=== PATIENT | male | born 1965 | race Two or more races ===

== ENCOUNTER 2021-01-13 10:42 | Outpatient (REF) | payer MEDICAID, SELFPAY | END 2021-01-13 10:43 | disposition home or self-care (01) | LOC: HO.LAB 10:42 | PROVIDERS: PCP Internal Medicine; Visit Provider Internal Medicine | DX: Z20.822 Contact with and (suspected) exposure to COVID-19 (principal) | CPT/HCPCS: C9803; U0003; U0005 ==

== ENCOUNTER 2022-09-11 09:19 | Inpatient (IN) | payer OTHER, MEDICAID, SELFPAY ==
[2022-09-11] VITALS (13 sets, daily range): BP systolic 146–177; BP diastolic 60–93; PULSE 80–89; RESP 13–20; TEMP 36.4–37.4; O2SAT 97–100; BMI 22.4; BMI 21.2
--- NOTE | ~2022-09-11 | CT_ITS ---
EXAMINATION: CT ABDOMEN AND PELVIS WITH CONTRAST CLINICAL INFORMATION: Pancreatitis and severe anemia COMPARISON: Previous CT of the abdomen and pelvis most recent July 2019 TECHNIQUE: Multidetector volumetric images were obtained from the superior aspect of the liver through the pubic symphysis following administration 85 mL of Omnipaque 350 intravenous contrast. Sagittal and coronal reformatted images were obtained on the technologist's workstation. Oral contrast: Yes This CT examination was performed using dose optimization techniques as appropriate, variously including the following: *Automated exposure control *Adjustment of mA and/or kV according to patient size (this includes techniques or standardized protocols for targeted exams where dose is matched to indication/reason for exam; i.e. extremities or head) *Use of iterative reconstruction technique DLP: 391 mGy-cm FINDINGS: LUNG BASES: The visualized lung bases are unremarkable. LIVER, GALLBLADDER, AND BILIARY TREE: The liver is normal in size, shape, and attenuation. No focal hepatic lesion or biliary ductal dilatation is present. The gallbladder is unremarkable with no evidence of radiopaque gallstones, gallbladder wall thickening, or obvious pericholecystic inflammatory changes. PANCREAS: There is fluid seen surrounding the pancreas, in the left anterior pararenal fascia and left paracolic gutters suggestive of acute pancreatitis. No evidence of pancreatic hemorrhage. SPLEEN: Unremarkable. ADRENAL GLANDS: Unremarkable. KIDNEYS AND URETERS: The kidneys are normal in size, shape, and attenuation. No hydronephrosis, hydroureter, or calculi seen. No perinephric stranding. BLADDER: Not optimally distended. GASTROINTESTINAL TRACT: Fluid-filled loops of small and large bowel suggestive of an ileus. Mild diverticulosis of the colon. The appendix is unremarkable. ABDOMINAL WALL: Small umbilical hernia containing fat. LYMPH NODES: Normal. VASCULAR: Unremarkable. PELVIC VISCERA: Unremarkable. OSSEOUS STRUCTURES: Mild degenerative changes of the spine and hip joints. CT/CT abdomen pelvis w IV con IMPRESSION: Acute pancreatitis. No evidence of hemorrhage. Generalized ileus. Fleischner guidelines were followed.
--- NOTE | 2022-09-11 09:27 | ED.ABDPAIN ---
HPI - Abdominal Pain General Chief Complaint: Abdominal Pain Stated Complaint: r upper quad pain appy per ems Time Seen by Provider: 09/11/22 09:26 Source: patient and EMS Mode of arrival: EMS Limitations: no limitations History of Present Illness HPI narrative: patient with a history of pancreatitis secondary to alcohol, had been sober for 3 years now drinking for the past week. MD elicited complaint: abdominal pain Pertinent past history: other (pancreatitis) Onset (ago): day(s) Pain Consistency: constant Location: epigastric Severity: moderate Quality: sharp Related Data Allergies Allergy/AdvReac Type Severity Reaction Status Date / Time ciprofloxacin [From CIPRO] Allergy Intermediate HIVES/ITCH Verified 09/11/22 10:13 Penicillins [PCN] Allergy Intermediate HIVES Verified 09/11/22 10:13 penicillin V Allergy Unknown Rash Verified 09/11/22 10:13 LOBSTER Allergy Severe SWELLING Uncoded 01/21/20 14:54 From CIPRO Allergy Intermediate HIVES/ITCH Uncoded 01/21/20 14:54 Review of Systems Review of Systems Yes all other systems are reviewed and are negative Gastrointestinal: Reports abdominal pain PMFSH Social History Social History Alcohol intake: former Smoked in Last 30 Days: No Advance Directives: Yes Advance Directives Information Provided: Yes Advance Directives on File: No Physical Exam ED Vital Signs: Vital Signs - 24 hr 09/11/22 09:24 09/11/22 10:59 09/11/22 13:32 Temperature 97.7 F 97.6 F Pulse Rate 83 86 83 Respiratory Rate 18 16 16 Blood Pressure 155/60 H 155/74 H 156/81 H Pulse Oximetry 100 100 99 Oxygen Delivery Method Room Air Room Air Room Air BMI result Body Mass Index 22.4 Const General: healthy appearing Nutritional Appearance: average body habitus Orientation/consciousness: oriented to person and patient oriented x3 Limitations: no limitations HENMT Head: Yes normal to inspection Ears: external ears normal General nose exam: Normal external nose present Mouth: Normal oral and palatal mucosa present and oropharynx normal Throat: Yes posterior oropharynx normal Eyes General: appearance normal, both eyes and all related structures Neck Neck: Yes normal visual inspection Chest Chest palpation & inspection: normal inspection of the chest Resp Auscultation: clear to auscultation bilaterally Cardio Jugular venous distension: no JVD Rate: regular rate Rhythm: regular rhythm Heart sounds: S1 normal heart sound present and S2 normal heart sound present GI Other: epigastric pain General: Yes no CVA tenderness Back/Spine/Pelvis Back: no CVA tenderness Skin General skin exam: no rashes or lesions noted Neuro General: oriented to person and patient oriented x3 Cranial nerves: Yes CN's II-XII intact bilaterally Motor exam (neuro): 5/5 motor strength present throughout Extrem General: Yes normal to inspection Psych Appearance: grossly normal Course Reevaluation(s) Reevaluation #1: stool is yellow guiac negative Time: 10:52 Reevaluation #2: CT scan acute pancreatitis, no source of bleeding will admit. I spent 40 minutes of critical care, with interventions, assessments, speaking to patient, consultants, and family. Time: 15:14 Medical Decision Making Differential Diagnosis Differential Diagnoses: The differential diagnosis associated with the presentation includes (pancreatitis, alcohol withdrawal, gI bleed, anemia) Admission/Observation Consideration of admission/observation: Escalation of care including admission/observation considered (upon arrival this patient with known history of pancreatitis was considered for admission) Consult Healthcare Provider Management of the patient was discussed with: Hospitalist Lab Data MDM Lab Attestation statement: I reviewed the patient's lab results. (noticed loss of blood, no active bleeding found) 09/11/22 09:52 09/11/22 09:52 Labs: Lab Results 09/11/22 09/11/22 09/11/22 Range/Units 09:52 09:52 10:55 WBC 8.2 (4.8-10.8) X10*3/uL RBC 3.57 L (4.60-5.80) X10*6/uL Hgb 5.7 L* (14.0-18.0) g/dl Hct 22.6 L (42.0-52.0) % MCV 63.3 L (80.0-98.0) fL MCH 16.0 L (27.0-33.0) pg MCHC 25.2 L (31.0-36.0) g/dl RDW 20.4 H (11.0-16.0) % Plt Count 274 (160-400) X10*3/uL MPV 9.7 (9.4-12.4) fL Immature Gran % (Auto) 0.2 (0.0-0.4) % Neut % (Auto) 71.9 (45-73) % Lymph % (Auto) 14.3 L (20-40) % [place] % (Auto) 9.3 (2-11) % Eos % (Auto) 3.9 (0-4) % Baso % (Auto) 0.4 (0-2) % Lymph # (Auto) 1.2 (1.2-4.9) X10*3/uL [place] # (Auto) 0.8 (0.1-1.2) X10*3/uL Eos # (Auto) 0.3 (0.0-0.4) X10*3/uL Baso # (Auto) 0.0 (0.0-0.2) X10*3/uL Abs Immat Gran (auto) 0.02 (0.00-0.03) X10*3/uL Absolute Neuts (auto) 5.9 (2.0-8.3) x10*3/uL Absolute Nucleated RBC 0.000 (0.0-0.012) X10*3/uL Nucleated RBC % (auto) 0.0 (0.0-0.2) /100WBC Sodium 136 (135-145) mmol/L Potassium 4.1 (3.3-5.1) mmol/L Chloride 103 (96-108) mmol/L Carbon Dioxide 26 (22-29) mmol/L Anion Gap 11 L (12-20) BUN 8 L (9-16) mg/dL Creatinine 0.72 (0.5-1.4) mg/dL Estim Creat Clear Calc 102.0 Estimated GFR > 60 Random Glucose 147 H (60-115) mg/dL Calcium 9.1 (8.4-10.2) mg/dL Total Bilirubin 0.4 (0.0-1.0) mg/dL AST 55 H (5-37) U/L ALT 23 (0-40) U/L Alkaline Phosphatase 74 (39-117) U/L Total Protein 8.1 H (6.5-8.0) g/dL Albumin 3.7 (3.5-5.0) g/dL Lipase 306 H (8-78) U/L Blood Type O Negative Antibody Screen NEGATIVE 09/11/22 Range/Units 10:55 WBC 9.4 (4.8-10.8) X10*3/uL RBC 3.58 L (4.60-5.80) X10*6/uL Hgb 5.8 L* (14.0-18.0) g/dl Hct 23.0 L (42.0-52.0) % MCV 64.2 L (80.0-98.0) fL MCH 16.2 L (27.0-33.0) pg MCHC 25.2 L (31.0-36.0) g/dl RDW 20.6 H (11.0-16.0) % Plt Count 277 (160-400) X10*3/uL MPV 9.8 (9.4-12.4) fL Immature Gran % (Auto) 0.4 (0.0-0.4) % Neut % (Auto) 71.0 (45-73) % Lymph % (Auto) 14.5 L (20-40) % [place] % (Auto) 10.1 (2-11) % Eos % (Auto) 3.6 (0-4) % Baso % (Auto) 0.4 (0-2) % Lymph # (Auto) 1.4 (1.2-4.9) X10*3/uL [place] # (Auto) 1.0 (0.1-1.2) X10*3/uL Eos # (Auto) 0.3 (0.0-0.4) X10*3/uL Baso # (Auto) 0.0 (0.0-0.2) X10*3/uL Abs Immat Gran (auto) 0.04 H (0.00-0.03) X10*3/uL Absolute Neuts (auto) 6.6 (2.0-8.3) x10*3/uL Absolute Nucleated RBC 0.000 (0.0-0.012) X10*3/uL Nucleated RBC % (auto) 0.0 (0.0-0.2) /100WBC Sodium (135-145) mmol/L Potassium (3.3-5.1) mmol/L Chloride (96-108) mmol/L Carbon Dioxide (22-29) mmol/L Anion Gap (12-20) BUN (9-16) mg/dL Creatinine (0.5-1.4) mg/dL Estim Creat Clear Calc Estimated GFR Random Glucose (60-115) mg/dL Calcium (8.4-10.2) mg/dL Total Bilirubin (0.0-1.0) mg/dL AST (5-37) U/L ALT (0-40) U/L Alkaline Phosphatase (39-117) U/L Total Protein (6.5-8.0) g/dL Albumin (3.5-5.0) g/dL Lipase (8-78) U/L Blood Type Antibody Screen Radiology Impression Discussion of test interpretation with radiology: I have reviewed the radiologist's reading. (CT shows acute pancreatitis no source of blood) Independent Historian Clinical information obtained from an independent historian. History obtained from or confirmed by: EMS Chronic Conditions Patient?s care impacted by: Other (alcoholism) Social Determinants Patient?s care significantly limited by Social Determinants of Health including: Alcoholism and drug addiction in family Medications Administered Discontinued Medications Generic Name Dose Route Start Last Admin Trade Name Tushar PRN Reason Stop Dose Admin Sodium Chloride 1,000 mls @ 500 mls/hr 09/11/22 09:45 09/11/22 12:23 Ns IVCONT 09/11/22 11:44 Infused .Q2H CAITLYN Infusion Iohexol 100 ml 09/11/22 13:51 09/11/22 13:51 Iohexol 350 Mg/Ml 100 Ml Infus..Btl IV 09/11/22 13:52 85 ml ONCE ONE Administration Morphine Sulfate 4 mg 09/11/22 09:38 09/11/22 10:16 Morphine Sulfate 4 Mg/Ml Cartridge IVPUSH 09/11/22 09:39 4 mg ONCE ONE Administration Protocol Morphine Sulfate 4 mg 09/11/22 12:54 09/11/22 12:58 Morphine Sulfate 4 Mg/Ml Cartridge IVPUSH 09/11/22 12:55 4 mg ONCE ONE Administration Protocol Pantoprazole Sodium 40 mg 09/11/22 09:38 09/11/22 10:16 Pantoprazole Sodium 40 Mg/10 Ml Vial IVPUSH 09/11/22 09:39 40 mg ONCE ONE Administration Discharge Plan Discharge Clinical Impression: Pancreatitis, Anemia Patient Disposition: Admitted As Inpatient
[2022-09-11 09:57] LABS: MANUAL DIFF FLAG NO
[2022-09-11 10:15] LABS: Basophils Percent Auto 0.4 % (0-2); Eosinophils Absolute Auto 0.3 X10*3/uL (0.0-0.4); Eosinophils Percent Auto 3.9 % (0-4); Hematocrit 22.6 % (42.0-52.0); Imm Gran Abs Auto 0.02 X10*3/uL (0.00-0.03); Imm Gran Pct Auto 0.2 % (0.0-0.4); Lymphocytes Absolute Auto 1.2 X10*3/uL (1.2-4.9); Lymphocytes Percent Auto 14.3 % (20-40); Mean Corpuscular HGB Conc 25.2 g/dl (31.0-36.0); Mean Corpuscular Volume 63.3 fL (80.0-98.0); Mean Platelet Volume 9.7 fL (9.4-12.4); Monocytes Absolute Auto 0.8 X10*3/uL (0.1-1.2); Monocytes Percent Auto 9.3 % (2-11); Neutrophils Absolute Auto 5.9 x10*3/uL (2.0-8.3); Neutrophils Percent Auto 71.9 % (45-73); Platelet Count 274 X10*3/uL (160-400); Red Blood Count 3.57 X10*6/uL (4.60-5.80); Red Cell Distribution Width 20.4 % (11.0-16.0); White Blood Count 8.2 X10*3/uL (4.8-10.8)
[2022-09-11] MEDS: Pantoprazole Sodium 40 MG/10 ML VIAL IVPUSH ×2 (10:16→17:00)
[2022-09-11] MEDS: 0.9 % Sodium Chloride 1,000 ML 500 ML IVCONT (10:16)
[2022-09-11] MEDS: Morphine Sulfate 4 MG/ML CARTRIDGE IVPUSH ×2 (10:16→12:58)
[2022-09-11 10:17] LABS: Hemoglobin 5.7 g/dl (14.0-18.0)
[2022-09-11 11:01] LABS: MANUAL DIFF FLAG NO
[2022-09-11 11:07] LABS: Basophils Percent Auto 0.4 % (0-2); Eosinophils Absolute Auto 0.3 X10*3/uL (0.0-0.4); Eosinophils Percent Auto 3.6 % (0-4); Imm Gran Abs Auto 0.04 X10*3/uL (0.00-0.03); Imm Gran Pct Auto 0.4 % (0.0-0.4); Lymphocytes Absolute Auto 1.4 X10*3/uL (1.2-4.9); Lymphocytes Percent Auto 14.5 % (20-40); Mean Corpuscular HGB Conc 25.2 g/dl (31.0-36.0); Mean Corpuscular Hemoglobin 16.2 pg (27.0-33.0); Mean Platelet Volume 9.8 fL (9.4-12.4); Monocytes Percent Auto 10.1 % (2-11); Neutrophils Absolute Auto 6.6 x10*3/uL (2.0-8.3); Platelet Count 277 X10*3/uL (160-400); Red Blood Count 3.58 X10*6/uL (4.60-5.80); Red Cell Distribution Width 20.6 % (11.0-16.0); White Blood Count 9.4 X10*3/uL (4.8-10.8)
[2022-09-11 11:09] LABS: Hemoglobin 5.8 g/dl (14.0-18.0); Mean Corpuscular Volume 64.2 fL (80.0-98.0)
[2022-09-11 11:59] LABS: Alanine Aminotransferase 23 U/L (0-40); Albumin Level 3.7 g/dL (3.5-5.0); Alkaline Phosphatase 74 U/L (39-117); Anion Gap 11 (12-20); Aspartate Amino Transferase 55 U/L (5-37); Bilirubin Total 0.4 mg/dL (0.0-1.0); Blood Urea Nitrogen 8 mg/dL (9-16); Calcium 9.1 mg/dL (8.4-10.2); Carbon Dioxide 26 mmol/L (22-29); Chloride 103 mmol/L (96-108); Estimated Glomerular Filt Rate > 60; Glucose Random 147 mg/dL (60-115); Potassium 4.1 mmol/L (3.3-5.1); Sodium 136 mmol/L (135-145); Total Protein 8.1 g/dL (6.5-8.0)
[2022-09-11 12:15] LABS: Lipase 306 U/L (8-78)
--- NOTE | 2022-09-11 12:24 | PC.NURSE ---
Pt alert and oriented, resp even and unlabored. 2 IVs established, consent for blood signed. Awaiting blood for transfusion. Complaining of 8/ abd pain states morphine only works for so long
[2022-09-11] MEDS: iohexoL 350 MG/ML 100 ML INFUS..BTL IV (13:51)
--- NOTE | 2022-09-11 14:34 | MHC.EDTECH ---
Assisted pt to ambulate to bathroom
--- NOTE | 2022-09-11 15:41 | PHA.MEDREC ---
Pharmacy Consult ? Medication Reconciliation Pharmacy has completed the medication reconciliation.
--- NOTE | 2022-09-11 15:43 | PM.EVENT ---
Event Note Date of Service: 09/19/22 Event Note: The patient was seen and evaluated with LAUREL Wilson. I agree with her note, assessment and plan with the following. A 56 yeats old male with PMH of alcohol abuse presents to ED with abdomianl pain. found to have an evidence of alcoholic pancreatitis along with acute on chronic anemia. Start IVF Nausea and pain meds CIWA Iron profile Transfuse 2 units of blood GI eval Rest of evaluations by PA note. Time Spent With Patient Time: Total time managing care of this patient today ____ minutes.
[2022-09-11 15:49] LABS: Iron 12 mcg/dL (45-160); Percent Iron Saturation 3 % (15-50); Total Iron Binding Capacity 433 mcg/dL (228-428); Unsaturated Iron Binding 421 ug/dL
[2022-09-11] MEDS: HYDROmorphone HCl 0.5 MG/0.5 ML SYRINGE 0.25 MG IVPUSH ×3 (15:59→22:09)
--- NOTE | 2022-09-11 16:02 | PM.IMHP ---
History of Present Illness Date of Service: 09/11/22 Attending physician on admission: Bibiana Pelaez Chief Complaint: abd pain 56 year old male with history alcohol use disorder, history pancreatitis, and GERD presented to the ED earlier today with his (Thu) and daughter (Lashae) for evaluation of diffuse abdominal pain with nausea and vomiting onoging for 4 days. Patient had been sober from alcohol for 3 years but relapsed 3 weeks ago. Has been consuming 1 drink daily but about a 6 pack over the weekend, last drink was saturday. Denies withdrawal symptoms. Reports abd pain has been worsening and is now severe, tearful and clutching abdomen during exam. On arrival mildly hypertensive at 156/81, vitals otherwsie stable. No leukocytosis. H/H 5.8/23%, MCV 64.2%, iron 12, TIBC 433, %satruation 3%. Total bili 0.4, AST 55, ALT 23, lipase 306. CT abdomen/pelvis showing acute pancreatitis but no evidence of hemorrhage. Also generalized ileus. Patient denies any fevers, chills, constipation, diarrhea, melena, hematochezia, shortness of breath, lightheadedness, weakness, chest pain. He denies having ever had a colonoscopy. While in the ED, pain managed with 4 mg IV morphine which patient states has not been helpful for more than a brief period. Has also received 1 L IVF, IV pantoprazole. Review of Systems Review of Systems: General: No fevers, malaise, unintentional weight loss HEENT: No blurred vision, diplopia. No sore throat, nasal congestion, rhinorrhea, sinus pain, ear pain Cardiovascular: No chest pain, palpitations, or leg edema Respiratory: No shortness of breath, wheezing, cough GI: +abd pain, +n/v. No diarrhea, constipation, melena, hematochezia : No dysuria, hematuria, increased urinary frequency, decreased urinary output MSK: No myalgia, back pain Neuro: No headaches, weakness, paresthesias Skin: No rashes or lesions [facility] Medical History Alcohol use disorder Social History (Updated 09/11/22 @ 16:16 by LAUREL Wilson) Alcohol intake: current Alcohol intake frequency: 0-2 drinks per day Smoked in Last 30 Days: No Advance Directives: Yes Advance Directives Information Provided: Yes Advance Directives on File: No Meds Allergies Allergy/AdvReac Type Severity Reaction Status Date / Time ciprofloxacin [From CIPRO] Allergy Intermediate HIVES/ITCH Verified 09/11/22 10:13 Penicillins [PCN] Allergy Intermediate HIVES Verified 09/11/22 10:13 penicillin V Allergy Unknown Rash Verified 09/11/22 10:13 LOBSTER Allergy Severe SWELLING Uncoded 01/21/20 14:54 From CIPRO Allergy Intermediate HIVES/ITCH Uncoded 01/21/20 14:54 Active Medications: Current Medications Acetaminophen (Acetaminophen 325 Mg Tablet) 650 mg PO Q6H PRN PRN Reason: Pain, Mild (Pain Scale 1-3) Docusate Sodium (Docusate Sodium 100 Mg Capsule) 100 mg PO DAILY PRN PRN Reason: Constipation Hydromorphone HCl (Hydromorphone Hcl 0.5 Mg/0.5 Ml Syringe) 0.25 mg IVPUSH Q3H PRN; Protocol PRN Reason: Pain, Severe (Pain Scale 7-10) Last Admin: 09/11/22 15:59 Dose: 0.25 mg Lactated Ringer's (Lr) 1,000 mls @ 150 mls/hr IVCONT .Q6H40M CAITLYN Ondansetron HCl (Ondansetron Hcl 4 Mg/2 Ml Vial) 4 mg IVPUSH Q8H PRN PRN Reason: Nausea and Vomiting Oxycodone HCl (Oxycodone Hcl Immed Release 5 Mg Tablet) 5 mg PO Q6H PRN PRN Reason: Pain, Moderate(Pain Scale 4-6) Home Medications Medication Instructions Recorded Confirmed Last Taken Type omeprazole magnesium 20 mg 20 mg PO DAILY 09/11/22 09/11/22 09/10/22 History tablet,delayed release (Prilosec OTC) vitamin B complex 1 tab PO DAILY 09/11/22 09/11/22 09/10/22 History Physical Exam Vital Signs and Narrative: Vital Signs: Last Vital Signs Temp 97.6 F 09/11/22 10:59 Pulse 83 09/11/22 13:32 Resp 16 09/11/22 13:32 BP 156/81 H 09/11/22 13:32 Pulse Ox 99 09/11/22 13:32 O2 Del Method Room Air 09/11/22 13:32 BMI result Body Mass Index 22.4 Constitutional - Awake and Alert, in moderate distress 2/2 pain, tearful Eyes - PERRLA, EOMI Cardiovascular - S1S2, RRR, No edema Respiratory - Normal lung expansion, Normal respiratory effort, No respiratory distress, CTA bilaterally Gastrointestinal - softly distended, diffusely tender with voluntary guarding, no rebound. +BS - No CVA tenderness Extremities - no calf tenderness bilaterally, no swelling Skin - Warm/Dry Neurological - Alert & oriented x3 Results Labs 09/11/22 10:55 09/11/22 09:52 Labs: Laboratory Results - last 24 hr 09/11/22 09/11/22 09/11/22 09:52 09:52 10:55 MCV 63.3 L MCH 16.0 L MCHC 25.2 L RDW 20.4 H Plt Count 274 MPV 9.7 Immature Gran % (Auto) 0.2 Neut % (Auto) 71.9 Lymph % (Auto) 14.3 L [place] % (Auto) 9.3 Eos % (Auto) 3.9 Baso % (Auto) 0.4 Lymph # (Auto) 1.2 [place] # (Auto) 0.8 Eos # (Auto) 0.3 Baso # (Auto) 0.0 Abs Immat Gran (auto) 0.02 Absolute Neuts (auto) 5.9 Absolute Nucleated RBC 0.000 Nucleated RBC % (auto) 0.0 Anion Gap 11 L Estim Creat Clear Calc 102.0 Estimated GFR > 60 Random Glucose 147 H Calcium 9.1 Iron 12 L TIBC 433 H % Saturation 3 L Unsat Iron Binding 421 Total Bilirubin 0.4 AST 55 H ALT 23 Alkaline Phosphatase 74 Total Protein 8.1 H Albumin 3.7 Lipase 306 H Blood Type O Negative Antibody Screen NEGATIVE Crossmatch See Detail 09/11/22 10:55 MCV 64.2 L MCH 16.2 L MCHC 25.2 L RDW 20.6 H Plt Count 277 MPV 9.8 Immature Gran % (Auto) 0.4 Neut % (Auto) 71.0 Lymph % (Auto) 14.5 L [place] % (Auto) 10.1 Eos % (Auto) 3.6 Baso % (Auto) 0.4 Lymph # (Auto) 1.4 [place] # (Auto) 1.0 Eos # (Auto) 0.3 Baso # (Auto) 0.0 Abs Immat Gran (auto) 0.04 H Absolute Neuts (auto) 6.6 Absolute Nucleated RBC 0.000 Nucleated RBC % (auto) 0.0 Anion Gap Estim Creat Clear Calc Estimated GFR Random Glucose Calcium Iron TIBC % Saturation Unsat Iron Binding Total Bilirubin AST ALT Alkaline Phosphatase Total Protein Albumin Lipase Blood Type Antibody Screen Crossmatch Imaging Radiologist's Impressions: Impressions Abdomen/Pelvis CT 09/11/22 13:49 IMPRESSION: Acute pancreatitis. No evidence of hemorrhage. Generalized ileus. Fleischner guidelines were followed. Assessment and Plan (1) Pancreatitis: Status: Acute (2) Alcohol use disorder: Status: Acute Plan 56 year old male with history alcohol use disorder, history pancreatitis, and GERD admitted for acute alcoholic pancreatitis with chronic blood loss anemia. #Acute alcoholic pancreatitis -Sober x 3 years, relapsed 3 weeks ago -CT abd/pelvis showing acute pancreatitis -Lipase 306 -Aggressive IVF with LR @@150ml/hr -Pain management on pain scale with tylenol/oxycodone/dilaudid -ondansetron prn -NPO, advance as tolerated #Alcohol use disorder -MOnitor on CIWA -No evidence of withdrawal at this time -Addiction medicine consult #Iron deficiency anemia- likely related to chronic GI bleeding (probably lower) -Will continue IV PPI for now -Transfused 2 units in ED -Guiac negative -has never had colonoscopy, appreciate GI input -Follow CBC -Keep NPO as above #GERD -continue ppi DVT prophylaxis- SCPs full code pt requires inpt stay at least 2 midnights for management of acute pancreatitis requiring aggressive IVF, IV pain control, and diet advancement Time Spent With Patient Time: Total time managing care of this patient today ____ minutes. Quality Stroke Does the patient have a stroke diagnosis?: No VTE Prior VTE?: No VTE Risk Level:: Medical - moderate - high VTE Device Contraindication: N/A - Device Ordered VTE Drug Contraindication: Treatment Not Indicated
[2022-09-11] MEDS: oxyCODONE HCl Immed Release 5 MG TABLET PO ×2 (17:00→23:55)
[2022-09-11] MEDS: Lactated Ringers 1,000 ML 150 ML IVCONT ×2 (17:48→23:49)
[2022-09-11] MEDS: HYDROmorphone HCl 1 MG/ML SYRINGE IVPUSH (22:52)
[2022-09-12] VITALS (9 sets, daily range): BP systolic 156–177; BP diastolic 78–93; PULSE 82–89; RESP 16–20; TEMP 36.9–37.5; O2SAT 96–100
[2022-09-12] MEDS: HYDROmorphone HCl 1 MG/ML SYRINGE 2 MG IVPUSH (01:39)
[2022-09-12] MEDS: diphenhydrAMINE HCL 50 MG/ML VIAL IVPUSH ×2 (01:52→23:05)
[2022-09-12] MEDS: HYDROmorphone HCl 1 MG/ML SYRINGE IVPUSH ×6 (05:01→23:07)
[2022-09-12] MEDS: Pantoprazole Sodium 40 MG/10 ML VIAL IVPUSH ×2 (05:02→17:19)
[2022-09-12] MEDS: Lactated Ringers 1,000 ML 150 ML IVCONT ×3 (05:03→17:37)
[2022-09-12 06:25] LABS: Basophils Percent Auto 0.4 % (0-2); Eosinophils Absolute Auto 0.3 X10*3/uL (0.0-0.4); Eosinophils Percent Auto 2.3 % (0-4); Hematocrit 26.6 % (42.0-52.0); Hemoglobin 7.5 g/dl (14.0-18.0); Imm Gran Abs Auto 0.05 X10*3/uL (0.00-0.03); Imm Gran Pct Auto 0.5 % (0.0-0.4); Lymphocytes Absolute Auto 1.6 X10*3/uL (1.2-4.9); Lymphocytes Percent Auto 14.4 % (20-40); MANUAL DIFF FLAG SCAN; Mean Corpuscular HGB Conc 28.2 g/dl (31.0-36.0); Mean Corpuscular Hemoglobin 18.9 pg (27.0-33.0); Mean Platelet Volume 10.2 fL (9.4-12.4); Monocytes Absolute Auto 1.1 X10*3/uL (0.1-1.2); Monocytes Percent Auto 10.1 % (2-11); NRBC Pct Auto 0.4 /100WBC (0.0-0.2); Neutrophils Percent Auto 72.3 % (45-73); PLT CLUMP 1; Red Blood Count 3.97 X10*6/uL (4.60-5.80); Red Cell Distribution Width 24.4 % (11.0-16.0); SCAN SMEAR FLAG 1
--- NOTE | 2022-09-12 06:30 | PM.GICN ---
History of Present Illness Data of Consult Service Date: 09/12/22 Requesting physician: Melissa Amor Primary Care Provider: Guido Joe MD HPI Reason for consult: iron def anemia 56 year old male with history alcohol use disorder, history of pancreatitis, and GERD who I am seeing for assessment for BONNIE He initially came to ED for for evaluation of severe 10/10 diffuse, burning abdominal pain going into the back with nausea and bilious vomiting ongoing for 4 days.Has been consuming 1 drink daily but about a 6 pack over the weekend, last drink was saturday. No relieving or exacerbating factors to pain Patient does admit to taking advil daily for the last year or so for various pains. Patient denies any fevers, chills, constipation, diarrhea, melena, hematochezia, shortness of breath, lightheadedness, weakness, chest pain.? He denies having ever had a colonoscopy LABS: No leukocytosis. H/H 5.8/23%, MCV 64.2%, iron 12, TIBC 433, saturation 3%. Total bili 0.4, AST 55, ALT 23, lipase 306.? IMAGING: CT abdomen/pelvis showing acute pancreatitis but no evidence of hemorrhage with generalized ileus.? PMFSH Past Medical History Medical History Alcohol use disorder Family History Pertinent family history: no FH of CRC Social History Social History Household Members: Spouse Housing: Apartment Do you presently have visiting nurse or other home services: No Alcohol intake: current Alcohol intake frequency: 0-2 drinks per day Patient Tobacco Use Status: Never used Tobacco Smoked in Last 30 Days: No Use of substances other than those prescribed or required for medical reasons: No Currently Displaying Signs/Symptoms of Drug Intoxication Withdrawal: No Have you been hit, kicked, punched, or otherwise hurt by someone within the past year? If so, by whom?: No Do you feel safe in your current relationship?: Yes Is there a partner from a previous relationship who is making you feel unsafe now?: No Are you made to feel afraid or neglected: No Yazidism Healthcare Practices: n/a Advance Directives: Yes Advance Directives Information Provided: Yes Advance Directives on File: No Advance Directives Date on File: 09/11/22 Do you have thoughts of harming others: None Do you have a plan to hurt others: No Plan Recently lost weight without trying: No How much weight loss: Not applicable Eating poorly because of decreased appetite: No Nutrition screen score: 0 Nutrition Risks: No Nutritional Risk Poor oral hygiene: No service: No Current occupational status: employed Meds Allergies Allergy/AdvReac Type Severity Reaction Status Date / Time ciprofloxacin [From CIPRO] Allergy Intermediate HIVES/ITCH Verified 09/11/22 10:13 Penicillins [PCN] Allergy Intermediate HIVES Verified 09/11/22 10:13 penicillin V Allergy Unknown Rash Verified 09/11/22 10:13 LOBSTER Allergy Severe SWELLING Uncoded 01/21/20 14:54 From CIPRO Allergy Intermediate HIVES/ITCH Uncoded 01/21/20 14:54 Active Medications: Current Medications Acetaminophen (Acetaminophen 325 Mg Tablet) 650 mg PO Q6H PRN PRN Reason: Pain, Mild (Pain Scale 1-3) Docusate Sodium (Docusate Sodium 100 Mg Capsule) 100 mg PO DAILY PRN PRN Reason: Constipation Folic Acid (Folic Acid 1 Mg Tablet) 1 mg PO DAILY [facility] Hydromorphone HCl (Hydromorphone Hcl 1 Mg/Ml Syringe) 1 mg IVPUSH Q3H PRN; Protocol PRN Reason: Pain, Severe (Pain Scale 7-10) Last Admin: 09/12/22 05:01 Dose: 1 mg Lactated Ringer's (Lr) 1,000 mls @ 150 mls/hr IVCONT .Q6H40M [facility] Last Admin: 09/12/22 05:03 Dose: 150 mls/hr Multivitamins/Vitamin C (Multivitamin Tablet) 1 tab PO DAILY [facility] Ondansetron HCl (Ondansetron Hcl 4 Mg/2 Ml Vial) 4 mg IVPUSH Q8H PRN PRN Reason: Nausea and Vomiting Oxycodone HCl (Oxycodone Hcl Immed Release 5 Mg Tablet) 5 mg PO Q4H PRN PRN Reason: Pain, Moderate(Pain Scale 4-6) Last Admin: 09/11/22 23:55 Dose: 5 mg Pantoprazole Sodium (Pantoprazole Sodium 40 Mg/10 Ml Vial) 40 mg IVPUSH BID@0630,1630 [facility] Last Admin: 09/12/22 05:02 Dose: 40 mg Thiamine HCl (Thiamine Hcl 100 Mg Tablet) 100 mg PO DAILY [facility] Home Medications Medication Instructions Recorded Confirmed Last Taken Type omeprazole magnesium 20 mg 20 mg PO DAILY 09/11/22 09/11/22 09/10/22 History tablet,delayed release (Prilosec OTC) vitamin B complex 1 tab PO DAILY 09/11/22 09/11/22 09/10/22 History Physical Exam Vital Signs: Vital Signs: Last Vital Signs Temp 99.5 F 09/12/22 04:00 Pulse 86 09/12/22 04:00 Resp 20 09/12/22 00:03 BP 159/86 H 09/12/22 04:00 Pulse Ox 96 09/12/22 04:00 O2 Del Method Room Air 09/12/22 04:00 BMI result Body Mass Index 21.2 EXAM: GENERAL: The patient is well developed and nontoxic. VITAL SIGNS:see workflow HEENT: Nonicteric sclerae, PERRLA, EOMI. Oropharynx clear. Moist mucous membranes. Conjunctivae appear well perfused. No thyroid mass. CHEST: Chest wall is nontender. HEART: Regular rate and rhythm without murmurs. LUNGS: Clear to auscultation bilaterally. ABDOMEN: Soft, positive bowel sounds, tender epigastrium, no organomegaly.no flank tenderness SKIN: No rash, no excessive bruising, petechiae, or purpura. NEUROLOGIC: Cranial nerves II-XII intact without motor/sensory deficit. Psych: Appearance: grossly normal Results Labs 09/11/22 10:55 09/11/22 09:52 Labs: Short CBC 09/11/22 09/11/22 Range/Units 09:52 10:55 WBC 8.2 9.4 (4.8-10.8) X10*3/uL Hgb 5.7 L* 5.8 L* (14.0-18.0) g/dl Hct 22.6 L 23.0 L (42.0-52.0) % Plt Count 274 277 (160-400) X10*3/uL BMP 09/11/22 09:52 Sodium 136 Potassium 4.1 Chloride 103 Carbon Dioxide 26 BUN 8 L Creatinine 0.72 Calcium 9.1 Liver Function 09/11/22 Range/Units 09:52 Total Bilirubin 0.4 (0.0-1.0) mg/dL AST 55 H (5-37) U/L ALT 23 (0-40) U/L Alkaline Phosphatase 74 (39-117) U/L Albumin 3.7 (3.5-5.0) g/dL Imaging CT scan - abdomen: My impression: atherosclerosis, pancreatitis, and stranding Assessment and Plan (1) Pancreatitis: Status: Acute (2) Alcohol use disorder: Status: Acute (3) Anemia: Qualifiers: Anemia type: iron deficiency Status: Acute Plan 1/ Acute pancreatitis, 2/2 alcohol use 2/ Iron def anemia, with microcytic anemia compatible with low level chronic blood loss, HGB went up appropriately with PRBC, may have NSAID induced damage to GI tract, PUD, neoplasia PLAN: /1/ LR with analgesia, allow PO diet when able 2/ will need EGD and colonoscopy either as i/p or early o/p once the pancreatitis is resolved ---pls let me know the disposition timing so we can arrange as appropriate Time Spent With Patient Time: Total time managing care of this patient today ____ minutes. Procedures Date of Service Date of Service: 09/12/22
[2022-09-12 06:46] LABS: SLIDE REVIEW VERIFIED
[2022-09-12 06:52] LABS: Anion Gap 12 (12-20); Blood Urea Nitrogen 5 mg/dL (9-16); Calcium 8.5 mg/dL (8.4-10.2); Carbon Dioxide 22 mmol/L (22-29); Chloride 105 mmol/L (96-108); Creatinine Clr Calc Pharmacy 124.1; Estimated Glomerular Filt Rate > 60; Glucose Random 103 mg/dL (60-115); Potassium 3.9 mmol/L (3.3-5.1); Sodium 135 mmol/L (135-145)
[2022-09-12] MEDS: Thiamine HCL 100 MG TABLET PO (08:17)
[2022-09-12] MEDS: Multivitamin TABLET 1 TAB PO (08:17)
[2022-09-12] MEDS: Folic Acid 1 MG TABLET PO (08:17)
--- NOTE | 2022-09-12 08:40 | MHC.CM.PN ---
CM met with Patient at bedside. Patient lives in an apartment with his and he required no services nor DME [employer]. Home self care vs Recovery Team intervention r/t ETOH is the tentative plan and CM has initiated and will follow for dc planning. Patient has received J&J/Covid vax and his PCP is Dr. Guido Joe.
--- NOTE | 2022-09-12 11:10 | P.PNIM_ITS ---
Subjective Subjective Date of Service: 09/12/22 Interval History: no appetitie Physical Exam Vital Signs: Vital Signs: Last Vital Signs Temp 98.7 F 09/12/22 07:32 Pulse 88 09/12/22 07:32 Resp 20 09/12/22 08:17 BP 156/78 H 09/12/22 07:32 Pulse Ox 97 09/12/22 07:32 O2 Del Method Room Air 09/12/22 07:32 BMI result Body Mass Index 21.2 abd tender, non distended, no obvious [facility] Objective Data Active Medications Acetaminophen (Acetaminophen 325 Mg Tablet) 650 mg PO Q6H PRN PRN Reason: Pain, Mild (Pain Scale 1-3) Docusate Sodium (Docusate Sodium 100 Mg Capsule) 100 mg PO DAILY PRN PRN Reason: Constipation Folic Acid (Folic Acid 1 Mg Tablet) 1 mg PO DAILY [facility] Last Admin: 09/12/22 08:17 Dose: 1 mg Documented By: ALMITA Hydromorphone HCl (Hydromorphone Hcl 1 Mg/Ml Syringe) 1 mg IVPUSH Q3H PRN; Protocol PRN Reason: Pain, Severe (Pain Scale 7-10) Last Admin: 09/12/22 08:17 Dose: 1 mg Documented By: ALMITA Lactated Ringer's (Lr) 1,000 mls @ 150 mls/hr IVCONT .Q6H40M [facility] Last Admin: 09/12/22 05:03 Dose: 150 mls/hr Documented By: GAETANO Multivitamins/Vitamin C (Multivitamin Tablet) 1 tab PO DAILY [facility] Last Admin: 09/12/22 08:17 Dose: 1 tab Documented By: ALMITA Ondansetron HCl (Ondansetron Hcl 4 Mg/2 Ml Vial) 4 mg IVPUSH Q8H PRN PRN Reason: Nausea and Vomiting Oxycodone HCl (Oxycodone Hcl Immed Release 5 Mg Tablet) 5 mg PO Q4H PRN PRN Reason: Pain, Moderate(Pain Scale 4-6) Last Admin: 09/11/22 23:55 Dose: 5 mg Documented By: GAETANO Pantoprazole Sodium (Pantoprazole Sodium 40 Mg/10 Ml Vial) 40 mg IVPUSH BID@0630,1630 [facility] Last Admin: 09/12/22 05:02 Dose: 40 mg Documented By: GAETANO Thiamine HCl (Thiamine Hcl 100 Mg Tablet) 100 mg PO DAILY [facility] Last Admin: 09/12/22 08:17 Dose: 100 mg Documented By: ALMITA Labs 09/12/22 05:52 09/12/22 05:52 Labs: Laboratory Results - last 24 hr 09/11/22 09/11/22 09/11/22 09:52 09:52 10:55 MCV MCH MCHC RDW Plt Count MPV Immature Gran % (Auto) Neut % (Auto) Lymph % (Auto) [place] % (Auto) Eos % (Auto) Baso % (Auto) Lymph # (Auto) [place] # (Auto) Eos # (Auto) Baso # (Auto) Abs Immat Gran (auto) Absolute Neuts (auto) Absolute Nucleated RBC Nucleated RBC % (auto) Smear Tech's Comments Smear Path Review SEE NOTE Anion Gap 11 L Estim Creat Clear Calc 102.0 Estimated GFR > 60 Random Glucose 147 H Calcium 9.1 Iron 12 L TIBC 433 H % Saturation 3 L Unsat Iron Binding 421 Total Bilirubin 0.4 AST 55 H ALT 23 Alkaline Phosphatase 74 Total Protein 8.1 H Albumin 3.7 Lipase 306 H Blood Type O Negative Antibody Screen NEGATIVE Crossmatch See Detail 09/11/22 09/12/22 09/12/22 10:55 05:52 05:52 MCV 64.2 L 67.0 L MCH 16.2 L 18.9 L MCHC 25.2 L 28.2 L RDW 20.6 H 24.4 H Plt Count 277 TNP MPV 9.8 10.2 Immature Gran % (Auto) 0.4 0.5 H Neut % (Auto) 71.0 72.3 Lymph % (Auto) 14.5 L 14.4 L [place] % (Auto) 10.1 10.1 Eos % (Auto) 3.6 2.3 Baso % (Auto) 0.4 0.4 Lymph # (Auto) 1.4 1.6 [place] # (Auto) 1.0 1.1 Eos # (Auto) 0.3 0.3 Baso # (Auto) 0.0 0.0 Abs Immat Gran (auto) 0.04 H 0.05 H Absolute Neuts (auto) 6.6 8.0 Absolute Nucleated RBC 0.000 0.040 H Nucleated RBC % (auto) 0.0 0.4 H Smear Tech's Comments VERIFIED Smear Path Review Anion Gap 12 Estim Creat Clear Calc 124.1 Estimated GFR > 60 Random Glucose 103 Calcium 8.5 D Iron TIBC % Saturation Unsat Iron Binding Total Bilirubin AST ALT Alkaline Phosphatase Total Protein Albumin Lipase Blood Type Antibody Screen Crossmatch Assessment and Plan (1) Pancreatitis: Status: Acute Plan 56M PMH alcohol dependence, history of pancreatitis, and GERD presented with abdominal pain, found to have acute pancreatitis and significant iron deficiency anemia Acute alcoholic pancreatitis Sober x 3 years, relapsed [address] abd/pelvis showing acute pancreatitis Aggressive IVF with LR @@150ml/hr Pain management still no appetite, still npo etoh dependence Monitor on CIWA No evidence of withdrawal at this time Addiction medicine Iron deficiency anemia- likely related to chronic GI bleeding continue IV PPI for now Transfused 2 units in ED Guiac negative GI evalt Follow CBC DVT prophylaxis- SCPs due to severe anemia full code reason for continued hospitalization: not tolerating po Time Spent With Patient Time: Total time managing care of this patient today ____ minutes. Quality Stroke Does the patient have a stroke diagnosis?: No VTE Prior VTE?: No VTE Risk Level:: Medical - moderate - high VTE Device Contraindication: N/A - Device Ordered VTE Drug Contraindication: Treatment Not Indicated
--- NOTE | 2022-09-12 13:19 | MHC.RECOVRN ---
Met with pt in 450 after consult placed to Addiction Medicine. Pt sitting in bed, awake, alert, difficult to engage in conversation due to reported pain r/t pancreatitis. Pt reports drinking alcohol, one [employer], daily at lunch. Pt reports hx hard alcohol use, not current. Pt reports drinking beer, a 6 pack daily, but found his tolerance increased so switched to [employer]. Pt difficult to obtain hx from as he frequently redirects conversation back to pain and pain management. During conversation, pt reports using illicit Suboxone, unable to quantify amount, states little pieces. Pt does endorse opioid withdrawal symptoms when not taking Suboxone. Pt also reports cocaine use. Discussed outpatient support, including the [facility]3]. Pt ambivalent regarding being connected to recovery support. Pt open to meeting with Abril Hatfield APRN, to further discuss substance use and options for further support. Discussed with Abril Hatfield APRN.
--- NOTE | 2022-09-12 15:44 | P.EN_ITS ---
Event Note Date of Service: 09/12/22 Event Note: Addiciton follow up This comic book writer attempted to meet with patient regarding disclosure to RN earlier that he has been taking non prescribed suboxone. present in room, this comic book writer asked patient regarding consent to discuss health issues in front of , patient requested this comic book writer return in the morning. Time Spent With Patient Time: Total time managing care of this patient today ____ minutes.
--- NOTE | 2022-09-12 15:44 | PM.EVENT ---
Event Note Date of Service: 09/12/22 Event Note: Addiciton follow up This auto service writer attempted to meet with patient regarding disclosure to RN earlier that he has been taking non prescribed suboxone. present in room, this auto service writer asked patient regarding consent to discuss health issues in front of , patient requested this auto service writer return in the morning. Time Spent With Patient Time: Total time managing care of this patient today ____ minutes.
[2022-09-12] MEDS: oxyCODONE HCl Immed Release 5 MG TABLET PO (17:19)
--- NOTE | 2022-09-12 18:29 | PC.NURSE ---
pt currently refusing Bed and chair alrm. Pt educated on need for fall prevention measures, but is still refusing. aware.
[2022-09-13] VITALS: BP 153/74; PULSE 74; RESP 16; TEMP 37.5; O2SAT 97
[2022-09-13] MEDS: Lactated Ringers 1,000 ML 150 ML IVCONT ×3 (00:23→12:21)
[2022-09-13 03:24] VITALS: BP 158/78; PULSE 82; RESP 16; TEMP 36.7; O2SAT 97
[2022-09-13] MEDS: HYDROmorphone HCl 1 MG/ML SYRINGE IVPUSH ×6 (03:30→22:39)
[2022-09-13] MEDS: Pantoprazole Sodium 40 MG/10 ML VIAL IVPUSH (05:33)
[2022-09-13] MEDS: oxyCODONE HCl Immed Release 5 MG TABLET PO ×4 (05:37→21:54)
[2022-09-13 06:34] LABS: Hematocrit 26.1 % (42.0-52.0); Hemoglobin 7.3 g/dl (14.0-18.0); Mean Corpuscular Hemoglobin 18.9 pg (27.0-33.0); Mean Corpuscular Volume 67.6 fL (80.0-98.0); Mean Platelet Volume 9.9 fL (9.4-12.4); NRBC Pct Auto 0.3 /100WBC (0.0-0.2); PLT CLUMP 1; Red Blood Count 3.86 X10*6/uL (4.60-5.80); Red Cell Distribution Width 25.2 % (11.0-16.0)
[2022-09-13 06:35] LABS: White Blood Count 8.7 X10*3/uL (4.8-10.8)
[2022-09-13 06:50] LABS: Alanine Aminotransferase 16 U/L (0-40); Albumin Level 3.2 g/dL (3.5-5.0); Alkaline Phosphatase 60 U/L (39-117); Anion Gap 12 (12-20); Aspartate Amino Transferase 21 U/L (5-37); Bilirubin Direct 0.2 mg/dL (0.0-0.5); Bilirubin Total 0.5 mg/dL (0.0-1.0); Blood Urea Nitrogen 6 mg/dL (9-16); Calcium 8.4 mg/dL (8.4-10.2); Carbon Dioxide 23 mmol/L (22-29); Chloride 105 mmol/L (96-108); Creatinine Clr Calc Pharmacy 117.8; Estimated Glomerular Filt Rate > 60; Glucose Fasting 65 mg/dL (60-99); Magnesium 1.8 mg/dL (1.6-2.6); Potassium 3.7 mmol/L (3.3-5.1); Sodium 136 mmol/L (135-145); Total Protein 6.9 g/dL (6.5-8.0)
[2022-09-13 07:04] LABS: Platelet Count 234 X10*3/uL (160-400)
[2022-09-13 07:25] VITALS: BP 154/78; PULSE 82; RESP 20; TEMP 37.1; O2SAT 98
[2022-09-13] MEDS: Multivitamin TABLET 1 TAB PO (07:49)
[2022-09-13] MEDS: Thiamine HCL 100 MG TABLET PO (07:49)
[2022-09-13] MEDS: Folic Acid 1 MG TABLET PO (07:49)
--- NOTE | 2022-09-13 10:33 | P.PNIM_ITS ---
Subjective Subjective Date of Service: 09/13/22 Interval History: mild improvement Physical Exam Vital Signs: Vital Signs: Last Vital Signs Temp 98.7 F 09/13/22 07:25 Pulse 82 09/13/22 07:25 Resp 20 09/13/22 07:25 BP 154/78 H 09/13/22 07:25 Pulse Ox 98 09/13/22 07:25 O2 Del Method Room Air 09/13/22 07:25 BMI result Body Mass Index 21.2 abd tender, non distended, no obvious [facility] Objective Data Active Medications Acetaminophen (Acetaminophen 325 Mg Tablet) 650 mg PO Q6H PRN PRN Reason: Pain, Mild (Pain Scale 1-3) Docusate Sodium (Docusate Sodium 100 Mg Capsule) 100 mg PO DAILY PRN PRN Reason: Constipation Folic Acid (Folic Acid 1 Mg Tablet) 1 mg PO DAILY [facility] Last Admin: 09/13/22 07:49 Dose: 1 mg Documented By: SHANTANU Hydromorphone HCl (Hydromorphone Hcl 1 Mg/Ml Syringe) 1 mg IVPUSH Q3H PRN; Protocol PRN Reason: Pain, Severe (Pain Scale 7-10) Last Admin: 09/13/22 07:49 Dose: 1 mg Documented By: SHANTANU Lactated Ringer's (Lr) 1,000 mls @ 150 mls/hr IVCONT .Q6H40M [facility] Last Admin: 09/13/22 05:34 Dose: 150 mls/hr Documented By: GAETANO Multivitamins/Vitamin C (Multivitamin Tablet) 1 tab PO DAILY [facility] Last Admin: 09/13/22 07:49 Dose: 1 tab Documented By: SHANTANU Ondansetron HCl (Ondansetron Hcl 4 Mg/2 Ml Vial) 4 mg IVPUSH Q8H PRN PRN Reason: Nausea and Vomiting Oxycodone HCl (Oxycodone Hcl Immed Release 5 Mg Tablet) 5 mg PO Q4H PRN PRN Reason: Pain, Moderate(Pain Scale 4-6) Last Admin: 09/13/22 05:37 Dose: 5 mg Documented By: GAETANO Pantoprazole Sodium (Pantoprazole Sodium 40 Mg/10 Ml Vial) 40 mg IVPUSH BID@0630,1630 [facility] Last Admin: 09/13/22 05:33 Dose: 40 mg Documented By: GAETANO Thiamine HCl (Thiamine Hcl 100 Mg Tablet) 100 mg PO DAILY [facility] Last Admin: 09/13/22 07:49 Dose: 100 mg Documented By: SHANTANU Labs 09/13/22 06:04 09/13/22 06:04 Labs: Laboratory Results - last 24 hr 09/13/22 09/13/22 06:04 06:04 MCV 67.6 L MCH 18.9 L MCHC 28.0 L RDW 25.2 H Plt Count 234 MPV 9.9 Absolute Nucleated RBC 0.030 H Nucleated RBC % (auto) 0.3 H Anion Gap 12 Estim Creat Clear Calc 117.8 Estimated GFR > 60 Fasting Glucose 65 Calcium 8.4 Magnesium 1.8 Total Bilirubin 0.5 Direct Bilirubin 0.2 AST 21 ALT 16 Alkaline Phosphatase 60 Total Protein 6.9 Albumin 3.2 L Assessment and Plan (1) Pancreatitis: Status: Acute Plan 56M PMH alcohol dependence, history of pancreatitis, and GERD presented with abdominal pain, found to have acute pancreatitis and significant iron deficiency anemia Acute alcoholic pancreatitis Sober x 3 years, relapsed [address] abd/pelvis showing acute pancreatitis Aggressive IVF with LR @@150ml/hr Pain management advance to clears etoh dependence Monitor on CIWA No evidence of withdrawal at this time Addiction medicine Iron deficiency anemia- likely related to chronic GI bleeding po ppi Transfused 2 units in ED, hgb stable Guiac negative GI - [facility] outpatient scope Follow CBC DVT prophylaxis- SCPs due to severe anemia full code reason for continued hospitalization: awaiting tolerance of po Time Spent With Patient Time: Total time managing care of this patient today ____ minutes. Quality Stroke Does the patient have a stroke diagnosis?: No VTE Prior VTE?: No VTE Risk Level:: Medical - moderate - high VTE Device Contraindication: N/A - Device Ordered VTE Drug Contraindication: Treatment Not Indicated
[2022-09-13 11:26] VITALS: BP 151/78; PULSE 80; RESP 20; TEMP 36.8; O2SAT 97
--- NOTE | 2022-09-13 12:50 | HO.ADDICT_ITS ---
History of Present Illness Date of Service: 09/13/2022 Chief Complaint: pancreatitis, blood loss anemia Reason for Consult: AUD Sources of Information: patient interviewed and chart reviewed HPI Narrative: Patient is a 56 year old male currently medically admitted with acute pancreatitis secondary to alcohol use. Patient was seen yesterday by lockstitch back maker and disclosed that he has been taking non prescribed suboxone. Follow up by this feature writer this morning. Patient awake, alert, pleasant and engaged in interview. Regarding suboxone use: -Reports history of taking non prescribed percocets PO and when unable to obtain them, began to take little pieces of suboxone -He reports that he has been buying suboxne for the past 2 years. He buys an 8mg film and this lasts him 2 days--he takes approx 2mg BID Denies any history of heroin use, denies [place] use of percocet. Regarding alcohol: -has been drinking since he was 18 years old -amounts have varied over the years. -limited insight related to ETOH use and subsequent health issues--feels it is directly related to not taking certain brand of omeprazole -drinks daily one 4 locos at lunch -precontemplation regarding alcohol use Reports history of cocaine use. Denies this being a concern at this time. Denies any history of treatment. Discussed suboxone--indications for prescribing, goals of medication and how to take. Discussed withdrawal sx which patient reported experiencing anytime he went more than 2 days without suboxone. Patient with limited knowledge/insight related to substance use, addiction, and associated health risks. Review of Systems Constitutional: Reports as per HPI and Reports malaise Diagnostics Vital Signs (24Hr): Vital Signs - 24 hr 09/12/22 14:59 09/12/22 15:08 09/12/22 19:05 Temperature 98.9 F 98.6 F Pulse Rate 89 82 Respiratory Rate 20 20 20 Blood Pressure 156/83 H 170/85 H Pulse Oximetry 100 98 Oxygen Delivery Method Room Air Room Air 09/13/22 00:00 09/13/22 03:24 09/13/22 07:25 Temperature 99.5 F 98.0 F 98.7 F Pulse Rate 74 82 82 Respiratory Rate 16 16 20 Blood Pressure 153/74 H 158/78 H 154/78 H Pulse Oximetry 97 97 98 Oxygen Delivery Method Room Air Room Air Room Air 09/13/22 11:26 Temperature 98.2 F Pulse Rate 80 Respiratory Rate 20 Blood Pressure 151/78 H Pulse Oximetry 97 Oxygen Delivery Method Room Air BMI result Body Mass Index 21.2 Labs 09/13/22 06:04 09/13/22 06:04 Labs: Laboratory Results - last 48 hr 09/11/22 09/11/22 09/11/22 09:52 09:52 10:55 WBC RBC Hgb Hct MCV MCH MCHC RDW Plt Count MPV Immature Gran % (Auto) Neut % (Auto) Lymph % (Auto) [place] % (Auto) Eos % (Auto) Baso % (Auto) Lymph # (Auto) [place] # (Auto) Eos # (Auto) Baso # (Auto) Abs Immat Gran (auto) Absolute Neuts (auto) Absolute Nucleated RBC Nucleated RBC % (auto) Smear Tech's Comments Smear Path Review SEE NOTE Sodium Potassium Chloride Carbon Dioxide Anion Gap BUN Creatinine Estim Creat Clear Calc Estimated GFR Random Glucose Fasting Glucose Calcium Magnesium Iron 12 L TIBC 433 H % Saturation 3 L Unsat Iron Binding 421 Total Bilirubin Direct Bilirubin AST ALT Alkaline Phosphatase Total Protein Albumin Blood Type O Negative Antibody Screen NEGATIVE Crossmatch See Detail 09/12/22 09/12/22 09/13/22 05:52 05:52 06:04 WBC 11.0 H 8.7 RBC 3.97 L 3.86 L Hgb 7.5 L D 7.3 L Hct 26.6 L 26.1 L MCV 67.0 L 67.6 L MCH 18.9 L 18.9 L MCHC 28.2 L 28.0 L RDW 24.4 H 25.2 H Plt Count TNP 234 MPV 10.2 9.9 Immature Gran % (Auto) 0.5 H Neut % (Auto) 72.3 Lymph % (Auto) 14.4 L [place] % (Auto) 10.1 Eos % (Auto) 2.3 Baso % (Auto) 0.4 Lymph # (Auto) 1.6 [place] # (Auto) 1.1 Eos # (Auto) 0.3 Baso # (Auto) 0.0 Abs Immat Gran (auto) 0.05 H Absolute Neuts (auto) 8.0 Absolute Nucleated RBC 0.040 H 0.030 H Nucleated RBC % (auto) 0.4 H 0.3 H Smear Tech's Comments VERIFIED Smear Path Review Sodium 135 Potassium 3.9 Chloride 105 Carbon Dioxide 22 Anion Gap 12 BUN 5 L Creatinine 0.56 Estim Creat Clear Calc 124.1 Estimated GFR > 60 Random Glucose 103 Fasting Glucose Calcium 8.5 D Magnesium Iron TIBC % Saturation Unsat Iron Binding Total Bilirubin Direct Bilirubin AST ALT Alkaline Phosphatase Total Protein Albumin Blood Type Antibody Screen Crossmatch 09/13/22 06:04 WBC RBC Hgb Hct MCV MCH MCHC RDW Plt Count MPV Immature Gran % (Auto) Neut % (Auto) Lymph % (Auto) [place] % (Auto) Eos % (Auto) Baso % (Auto) Lymph # (Auto) [place] # (Auto) Eos # (Auto) Baso # (Auto) Abs Immat Gran (auto) Absolute Neuts (auto) Absolute Nucleated RBC Nucleated RBC % (auto) Smear Tech's Comments Smear Path Review Sodium 136 Potassium 3.7 Chloride 105 Carbon Dioxide 23 Anion Gap 12 BUN 6 L Creatinine 0.59 Estim Creat Clear Calc 117.8 Estimated GFR > 60 Random Glucose Fasting Glucose 65 Calcium 8.4 Magnesium 1.8 Iron TIBC % Saturation Unsat Iron Binding Total Bilirubin 0.5 Direct Bilirubin 0.2 AST 21 ALT 16 Alkaline Phosphatase 60 Total Protein 6.9 Albumin 3.2 L Blood Type Antibody Screen Crossmatch Imaging Radiology Impressions: ITS Impressions Abdomen/Pelvis CT 09/11/22 13:49 IMPRESSION: Acute pancreatitis. No evidence of hemorrhage. Generalized ileus. Fleischner guidelines were followed. Mental Status Exam Mental Status Exam Patient Appearance: Well Grooomed and Appropriate Level of Consciousness: Awake and Appropriate Patient Behavior: Appropriate and Talkative Affect Description: Calm Judgement: Fair Medications Medications Current Medications Acetaminophen (Acetaminophen 325 Mg Tablet) 650 mg PO Q6H PRN PRN Reason: Pain, Mild (Pain Scale 1-3) Docusate Sodium (Docusate Sodium 100 Mg Capsule) 100 mg PO DAILY PRN PRN Reason: Constipation Folic Acid (Folic Acid 1 Mg Tablet) 1 mg PO DAILY [facility] Last Admin: 09/13/22 07:49 Dose: 1 mg Hydromorphone HCl (Hydromorphone Hcl 1 Mg/Ml Syringe) 1 mg IVPUSH Q3H PRN; Protocol PRN Reason: Pain, Severe (Pain Scale 7-10) Last Admin: 09/13/22 12:21 Dose: 1 mg Lactated Ringer's (Lr) 1,000 mls @ 150 mls/hr IVCONT .Q6H40M [facility] Last Admin: 09/13/22 12:21 Dose: 150 mls/hr Multivitamins/Vitamin C (Multivitamin Tablet) 1 tab PO DAILY [facility] Last Admin: 09/13/22 07:49 Dose: 1 tab Omeprazole (Omeprazole 40 Mg Capsule.Dr) 40 mg PO DAILY@0630 [facility] Ondansetron HCl (Ondansetron Hcl 4 Mg/2 Ml Vial) 4 mg IVPUSH Q8H PRN PRN Reason: Nausea and Vomiting Oxycodone HCl (Oxycodone Hcl Immed Release 5 Mg Tablet) 5 mg PO Q4H PRN PRN Reason: Pain, Moderate(Pain Scale 4-6) Last Admin: 09/13/22 10:45 Dose: 5 mg Thiamine HCl (Thiamine Hcl 100 Mg Tablet) 100 mg PO DAILY [facility] Last Admin: 09/13/22 07:49 Dose: 100 mg Allergies Allergies Allergy/AdvReac Type Severity Reaction Status Date / Time ciprofloxacin [From CIPRO] Allergy Intermediate HIVES/ITCH Verified 09/11/22 10:13 Penicillins [PCN] Allergy Intermediate HIVES Verified 09/11/22 10:13 penicillin V Allergy Unknown Rash Verified 09/11/22 10:13 LOBSTER Allergy Severe SWELLING Uncoded 01/21/20 14:54 From CIPRO Allergy Intermediate HIVES/ITCH Uncoded 01/21/20 14:54 Assessment & Plan Assessment & Plan (1) Alcohol use disorder: Status: Acute Code(s): F10.90 - Alcohol use, unspecified, uncomplicated Assessment and Plan: * at this time still considering how he wants to address this * will provide written information regarding medications, other recovery resources (2) Opioid use disorder: Status: Acute Code(s): F11.90 - Opioid use, unspecified, uncomplicated Assessment and Plan: * patient would like to continue subxone --prescribed * once pain medication is stopped will start bupe shortly after * follow up with clinic information and appt. Total time managing care of this patient today _45___ minutes. [facility] Past Medical History Medical History Alcohol use disorder Social History Social History Household Members: Spouse Housing: Apartment Do you presently have visiting nurse or other home services: No Alcohol intake: current Alcohol intake frequency: 0-2 drinks per day Patient Tobacco Use Status: Never used Tobacco Smoked in Last 30 Days: No Use of substances other than those prescribed or required for medical reasons: No Currently Displaying Signs/Symptoms of Drug Intoxication Withdrawal: No Have you been hit, kicked, punched, or otherwise hurt by someone within the past year? If so, by whom?: No Do you feel safe in your current relationship?: Yes Is there a partner from a previous relationship who is making you feel unsafe now?: No Are you made to feel afraid or neglected: No [facility]ast[facility] Healthcare Practices: n/a Advance Directives: Yes Advance Directives Information Provided: Yes Advance Directives on File: No Advance Directives Date on File: 09/11/22 Do you have thoughts of harming others: None Do you have a plan to hurt others: No Plan Recently lost weight without trying: No How much weight loss: Not applicable Eating poorly because of decreased appetite: No Nutrition screen score: 0 Nutrition Risks: No Nutritional Risk Poor oral hygiene: No service: No Current occupational status: employed
[2022-09-13 15:00] VITALS: BP 154/74; PULSE 86; RESP 20; TEMP 36.9; O2SAT 99
[2022-09-13 19:03] VITALS: BP 153/81; PULSE 72; RESP 20; TEMP 37.2; O2SAT 97
[2022-09-13] MEDS: Acetaminophen 325 MG TABLET 650 MG PO (19:33)
[2022-09-13] MEDS: diphenhydrAMINE HCL 50 MG/ML VIAL IVPUSH (22:39)
[2022-09-14] VITALS (7 sets, daily range): BP systolic 99–159; BP diastolic 55–96; PULSE 68–82; RESP 16–20; TEMP 36.5–37.4; O2SAT 95–100
[2022-09-14] MEDS: HYDROmorphone HCl 1 MG/ML SYRINGE IVPUSH ×7 (02:45→21:27)
[2022-09-14] MEDS: oxyCODONE HCl Immed Release 5 MG TABLET PO ×4 (03:17→20:32)
[2022-09-14] MEDS: Omeprazole 40 MG CAPSULE.DR PO (06:38)
[2022-09-14 06:40] LABS: Hematocrit 26.5 % (42.0-52.0); Hemoglobin 7.3 g/dl (14.0-18.0); Mean Corpuscular HGB Conc 27.5 g/dl (31.0-36.0); Mean Corpuscular Volume 68.8 fL (80.0-98.0); Mean Platelet Volume 9.8 fL (9.4-12.4); NRBC Pct Auto 0.3 /100WBC (0.0-0.2); Platelet Count 259 X10*3/uL (160-400); Red Blood Count 3.85 X10*6/uL (4.60-5.80); Red Cell Distribution Width 25.8 % (11.0-16.0); White Blood Count 7.7 X10*3/uL (4.8-10.8)
[2022-09-14 07:04] LABS: Alanine Aminotransferase 14 U/L (0-40); Albumin Level 3.3 g/dL (3.5-5.0); Alkaline Phosphatase 62 U/L (39-117); Anion Gap 13 (12-20); Aspartate Amino Transferase 19 U/L (5-37); Bilirubin Direct 0.2 mg/dL (0.0-0.5); Bilirubin Total 0.5 mg/dL (0.0-1.0); Blood Urea Nitrogen 6 mg/dL (9-16); Calcium 8.5 mg/dL (8.4-10.2); Carbon Dioxide 24 mmol/L (22-29); Chloride 105 mmol/L (96-108); Creatinine Clr Calc Pharmacy 110.3; Estimated Glomerular Filt Rate > 60; Glucose Fasting 101 mg/dL (60-99); Potassium 3.7 mmol/L (3.3-5.1); Sodium 138 mmol/L (135-145); Total Protein 7.1 g/dL (6.5-8.0)
[2022-09-14] MEDS: Folic Acid 1 MG TABLET PO (08:48)
[2022-09-14] MEDS: Multivitamin TABLET 1 TAB PO (08:48)
[2022-09-14] MEDS: Thiamine HCL 100 MG TABLET PO (08:48)
--- NOTE | 2022-09-14 11:00 | P.PNIM_ITS ---
Subjective Subjective Date of Service: 09/14/22 Interval History: abd pain Physical Exam Vital Signs: Vital Signs: Last Vital Signs Temp 98.7 F 09/14/22 07:08 Pulse 70 09/14/22 07:08 Resp 16 09/14/22 07:08 BP 159/96 H 09/14/22 07:08 Pulse Ox 98 09/14/22 07:08 O2 Del Method Room Air 09/14/22 07:08 BMI result Body Mass Index 21.2 abd tender, non distended, no obvious [facility] Objective Data Active Medications Acetaminophen (Acetaminophen 325 Mg Tablet) 650 mg PO Q6H PRN PRN Reason: Pain, Mild (Pain Scale 1-3) Last Admin: 09/13/22 19:33 Dose: 650 mg Documented By: [place] Docusate Sodium (Docusate Sodium 100 Mg Capsule) 100 mg PO DAILY PRN PRN Reason: Constipation Folic Acid (Folic Acid 1 Mg Tablet) 1 mg PO DAILY [facility] Last Admin: 09/14/22 08:48 Dose: 1 mg Documented By: SHANTANU Hydromorphone HCl (Hydromorphone Hcl 1 Mg/Ml Syringe) 1 mg IVPUSH Q3H PRN; Protocol PRN Reason: Pain, Severe (Pain Scale 7-10) Last Admin: 09/14/22 08:48 Dose: 1 mg Documented By: SHANTANU Multivitamins/Vitamin C (Multivitamin Tablet) 1 tab PO DAILY [facility] Last Admin: 09/14/22 08:48 Dose: 1 tab Documented By: SHANTANU Omeprazole (Omeprazole 40 Mg Capsule.Dr) 40 mg PO DAILY@0630 [facility] Last Admin: 09/14/22 06:38 Dose: 40 mg Documented By: MARCO ANTONIO Ondansetron HCl (Ondansetron Hcl 4 Mg/2 Ml Vial) 4 mg IVPUSH Q8H PRN PRN Reason: Nausea and Vomiting Oxycodone HCl (Oxycodone Hcl Immed Release 5 Mg Tablet) 5 mg PO Q4H PRN PRN Reason: Pain, Moderate(Pain Scale 4-6) Last Admin: 09/14/22 06:38 Dose: 5 mg Documented By: MARCO ANTONIO Thiamine HCl (Thiamine Hcl 100 Mg Tablet) 100 mg PO DAILY [facility] Last Admin: 05/12/23 08:48 Dose: 100 mg Documented By: SHANTANU Labs 09/14/22 06:06 09/14/22 06:06 Labs: Laboratory Results - last 24 hr 09/14/22 09/14/22 06:06 06:06 MCV 68.8 L MCH 19.0 L MCHC 27.5 L RDW 25.8 H Plt Count 259 MPV 9.8 Absolute Nucleated RBC 0.020 H Nucleated RBC % (auto) 0.3 H Anion Gap 13 Estim Creat Clear Calc 110.3 Estimated GFR > 60 Fasting Glucose 101 H Calcium 8.5 Total Bilirubin 0.5 Direct Bilirubin 0.2 AST 19 ALT 14 Alkaline Phosphatase 62 Total Protein 7.1 Albumin 3.3 L Assessment and Plan (1) Pancreatitis: Status: Acute Plan 56M PMH alcohol dependence, history of pancreatitis, and GERD presented with abdominal pain, found to have acute pancreatitis and significant iron deficiency anemia Acute alcoholic pancreatitis Sober x 3 years, relapsed [address] abd/pelvis showing acute pancreatitis wants to try solids, though still with pain etoh dependence Monitor on CIWA No evidence of withdrawal at this time Addiction medicine Iron deficiency anemia- likely related to chronic GI bleeding po ppi Transfused 2 units in ED, hgb stable Guiac negative GI - [facility] outpatient scope Follow CBC DVT prophylaxis- SCPs due to severe anemia full code reason for continued hospitalization: awaiting tolerance of po Time Spent With Patient Time: Total time managing care of this patient today ____ minutes. Quality Stroke Does the patient have a stroke diagnosis?: No VTE Prior VTE?: No VTE Risk Level:: Medical - moderate - high VTE Device Contraindication: N/A - Device Ordered VTE Drug Contraindication: Treatment Not Indicated
--- NOTE | 2022-09-14 11:40 | MHC.CM.PN ---
Patient is not yet medically cleared for dc (awaiting tolerance for PO); home is the goal and CM will continue to follow.
[2022-09-14] MEDS: Acetaminophen 325 MG TABLET 650 MG PO ×2 (14:21→21:30)
--- NOTE | 2022-09-14 14:50 | MHC.RECOVRN ---
Met with pt in 450 to follow up regarding outpatient support. Pt plans to initiate Suboxone and continue care at the [facility]. Appt made for 09/20 at 11:30AM. Pt provided with [facility] information as well as other written resources. Abril Hatfield APRN, aware.
[2022-09-15] VITALS: BP 138/76; PULSE 70; RESP 18; TEMP 36.8; O2SAT 98
[2022-09-15] MEDS: diphenhydrAMINE HCL 50 MG/ML VIAL IVPUSH (00:33)
[2022-09-15] MEDS: HYDROmorphone HCl 1 MG/ML SYRINGE IVPUSH ×7 (00:33→22:32)
[2022-09-15] MEDS: Acetaminophen 325 MG TABLET 650 MG PO (04:12)
[2022-09-15 04:49] VITALS: BP 153/83; PULSE 78; RESP 16; TEMP 37; O2SAT 96
[2022-09-15] MEDS: Thiamine HCL 100 MG TABLET PO (08:10)
[2022-09-15] MEDS: Folic Acid 1 MG TABLET PO (08:10)
[2022-09-15] MEDS: Omeprazole 40 MG CAPSULE.DR PO (08:10)
[2022-09-15] MEDS: Multivitamin TABLET 1 TAB PO (08:10)
--- NOTE | 2022-09-15 09:02 | P.PNIM_ITS ---
Subjective Subjective Date of Service: 09/15/22 Interval History: abd pain Physical Exam Vital Signs: Vital Signs: Last Vital Signs Temp 98.6 F 09/15/22 04:49 Pulse 78 09/15/22 04:49 Resp 16 09/15/22 04:49 BP 153/83 H 09/15/22 04:49 Pulse Ox 96 09/15/22 04:49 O2 Del Method Room Air 09/15/22 04:49 BMI result Body Mass Index 21.2 abd tender, non distended, no obvious [facility] Objective Data Active Medications Acetaminophen (Acetaminophen 325 Mg Tablet) 650 mg PO Q6H PRN PRN Reason: Pain, Mild (Pain Scale 1-3) Last Admin: 09/15/22 04:12 Dose: 650 mg Documented By: ARNOLD Docusate Sodium (Docusate Sodium 100 Mg Capsule) 100 mg PO DAILY PRN PRN Reason: Constipation Folic Acid (Folic Acid 1 Mg Tablet) 1 mg PO DAILY [facility] Last Admin: 09/15/22 08:10 Dose: 1 mg Documented By: CHANTE Hydromorphone HCl (Hydromorphone Hcl 1 Mg/Ml Syringe) 1 mg IVPUSH Q3H PRN; Protocol PRN Reason: Pain, Severe (Pain Scale 7-10) Last Admin: 09/15/22 08:10 Dose: 1 mg Documented By: CHANTE Multivitamins/Vitamin C (Multivitamin Tablet) 1 tab PO DAILY [facility] Last Admin: 09/15/22 08:10 Dose: 1 tab Documented By: CHANTE Omeprazole (Omeprazole 40 Mg Capsule.Dr) 40 mg PO DAILY@0630 [facility] Last Admin: 09/15/22 08:10 Dose: 40 mg Documented By: CHANTE Ondansetron HCl (Ondansetron Hcl 4 Mg/2 Ml Vial) 4 mg IVPUSH Q8H PRN PRN Reason: Nausea and Vomiting Oxycodone HCl (Oxycodone Hcl Immed Release 5 Mg Tablet) 5 mg PO Q4H PRN PRN Reason: Pain, Moderate(Pain Scale 4-6) Last Admin: 09/14/22 20:32 Dose: 5 mg Documented By: ARNOLD Thiamine HCl (Thiamine Hcl 100 Mg Tablet) 100 mg PO DAILY [facility] Last Admin: 09/15/22 08:10 Dose: 100 mg Documented By: CHANTE Labs 09/14/22 06:06 09/14/22 06:06 Assessment and Plan (1) Pancreatitis: Status: Acute Plan 56M PMH alcohol dependence, history of pancreatitis, and GERD presented with abdominal pain, found to have acute pancreatitis and significant iron deficiency anemia Acute alcoholic pancreatitis Sober x 3 years, relapsed [address] abd/pelvis showing acute pancreatitis still with pain with solids etoh dependence Monitor on CIWA No evidence of withdrawal at this time Addiction medicine Iron deficiency anemia- likely related to chronic GI bleeding po ppi Transfused 2 units in ED, hgb stable Guiac negative GI - [facility] outpatient scope Follow CBC DVT prophylaxis- SCPs due to severe anemia full code reason for continued hospitalization: awaiting tolerance of po Time Spent With Patient Time: Total time managing care of this patient today ____ minutes. Quality Stroke Does the patient have a stroke diagnosis?: No VTE Prior VTE?: No VTE Risk Level:: Medical - moderate - high VTE Device Contraindication: N/A - Device Ordered VTE Drug Contraindication: Treatment Not Indicated
[2022-09-15 12:00] VITALS: BP 146/79; PULSE 84; RESP 20; TEMP 37.1; O2SAT 97
[2022-09-15 15:04] VITALS: BP 132/79; PULSE 78; RESP 20; TEMP 36.6; O2SAT 100
[2022-09-15] MEDS: oxyCODONE HCl Immed Release 5 MG TABLET PO ×2 (17:30→21:13)
[2022-09-15 18:56] VITALS: BP 146/81; PULSE 79; RESP 20; TEMP 36.7; O2SAT 98
[2022-09-15] MEDS: diphenhydrAMINE HCL 50 MG/ML VIAL 25 MG IVPUSH (22:32)
[2022-09-16] VITALS: BP 145/79; PULSE 74; RESP 20; TEMP 36.8; O2SAT 99
--- NOTE | 2022-09-16 00:17 | PC.NURSE ---
Assumed care at 1930. Patient alert and oriented. Patient describes pain in RUQ abdomen that is burning and intermittent and 5/10 and radiates to mid back. Taking oxycodone at 21:15 with minimal effect, followed up with dilaudid 1 mg IVP per EMar. Patient also asking for IV benedryl to help him sleep, reports he has been getting this; discussed with MD, new order for IV benedryl administered per Emar. Patient reported pain still 5/10 but all over abdomen. Resting comfortably now.
[2022-09-16] MEDS: HYDROmorphone HCl 1 MG/ML SYRINGE IVPUSH ×3 (03:04→09:21)
[2022-09-16 03:21] VITALS: BP 111/55; PULSE 69; RESP 20; TEMP 36.6; O2SAT 96
[2022-09-16] MEDS: Omeprazole 40 MG CAPSULE.DR PO (06:01)
[2022-09-16 07:30] VITALS: BP 123/76; PULSE 70; RESP 18; TEMP 36.9; O2SAT 97
--- NOTE | 2022-09-16 09:08 | PM.DS ---
DS: Providers Provider Date of Service: 09/16/22 Date of admission: 09/11/22 15:58 Primary care physician: Guido Joe MD Consults: 09/11/22 15:57 Consult to Gastroenterology Routine Consulting Provider: Lyn Brown Reason for consultation: blood loss anemia 09/11/22 16:00 Addiction Medicine Routine Consulting Provider: Addiction Covering Reason for consultation: etoh abuse DS: Diagnosis Discharge Diagnosis (1) Pancreatitis: Status: Acute DS: Summary Hospital Course Hospital Course: from initial hpi: 56 year old male with history alcohol use disorder, history pancreatitis, and GERD presented to the ED earlier today with his (Thu) and daughter (Lashae) for evaluation of diffuse abdominal pain with nausea and vomiting onoging for 4 days. Patient had been sober from alcohol for 3 years but relapsed 3 weeks ago. Has been consuming 1 drink daily but about a 6 pack over the weekend, last drink was saturday. Denies withdrawal symptoms. Reports abd pain has been worsening and is now severe, tearful and clutching abdomen during exam. On arrival mildly hypertensive at 156/81, vitals otherwsie stable. No leukocytosis. H/H 5.8/23%, MCV 64.2%, iron 12, TIBC 433, %satruation 3%. Total bili 0.4, AST 55, ALT 23, lipase 306.? CT abdomen/pelvis showing acute pancreatitis but no evidence of hemorrhage.? Also generalized ileus.? Patient denies any fevers, chills, constipation, diarrhea, melena, hematochezia, shortness of breath, lightheadedness, weakness, chest pain.? He denies having ever had a colonoscopy.? While in the ED, pain managed with 4 mg IV morphine which patient states has not been helpful for more than a brief period.? Has also received 1 L IVF, IV pantoprazole. hospital course: patient was admitted for acute alcoholic pancreatits. he was treated with ivf, pain meds. pain eventually improved and was able to tolerate solids. for etoh dependence did not withdraw, recommend etoh absitence. for severe iron defeciency anemia, received packed rbc, hgb improved and remained stable. started on ppi, paitent to follow up with gi for likely scope. patient feeling better and will be discharged home. Time Spent with Patient Time attestation: Total time managing care of this patient today ____ minutes. Discharge coordination time: Greater than 30 minutes Quality: Safe Use of Opioids Does Pt have an Active Cancer Diagnosis on the Problem List?: No Quality: Stroke Does the patient have a stroke diagnosis?: No Physical Exam Vital Signs: Vital Signs: Last Vital Signs Temp 98.4 F 09/16/22 07:30 Pulse 70 09/16/22 07:30 Resp 18 09/16/22 07:30 BP 123/76 09/16/22 07:30 Pulse Ox 97 09/16/22 07:30 O2 Del Method Room Air 09/16/22 07:30 BMI result Body Mass Index 21.2 General: AO X 3, no acute distress Resp: CTA bilateral, no accessory muscles used CVS: S1,S2,RRR GI: soft, non tender, non distended Neuro: motor grossly intact, alert Psych: appropriate affect, appropriate insight Discharge Plan Discharge Anticipated Discharge Date/Time: 09/16/22 09:07 Patient Disposition: Home, Self-Care Discharge Diagnosis: etoh pancreatitis Referrals: Guido Joe MD [Primary Care Provider] - 1 Week Discharge Medications: Continued vitamin B complex Tablet 1 tab PO DAILY omeprazole magnesium [Prilosec OTC] 20 mg Tablet,Delayed Release (Dr/Ec) 20 mg PO DAILY Discharge Orders: Discharge Order (Routine); Ordered 09/16/22 Ordered By: Rigoberto Browne Diet: Advance to usual diet Activity on Discharge: As tolerated Stand Alone Forms: Patient Portal Discharge page, Work/School Release Care Plan Goals: recovery Health Concerns: etoh Plan of Treatment: avoid etoh Assessment: see above
[2022-09-16] MEDS: Multivitamin TABLET 1 TAB PO (09:21)
[2022-09-16] MEDS: Folic Acid 1 MG TABLET PO (09:21)
[2022-09-16] MEDS: Thiamine HCL 100 MG TABLET PO (09:21)
--- NOTE | 2022-09-16 09:36 | MHC.CM.PN ---
PT WILL DC HOME TODAY WITH NO SERVICES VIA SELF ARRANGED TRANSPORT
== END 2022-09-16 10:26 | disposition home or self-care (01) | DRG 282 ==
LOC: HO.ED 15:18 → HO.EDOVER 16:46 → HO.IMC 16:55
PROVIDERS: Student in an Organized Health Care Education/Training Program; Admitting Provider Physician Assistant; Emergency Provider Emergency Medicine; PCP Internal Medicine; Visit Provider Internal Medicine
DX: K85.20 Alcohol induced acute pancreatitis without necrosis or infection (principal); D50.0 Iron deficiency anemia secondary to blood loss (chronic); F10.20 Alcohol dependence, uncomplicated; F11.20 Opioid dependence, uncomplicated; K21.9 Gastro-esophageal reflux disease without esophagitis; Z88.0 Allergy status to penicillin; Z88.1 Allergy status to other antibiotic agents
CPT/HCPCS: 36415; 74177; 80048; 80053; 80076; 83540; 83690; 83735; 85025; 85027; 86850; 86900; 86901; 86923; 99285; J1170; J1200; J2270; P9016; Q9967

== ENCOUNTER → 2022-09-26 14:25 | Outpatient (BNVA) | payer MEDICAID, SELFPAY | PROVIDERS: PCP Internal Medicine; Visit Provider Nurse Practitioner Psychiatric/Mental Health | DX: F11.20 Opioid dependence, uncomplicated (principal); F10.20 Alcohol dependence, uncomplicated; F14.20 Cocaine dependence, uncomplicated; Z51.81 Encounter for therapeutic drug level monitoring; Z79.899 Other long term (current) drug therapy | CPT/HCPCS: 80305; 99212 ==

== ENCOUNTER → 2022-10-03 16:23 | Outpatient (BNVA) | payer MEDICAID, SELFPAY | PROVIDERS: PCP Internal Medicine; Visit Provider Nurse Practitioner Psychiatric/Mental Health | DX: F11.20 Opioid dependence, uncomplicated (principal); F14.10 Cocaine abuse, uncomplicated | CPT/HCPCS: 99212 ==

== ENCOUNTER → 2022-10-10 16:17 | Outpatient (BNVA) | payer MEDICAID, SELFPAY | PROVIDERS: PCP Internal Medicine; Visit Provider Nurse Practitioner Psychiatric/Mental Health | DX: F11.20 Opioid dependence, uncomplicated (principal); F14.10 Cocaine abuse, uncomplicated; F10.90 Alcohol use, unspecified, uncomplicated | CPT/HCPCS: 99212 ==

== ENCOUNTER → 2022-10-17 15:09 | Outpatient (BNVA) | payer MEDICAID, SELFPAY | PROVIDERS: PCP Internal Medicine; Visit Provider Nurse Practitioner Psychiatric/Mental Health | DX: F11.20 Opioid dependence, uncomplicated (principal); F14.10 Cocaine abuse, uncomplicated; F10.90 Alcohol use, unspecified, uncomplicated | CPT/HCPCS: 99212 ==

== ENCOUNTER → 2022-10-31 16:21 | Outpatient (BNVA) | payer MEDICAID, SELFPAY | PROVIDERS: PCP Internal Medicine; Visit Provider Nurse Practitioner Psychiatric/Mental Health | DX: F11.20 Opioid dependence, uncomplicated (principal); F10.90 Alcohol use, unspecified, uncomplicated | CPT/HCPCS: 99212 ==

== ENCOUNTER 2022-11-05 11:22 | Outpatient (REF) | payer MEDICAID, SELFPAY ==
[2022-11-05 13:02] LABS: Alanine Aminotransferase 24 U/L (0-40); Albumin Level 3.9 g/dL (3.5-5.0); Alkaline Phosphatase 91 U/L (39-117); Anion Gap 13 (12-20); Aspartate Amino Transferase 27 U/L (5-37); Bilirubin Total 0.4 mg/dL (0.0-1.0); Blood Urea Nitrogen 16 mg/dL (9-16); Calcium 9.3 mg/dL (8.4-10.2); Carbon Dioxide 26 mmol/L (22-29); Chloride 104 mmol/L (96-108); Estimated Glomerular Filt Rate > 60; Glucose Random 116 mg/dL (60-115); Potassium 4.7 mmol/L (3.3-5.1); Sodium 138 mmol/L (135-145); Total Protein 8.5 g/dL (6.5-8.0)
[2022-11-05 13:18] LABS: Ferritin 3 ng/mL (20-250)
== END 2022-11-05 11:23 | disposition home or self-care (01) ==
LOC: HO.LAB 11:22
PROVIDERS: PCP Internal Medicine; Visit Provider Internal Medicine Gastroenterology
DX: K85.90 Acute pancreatitis without necrosis or infection, unspecified (principal); D64.9 Anemia, unspecified; F10.90 Alcohol use, unspecified, uncomplicated
CPT/HCPCS: 36415; 80053; 82728; 85025; 99212

== ENCOUNTER 2022-11-14 16:20 | Outpatient (AMB) | payer MEDICAID, SELFPAY ==
--- NOTE | 2022-11-14 16:21 | A.OFFVIS_ITS ---
Intake Vital Signs 11/14/22 16:25 BP 136/84 Blood Pressure Location Lt radial Position Sitting Pulse 88 Pulse Source Pulse Oximeter Pulse Oximetry (%) 97 Oxygen Delivery Method Room Air Intake Visit Reasons: mat visit Intake Note: the patient presents for a mat visit Normalizer Required: No Allergies ciprofloxacin [From CIPRO] Allergy (Intermediate, Verified 11/14/22 16:26) HIVES/ITCH Penicillins [PCN] Allergy (Intermediate, Verified 11/14/22 16:26) HIVES penicillin V Allergy (Unknown, Verified 11/14/22 16:26) Rash LOBSTER Allergy (Severe, Uncoded 11/14/22 16:26) SWELLING From CIPRO Allergy (Intermediate, Uncoded 11/14/22 16:26) HIVES/ITCH Do you need a note to return to daycare/school/sports/work: No HPI mat visit HPI Details Patient presents for follow-up. Continues to do well with current Suboxone dose. Reports that he is unsure if even drink since last visit 2 weeks ago. Finds this empowering as he previously craved alcohol very frequently. Has a colonoscopy coming up at the end of December. [facility] Medical History Alcohol use disorder Social History Household Members: Spouse Housing: Apartment Do you presently have visiting nurse or other home services: No Alcohol intake: current Alcohol intake frequency: 0-2 drinks per day Patient Tobacco Use Status: Never used Tobacco Advance Directives Date on File: 09/11/22 service: No Current occupational status: employed Review of Systems Const Reports as per HPI and Reports no additional complaints Physical Exam Vital Signs: Last Vital Signs Pulse 88 11/14/22 16:25 BP 136/84 11/14/22 16:25 Pulse Ox 97 11/14/22 16:25 Oxygen Delivery Method Room Air 11/14/22 16:25 Const Other: Calm General: cooperative, healthy appearing, comfortable, no acute distress and alert Nutritional Appearance: average body habitus Orientation/consciousness: patient oriented x3 Limitations: no limitations Neuro General: patient oriented x3 Psych Appearance: grossly normal Mental Status: mental status grossly normal Speech and movement: Normal speech and movement present and Restless speech p resent Affect: normal affect Attitude: cooperative Thought process: Normal thought process present Thought content: Normal thought content present Insight: Good insight present (Psych) Judgement: Good judgement present (Psych) Assessment & Plan Assessment & Plan (1) Opioid use disorder: Code(s): F11.90 - Opioid use, unspecified, uncomplicated Plan: * Continue Suboxone at current dose * Risk reduction discussion related to alcohol use * Follow-up 3 weeks (2) Alcohol use disorder: Code(s): F10.90 - Alcohol use, unspecified, uncomplicated Medications: Refilled buprenorphine-naloxone 8-2 mg (Suboxone) 1 film sublingual DAILY 22 ea 0RF Coding Level of Care Code Est Pt Level 3 (90230) Diagnoses Opioid use disorder F11.90 Alcohol use disorder F10.90
[2022-11-14 16:25] VITALS: BP 136/84; PULSE 88; O2SAT 97
== END 2022-11-14 16:42 | disposition home or self-care (01) ==
LOC: HO.HCC 16:20
PROVIDERS: PCP Internal Medicine; Visit Provider Nurse Practitioner Psychiatric/Mental Health
DX: F11.90 Opioid use, unspecified, uncomplicated (principal); F10.90 Alcohol use, unspecified, uncomplicated
CPT/HCPCS: 99213

== ENCOUNTER → 2022-11-14 16:20 | Outpatient (BNVA) | payer MEDICAID, SELFPAY | PROVIDERS: PCP Internal Medicine; Visit Provider Nurse Practitioner Psychiatric/Mental Health | DX: F11.20 Opioid dependence, uncomplicated (principal); F10.20 Alcohol dependence, uncomplicated | CPT/HCPCS: 99213 ==

== ENCOUNTER 2022-12-10 16:28 | Outpatient (AMB) | payer MEDICAID, SELFPAY ==
[2022-12-10 16:38] VITALS: BP 146/98; PULSE 82; O2SAT 98
--- NOTE | 2022-12-10 16:38 | A.OFFVIS_ITS ---
Intake Vital Signs 12/10/22 16:38 BP 146/98 H Blood Pressure Location Lt radial Position Sitting Pulse 82 Pulse Source Pulse Oximeter Pulse Oximetry (%) 98 Oxygen Delivery Method Room Air Intake Visit Reasons: MAT Visit Intake Note: the patient presents for a mat visit Upholstery Technician Required: No Allergies ciprofloxacin [From CIPRO] Allergy (Intermediate, Verified 12/10/22 16:39) HIVES/ITCH Penicillins [PCN] Allergy (Intermediate, Verified 12/10/22 16:39) HIVES penicillin V Allergy (Unknown, Verified 12/10/22 16:39) Rash LOBSTER Allergy (Severe, Uncoded 12/10/22 16:39) SWELLING From CIPRO Allergy (Intermediate, Uncoded 12/10/22 16:39) HIVES/ITCH Do you need a note to return to daycare/school/sports/work: No HPI MAT Visit HPI Details Patient presents for AUD and OUD treatment follow up Patient tearful, reporting recurrence over the weekend. Identified stress at work at conflict with employer as precipitant Reviewed other coping strategies, and acknowledged that patient used and drank much less than in prior instances Denies any opioid use, no issues with suboxone [facility] Medical History Alcohol use disorder Social History Household Members: Spouse Housing: Apartment Do you presently have visiting nurse or other home services: No Alcohol intake: current Alcohol intake frequency: 0-2 drinks per day Patient Tobacco Use Status: Never used Tobacco Advance Directives Date on File: 09/11/22 service: No Current occupational status: employed Review of Systems Const Reports as per HPI and Reports no additional complaints Physical Exam Vital Signs: Last Vital Signs Pulse 82 12/10/22 16:38 BP 146/98 H 12/10/22 16:38 Pulse Ox 98 12/10/22 16:38 Oxygen Delivery Method Room Air 12/10/22 16:38 Const General: anxious Orientation/consciousness: patient oriented x3 Neuro General: patient oriented x3 Psych Appearance: well kempt Speech and movement: Clear speech present Affect: Sad affect present Attitude: cooperative Thought process: Normal thought process present Thought content: Normal thought content present and Depressive thoughts present Insight: Good insight present (Psych) Assessment & Plan Assessment & Plan (1) Opioid use disorder: Code(s): F11.90 - Opioid use, unspecified, uncomplicated Plan: * continue suboxone at current dose * risk reduction discussion * follow up 1 week (2) Alcohol use disorder: Code(s): F10.90 - Alcohol use, unspecified, uncomplicated Coding Level of Care Code Est Pt Level 4 (57079) Diagnoses Opioid use disorder F11.90 Alcohol use disorder F10.90
== END 2022-12-10 17:09 | disposition home or self-care (01) ==
LOC: HO.HCC 16:28
PROVIDERS: PCP Internal Medicine; Visit Provider Nurse Practitioner Psychiatric/Mental Health
DX: F11.90 Opioid use, unspecified, uncomplicated (principal); F10.90 Alcohol use, unspecified, uncomplicated
CPT/HCPCS: 99214

== ENCOUNTER → 2022-12-10 16:28 | Outpatient (BNVA) | payer MEDICAID, SELFPAY | PROVIDERS: PCP Internal Medicine; Visit Provider Nurse Practitioner Psychiatric/Mental Health | DX: F11.20 Opioid dependence, uncomplicated (principal); F10.20 Alcohol dependence, uncomplicated | CPT/HCPCS: 99214 ==

== ENCOUNTER 2023-01-01 11:33 | Day surgery (SDC) | payer MEDICAID, SELFPAY ==
[2022-12-28 14:06] VITALS: BMI 22.7
--- NOTE | 2022-12-31 11:45 | HO.ANESPROP2 ---
Documented by User: Ro Hodge NP 12/31/22 11:46 HPI - Anesthesia Eval Consult details Narrative: 57yo M for Upper Endoscopy and Colonoscopy Hx ETOH abuse PMFSH Active Problems Active Problems: All Active Problems (Updated 10/31/22 @ 17:37 by Abril Hatfield CNP) Cocaine abuse (Acute) Opioid use disorder (Acute) Pancreatitis (Acute) Alcohol use disorder (Acute) Anemia (Acute) Past Medical History Medical History Alcohol use disorder Social History Social History Household Members: Spouse Housing: Apartment Do you presently have visiting nurse or other home services: No Alcohol intake: current Alcohol intake frequency: 0-2 drinks per day Patient Tobacco Use Status: Former Tobacco user Tobacco use type: Cigarette Advance Directives Date on File: 09/11/22 service: No Current occupational status: employed Meds Allergies Allergy/AdvReac Type Severity Reaction Status Date / Time ciprofloxacin [From CIPRO] Allergy Intermediate HIVES/ITCH Verified 12/10/22 16:39 Penicillins [PCN] Allergy Intermediate HIVES Verified 12/10/22 16:39 penicillin V Allergy Unknown Rash Verified 12/10/22 16:39 LOBSTER Allergy Severe SWELLING Uncoded 12/10/22 16:39 From CIPRO Allergy Intermediate HIVES/ITCH Uncoded 12/10/22 16:39 Home Medications Medication Instructions Recorded Confirmed Last Taken Type omeprazole magnesium 20 mg 20 mg PO DAILY 09/11/22 01/01/23 01/01/23 History tablet,delayed release (Prilosec OTC) vitamin B complex 1 tab PO DAILY 09/11/22 01/01/23 01/01/23 History Exam Exam Date and Time: December 31, 2022 1145 Height,Weight and Vital Signs: Height 5 ft 5 in Weight 62 kg Pertinent Lab Results Pertinent Lab Results: Laboratory Tests 11/05/22 11/05/22 12:01 12:01 WBC 7.9 Hgb 8.8 L D Hct 31.1 L Plt Count 337 D Sodium 138 Potassium 4.7 D Chloride 104 Carbon Dioxide 26 BUN 16 Creatinine 0.71 Assessment and Plan Assessment Anesthesia Assessment: Chart Reviewed Documented by User: Víctor Macias MD 01/02/23 02:10 HPI - Anesthesia Eval Consult details Narrative: 57yo M for Upper Endoscopy and Colonoscopy Hx of Cocaine use , patient denies recent use . Hx ETOH abuse PMFSH Past Medical History Medical History Alcohol use disorder Functional capacity: independent ambulation Family History Family history of problems with anesthesia: No Surgical History History of Problems with Anesthesia: No Social History Social History Household Members: Spouse Housing: Apartment Do you presently have visiting nurse or other home services: No Alcohol intake: current Alcohol intake frequency: 0-2 drinks per day Patient Tobacco Use Status: Former Tobacco user Tobacco use type: Cigarette Advance Directives Date on File: 09/11/22 service: No Current occupational status: employed Meds Allergies Allergy/AdvReac Type Severity Reaction Status Date / Time ciprofloxacin [From CIPRO] Allergy Intermediate HIVES/ITCH Verified 12/10/22 16:39 Penicillins [PCN] Allergy Intermediate HIVES Verified 12/10/22 16:39 penicillin V Allergy Unknown Rash Verified 12/10/22 16:39 LOBSTER Allergy Severe SWELLING Uncoded 12/10/22 16:39 From CIPRO Allergy Intermediate HIVES/ITCH Uncoded 12/10/22 16:39 Home Medications Medication Instructions Recorded Confirmed Last Taken Type omeprazole magnesium 20 mg 20 mg PO DAILY 09/11/22 01/01/23 01/01/23 History tablet,delayed release (Prilosec OTC) vitamin B complex 1 tab PO DAILY 09/11/22 01/01/23 01/01/23 History Exam Airway Mallampati Class: IV Loose/Missing/Broken Teeth: Yes Assessment and Plan Assessment Anesthesia Assessment: Anesthesia Plan Discussed Final Anesthetic Review Family History of Problems with Anesthesia: No History of Problems with Anesthesia: No NPO: Yes ASA Class: III Final Preanesthetic Review: Meds/Allgs Chart Reviewed, Consent Obtained/Reviewed and Anes Risks/Benef Reviewed Patient Risk: Intermediate Procedure Risk: Intermediate Anesthetic Plan Anesthetic Plan: MAC: Disposition: Standard PACU
[2023-01-01 12:09] VITALS: BP 123/79; PULSE 85; RESP 16; TEMP 36.9; O2SAT 98
[2023-01-01] MEDS: Lactated Ringers 1,000 ML 100 ML IVCONT (12:17)
--- NOTE | 2023-01-01 12:40 | MHC.SHP ---
Pre-Procedural Eval Section A Date of Service: 01/01/23 Section B Chief Complaint: Anemia,Acute pancreatitis without necrosis or infe Relevant Family History (Specify if Yes): No Relevant Social History: Alcohol Use Present Medications: see Short Stay Collaborative assessment Medical History: Significant History (Alcohol use disorder, pancreatitis,anemia) History of Previous Operations: No relevant previous surgery Allergies: Allergies Allergy/AdvReac Type Severity Reaction Status Date / Time ciprofloxacin [From CIPRO] Allergy Intermediate HIVES/ITCH Verified 12/10/22 16:39 Penicillins [PCN] Allergy Intermediate HIVES Verified 12/10/22 16:39 penicillin V Allergy Unknown Rash Verified 12/10/22 16:39 LOBSTER Allergy Severe SWELLING Uncoded 12/10/22 16:39 From CIPRO Allergy Intermediate HIVES/ITCH Uncoded 12/10/22 16:39 Review of Systems Sugical H&P ROS: Negative: Constitution, Cardiovascular, Respiratory, Neurological, Psychiatric, Hem-Onc, Allergic/Immunologic, Gastrointestinal, Genitourinary, Musculoskeletal, Integumentary, Endocrine and Eyes/Ears/Nose/Throat Exam Surgical H&P Exam: Normal: HEENT, Normal: Heart, Normal: Lungs, Normal: Extremities, Normal: Abdomen, Normal: Skin and Normal: Neurological Plan Diagnosis/Plan: Unchanged I have reviewed the history and physical and performed a pertinent physical examination on my patient. No changes have occurred unless specified. Time Spent With Patient Time: Total time managing care of this patient today ____ minutes.
--- NOTE | 2023-01-01 13:03 | W.PM.OPN ---
Operative Note Operative Note Date of Service: 01/01/23 Narrative: Operative Information Procedure Description: EGD, Colonoscopy Indication: anemia Anesthesia: MAC FLEXIBLE TRANSORAL UPPER GASTROINTESTINAL ENDOSCOPY AND COLONOSCOPY PROCEDURE NOTE UPPER ENDOSCOPY Consent: Indications for the procedure and potential complications of bleeding, perforation, reaction to medications and missed diagnosis were discussed with the patient and informed consent was obtained. Instrument: Olympus GIF H 190 J mid size upper endoscope Monitoring: Vital signs and clinical assessment, continuous EKG monitoring, Pulse oximetry, Carbon Dioxide monitoring and blood pressure monitoring were done throughout the procedure. Procedure: The patient was placed in the left lateral decubitis position and pre-procedure medications were administered and a bite block was placed. The endoscope was inserted into the mouth and advanced under direct vision to the third part of duodenum. A careful inspection was made as the upper endoscope was withdrawn including a retroflexed examination of the proximal stomach; Findings and interventions are described below. Findings: Larynx:normal Esophagus: GE junction at 36 cm, diaphragm hiatus at 40 cm, consistent with 4 cm sliding hiatal hernia, islands of salmon pink tissue noted at GEJ, bx taken Stomach: Mild erythema. Biopsies were obtained. Grade 2 flap valve on retroflexed examination of the cardia. Duodenum: Normal bulb and descending duodenum, bx taken Intervention: Biopsies as noted above COLONOSCOPY Instrument: Olympus variable stiffness pediatric scope 190L Colonoscopy Monitoring: Vital signs and clinical assessment, continuous EKG monitoring, Pulse oximetry, Carbon Dioxide monitoring and blood pressure monitoring were done throughout the procedure. Colon withdrawal time was 6 minutes. Procedure: The patient was placed in the left lateral decubitis position and pre-procedure medications were administered. After a digital rectal examination of the ano-rectum, the video colonoscope was inserted into the rectum and advanced through the colon to the cecum/TI. The colonoscope was slowly withdrawn in a retrograde panoramic fashion and the colon mucosa was carefully examined including a retroflexed view of the rectum. Findings and interventions are described below. Procedure Difficulty:easy Findings: Terminal Ileum-normal Cecum:normal Ascending Colon: scattered diverticula seen Transverse Colon -normal Descending Colon:normal Sigmoid Colon: scattered diverticula seen Rectum: Retroflexion with medium sized internal hemorrhoids, grade I Anorectum - normal Colon preparation: [place] Bowel Preparation Scale Right colon; 3 Transverse colon: 3 Left colon; 3 (0 = Unprepared colon segment with mucosa not seen due to solid stool that cannot be cleared. 1 = Portion of mucosa of the colon segment seen, but other areas of the colon segment not well seen due to staining, residual stool and/or opaque liquid. 2 = Minor amount of residual staining, small fragments of stool and/or opaque liquid, but mucosa of colon segment seen well. 3 = Entire mucosa of colon segment seen well with no residual staining, small fragments of stool or opaque liquid) Impression and Post Procedure Diagnosis: Endoscopy Findings: hiatal hernia possible barretts mild gastritis Colonoscopy Findings: internal hemorrhoids diverticular disease Plan: Await Pathology results Repeat Colonoscopy in 10 years or earlier if clinically indicated High fiber diet leaflet avoid straining at stool, epsom salts and sitz bath, anusol supps or cream Above findings were reviewed with the patient and relevant handouts were provided if indicated.
[2023-01-01 13:07] VITALS: BP 103/67; PULSE 80; RESP 16; TEMP 36.3; O2SAT 98
[2023-01-01 13:22] VITALS: BP 136/77; PULSE 77; RESP 16; O2SAT 97
[2023-01-01 13:37] VITALS: BP 135/82; PULSE 78; RESP 18; TEMP 36.3; O2SAT 97
== END 2023-01-01 14:18 | disposition home or self-care (01) ==
PROVIDERS: PCP Internal Medicine; Visit Provider Internal Medicine Gastroenterology
PROC: (CPT 45378; principal; 2023-01-01 13:20)
DX: D64.9 Anemia, unspecified (principal); K57.30 Diverticulosis of large intestine without perforation or abscess without bleeding; K64.0 First degree hemorrhoids; K85.90 Acute pancreatitis without necrosis or infection, unspecified; K29.80 Duodenitis without bleeding; K29.50 Unspecified chronic gastritis without bleeding; K44.9 Diaphragmatic hernia without obstruction or gangrene; F10.90 Alcohol use, unspecified, uncomplicated; Z79.899 Other long term (current) drug therapy; Z88.0 Allergy status to penicillin; Z88.1 Allergy status to other antibiotic agents; Z87.891 Personal history of nicotine dependence
CPT/HCPCS: 45378; 43239; 88305; 88342

== ENCOUNTER → 2023-01-01 11:33 | Outpatient (BNV) | payer MEDICAID, SELFPAY | PROVIDERS: PCP Internal Medicine; Visit Provider Internal Medicine Gastroenterology | DX: D64.9 Anemia, unspecified (principal); K25.9 Gastric ulcer, unspecified as acute or chronic, without hemorrhage or perforation; K44.9 Diaphragmatic hernia without obstruction or gangrene; K57.90 Diverticulosis of intestine, part unspecified, without perforation or abscess without bleeding; K64.0 First degree hemorrhoids | CPT/HCPCS: 43239; 45378 ==

== ENCOUNTER 2023-01-14 16:24 | Outpatient (AMB) | payer MEDICAID, SELFPAY ==
--- NOTE | 2023-01-14 16:26 | MHC.OFFVIS ---
Intake Vital Signs 01/14/23 16:30 BP 134/80 Blood Pressure Location Lt radial Position Sitting Pulse 90 Pulse Source Pulse Oximeter Pulse Oximetry (%) 96 Oxygen Delivery Method Room Air Intake Visit Reasons: MAT Visit Intake Note: the patient presents for a mat visit Email Production Specialist Required: No Allergies ciprofloxacin [From CIPRO] Allergy (Intermediate, Verified 01/14/23 16:31) HIVES/ITCH Penicillins [PCN] Allergy (Intermediate, Verified 01/14/23 16:31) HIVES penicillin V Allergy (Unknown, Verified 01/14/23 16:31) Rash LOBSTER Allergy (Severe, Uncoded 01/14/23 16:31) SWELLING From CIPRO Allergy (Intermediate, Uncoded 01/14/23 16:31) HIVES/ITCH Do you need a note to return to daycare/school/sports/work: No HPI MAT Visit HPI Details Patient presents for ISIDORO treatment follow up Reporting decrease in cravings for alcohol and cocaine Has been having increase in stressors at home and does not feel the need to drink or use cocaine Going back to work PFSH Medical History Alcohol use disorder Social History Household Members: Spouse Housing: Apartment Do you presently have visiting nurse or other home services: No Alcohol intake: current Alcohol intake frequency: 0-2 drinks per day Patient Tobacco Use Status: Former Tobacco user Tobacco use type: Cigarette Advance Directives Date on File: 09/11/22 service: No Current occupational status: employed Review of Systems Const Reports as per HPI and Reports no additional complaints Physical Exam Vital Signs: Last Vital Signs Pulse 90 01/14/23 16:30 BP 134/80 01/14/23 16:30 Pulse Ox 96 01/14/23 16:30 Oxygen Delivery Method Room Air 01/14/23 16:30 Const General: cooperative, healthy appearing, no acute distress and well groomed Assessment & Plan Assessment & Plan (1) Opioid use disorder: Code(s): F11.90 - Opioid use, unspecified, uncomplicated Plan: continue suboxone at current dose risk reduction discussion follow up 2 weeks (2) Alcohol use disorder: Code(s): F10.90 - Alcohol use, unspecified, uncomplicated Medications: Refilled buprenorphine-naloxone 8-2 mg (Suboxone) 1 film sublingual DAILY 14 ea 0RF Coding Level of Care Code Est Pt Level 3 (94038) Diagnoses Opioid use disorder F11.90 Alcohol use disorder F10.90
[2023-01-14 16:30] VITALS: BP 134/80; PULSE 90; O2SAT 96
== END 2023-01-14 17:01 | disposition home or self-care (01) ==
LOC: HO.HCC 16:24
PROVIDERS: PCP Internal Medicine; Visit Provider Nurse Practitioner Psychiatric/Mental Health
DX: F11.90 Opioid use, unspecified, uncomplicated (principal); F10.90 Alcohol use, unspecified, uncomplicated
CPT/HCPCS: 99213

== ENCOUNTER → 2023-01-14 16:24 | Outpatient (BNVA) | payer MEDICAID, SELFPAY | PROVIDERS: PCP Internal Medicine; Visit Provider Nurse Practitioner Psychiatric/Mental Health | DX: F11.20 Opioid dependence, uncomplicated (principal); F10.90 Alcohol use, unspecified, uncomplicated | CPT/HCPCS: 99212 ==

== ENCOUNTER 2023-01-28 11:34 | Outpatient (AMB) | payer MEDICAID, SELFPAY ==
--- NOTE | 2023-01-28 11:35 | MHC.OFFVIS ---
Intake Vital Signs 01/28/23 11:38 Height 5 ft 5 in Weight 136 lb 10.986 oz BMI 22.7 BP 130/81 Blood Pressure Location Lt brachial Position Sitting Pulse 69 Intake Visit Reasons: S/p egd/colon Intake Note: Alessio presents in the office as a follow up. CC: He states that he is not having any concerns since the procedures. Remediation Bioanalytics Consultant Required: No Allergies ciprofloxacin [From CIPRO] Allergy (Intermediate, Verified 01/28/23 11:39) HIVES/ITCH Penicillins [PCN] Allergy (Intermediate, Verified 01/28/23 11:39) HIVES penicillin V Allergy (Unknown, Verified 01/28/23 11:39) Rash LOBSTER Allergy (Severe, Uncoded 01/28/23 11:39) SWELLING From CIPRO Allergy (Intermediate, Uncoded 01/28/23 11:39) HIVES/ITCH HPI S/p egd/colon HPI Details 57 yr old m here for f/u RECAP: I had seen him as an inpatient for assessment for BONNIE He initially came to the ED for for evaluation of severe 10/10 diffuse, burning abdominal pain going into the back with nausea and bilious vomiting ongoing for 4 days.Had been consuming 1 drink daily but about a 6 pack over the weekend, Patient does admit to taking advil daily for the last year or so for various pains. LABS: No leukocytosis. H/H 5.8/23%, MCV 64.2%, iron 12, TIBC 433, saturation 3%. Total bili 0.4, AST 55, ALT 23, lipase 306.? IMAGING: ?CT abdomen/pelvis showing acute pancreatitis but no evidence of hemorrhage with generalized ileus.? EGD/Mears; Endoscopy Findings: hiatal hernia possible barretts mild gastritis Colonoscopy Findings: internal hemorrhoids diverticular disease INTERIM: He is doing v well drinking zero % beer appetite is good weight stable no abdominal pain no melena, no rectal bleeding no nausea or vomiting not using advil no heartburn occ smokes tobacco EXAM: GENERAL: The patient is well developed and nontoxic. VITAL SIGNS:see workflow HEENT: Nonicteric sclerae, PERRLA, EOMI. Oropharynx clear. Moist mucous membranes. Conjunctivae appear well perfused. No thyroid mass. CHEST: Chest wall is nontender. HEART: Regular rate and rhythm without murmurs. LUNGS: Clear to auscultation bilaterally. ABDOMEN: Soft, positive bowel sounds, nontender, no organomegaly.no flank tenderness SKIN: No rash, no excessive bruising, petechiae, or purpura. NEUROLOGIC: Cranial nerves II-XII intact without motor/sensory deficit. A/P: 1/ Anemia, possibly due to alcohol use and nsaid abuse, now stopped the nsaid drinking less alcohol---will recheck labs, no obvious bleeding on recent scopes 2/ alcohol related pancreatitis, stable, PLAN: 1/ recheck labs, if still anemic then VCE 2/ cont with omeprazole PFSH Medical History Alcohol use disorder Surgical History Hx of colonoscopy History of esophagogastroduodenoscopy (EGD) Social History Household Members: Spouse Housing: Apartment Do you presently have visiting nurse or other home services: No Alcohol intake: current Alcohol intake frequency: 0-2 drinks per day Patient Tobacco Use Status: Former Tobacco user Tobacco use type: Cigarette Advance Directives Date on File: 09/11/22 service: No Current occupational status: employed Physical Exam Vital Signs: Last Vital Signs Pulse 69 01/28/23 11:38 BP 130/81 01/28/23 11:38 BMI result Body Mass Index 22.7 Assessment & Plan Assessment & Plan (1) Anemia: Code(s): D64.9 - Anemia, unspecified Qualifiers: Anemia type: iron deficiency Orders: Orders Vitamin B12 and Folate Today D64.9 - Anemia, unspecified Ferritin Today D64.9 - Anemia, unspecified Complete Blood Count Auto Diff Today D64.9 - Anemia, unspecified Coding Level of Care Code Est Pt Level 3 (31443) Diagnoses Anemia D64.9 Anemia type: iron deficiency
[2023-01-28 11:38] VITALS: BP 130/81; PULSE 69; BMI 22.7
== END 2023-01-28 12:22 | disposition home or self-care (01) ==
PROVIDERS: PCP Internal Medicine; Visit Provider Internal Medicine Gastroenterology
DX: D64.9 Anemia, unspecified (principal)
CPT/HCPCS: 99213

== ENCOUNTER → 2023-01-28 11:34 | Outpatient (BNVA) | payer MEDICAID, SELFPAY | PROVIDERS: PCP Internal Medicine; Visit Provider Internal Medicine Gastroenterology | DX: D64.9 Anemia, unspecified (principal) | CPT/HCPCS: 99212 ==

== ENCOUNTER 2023-02-15 16:06 | Outpatient (AMB) | payer MEDICAID, SELFPAY ==
--- NOTE | 2023-02-15 16:08 | A.OFFVIS_ITS ---
Intake Vital Signs 02/15/23 16:12 BP 126/80 Blood Pressure Location Lt radial Position Sitting Pulse 74 Pulse Source Pulse Oximeter Pulse Oximetry (%) 97 Oxygen Delivery Method Room Air Intake Visit Reasons: MAT Visit Intake Note: the patient presents for a mat visit Licensed Esthetician Required: No Allergies ciprofloxacin [From CIPRO] Allergy (Intermediate, Verified 02/15/23 16:13) HIVES/ITCH Penicillins [PCN] Allergy (Intermediate, Verified 02/15/23 16:13) HIVES penicillin V Allergy (Unknown, Verified 02/15/23 16:13) Rash LOBSTER Allergy (Severe, Uncoded 02/15/23 16:13) SWELLING From CIPRO Allergy (Intermediate, Uncoded 02/15/23 16:13) HIVES/ITCH Do you need a note to return to daycare/school/sports/work: No HPI MAT Visit HPI Details Pt presents for OUD treatment follow up Currently being prescribed Suboxone 8mg daily Denies any side effects related to medication Reporting no desire to drink PFSH Medical History Alcohol use disorder Surgical History Hx of colonoscopy History of esophagogastroduodenoscopy (EGD) Social History Household Members: Spouse Housing: Apartment Do you presently have visiting nurse or other home services: No Alcohol intake: current Alcohol intake frequency: 0-2 drinks per day Patient Tobacco Use Status: Former Tobacco user Tobacco use type: Cigarette Advance Directives Date on File: 09/11/22 service: No Current occupational status: employed Review of Systems Const Reports as per HPI and Reports no additional complaints Physical Exam Vital Signs: Last Vital Signs Pulse 74 02/15/23 16:12 BP 126/80 02/15/23 16:12 Pulse Ox 97 02/15/23 16:12 Oxygen Delivery Method Room Air 02/15/23 16:12 Const General: cooperative, healthy appearing, no acute distress and well groomed Assessment & Plan Assessment & Plan (1) Opioid use disorder: Code(s): F11.90 - Opioid use, unspecified, uncomplicated Plan: * continue suboxone at current dose * risk reduction discussion * follow up 2 weeks (2) Alcohol use disorder: Code(s): F10.90 - Alcohol use, unspecified, uncomplicated Coding Level of Care Code Est Pt Level 3 (06549) Diagnoses Opioid use disorder F11.90 Alcohol use disorder F10.90
[2023-02-15 16:12] VITALS: BP 126/80; PULSE 74; O2SAT 97
== END 2023-02-15 16:36 | disposition home or self-care (01) ==
PROVIDERS: PCP Internal Medicine; Visit Provider Nurse Practitioner Psychiatric/Mental Health
DX: F11.90 Opioid use, unspecified, uncomplicated (principal); F10.90 Alcohol use, unspecified, uncomplicated
CPT/HCPCS: 99213

== ENCOUNTER → 2023-02-15 16:06 | Outpatient (BNVA) | payer MEDICAID, SELFPAY | PROVIDERS: PCP Internal Medicine; Visit Provider Nurse Practitioner Psychiatric/Mental Health | DX: F11.20 Opioid dependence, uncomplicated (principal); F10.20 Alcohol dependence, uncomplicated | CPT/HCPCS: 99212 ==

== ENCOUNTER 2023-03-05 15:41 | Outpatient (AMB) | payer MEDICAID, SELFPAY ==
--- NOTE | 2023-03-05 15:41 | MHC.OFFVIS ---
Intake Vital Signs 03/05/23 15:47 BP 134/82 Blood Pressure Location Lt radial Position Sitting Pulse 84 Pulse Source Pulse Oximeter Pulse Oximetry (%) 97 Oxygen Delivery Method Room Air Intake Visit Reasons: mat visit Intake Note: the patient presents for a mat visit Padding Gluer Required: No Allergies ciprofloxacin [From CIPRO] Allergy (Intermediate, Verified 03/05/23 15:50) HIVES/ITCH Penicillins [PCN] Allergy (Intermediate, Verified 03/05/23 15:50) HIVES penicillin V Allergy (Unknown, Verified 03/05/23 15:50) Rash LOBSTER Allergy (Severe, Uncoded 03/05/23 15:50) SWELLING From CIPRO Allergy (Intermediate, Uncoded 03/05/23 15:50) HIVES/ITCH Do you need a note to return to daycare/school/sports/work: No HPI mat visit HPI Details Presents for ISIDORO treatment and follow up. 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 Does not remember last cocaine use Last alcohol use on Saturday- one beer Has started going to [employer]oroastrian with his and feels good about this. Currently taking 8mg suboxone daily- tolerating dose well. [facility] Medical History Alcohol use disorder Surgical History Hx of colonoscopy History of esophagogastroduodenoscopy (EGD) Social History Household Members: Spouse Housing: Apartment Do you presently have visiting nurse or other home services: No Alcohol intake: current Alcohol intake frequency: 0-2 drinks per day Patient Tobacco Use Status: Former Tobacco user Tobacco use type: Cigarette Advance Directives Date on File: 09/11/22 service: No Current occupational status: employed Review of Systems Const Reports as per HPI Physical Exam Vital Signs: Last Vital Signs Pulse 84 03/05/23 15:47 BP 134/82 03/05/23 15:47 Pulse Ox 97 03/05/23 15:47 Oxygen Delivery Method Room Air 03/05/23 15:47 Const General: cooperative, healthy appearing, comfortable and no acute distress Nutritional Appearance: average body habitus Orientation/consciousness: patient oriented x3 Resp Effort & Inspection: normal respiratory effort Skin General skin exam: no rashes or lesions noted Neuro General: patient oriented x3 Psych Appearance: grossly normal and well kempt Mental Status: mental status grossly normal Speech and movement: Clear speech present Affect: normal affect Attitude: cooperative Insight: Good insight present (Psych) Judgement: Good judgement present (Psych) Assessment & Plan Assessment & Plan (1) Opioid use disorder: Code(s): F11.90 - Opioid use, unspecified, uncomplicated Plan: Continue suboxone at current dose. Harm reduction discussed. Follow up 2 weeks. (2) Alcohol use disorder: Code(s): F10.90 - Alcohol use, unspecified, uncomplicated Coding Level of Care Code Est Pt Level 3 (62099) Diagnoses Opioid use disorder F11.90 Alcohol use disorder F10.90
[2023-03-05 15:47] VITALS: BP 134/82; PULSE 84; O2SAT 97
== END 2023-03-05 16:14 | disposition home or self-care (01) ==
PROVIDERS: PCP Internal Medicine; Visit Provider Nurse Practitioner Psychiatric/Mental Health
DX: F11.90 Opioid use, unspecified, uncomplicated (principal); F10.90 Alcohol use, unspecified, uncomplicated
CPT/HCPCS: 99213

== ENCOUNTER → 2023-03-05 15:41 | Outpatient (BNVA) | payer MEDICAID, SELFPAY | PROVIDERS: PCP Internal Medicine; Visit Provider Nurse Practitioner Psychiatric/Mental Health | DX: Z51.81 Encounter for therapeutic drug level monitoring (principal); F11.20 Opioid dependence, uncomplicated; F10.20 Alcohol dependence, uncomplicated | CPT/HCPCS: 99212 ==

== ENCOUNTER 2023-04-09 15:06 | Outpatient (REF) | payer MEDICAID, SELFPAY ==
[2023-04-09 16:22] LABS: MANUAL DIFF FLAG NO
[2023-04-09 16:33] LABS: Basophils Absolute Auto 0.1 X10*3/uL (0.0-0.2); Basophils Percent Auto 0.9 % (0-2); Eosinophils Absolute Auto 0.2 X10*3/uL (0.0-0.4); Eosinophils Percent Auto 2.6 % (0-4); Hematocrit 27.7 % (42.0-52.0); Hemoglobin 7.8 g/dl (14.0-18.0); Imm Gran Abs Auto 0.03 X10*3/uL (0.00-0.03); Imm Gran Pct Auto 0.3 % (0.0-0.4); Lymphocytes Absolute Auto 2.1 X10*3/uL (1.2-4.9); Mean Corpuscular HGB Conc 28.2 g/dl (31.0-36.0); Mean Platelet Volume 10.8 fL (9.4-12.4); Monocytes Absolute Auto 0.9 X10*3/uL (0.1-1.2); Monocytes Percent Auto 9.8 % (2-11); Neutrophils Absolute Auto 5.9 x10*3/uL (2.0-8.3); Neutrophils Percent Auto 63.4 % (45-73); Platelet Count 371 X10*3/uL (160-400); Red Cell Distribution Width 17.3 % (11.0-16.0); White Blood Count 9.3 X10*3/uL (4.8-10.8)
[2023-04-09 17:16] LABS: Ferritin 4 ng/mL (20-250)
[2023-04-09 17:31] LABS: Vitamin B12 613 pg/mL (200-900)
== END 2023-04-09 15:07 | disposition home or self-care (01) ==
LOC: HO.LAB 15:06
PROVIDERS: Absent Provider Internal Medicine Gastroenterology; PCP Internal Medicine; Visit Provider Nurse Practitioner Family
DX: F11.90 Opioid use, unspecified, uncomplicated (principal); F10.90 Alcohol use, unspecified, uncomplicated; D64.9 Anemia, unspecified; Z79.899 Other long term (current) drug therapy
CPT/HCPCS: 36415; 82607; 82728; 82746; 85025; 99212

== ENCOUNTER 2023-04-09 15:06 | Outpatient (AMB) | payer MEDICAID, SELFPAY ==
--- NOTE | 2023-04-09 15:08 | A.OFFVIS_ITS ---
Intake Vital Signs 04/09/23 15:18 BP 108/72 Blood Pressure Location Lt radial Position Sitting Pulse 72 Pulse Source Pulse Oximeter Pulse Oximetry (%) 98 Oxygen Delivery Method Room Air Intake Visit Reasons: mat visit Intake Note: the patient presents for a mat visit Enterprise Systems Administrator Required: No Allergies ciprofloxacin [From CIPRO] Allergy (Intermediate, Verified 04/09/23 15:21) HIVES/ITCH Penicillins [PCN] Allergy (Intermediate, Verified 04/09/23 15:21) HIVES penicillin V Allergy (Unknown, Verified 04/09/23 15:21) Rash LOBSTER Allergy (Severe, Uncoded 04/09/23 15:21) SWELLING From CIPRO Allergy (Intermediate, Uncoded 04/09/23 15:21) HIVES/ITCH HPI mat visit HPI Details Patient presents for ISIDORO treatment He reports he kept missing his appointments for various reasons. He had a cold, had to work, and so on. He feels as though his use is further decreasing. Reports he is down to 3 beers a week. Did not drink on . He reports last cocaine use was 2 weeks ago and he had 2 passes He says he only uses when he is bored and that there is nothing to do around here He is still going to catholic regularly. He reports he mended a rift he was experiencing with his youngest daughter which he felt good about. [facility] Medical History Alcohol use disorder Surgical History Hx of colonoscopy History of esophagogastroduodenoscopy (EGD) Social History Household Members: Spouse Housing: Apartment Do you presently have visiting nurse or other home services: No Alcohol intake: current Alcohol intake frequency: 0-2 drinks per day Comment: pt refuses bed alarms Patient Tobacco Use Status: Former Tobacco user Tobacco use type: Cigarette Advance Directives Date on File: 09/11/22 service: No Current occupational status: employed Review of Systems Const Reports as per HPI Physical Exam Vital Signs: Last Vital Signs Pulse 72 04/09/23 15:18 BP 108/72 04/09/23 15:18 Pulse Ox 98 04/09/23 15:18 Oxygen Delivery Method Room Air 04/09/23 15:18 Const General: cooperative Resp Effort & Inspection: normal respiratory effort Psych Appearance: grossly normal Mental Status: mental status grossly normal Speech and movement: Normal speech and movement present Thought content: Normal thought content present Assessment & Plan Assessment & Plan (1) Opioid use disorder: Code(s): F11.90 - Opioid use, unspecified, uncomplicated Plan: Continue suboxone at current dose. Harm reduction discussed. Follow up 2 weeks. (2) Alcohol use disorder: Code(s): F10.90 - Alcohol use, unspecified, uncomplicated Plan: -Harm reduction discussed Medications: Refilled buprenorphine-naloxone 8-2 mg (Suboxone) 1 film sublingual DAILY 14 ea 0RF Coding Level of Care Code Est Pt Level 3 (89371) Diagnoses Opioid use disorder F11.90 Alcohol use disorder F10.90
[2023-04-09 15:18] VITALS: BP 108/72; PULSE 72; O2SAT 98
== END 2023-04-09 15:56 | disposition home or self-care (01) ==
PROVIDERS: PCP Internal Medicine; Visit Provider Nurse Practitioner Family
DX: F11.90 Opioid use, unspecified, uncomplicated (principal); F10.90 Alcohol use, unspecified, uncomplicated
CPT/HCPCS: 99213

== ENCOUNTER 2023-04-23 15:19 | Outpatient (AMB) | payer MEDICAID, SELFPAY ==
--- NOTE | 2023-04-23 15:20 | MHC.AM.SUB ---
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 Allergies ciprofloxacin [From CIPRO] Allergy (Intermediate, Verified 04/23/23 15:22) HIVES/ITCH Penicillins [PCN] Allergy (Intermediate, Verified 04/23/23 15:22) HIVES penicillin V Allergy (Unknown, Verified 04/23/23 15:22) Rash LOBSTER Allergy (Severe, Uncoded 04/23/23 15:22) SWELLING From CIPRO Allergy (Intermediate, Uncoded 04/23/23 15:22) HIVES/ITCH Do you need a note to return to daycare/school/sports/work: No HPI mat visit HPI Details Presents today for ISIDORO treatment and follow up He is upset today talking about how he received his labwork back a few weeks ago and was told he is anemic. Says he purchased iron pills and started taking them a few days after receiving his lab results. He reports intermittently feeling symptomatic with SOB on exertion and fatigue. T/w strongly encouraged pt to go to the ED if he feels these symptoms become more consistent or worsen. He reports the stress of the news about his labwork caused him to use alcohol (6 pack of beer) and a 10 of coke During the visit he reported feeling a pinching , he was unable to further elaborate- did indicated the discomfort originated from his left chest. Says he has been experiencing this discomfort intermittently for a while now', he was unable to clarify exactly how long. He did confirm that he felt the discomfort when he used cocaine, and that it also sometimes occurs when he is at rest. [facility] Medical History Alcohol use disorder Surgical History Hx of colonoscopy History of esophagogastroduodenoscopy (EGD) Social History Household Members: Spouse Housing: Apartment Do you presently have visiting nurse or other home services: No Alcohol intake: current Alcohol intake frequency: 0-2 drinks per day Comment: pt refuses bed alarms Patient Tobacco Use Status: Former Tobacco user Tobacco use type: Cigarette Advance Directives Date on File: 09/11/22 service: No Current occupational status: employed Review of Systems Const Reports as per HPI and Reports fatigue Card Details: he describes as a pinch Reports chest pain, Denies rapid heart rate, Denies lightheadedness, Denies radiating jaw, neck or arm pain, Denies palpitations and Reports dyspnea on exertion Resp Denies cough and Reports dyspnea on exertion GI Denies melena, Denies hematochezia, Reports constipation and Denies nausea Endo Reports fatigue and Denies palpitations Physical Exam Vital Signs: Last Vital Signs Pulse 78 04/23/23 15:33 BP 110/72 04/23/23 15:33 Pulse Ox 99 04/23/23 15:33 Oxygen Delivery Method Room Air 04/23/23 15:33 Const General: cooperative and tired appearing; No diaphoretic or ill appearing Nutritional Appearance: average body habitus Skin General skin exam: no rashes or lesions noted Assessment & Plan Assessment & Plan (1) Cocaine abuse: Code(s): F14.10 - Cocaine abuse, uncomplicated Plan: -Harm reduction discussion (2) Opioid use disorder: Comment: -Continue suboxone at current dose -Follow up 2 weeks Code(s): F11.90 - Opioid use, unspecified, uncomplicated Plan: -Continue suboxone at current dose -Follow up 2 weeks (3) Alcohol use disorder: Code(s): F10.90 - Alcohol use, unspecified, uncomplicated Plan: -Harm reduction discussion -Very strongly encouraged patient to present to ED after the end of the visit for the chest discomfort he was experiencing. He is declining at this time because he has prior engagements. Risks of delaying care if it is cardiac related chest pain fully explained to him, he verbalized understanding and is planning on presenting to the ED should the pinching persist or worsen. -Discussed with him if he feels increased fatigue or shortness of breath to present to the ED and notify GI specialist. -Discussed with him taking stool softener to prevent constipation from the iron. Medications: Refilled buprenorphine-naloxone 8-2 mg (Suboxone) 1 film sublingual DAILY 14 ea 0RF Coding Level of Care Code Est Pt Level 3 (36124) Diagnoses Cocaine abuse F14.10 Opioid use disorder F11.90 Alcohol use disorder F10.90
[2023-04-23 15:33] VITALS: BP 110/72; PULSE 78; O2SAT 99
== END 2023-04-23 16:12 | disposition home or self-care (01) ==
PROVIDERS: PCP Internal Medicine; Visit Provider Nurse Practitioner Family
DX: F11.90 Opioid use, unspecified, uncomplicated (principal); F14.10 Cocaine abuse, uncomplicated; F10.90 Alcohol use, unspecified, uncomplicated
CPT/HCPCS: 99213

== ENCOUNTER → 2023-04-23 15:19 | Outpatient (BNVA) | payer MEDICAID, SELFPAY | PROVIDERS: PCP Internal Medicine; Visit Provider Nurse Practitioner Family | DX: F14.10 Cocaine abuse, uncomplicated (principal); F11.20 Opioid dependence, uncomplicated; F10.20 Alcohol dependence, uncomplicated | CPT/HCPCS: 99212 ==

== ENCOUNTER 2023-05-07 15:12 | Outpatient (AMB) | payer MEDICAID, SELFPAY ==
[2023-05-07 15:34] VITALS: BP 160/65; PULSE 88; RESP 18; O2SAT 95
--- NOTE | 2023-05-07 15:34 | MHC.AM.SUB ---
Intake Vital Signs 05/07/23 15:34 BP 160/65 H Blood Pressure Location Lt brachial Position Sitting Respiration 18 Pulse 88 Pulse Source Pulse Oximeter Pulse Oximetry (%) 95 Oxygen Delivery Method Room Air Intake Visit Reasons: mat visit Allergies ciprofloxacin [From CIPRO] Allergy (Intermediate, Verified 04/23/23 15:22) HIVES/ITCH Penicillins [PCN] Allergy (Intermediate, Verified 04/23/23 15:22) HIVES penicillin V Allergy (Unknown, Verified 04/23/23 15:22) Rash LOBSTER Allergy (Severe, Uncoded 04/23/23 15:22) SWELLING From CIPRO Allergy (Intermediate, Uncoded 04/23/23 15:22) HIVES/ITCH HPI mat visit HPI Details Patient presents for ISIDORO tx and follow up He reports no cocaine use since he last visited the office, he is happy about this. He reports drinking 22oz of beer that he made last 2 days over the holiday, states this is the only alcohol he has had He has an appointment next week for an iron infusion He reports he has been feeling like his suboxone wears off everyday in the afternoon, he is currently splitting his 8mg film and taking 1 half in the morning, an 1 half in the evening. He states that by early afternoon he is feeling fatigue and frequent yawning, relieved when he takes his second half of film. He denies sweats, low back pain, or cravings. [facility] Medical History Alcohol use disorder Surgical History Hx of colonoscopy History of esophagogastroduodenoscopy (EGD) Social History Household Members: Spouse Housing: Apartment Do you presently have visiting nurse or other home services: No Alcohol intake: current Alcohol intake frequency: 0-2 drinks per day Comment: pt refuses bed alarms Patient Tobacco Use Status: Former Tobacco user Tobacco use type: Cigarette Advance Directives Date on File: 09/11/22 service: No Current occupational status: employed Review of Systems Const Reports as per HPI Physical Exam Vital Signs: Last Vital Signs Pulse 88 05/07/23 15:34 Resp 18 05/07/23 15:34 BP 160/65 H 05/07/23 15:34 Pulse Ox 95 05/07/23 15:34 Oxygen Delivery Method Room Air 05/07/23 15:34 Const General: cooperative, comfortable and no acute distress Resp Effort & Inspection: normal respiratory effort Psych Appearance: grossly normal and well kempt Affect: normal affect Attitude: cooperative Assessment & Plan Assessment & Plan (1) Cocaine abuse: Code(s): F14.10 - Cocaine abuse, uncomplicated Plan: No use in >2 weeks Harm reduction discussion (2) Opioid use disorder: Code(s): F11.90 - Opioid use, unspecified, uncomplicated Plan: -2mg suboxone film added for patient to take midday to address mild withdrawal symptoms -Follow up 2 weeks Medications: New buprenorphine-naloxone 2-[address] 1 strip/tab under (each) side of tongue 1 film buccal DAILY 14 ea 0RF Refilled buprenorphine-naloxone 8-2 mg (Suboxone) 1 film sublingual DAILY 14 ea 0RF Coding Level of Care Code Est Pt Level 3 (80283) Diagnoses Cocaine abuse F14.10 Opioid use disorder F11.90
== END 2023-05-07 15:54 | disposition home or self-care (01) ==
PROVIDERS: PCP Internal Medicine; Visit Provider Nurse Practitioner Family
DX: F11.90 Opioid use, unspecified, uncomplicated (principal); F14.10 Cocaine abuse, uncomplicated
CPT/HCPCS: 99213

== ENCOUNTER → 2023-05-07 15:12 | Outpatient (BNVA) | payer MEDICAID, SELFPAY | PROVIDERS: PCP Internal Medicine; Visit Provider Nurse Practitioner Family | DX: F11.20 Opioid dependence, uncomplicated (principal); F14.10 Cocaine abuse, uncomplicated | CPT/HCPCS: 99212 ==

== ENCOUNTER 2023-05-14 14:50 | Outpatient (REF) | payer MEDICAID, SELFPAY | END 2023-05-14 14:51 | disposition home or self-care (01) | LOC: HO.MDS 14:50 | PROVIDERS: Visit Provider Internal Medicine Gastroenterology | DX: D64.9 Anemia, unspecified (principal) | CPT/HCPCS: 96365; J1756 ==

== ENCOUNTER 2023-05-21 14:47 | Outpatient (REF) | payer MEDICAID, SELFPAY | END 2023-05-21 14:48 | disposition home or self-care (01) | LOC: HO.MDS 14:47 | PROVIDERS: Visit Provider Internal Medicine Gastroenterology | DX: D64.9 Anemia, unspecified (principal); F11.20 Opioid dependence, uncomplicated; F14.10 Cocaine abuse, uncomplicated; F10.90 Alcohol use, unspecified, uncomplicated | CPT/HCPCS: 96365; 99212; J1756 ==

== ENCOUNTER 2023-05-21 15:26 | Outpatient (AMB) | payer MEDICAID, SELFPAY ==
--- NOTE | 2023-05-21 15:31 | A.OFFVISCC_ITS ---
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 Allergies ciprofloxacin [From CIPRO] Allergy (Intermediate, Verified 05/21/23 15:32) HIVES/ITCH Penicillins [PCN] Allergy (Intermediate, Verified 05/21/23 15:32) HIVES penicillin V Allergy (Unknown, Verified 05/21/23 15:32) Rash LOBSTER Allergy (Severe, Uncoded 05/21/23 15:32) SWELLING From CIPRO Allergy (Intermediate, Uncoded 05/21/23 15:32) HIVES/ITCH Do you need a note to return to daycare/school/sports/work: No HPI mat visit HPI Details Pt presents for ISIDORO treatment and follow up He reports that he has had an increase in stress over the past week due to his insurance He received a notification his insurance is changing and is feeling overwhelmed and unsure how to address changing his insurance He reports these feelings of stress caused him to go out and buy a six pack. He reports he drank the whole six pack in addition to a little bit of cocaine. He reports buying $20 worth of cocaine, but only did a little because it was boring he felt as though he derived no satisfaction from the beer or cocaine, and that he flushed the rest of the cocaine down the toilet. He feels as though this is a sign he is truly ready to be done with using substances. He also expressed his suboxone dose seems to be wearing off before it should. When it wears off he reports experiencing sweating, yawning, and back pain. He was trying 4mg in am, 2mg in early afternoon and 4mg in the evening as discussed in his last visit. T/w encouraged pt to try to take the full 8mg in the morning, and reserve the 2mg for afternoon to see if that provides him better coverage. He denies any other concerns at this time. Reports he is coming weekly to the hospital for iron infusions. [facility] Medical History Alcohol use disorder Surgical History Hx of colonoscopy History of esophagogastroduodenoscopy (EGD) Social History Household Members: Spouse Housing: Apartment Do you presently have visiting nurse or other home services: No Alcohol intake: current Alcohol intake frequency: 0-2 drinks per day Comment: pt refuses bed alarms Patient Tobacco Use Status: Former Tobacco user Tobacco use type: Cigarette Advance Directives Date on File: 09/11/22 service: No Current occupational status: employed Review of Systems Const Reports as per HPI Physical Exam Vital Signs: Last Vital Signs Pulse 74 05/21/23 15:32 BP 116/72 05/21/23 15:32 Pulse Ox 96 05/21/23 15:32 Oxygen Delivery Method Room Air 05/21/23 15:32 Const General: cooperative, comfortable and no acute distress Resp Effort & Inspection: normal respiratory effort and able to speak in complete sentences Skin General skin exam: no rashes or lesions noted Psych Appearance: grossly normal and well kempt Mental Status: mental status grossly normal Speech and movement: Normal speech and movement present Affect: normal affect Attitude: cooperative Assessment & Plan Assessment & Plan (1) Cocaine abuse: Code(s): F14.10 - Cocaine abuse, uncomplicated Plan: -Still using intermittently just a little bit at a time, harm reduction and relapse prevention discussed (2) Opioid use disorder: Code(s): F11.90 - Opioid use, unspecified, uncomplicated Plan: -Continue suboxone at same dose, changed dose scheduling to 8mg in morning 2 mg in afternoon/evening -Follow up 1 week -Encouraged him to call the clinic (3) Alcohol use disorder: Code(s): F10.90 - Alcohol use, unspecified, uncomplicated Plan: -Relapse prevention discussed Coding Level of Care Code Est Pt Level 3 (94088) Diagnoses Cocaine abuse F14.10 Opioid use disorder F11.90 Alcohol use disorder F10.90
[2023-05-21 15:32] VITALS: BP 116/72; PULSE 74; O2SAT 96
== END 2023-05-21 16:13 | disposition home or self-care (01) ==
PROVIDERS: PCP Internal Medicine; Visit Provider Nurse Practitioner Family
DX: F11.90 Opioid use, unspecified, uncomplicated (principal); F14.10 Cocaine abuse, uncomplicated; F10.90 Alcohol use, unspecified, uncomplicated
CPT/HCPCS: 99213

== ENCOUNTER 2023-05-28 14:50 | Outpatient (REF) | payer MEDICAID, SELFPAY | END 2023-05-28 14:51 | disposition home or self-care (01) | LOC: HO.MDS 14:50 | PROVIDERS: Visit Provider Internal Medicine Gastroenterology | DX: D64.9 Anemia, unspecified (principal); F11.90 Opioid use, unspecified, uncomplicated; F14.10 Cocaine abuse, uncomplicated; F10.90 Alcohol use, unspecified, uncomplicated | CPT/HCPCS: 96365; 99212; J1756 ==

== ENCOUNTER 2023-05-28 15:38 | Outpatient (AMB) | payer MEDICAID, SELFPAY ==
--- NOTE | 2023-05-28 15:39 | A.OFFVISCC_ITS ---
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 Allergies ciprofloxacin [From CIPRO] Allergy (Intermediate, Verified 05/28/23 15:40) HIVES/ITCH Penicillins [PCN] Allergy (Intermediate, Verified 05/28/23 15:40) HIVES penicillin V Allergy (Unknown, Verified 05/28/23 15:40) Rash LOBSTER Allergy (Severe, Uncoded 05/28/23 15:40) SWELLING From CIPRO Allergy (Intermediate, Uncoded 05/28/23 15:40) HIVES/ITCH Do you need a note to return to daycare/school/sports/work: No HPI mat visit HPI Details Pt presents to the clinic for ISIDORO treatment and follow up He reports he figured out his insurance and that he had figured it out He reports his relationships with his children are also stressors for him, says they grew up with their mother and he feels as though she turned them against him. He feels badly about this. He reports when he is stressed that is when he gets the urges to drink or do cocaine. He says this past week he used cocaine 2-3 times, in passes , denies finishing his 20 bags when he buys them Says the cocaine doesn't make him feel good like it used to and he is unsure why he still buys it. He reports drinking 4 beers yesterday after a stressful conversation with his daughter He has been taking 8mg in the morning, and 2mg mid-afternoon, but does not feel the 2mg sustains him and he reports feeling back pain, and yawning 2-3 hours after taking 2mg film. [facility] Medical History Alcohol use disorder Surgical History Hx of colonoscopy History of esophagogastroduodenoscopy (EGD) Social History Household Members: Spouse Housing: Apartment Do you presently have visiting nurse or other home services: No Alcohol intake: current Alcohol intake frequency: 0-2 drinks per day Comment: pt refuses bed alarms Patient Tobacco Use Status: Former Tobacco user Tobacco use type: Cigarette Advance Directives Date on File: 09/11/22 service: No Current occupational status: employed Review of Systems Const Reports as per HPI Physical Exam Vital Signs: Last Vital Signs Pulse 80 05/28/23 15:46 BP 118/72 05/28/23 15:46 Pulse Ox 96 05/28/23 15:46 Oxygen Delivery Method Room Air 05/28/23 15:46 Const General: cooperative, healthy appearing and no acute distress Resp Effort & Inspection: normal respiratory effort and able to speak in complete se ntences Psych Appearance: grossly normal and well kempt Mental Status: mental status grossly normal Speech and movement: Normal speech and movement present Affect: normal affect Attitude: cooperative Assessment & Plan Assessment & Plan (1) Opioid use disorder: Code(s): F11.90 - Opioid use, unspecified, uncomplicated Plan: -Increase midday dose from 2mg to 4mg, encouraged patient to try splitting his 8mg in half to take 4mg tid -Mass pat reviewed -Follow up 1 week (2) Cocaine abuse: Code(s): F14.10 - Cocaine abuse, uncomplicated Plan: -Harm reduction discussed -Relapse prevention discussed (3) Alcohol use disorder: Code(s): F10.90 - Alcohol use, unspecified, uncomplicated Plan: -Harm reduction discussion -Discussed alternatives to using substances to keep busy as when he is bored or stressed is his most likely time to use Medications: New buprenorphine-naloxone 4-[address] 1 strip/tab under (each) side of tongue 1 film buccal Q24H 7 ea 0RF Refilled buprenorphine-naloxone 8-2 mg (Suboxone) 1 film sublingual DAILY 7 ea 0RF Discontinued buprenorphine-naloxone 2-[address] 1 strip/tab under (each) side of tongue Discontinued Reason: None 1 film buccal DAILY 7 ea 0RF Coding Level of Care Code Est Pt Level 3 (56723) Diagnoses Opioid use disorder F11.90 Cocaine abuse F14.10 Alcohol use disorder F10.90
[2023-05-28 15:46] VITALS: BP 118/72; PULSE 80; O2SAT 96
== END 2023-05-28 16:36 | disposition home or self-care (01) ==
PROVIDERS: PCP Internal Medicine; Visit Provider Nurse Practitioner Family
DX: F11.90 Opioid use, unspecified, uncomplicated (principal); F14.10 Cocaine abuse, uncomplicated; F10.90 Alcohol use, unspecified, uncomplicated
CPT/HCPCS: 99213

== ENCOUNTER 2023-06-04 14:54 | Outpatient (REF) | payer MEDICAID, SELFPAY | END 2023-06-04 14:55 | disposition home or self-care (01) | LOC: HO.MDS 14:54 | PROVIDERS: Visit Provider Internal Medicine Gastroenterology | DX: D64.9 Anemia, unspecified (principal) | CPT/HCPCS: 96365; 99212; J1756 ==

== ENCOUNTER 2023-06-04 15:41 | Outpatient (AMB) | payer MEDICAID, SELFPAY ==
--- NOTE | 2023-06-04 15:44 | MHC.AM.SUB ---
Intake Vital Signs 06/04/23 15:51 BP 122/72 Blood Pressure Location Lt radial Position Sitting Pulse 77 Pulse Source Pulse Oximeter Pulse Oximetry (%) 98 Oxygen Delivery Method Room Air Intake Visit Reasons: mat visit Donor Support Technician Required: No Allergies ciprofloxacin [From CIPRO] Allergy (Intermediate, Verified 06/04/23 15:52) HIVES/ITCH Penicillins [PCN] Allergy (Intermediate, Verified 06/04/23 15:52) HIVES penicillin V Allergy (Unknown, Verified 06/04/23 15:52) Rash LOBSTER Allergy (Severe, Uncoded 06/04/23 15:52) SWELLING From CIPRO Allergy (Intermediate, Uncoded 06/04/23 15:52) HIVES/ITCH HPI mat visit HPI Details Pt presents for MAT visit He reports he has only had 1-2 beers in the last week He feels as though dosing 4mg tid has worked much better for him and has had no further withdrawal symptoms He has not done any cocaine since last appointment, reports someone he knew from cocaine overdose this past week and that has scared him He is continuing to receive iron infusions, reports ringing has begun to his right ear starting 1 week ago that he feels is related to the infusion, instructed to call his GI provider to make them aware of this He has been working on reaching out to his children this week to build relationships with them, he is happy about this Denies any other concerns today [facility] Medical History Alcohol use disorder Surgical History Hx of colonoscopy History of esophagogastroduodenoscopy (EGD) Social History Household Members: Spouse Housing: Apartment Do you presently have visiting nurse or other home services: No Alcohol intake: current Alcohol intake frequency: 0-2 drinks per day Comment: pt refuses bed alarms Patient Tobacco Use Status: Former Tobacco user Tobacco use type: Cigarette Advance Directives Date on File: 09/11/22 service: No Current occupational status: employed Review of Systems Const Reports as per HPI ENT Reports tinnitus Physical Exam Vital Signs: Last Vital Signs Pulse 77 06/04/23 15:51 BP 122/72 06/04/23 15:51 Pulse Ox 98 06/04/23 15:51 Oxygen Delivery Method Room Air 06/04/23 15:51 Const General: cooperative, healthy appearing and no acute distress Resp Effort & Inspection: normal respiratory effort and able to speak in complete sentences Psych Appearance: grossly normal Mental Status: mental status grossly normal Speech and movement: Normal speech and movement present Affect: normal affect Attitude: cooperative Assessment & Plan Assessment & Plan (1) Opioid use disorder: Code(s): F11.90 - Opioid use, unspecified, uncomplicated Plan: -Mass pat reviewed -Continue suboxone at current dose -Follow up 2 weeks -Instructed to call [facility] with questions or concerns (2) Cocaine abuse: Code(s): F14.10 - Cocaine abuse, uncomplicated Plan: -No cocaine use this week -Relapse prevention discussed (3) Alcohol use disorder: Code(s): F10.90 - Alcohol use, unspecified, uncomplicated Plan -He continues to work on keeping his alcohol use to a minimum -Harm reduction discussed Medications: Refilled buprenorphine-naloxone 4-[address] 1 strip/tab under (each) side of tongue 1 film buccal Q24H 14 ea 0RF buprenorphine-naloxone 8-2 mg (Suboxone) 1 film sublingual DAILY 14 ea 0RF Coding Level of Care Code Est Pt Level 3 (27400) Diagnoses Opioid use disorder F11.90 Cocaine abuse F14.10 Alcohol use disorder F10.90
[2023-06-04 15:51] VITALS: BP 122/72; PULSE 77; O2SAT 98
== END 2023-06-04 16:31 | disposition home or self-care (01) ==
PROVIDERS: PCP Internal Medicine; Visit Provider Nurse Practitioner Family
DX: F11.90 Opioid use, unspecified, uncomplicated (principal); F14.10 Cocaine abuse, uncomplicated; F10.90 Alcohol use, unspecified, uncomplicated
CPT/HCPCS: 99213

== ENCOUNTER 2023-06-11 15:00 | Outpatient (REF) | payer MEDICAID, SELFPAY | END 2023-06-11 15:01 | disposition home or self-care (01) | LOC: HO.MDS 15:00 | PROVIDERS: Visit Provider Internal Medicine Gastroenterology | DX: D64.9 Anemia, unspecified (principal) | CPT/HCPCS: 96365; J1756 ==

== ENCOUNTER 2023-06-18 14:51 | Outpatient (REF) | payer OTHER, SELFPAY | END 2023-06-18 14:52 | disposition home or self-care (01) | LOC: HO.MDS 14:51 | PROVIDERS: Visit Provider Internal Medicine Gastroenterology | DX: D64.9 Anemia, unspecified (principal); F11.90 Opioid use, unspecified, uncomplicated; F14.10 Cocaine abuse, uncomplicated; F10.90 Alcohol use, unspecified, uncomplicated | CPT/HCPCS: 96365; 99212; J1756 ==

== ENCOUNTER 2023-06-18 15:41 | Outpatient (AMB) | payer MEDICAID, SELFPAY ==
--- NOTE | 2023-06-18 15:43 | MHC.AM.SUB ---
Intake Vital Signs 06/18/23 15:46 BP 130/70 Blood Pressure Location Rt radial Position Sitting Respiration 19 Pulse 71 Pulse Oximetry (%) 98 Intake Visit Reasons: mat visit Allergies ciprofloxacin [From CIPRO] Allergy (Intermediate, Verified 06/04/23 15:52) HIVES/ITCH Penicillins [PCN] Allergy (Intermediate, Verified 06/04/23 15:52) HIVES penicillin V Allergy (Unknown, Verified 06/04/23 15:52) Rash LOBSTER Allergy (Severe, Uncoded 06/04/23 15:52) SWELLING From CIPRO Allergy (Intermediate, Uncoded 06/04/23 15:52) HIVES/ITCH HPI mat visit HPI Details Patient presents for MAT visit and follow up He reports he is still experiencing tinnitus that he attributes to his iron infusions he receives weekly (2 left) He does say that he notified the GI office he was experiencing this effect He has had a good 2 weeks since last visit No cocaine use, reports 2 days he had a beer Suboxone dosed at 4mg tid has been effective for him, he is experiencing no cravings or withdrawal symptoms at this dose He is working on building relationships with his children and is pleased about this [facility] Medical History Alcohol use disorder Surgical History Hx of colonoscopy History of esophagogastroduodenoscopy (EGD) Social History Household Members: Spouse Housing: Apartment Do you presently have visiting nurse or other home services: No Alcohol intake: current Alcohol intake frequency: 0-2 drinks per day Comment: pt refuses bed alarms Patient Tobacco Use Status: Former Tobacco user Tobacco use type: Cigarette Advance Directives Date on File: 09/11/22 service: No Current occupational status: employed Review of Systems Const Reports as per HPI ENT Reports tinnitus Physical Exam Vital Signs: Last Vital Signs Pulse 71 06/18/23 15:46 Resp 19 06/18/23 15:46 BP 130/70 06/18/23 15:46 Pulse Ox 98 06/18/23 15:46 Const General: cooperative and healthy appearing Resp Effort & Inspection: normal respiratory effort Skin General skin exam: no rashes or lesions noted Psych Appearance: grossly normal and well kempt Mental Status: mental status grossly normal Speech and movement: Normal speech and movement present Affect: normal affect Attitude: cooperative Assessment & Plan Assessment & Plan (1) Opioid use disorder: Code(s): F11.90 - Opioid use, unspecified, uncomplicated Plan: -Continue suboxone 4mg tid -Mass pat reviewed -Follow up 2 weeks (2) Cocaine abuse: Code(s): F14.10 - Cocaine abuse, uncomplicated Plan: -He has been abstinent (3) Alcohol use disorder: Code(s): F10.90 - Alcohol use, unspecified, uncomplicated Plan: -His use continues to be minimal -Harm reduction discussed Medications: Refilled buprenorphine-naloxone 4-[address] 1 strip/tab under (each) side of tongue 1 film buccal Q24H 14 ea 0RF buprenorphine-naloxone 8-2 mg (Suboxone) 1 film sublingual DAILY 14 ea 0RF Coding Level of Care Code Est Pt Level 3 (45479) Diagnoses Opioid use disorder F11.90 Cocaine abuse F14.10 Alcohol use disorder F10.90 Time Spent (min) 30 Comment Time spent with patient, reviewing chart and documenting
[2023-06-18 15:46] VITALS: BP 130/70; PULSE 71; RESP 19; O2SAT 98
== END 2023-06-18 16:13 | disposition home or self-care (01) ==
PROVIDERS: PCP Internal Medicine; Visit Provider Nurse Practitioner Family
DX: F11.90 Opioid use, unspecified, uncomplicated (principal); F14.10 Cocaine abuse, uncomplicated; F10.90 Alcohol use, unspecified, uncomplicated
CPT/HCPCS: 99213

== ENCOUNTER 2023-07-22 15:17 | Outpatient (AMB) | payer MEDICAID, SELFPAY ==
--- NOTE | 2023-07-22 15:19 | A.OFFVISCC_ITS ---
Intake Vital Signs 07/22/23 15:26 BP 132/78 Blood Pressure Location Lt radial Position Sitting Pulse 86 Pulse Source Pulse Oximeter Pulse Oximetry (%) 99 Oxygen Delivery Method Room Air Intake Visit Reasons: MAT Intake Note: the patient presents for a mat visit Aircraft Communicator Required: No Allergies ciprofloxacin [From CIPRO] Allergy (Intermediate, Verified 07/22/23 15:27) HIVES/ITCH Penicillins [PCN] Allergy (Intermediate, Verified 07/22/23 15:27) HIVES penicillin V Allergy (Unknown, Verified 07/22/23 15:27) Rash LOBSTER Allergy (Severe, Uncoded 07/22/23 15:27) SWELLING From CIPRO Allergy (Intermediate, Uncoded 07/22/23 15:27) HIVES/ITCH Do you need a note to return to daycare/school/sports/work: No HPI MAT HPI Details Patient presents for follow up Drank and used cocaine over the last wkend Reports he did not like the way either one made him feel Reflecting on how much his use has decreased and has become almost unenjoyable [facility] Medical History Alcohol use disorder Surgical History Hx of colonoscopy History of esophagogastroduodenoscopy (EGD) Social History Household Members: Spouse Housing: Apartment Do you presently have visiting nurse or other home services: No Alcohol intake: current Alcohol intake frequency: 0-2 drinks per day Comment: pt refuses bed alarms Patient Tobacco Use Status: Former Tobacco user Tobacco use type: Cigarette Advance Directives Date on File: 09/11/22 service: No Current occupational status: employed Review of Systems Const Reports as per HPI Physical Exam Vital Signs: Last Vital Signs Pulse 86 07/22/23 15:26 BP 132/78 07/22/23 15:26 Pulse Ox 99 07/22/23 15:26 Oxygen Delivery Method Room Air 07/22/23 15:26 Const General: cooperative and healthy appearing Resp Effort & Inspection: normal respiratory effort Skin General skin exam: no rashes or lesions noted Psych Appearance: grossly normal and well kempt Mental Status: mental status grossly normal Speech and movement: Normal speech and movement present Affect: normal affect Attitude: cooperative Assessment & Plan Assessment & Plan (1) Opioid use disorder: Code(s): F11.90 - Opioid use, unspecified, uncomplicated Plan: * refilled suboxone (2) Alcohol use disorder: Code(s): F10.90 - Alcohol use, unspecified, uncomplicated Plan: * risk reduction discussion * follow up 2 weeks Medications: Changed From buprenorphine-naloxone 4-[address] 1 strip/tab under (each) side of tongue 1 film buccal Q24H 14 ea 0RF To buprenorphine-naloxone 4-1 mg 1 film buccal Q24H 14 ea 0RF Refilled buprenorphine-naloxone 8-2 mg 1 film buccal DAILY 14 ea 0RF Coding Level of Care Code Est Pt Level 4 (45371) Diagnoses Opioid use disorder F11.90 Alcohol use disorder F10.90
[2023-07-22 15:26] VITALS: BP 132/78; PULSE 86; O2SAT 99
== END 2023-07-22 16:09 | disposition home or self-care (01) ==
PROVIDERS: PCP Internal Medicine; Visit Provider Nurse Practitioner Psychiatric/Mental Health
DX: F11.90 Opioid use, unspecified, uncomplicated (principal); F10.90 Alcohol use, unspecified, uncomplicated
CPT/HCPCS: 99214

== ENCOUNTER → 2023-07-22 15:17 | Outpatient (BNVA) | payer MEDICAID, SELFPAY | PROVIDERS: PCP Internal Medicine; Visit Provider Nurse Practitioner Psychiatric/Mental Health | DX: F11.90 Opioid use, unspecified, uncomplicated (principal); F10.90 Alcohol use, unspecified, uncomplicated | CPT/HCPCS: 99212 ==

== ENCOUNTER 2023-07-29 10:27 | Outpatient (AMB) | payer MEDICAID, SELFPAY ==
--- NOTE | 2023-07-29 10:28 | A.OFFVIS_ITS ---
Intake Intake Visit Reasons: 6 month follow up Intake Note: Alessio presents as a video call today 6 month follow up CC: He never finish last iron infusions due to his insurance. Still having ringing in his ears. Allergies ciprofloxacin [From CIPRO] Allergy (Intermediate, Verified 07/22/23 15:27) HIVES/ITCH Penicillins [PCN] Allergy (Intermediate, Verified 07/22/23 15:27) HIVES penicillin V Allergy (Unknown, Verified 07/22/23 15:27) Rash LOBSTER Allergy (Severe, Uncoded 07/22/23 15:27) SWELLING From CIPRO Allergy (Intermediate, Uncoded 07/22/23 15:27) HIVES/ITCH HPI 6 month follow up HPI Details 57 yr old m called for f/u RECAP: I had seen him as an inpatient for assessment for BONNIE He initially came to the ED for for evaluation of severe 10/10 diffuse, burning abdominal pain going into the back with nausea and bilious vomiting ongoing for 4 days.Had been consuming 1 drink daily but about a 6 pack over the weekend, Patient did admit to taking advil daily for a year or so for various pains. LABS: 04/27 HGB: 8, ferritin : 4 IMAGING: CT abdomen/pelvis showing acute pancreatitis but no evidence of hemorrhage with generalized ileus. EGD/[facility]; Endoscopy Findings: hiatal hernia possible barretts mild gastritis Colonoscopy Findings: internal hemorrhoids diverticular disease INTERIM: He never completed his iron infusions due to insurance issues he feels good, he has no SOB, no tiredness once a blue velasco drinks alcohol no abdominal pain no melena, no rectal bleeding no nausea or vomiting not using advil he is still taking omeprazole A/P: 1/ Anemia, possibly due to alcohol use a nd nsaid abuse, stopped the nsaid drinking less alcohol- 2/ alcohol related pancreatitis, stable, PLAN: 1/ recheck labs, if still anemic then re commence iron infusions and consider VCE 2/ cont with omeprazole --refilled PFSH Medical History Alcohol use disorder Surgical History Hx of colonoscopy History of esophagogastroduodenoscopy (EGD) Social History Household Members: Spouse Housing: Apartment Do you presently have visiting nurse or other home services: No Alcohol intake: current Alcohol intake frequency: 0-2 drinks per day Comment: pt refuses bed alarms Patient Tobacco Use Status: Former Tobacco user Tobacco use type: Cigarette Advance Directives Date on File: 09/11/22 service: No Current occupational status: employed Assessment & Plan Assessment & Plan (1) Anemia: Code(s): D64.9 - Anemia, unspecified Qualifiers: Anemia type: iron deficiency Plan: see above Orders: Orders Complete Blood Count Auto Diff Today D64.9 - Anemia, unspecified Ferritin Today D64.9 - Anemia, unspecified Comprehensive Met. Panel Today D64.9 - Anemia, unspecified, K75.81 - Nonalcoholic steatohepatitis ([place]) IRON PROFILE Today D64.9 - Anemia, unspecified Medications: New omeprazole 20 mg PO BID 60 caps 2RF Telehealth Telehealth Location of provider rendering services: practice address Location of patient: address on file Patient Identification confirmed using: Name, : Yes Telehealth method: voice only Patient verbally consented to treatment: Yes Patient verbally consented to billing insurance company: Yes Patient informed of any privacy concerns related to visit: Yes Minutes spent on Phone/Video with Pt.: 6 Coding Level of Care Code Tele Est Pt Level 3 (36637) Diagnoses Anemia D64.9 Anemia type: iron deficiency
== END 2023-07-29 12:32 | disposition home or self-care (01) ==
PROVIDERS: PCP Internal Medicine; Visit Provider Internal Medicine Gastroenterology
DX: D64.9 Anemia, unspecified (principal)
CPT/HCPCS: 99213

== ENCOUNTER → 2023-07-29 10:27 | Outpatient (BNVA) | payer OTHER, SELFPAY | PROVIDERS: PCP Internal Medicine; Visit Provider Internal Medicine Gastroenterology ==

== ENCOUNTER 2023-08-08 15:03 | Outpatient (AMB) | payer MEDICAID, SELFPAY ==
--- NOTE | 2023-08-08 15:06 | A.OFFVISCC_ITS ---
Intake Intake Visit Reasons: MAT Intake Note: the patient presents for a mat visit [place] Required: No Allergies ciprofloxacin [From CIPRO] Allergy (Intermediate, Verified 08/08/23 15:21) HIVES/ITCH Penicillins [PCN] Allergy (Intermediate, Verified 08/08/23 15:21) HIVES penicillin V Allergy (Unknown, Verified 08/08/23 15:21) Rash LOBSTER Allergy (Severe, Uncoded 08/08/23 15:21) SWELLING From CIPRO Allergy (Intermediate, Uncoded 08/08/23 15:21) HIVES/ITCH Do you need a note to return to daycare/school/sports/work: No HPI MAT HPI Details Patient presents for MAT visit States he slipped up during the week and did a little coke Reports he bought a bag used half of it and threw the rest away Feels some shame over this He attributes the substance use to recent stressors related to his insurance, he reports he also has lost his PCP due to not having gone in over 5 years which is also a big stressor for him. Reports the only time he wants to use or is prompted to use is when he feels stressed. Reports his suboxone dose has been sufficient HPI Comments History of Present Illness Details Patient presents for MAT visit [facility] Medical History Alcohol use disorder Surgical History Hx of colonoscopy History of esophagogastroduodenoscopy (EGD) Social History Household Members: Spouse Housing: Apartment Do you presently have visiting nurse or other home services: No Alcohol intake: current Alcohol intake frequency: 0-2 drinks per day Comment: pt refuses bed alarms Patient Tobacco Use Status: Former Tobacco user Tobacco use type: Cigarette Advance Directives Date on File: 09/11/22 service: No Current occupational status: employed Review of Systems Const Reports as per HPI Physical Exam Const General: cooperative and no acute distress Resp Effort & Inspection: normal respiratory effort and able to speak in complete sentences Psych Appearance: grossly normal Mental Status: mental status grossly normal Speech and movement: Normal speech and movement present Affect: normal affect Attitude: cooperative Thought process: Normal thought process present Results AMB 14 Panel Urine Drug Screen Urine Marijuana (THC) Negative Last Edit by Clementine Wall CMA on 08/08/23 15:23 Urine Cocaine Positive Last Edit by Clementine Wall CMA on 08/08/23 15:23 Urine Morphine Negative Last Edit by Clementine Wall CMA on 08/08/23 15:23 Urine Methamphetamine Negative Last Edit by Clementine Wall CMA on 08/08/23 15:23 Urine Amphetamine Negative Last Edit by Clementine Wall CMA on 08/08/23 15:2 3 Urine Benzodiazepine Negative Last Edit by Clementine Wall CMA on 08/08/23 15:23 Urine Barbiturates Negative Last Edit by Clementine Wall CMA on 08/08/23 15: 23 Urine Methadone Negative Last Edit by Clementine Wall CMA on 08/08/23 15:23 Urine Buprenorphine Positive Last Edit by Clementine Wall CMA on 08/08/23 15 :23 Urine Tricyclic Antidepressant Negative Last Edit by Clementine Wall CMA on 08/08/23 15:23 Urine MDMA Negative Last Edit by Clementine Wall CMA on 08/08/23 15:23 Urine Oxycodone Negative Last Edit by Clementine Wall CMA on 08/08/23 15:23 Urine Phencyclidine Negative Last Edit by Clementine Wall CMA on 08/08/23 15 :23 Urine Propoxyphene Negative Last Edit by Clementine Wall CMA on 08/08/23 15: 23 Results Reviewed Results Reviewed: Laboratory Last Values POC Urine Buprenorphine Positive 08/08/23 15:22 POC Urine Morphine Negative 08/08/23 15:22 POC Urine Oxycodone Negative 08/08/23 15:22 POC Urine Methadone Negative 08/08/23 15:22 POC Urine Propoxyphene Negative 08/08/23 15:22 POC Urine Barbiturates Negative 08/08/23 15:22 POC U Tricyclic Antidpr Negative 08/08/23 15:22 POC Urine PCP Negative 08/08/23 15:22 POC Ur Amphetamines Negative 08/08/23 15:22 POC Ur Methamphetamine Negative 08/08/23 15:22 POC Urine MDMA Negative 08/08/23 15:22 POC Ur Benzodiazepine Negative 08/08/23 15:22 POC Urine Cocaine Positive 08/08/23 15:22 POC Ur Marijuana (THC) Negative 08/08/23 15:22 Assessment & Plan Assessment & Plan (1) Screening cholesterol level: Code(s): Z13.220 - Encounter for screening for lipoid disorders Plan: -Discussed contacting [facility]'s primary care office to get on the waitlist -Reviewed that t/w can manage him for primary care as long as he gets on the waitlist somewhere (2) Screening for diabetes mellitus: Code(s): Z13.1 - Encounter for screening for diabetes mellitus Plan: -Check A1c (3) Cocaine abuse: Code(s): F14.10 - Cocaine abuse, uncomplicated Plan: -Relapse prevention discussion (4) Opioid use disorder: Code(s): F11.90 - Opioid use, unspecified, uncomplicated Plan: -Tolerating suboxone dose (12 mg daily total) -Follow up 2 weeks -Reviewed with him to get his outstanding labwork done prior to next visit -Educated him some of the labs are fasting labs and he needs to fast 8 hrs prior to labwork Orders: Orders Hemoglobin A1c 08/08/23 Z13.1 - Encounter for screening for diabetes mellitus AMB 14 Panel Urine Drug Screen 08/08/23 F11.90 - Opioid use, unspecified, uncomplicated, Z51.81 - Encounter for therapeutic drug level monitoring Lipid Panel 08/08/23 Z13.220 - Encounter for screening for lipoid disorders Medications: Refilled buprenorphine-naloxone 8-2 mg 1 film buccal DAILY 14 ea 0RF buprenorphine-naloxone 4-1 mg 1 film buccal Q24H 14 ea 0RF Coding Level of Care Code Est Pt Level 4 (79679) Diagnoses Screening cholesterol level Z13.220 Screening for diabetes mellitus Z13.1 Cocaine abuse F14.10 Opioid use disorder F11.90
== END 2023-08-08 15:51 | disposition home or self-care (01) ==
PROVIDERS: PCP Internal Medicine; Visit Provider Nurse Practitioner Family
DX: F14.10 Cocaine abuse, uncomplicated (principal); F11.90 Opioid use, unspecified, uncomplicated; Z13.1 Encounter for screening for diabetes mellitus; Z13.220 Encounter for screening for lipoid disorders
CPT/HCPCS: 99214

== ENCOUNTER → 2023-08-08 15:03 | Outpatient (BNVA) | payer MEDICAID, SELFPAY | PROVIDERS: PCP Internal Medicine; Visit Provider Nurse Practitioner Family | DX: Z13.220 Encounter for screening for lipoid disorders (principal); Z13.1 Encounter for screening for diabetes mellitus; F14.10 Cocaine abuse, uncomplicated; F11.20 Opioid dependence, uncomplicated | CPT/HCPCS: 80305; 99212 ==

== ENCOUNTER 2023-08-13 10:09 | Outpatient (REF) | payer MEDICAID, SELFPAY ==
[2023-08-13 10:26] LABS: MANUAL DIFF FLAG NO
[2023-08-13 10:43] LABS: Basophils Percent Auto 0.6 % (0-2); Eosinophils Absolute Auto 0.3 X10*3/uL (0.0-0.4); Eosinophils Percent Auto 4.3 % (0-4); Hematocrit 39.8 % (42.0-52.0); Hemoglobin 13.2 g/dl (14.0-18.0); Imm Gran Abs Auto 0.02 X10*3/uL (0.00-0.03); Imm Gran Pct Auto 0.3 % (0.0-0.4); Lymphocytes Absolute Auto 2.1 X10*3/uL (1.2-4.9); Lymphocytes Percent Auto 30.5 % (20-40); Mean Corpuscular HGB Conc 33.2 g/dl (31.0-36.0); Mean Corpuscular Hemoglobin 29.9 pg (27.0-33.0); Mean Platelet Volume 10.6 fL (9.4-12.4); Monocytes Absolute Auto 0.9 X10*3/uL (0.1-1.2); Monocytes Percent Auto 12.3 % (2-11); Neutrophils Absolute Auto 3.7 x10*3/uL (2.0-8.3); Platelet Count 232 X10*3/uL (160-400); Red Blood Count 4.42 X10*6/uL (4.60-5.80); Red Cell Distribution Width 13.4 % (11.0-16.0)
[2023-08-13 11:46] LABS: Estimated Average Glucose 134 mg/dL; Hemoglobin A1c % 6.3 % (<6.0)
[2023-08-13 12:08] LABS: Alanine Aminotransferase 39 U/L (0-40); Albumin Level 4.1 g/dL (3.5-5.0); Alkaline Phosphatase 92 U/L (39-117); Anion Gap 14 (12-20); Aspartate Amino Transferase 31 U/L (5-37); Bilirubin Total 0.5 mg/dL (0.0-1.0); Blood Urea Nitrogen 18 mg/dL (9-16); Calcium 9.1 mg/dL (8.4-10.2); Carbon Dioxide 27 mmol/L (22-29); Chloride 102 mmol/L (96-108); Cholesterol 206 mg/dL (<200); Estimated Glomerular Filt Rate > 60; Glucose Random 101 mg/dL (60-115); HDL Cholesterol 58 mg/dL (>40); Iron 114 mcg/dL (45-160); LDL Cholesterol Calculated 109 mg/dL (<100); Percent Iron Saturation 34 % (15-50); Potassium 4.3 mmol/L (3.3-5.1); Sodium 139 mmol/L (135-145); Total Iron Binding Capacity 337 mcg/dL (228-428); Total Protein 8.1 g/dL (6.5-8.0); Triglycerides 196 mg/dL (<150); Unsaturated Iron Binding 223 ug/dL
[2023-08-13 12:29] LABS: Ferritin 35 ng/mL (20-250)
== END 2023-08-13 10:10 | disposition home or self-care (01) ==
LOC: HO.LAB 10:09
PROVIDERS: Nurse Practitioner Family; PCP Internal Medicine; Visit Provider Internal Medicine Gastroenterology
DX: Z13.220 Encounter for screening for lipoid disorders (principal); Z13.1 Encounter for screening for diabetes mellitus; D64.9 Anemia, unspecified; K75.81 Nonalcoholic steatohepatitis (NASH)
CPT/HCPCS: 36415; 80053; 80061; 82728; 83036; 83540; 85025

== ENCOUNTER 2023-08-22 15:06 | Outpatient (AMB) | payer MEDICAID, SELFPAY ==
--- NOTE | 2023-08-22 15:04 | A.OFFVISCC_ITS ---
Vital Signs 08/22/23 15:10 BP 110/78 Blood Pressure Location Lt brachial Position Sitting Pulse 80 Pulse Source Pulse Oximeter Pulse Oximetry (%) 97 Oxygen Delivery Method Room Air Intake Visit Reasons: MAT Allergies ciprofloxacin [From CIPRO] Allergy (Intermediate, Verified 08/22/23 15:04) HIVES/ITCH Penicillins [PCN] Allergy (Intermediate, Verified 08/22/23 15:04) HIVES penicillin V Allergy (Unknown, Verified 08/22/23 15:04) Rash LOBSTER Allergy (Severe, Uncoded 08/22/23 15:04) SWELLING From CIPRO Allergy (Intermediate, Uncoded 08/22/23 15:04) HIVES/ITCH HPI HPI MAT: Details: Patient presents for MAT appointment He tried to get on a waiting list for PCP and was told they were booking out until 11/2024, and he was upset by this States he is continuing to experiencing ringing in his ears. T/w suggested he visit a walk-in clinic to have his ears checked and cerumen disimpacted. He has been having 1-2 beers weekly States he has been only doing a little bit of coke one day a week, denies cravings for it, states he does it out of habit He is interested in trialing the topamax. HPI Comments Details: Patient presents for MAT visit [facility] Medical History Alcohol use disorder Surgical History Hx of colonoscopy History of esophagogastroduodenoscopy (EGD) Social History Household Members: Spouse Housing: Apartment Do you presently have visiting nurse or other home services: No Alcohol intake: current Alcohol intake frequency: 0-2 drinks per day Comment: pt refuses bed alarms Patient Tobacco Use Status: Former Tobacco user Tobacco use type: Cigarette Advance Directives Date on File: 09/11/22 service: No Current occupational status: employed Review of Systems Const Reports as per HPI Physical Exam Vital Signs: Last Vital Signs Pulse 80 08/22/23 15:10 BP 110/78 08/22/23 15:10 Pulse Ox 97 04/18/24 15:10 Oxygen Delivery Method Room Air 04/18/24 15:10 Const General: cooperative and no acute distress Resp Effort & Inspection: normal respiratory effort and able to speak in complete sentences Psych Appearance: grossly normal Mental Status: mental status grossly normal Speech and movement: Normal speech and movement present Affect: normal affect Attitude: cooperative Thought process: Normal thought process present Assessment & Plan Assessment & Plan (1) Cocaine abuse: Code(s): F14.10 - Cocaine abuse, uncomplicated Category: Medical Plan: -Start topamax 25mg daily, if tolerated well will increase to 25mg BID at next visit -Harm reduction discussion (2) Opioid use disorder: Code(s): F11.90 - Opioid use, unspecified, uncomplicated Category: Medical Plan: -Mass pat reviewed -Tolerating suboxone 12mg daily, refill sent to pt pharmacy -Provided with Narcan per pt request -Follow up 2 weeks (3) Alcohol use disorder: Comment: He has scaled back use and is only drinking 1-2 beers weekly Code(s): F10.90 - Alcohol use, unspecified, uncomplicated Category: Medical Plan: -Harm reduction discussion (4) Hypercholesterolemia: Code(s): E78.00 - Pure hypercholesterolemia, unspecified Category: Medical Plan: -Discussed dietary changes -Will discuss with him if he would like [employer]iling [employer] Operator referral at next visit -Will recheck cholesterol levels in 2 months and if still elevated will initiate statin therapy (5) Prediabetes: Code(s): R73.03 - Prediabetes Category: Medical Plan: -Discussed with him healthy dietary modifications. Discussed with him decreasing his carb intake, or using whole grain/multigrain instead of white bread and rice. Reviewed with him to decrease his sugary snacks, or look for sugar free alternatives. -Will recheck A1c in 2 months with repeat lipid panel Medications: New topiramate (Topamax) 25 mg PO DAILY 14 tabs 0RF Refilled buprenorphine-naloxone 8-2 mg 1 film buccal DAILY 14 ea 0RF buprenorphine-naloxone 4-1 mg 1 film buccal Q24H 14 ea 0RF
[2023-08-22 15:10] VITALS: BP 110/78; PULSE 80; O2SAT 97
== END 2023-08-22 15:52 | disposition home or self-care (01) ==
PROVIDERS: PCP Internal Medicine; Visit Provider Nurse Practitioner Family
DX: F14.10 Cocaine abuse, uncomplicated (principal); F11.90 Opioid use, unspecified, uncomplicated; F10.90 Alcohol use, unspecified, uncomplicated; E78.00 Pure hypercholesterolemia, unspecified; R73.03 Prediabetes
CPT/HCPCS: 99214

== ENCOUNTER → 2023-08-22 15:06 | Outpatient (BNVA) | payer MEDICAID, SELFPAY | PROVIDERS: PCP Internal Medicine; Visit Provider Nurse Practitioner Family | DX: F10.20 Alcohol dependence, uncomplicated (principal); F11.90 Opioid use, unspecified, uncomplicated; F14.10 Cocaine abuse, uncomplicated; R73.03 Prediabetes; E78.00 Pure hypercholesterolemia, unspecified; Z51.81 Encounter for therapeutic drug level monitoring | CPT/HCPCS: 99212 ==

== ENCOUNTER 2023-08-30 00:07 | Emergency (ER) | payer MEDICAID, SELFPAY ==
--- NOTE | ~2023-08-30 | CT_ITS ---
EXAMINATION: CT ABDOMEN AND PELVIS WITH CONTRAST CLINICAL INFORMATION: Abdominal pain. COMPARISON: 09/11/2022 TECHNIQUE: Multidetector volumetric images were obtained from the superior aspect of the liver through the pubic symphysis following administration 85 mL of Omnipaque 350 intravenous contrast. Sagittal and coronal reformatted images were obtained on the technologist's workstation. Oral contrast: No This CT examination was performed using dose optimization techniques as appropriate, variously including the following: *Automated exposure control *Adjustment of mA and/or kV according to patient size (this includes techniques or standardized protocols for targeted exams where dose is matched to indication/reason for exam; i.e. extremities or head) *Use of iterative reconstruction technique DLP: 380 mGy-cm FINDINGS: LUNG BASES: There is minimal scarring at the right lung base. LIVER, GALLBLADDER, AND BILIARY TREE: The liver is normal in size, shape, and attenuation. No focal hepatic lesion or biliary ductal dilatation is present. The gallbladder is unremarkable with no evidence of radiopaque gallstones, gallbladder wall thickening, or obvious pericholecystic inflammatory changes. PANCREAS: There is a heterogeneous pancreatic head with areas of hypodensity and surrounding infiltration. SPLEEN: Unremarkable. ADRENAL GLANDS: Unremarkable. KIDNEYS AND URETERS: The kidneys are normal in size, shape, and attenuation. No hydronephrosis, hydroureter, or calculi seen. No perinephric stranding. BLADDER: Unremarkable. GASTROINTESTINAL TRACT: There is a 1.2 cm radiodense structure within the right colon likely ingested material. There a few diverticula of the distal descending and proximal sigmoid colon without diverticulitis. The appendix is visualized and is within normal limits. ABDOMINAL WALL: There is a minimal umbilical hernia containing fat. LYMPH NODES: Normal. VASCULAR: There is mild atherosclerotic plaque of the abdominal aorta and proximal branches. PELVIC VISCERA: Unremarkable. OSSEOUS STRUCTURES: Unremarkable. CT/CT abdomen pelvis w IV con IMPRESSION: 1. Heterogeneous appearance of the pancreatic head with surrounding infiltration. This could be due to pancreatitis. Recommend correlation with laboratory values. Consider follow-up. 2. Diverticulosis without evidence of diverticulitis. 3. 1.2 cm radiodense structure within the right colon likely ingested material. 4. Minimal umbilical hernia containing fat. Fleischner guidelines were followed.
--- NOTE | 2023-08-30 00:13 | ECG_ITS ---
Test Reason : ABD PAIN Blood Pressure : / mmHG Vent. Rate : 073 BPM Atrial Rate : 073 BPM P-R Int : 160 ms QRS Dur : 094 ms QT Int : 392 ms P-R-T Axes : 018 017 067 degrees QTc Int : 431 ms Normal sinus rhythm Nonspecific T wave abnormality Abnormal ECG When compared to the previous EKG of NST is now present Referred By: Alex Hall Electronically Signed By:JEIMY GODOY MD
--- NOTE | 2023-08-30 00:13 | ED.GENADULT ---
HPI - General Adult General Chief complaint: Abdominal Pain Stated complaint: abdominal pain Time Seen by Provider: 08/30/23 03:15 History of Present Illness HPI narrative: The patient is a 57-year-old male with a history of alcoholism and a history of previous episodes of pancreatitis. He says that about a year ago he stopped drinking and was sober for awhile. He then resumed drinking and was drinking fairly heavily for awhile and did not have any problems with pancreatitis. Recently he has been drinking mildly he says. However starting about 4 days ago he has been having worsening upper abdominal and right upper quadrant pain that he feels his similar to previous episodes of pancreatitis and ultimately he came to the emergency room because with the severity of his pain. Related Data Home Medications ?Medication ?Instructions ?Recorded ?Confirmed vitamin B complex 1 tab PO DAILY 09/11/22 01/01/23 Previous Rx's ?Medication ?Instructions ?Recorded ondansetron 4 mg disintegrating 4 mg PO Q8H PRN nausea and 11/05/22 tablet vomiting #3 tabs omeprazole 20 mg capsule,delayed 20 mg PO BID #60 caps 07/29/23 release buprenorphine 4 mg-naloxone 1 mg 1 film buccal Q24H #14 ea 08/22/23 sublingual film buprenorphine 8 mg-naloxone 2 mg 1 film buccal DAILY #14 ea 08/22/23 sublingual film topiramate 25 mg tablet (Topamax) 25 mg PO DAILY #14 tabs 08/22/23 famotidine 40 mg tablet 40 mg PO DAILY #30 tabs 08/30/23 ondansetron 4 mg disintegrating 4 mg PO Q6H PRN nausea and 08/30/23 tablet vomiting #7 tabs sucralfate 1 gram tablet (Carafate) 1 g PO BID PRN abdominal pain #30 08/30/23 tabs Allergies Allergy/AdvReac Type Severity Reaction Status Date / Time ciprofloxacin [From CIPRO] Allergy Intermediate HIVES/ITCH Verified 08/30/23 00:31 Penicillins [PCN] Allergy Intermediate HIVES Verified 08/30/23 00:31 penicillin V Allergy Unknown Rash Verified 08/30/23 00:31 LOBSTER Allergy Severe SWELLING Uncoded 08/22/23 15:04 From CIPRO Allergy Intermediate HIVES/ITCH Uncoded 08/22/23 15:04 Review of Systems Review of Systems: Yes all other systems are reviewed and are negative [facility] Past Medical History Medical History Alcohol use disorder Surgical History Hx of colonoscopy History of esophagogastroduodenoscopy (EGD) Social History Social History Household Members: Spouse Housing: Apartment Do you presently have visiting nurse or other home services: No Alcohol intake: current Alcohol intake frequency: holidays/special occasions only Comment: pt refuses bed alarms Patient Tobacco Use Status: Former Tobacco user Tobacco use type: Cigarette Smoked in Last 30 Days: No Use of substances other than those prescribed or required for medical reasons: Yes Substance Use Type: Crack/Cocaine Substance Use Frequency: Occasionally Advance Directives: Yes Advance Directives on File: Yes Advance Directives Date on File: 09/11/22 Do you have a plan to hurt others: No Plan service: No Current occupational status: employed Physical Exam ED Vital Signs: Vital Signs - 24 hr 08/30/23 00:29 08/30/23 02:49 08/30/23 05:12 Temperature 98.0 F 98.0 F 97.6 F Pulse Rate 80 75 76 Respiratory Rate 18 20 16 Blood Pressure 136/90 H 115/70 149/86 H Pulse Oximetry 98 98 99 Oxygen Delivery Method Room Air Room Air Room Air 08/30/23 09:27 Temperature 98.7 F Pulse Rate 73 Respiratory Rate 18 Blood Pressure 150/76 H Pulse Oximetry 99 Oxygen Delivery Method Room Air BMI result Body Mass Index 23.6 Const Other: Patient is a somewhat cachectic 57-year-old who was awake and alert and looked somewhat uncomfortable. HENMT Other: Face was symmetrical, mucous membranes moist Eyes Other: Pupils are round equal, conjunctivae clear Neck Neck: Yes no JVD Resp Effort & Inspection: normal respiratory effort Auscultation: clear to auscultation bilaterally Cardio Rate: regular rate Rhythm: regular rhythm Heart sounds: S1 normal heart sound present and S2 normal heart sound present GI Other: The patient has epigastric and right upper quadrant discomfort with palpation. General: Yes no CVA tenderness Back/Spine/Pelvis Back: no CVA tenderness Skin Other: Skin is dry and unremarkable Neuro Other: The patient was awake and alert. Face was symmetrical. Speech was clear. He moves his extremities symmetrically Extrem Other: No peripheral edema Course Course Course Narrative: RME- 57-year-old male presents for evaluation of upper abdominal pain that started 4 days ago. He reports a history of pancreatitis and this feels similar. He reports having 1 beer exactly week ago today but has not had any since. He reports his pain is as upper abdomen, 02/12. Plan for labs including LFTs and lipase will defer imaging to primary provider Medications Administered Discontinued Medications Generic Name Dose Route Start Last Admin Trade Name Dorianq PRN Reason Stop Dose Admin Buprenorphine/Naloxone 1 film 08/30/23 09:06 08/30/23 09:21 Buprenorphine/Naloxone 8/2 Mg Film SUBLINGUAL 08/30/23 09:07 1 film ONCE ONE Administration Droperidol 1.25 mg 08/30/23 03:19 08/30/23 03:30 Droperidol 5 Mg/2 Ml Vial IVPUSH 08/30/23 03:20 1.25 mg ONCE ONE Administration Famotidine 20 mg 08/30/23 04:08 08/30/23 04:12 Famotidine/Pf 20 Mg/2 Ml Vial IVPUSH 08/30/23 04:09 20 mg ONCE ONE Administration Famotidine 40 mg 08/30/23 08:57 08/30/23 09:21 Famotidine 20 Mg Tablet PO 08/30/23 08:58 40 mg ONCE ONE Administration Sodium Chloride 1,000 mls @ 999 mls/hr 08/30/23 03:30 08/30/23 04:34 Ns IV 08/30/23 04:30 Infused .Q1H1M CAITLYN Infusion Iohexol 85 ml 08/30/23 04:32 08/30/23 04:34 Iohexol 350 Mg/Ml 100 Ml Infus..Btl IV 08/30/23 04:33 85 ml ONCE ONE Administration Morphine Sulfate 4 mg 08/30/23 03:19 08/30/23 03:30 Morphine Sulfate 4 Mg/Ml Cartridge IVPUSH 08/30/23 03:20 4 mg ONCE ONE Administration Protocol Ondansetron HCl 4 mg 08/30/23 08:56 08/30/23 09:21 Ondansetron Odt 4 Mg Tab.Rapdis TRANSLINGU 08/30/23 08:57 4 mg ONCE ONE Administration Sucralfate 1 gm 08/30/23 09:10 08/30/23 09:21 Sucralfate Oral Suspension 1 Gm/10 Ml Oral.Susp PO 08/30/23 09:11 1 gm ONCE ONE Administration Medical Decision Making Medical Decision Making [facility] Narrative: The patient presented with acute upper abdominal pain possibly consistent with recurrent pancreatitis. The patient admits to previous alcohol abuse but says he has been using only moderate alcohol lately. The patient's lipase was normal at 13. A CT scan was done that showed some inflammatory changes around the pancreatic head potentially consistent with pancreatitis but without definite acute findings. A 2nd lipase was done several hours later which was 11. I discussed the case with Dr. Covington of Gastroenterology who felt that it was unclear whether this was a true case of recurrent pancreatitis. We agreed seemed stable that he could potentially be managed as an outpatient. The patient is on Suboxone and received a Suboxone prescription within the last 2 weeks. The patient will be discharged for treatment of possible gastritis. He will be given prescriptions for famotidine, sucralfate, and ondansetron. He is advised he should continue his Suboxone. He was given his morning dose of Suboxone here. Lab Data 08/30/23 00:43 08/30/23 00:43 Labs: Lab Results 08/30/23 08/30/23 08/30/23 Range/Units 00:43 03:34 07:32 WBC 8.0 (4.8-10.8) X10*3/uL RBC 4.37 L (4.60-5.80) X10*6/uL Hgb 13.5 L (14.0-18.0) g/dl Hct 40.4 L (42.0-52.0) % MCV 92.4 (80.0-98.0) fL MCH 30.9 (27.0-33.0) pg MCHC 33.4 (31.0-36.0) g/dl RDW 13.3 (11.0-16.0) % Plt Count 233 (160-400) X10*3/uL MPV 10.7 (9.4-12.4) fL Immature Gran % (Auto) 0.1 (0.0-0.4) % Neut % (Auto) 58.3 (45-73) % Lymph % (Auto) 25.2 (20-40) % [place] % (Auto) 12.8 H (2-11) % Eos % (Auto) 3.0 (0-4) % Baso % (Auto) 0.6 (0-2) % Lymph # (Auto) 2.0 (1.2-4.9) X10*3/uL [place] # (Auto) 1.0 (0.1-1.2) X10*3/uL Eos # (Auto) 0.2 (0.0-0.4) X10*3/uL Baso # (Auto) 0.1 (0.0-0.2) X10*3/uL Abs Immat Gran (auto) 0.01 (0.00-0.03) X10*3/uL Absolute Neuts (auto) 4.7 (2.0-8.3) x10*3/uL Absolute Nucleated RBC 0.000 (0.0-0.012) X10*3/uL Nucleated RBC % (auto) 0.0 (0.0-0.2) /100WBC Sodium 142 (135-145) mmol/L Potassium 3.7 (3.3-5.1) mmol/L Chloride 106 (96-108) mmol/L Carbon Dioxide 25 (22-29) mmol/L Anion Gap 15 (12-20) BUN 13 (9-16) mg/dL Creatinine 0.76 (0.5-1.4) mg/dL Estim Creat Clear Calc 93.2 Estimated GFR > 60 Random Glucose 95 (60-115) mg/dL Calcium 9.7 D (8.4-10.2) mg/dL Total Bilirubin 0.3 (0.0-1.0) mg/dL AST 38 H (5-37) U/L ALT 49 H (0-40) U/L Alkaline Phosphatase 107 (39-117) U/L Troponin I High Sens < 2.7 (<3.5-35.0) ng/L Total Protein 8.6 H (6.5-8.0) g/dL Albumin 4.3 (3.5-5.0) g/dL Lipase 13 11 (8-78) U/L Urine Color Yellow Urine Appearance Turbid Urine pH >= 9.0 (5.0-9.0) Ur Specific [place] 1.020 (1.005-1.025) Urine Protein Trace (Neg-Trace) mg/dL Urine Glucose (UA) Negative (Negative) mg/dL Urine Ketones Negative (Negative) mg/dL Urine Blood Negative (Negative) Urine Nitrite Negative (Negative) Ur Leukocyte Esterase Negative (Negative) Discharge Plan Discharge Clinical Impression: Acute upper abdominal pain Patient Disposition: Home, Self-Care Additional Instructions: Your testing today suggests that your pain is not coming from your pancreas. I think it is possible you may be having a stomach acid problem. I have sent a prescription for a drug called famotidine to your pharmacy. This is an acid reducing medication which I think he should take every day for a month. I have also sent a prescription for ondansetron, a nausea medication which you may use as needed for nausea. Additionally I have sent a prescription for sucralfate (also known as Carafate) which may also be helpful for your pain and which you may use on an as-needed basis twice a day in addition to the other medications. Please continue your Suboxone. Please do your best to stop all alcohol use completely. Please work on getting a new primary care doctor at the [facility]. Return to the emergency room if worse. Prescriptions: New ondansetron 4 mg tablet,disintegrating 4 mg PO Q6H PRN (Reason: nausea and vomiting) Qty: 7 0RF famotidine 40 mg tablet 40 mg PO DAILY Qty: 30 0RF sucralfate [Carafate] 1 gram tablet 1 g PO BID PRN (Reason: abdominal pain) Qty: 30 0RF No Action vitamin B complex Tablet 1 tab PO DAILY omeprazole 20 mg capsule,delayed release(DR/EC) 20 mg PO BID Qty: 60 2RF topiramate [Topamax] 25 mg tablet 25 mg PO DAILY Qty: 14 0RF buprenorphine-naloxone 4-1 mg film 1 film buccal Q24H Qty: 14 0RF buprenorphine-naloxone 8-2 mg film 1 film buccal DAILY Qty: 14 0RF ondansetron 4 mg tablet,disintegrating 4 mg PO Q8H PRN (Reason: nausea and vomiting) Qty: 3 0RF Rx Instructions: can take with colon prep if needed Referrals: [facility] [Provider Group] (abdominal pain, alcohol use) Stand Alone Forms: Work/School Release Interventions: ED Discharge Assessment Last Done: 08/30/23 09:27 Discharge Date/Time: 08/30/23 09:30 Print Language: Citizen Of [place]
[2023-08-30 00:14] VITALS: BP 140/86; PULSE 88; O2SAT 98
[2023-08-30 00:29] VITALS: BP 136/90; PULSE 80; RESP 18; TEMP 36.7; O2SAT 98; BMI 23.6
[2023-08-30 00:47] LABS: MANUAL DIFF FLAG NO
[2023-08-30 00:49] LABS: Basophils Absolute Auto 0.1 X10*3/uL (0.0-0.2); Basophils Percent Auto 0.6 % (0-2); Eosinophils Absolute Auto 0.2 X10*3/uL (0.0-0.4); Hematocrit 40.4 % (42.0-52.0); Hemoglobin 13.5 g/dl (14.0-18.0); Imm Gran Abs Auto 0.01 X10*3/uL (0.00-0.03); Imm Gran Pct Auto 0.1 % (0.0-0.4); Lymphocytes Percent Auto 25.2 % (20-40); Mean Corpuscular HGB Conc 33.4 g/dl (31.0-36.0); Mean Corpuscular Hemoglobin 30.9 pg (27.0-33.0); Mean Corpuscular Volume 92.4 fL (80.0-98.0); Mean Platelet Volume 10.7 fL (9.4-12.4); Monocytes Percent Auto 12.8 % (2-11); Neutrophils Absolute Auto 4.7 x10*3/uL (2.0-8.3); Neutrophils Percent Auto 58.3 % (45-73); Platelet Count 233 X10*3/uL (160-400); Red Blood Count 4.37 X10*6/uL (4.60-5.80); Red Cell Distribution Width 13.3 % (11.0-16.0)
[2023-08-30 01:06] LABS: Alanine Aminotransferase 49 U/L (0-40); Albumin Level 4.3 g/dL (3.5-5.0); Alkaline Phosphatase 107 U/L (39-117); Anion Gap 15 (12-20); Aspartate Amino Transferase 38 U/L (5-37); Bilirubin Total 0.3 mg/dL (0.0-1.0); Blood Urea Nitrogen 13 mg/dL (9-16); Calcium 9.7 mg/dL (8.4-10.2); Carbon Dioxide 25 mmol/L (22-29); Chloride 106 mmol/L (96-108); Creatinine Clr Calc Pharmacy 93.2; Estimated Glomerular Filt Rate > 60; Glucose Random 95 mg/dL (60-115); Lipase 13 U/L (8-78); Potassium 3.7 mmol/L (3.3-5.1); Sodium 142 mmol/L (135-145); Total Protein 8.6 g/dL (6.5-8.0)
[2023-08-30 01:25] LABS: Troponin-I High Sensitivity < 2.7 ng/L (<3.5-35.0)
[2023-08-30 02:49] VITALS: BP 115/70; PULSE 75; RESP 20; TEMP 36.7; O2SAT 98
[2023-08-30] MEDS: droPERidol 5 MG/2 ML VIAL 1.25 MG IVPUSH (03:30)
[2023-08-30] MEDS: Morphine Sulfate 4 MG/ML CARTRIDGE IVPUSH (03:30)
[2023-08-30] MEDS: 0.9 % Sodium Chloride 1,000 ML 999 ML IV (03:30)
--- NOTE | 2023-08-30 03:38 | PC.NURSE ---
a&ox4. vss and up to date. pt presents to ED w/ generalized abd pain/yellow diarrhea in nature. pt denies nausea/vomiting. pt states sx started on saturday but have increasingly gotten worse. labs obtained in triage. 20gIV placed in the left forearm - IVF/medication administered per provider order. effectiveness pending. no sob/wob noted. respirations even and unlabored. plan of care ongoing. call freeman placed within reach.
[2023-08-30 03:40] LABS: Appearance Urine Turbid; Color Urine Yellow; Glucose Urine UA Negative (Negative); Leukocyte Esterase Urine Negative (Negative); Nitrite Urine Negative (Negative); PH >= 9.0 (5.0-9.0); Urine Blood Negative (Negative); Urine Ketones Negative (Negative); Urine Protein Trace mg/dL (Neg-Trace)
[2023-08-30] MEDS: Famotidine/PF 20 MG/2 ML VIAL IVPUSH (04:12)
--- NOTE | 2023-08-30 04:13 | PC.NURSE ---
pt verbalizing pain level decreased to a 5/10 post medication administration. pt waiting to go to CT at this time. plan of care ongoing.
[2023-08-30] MEDS: iohexoL 350 MG/ML 100 ML INFUS..BTL 85 ML IV (04:34)
[2023-08-30 05:12] VITALS: BP 149/86; PULSE 76; RESP 16; TEMP 36.4; O2SAT 99
--- NOTE | 2023-08-30 05:41 | PC.NURSE ---
pt continues to wait fot CT results at this time. respirations remain even and unlabored. plan of care ongoing. call freeman placed within reach.
[2023-08-30 07:51] LABS: Lipase 11 U/L (8-78)
[2023-08-30] MEDS: Ondansetron ODT 4 MG TAB.RAPDIS TRANSLINGU (09:21)
[2023-08-30] MEDS: Sucralfate Oral Suspension 1 GM/10 ML ORAL.SUSP PO (09:21)
[2023-08-30] MEDS: Buprenorphine/Naloxone 8/2 mg FILM 1 FILM SUBLINGUAL (09:21)
[2023-08-30] MEDS: Famotidine 20 MG TABLET 40 MG PO (09:21)
[2023-08-30 09:27] VITALS: BP 150/76; PULSE 73; RESP 18; TEMP 37.1; O2SAT 99
== END 2023-08-30 09:30 | disposition home or self-care (01) ==
PROVIDERS: Physician Assistant; Emergency Provider Emergency Medicine
DX: R10.10 Upper abdominal pain, unspecified (principal); E78.00 Pure hypercholesterolemia, unspecified; R73.03 Prediabetes; D64.9 Anemia, unspecified; F10.10 Alcohol abuse, uncomplicated; Y90.9 Presence of alcohol in blood, level not specified; F14.10 Cocaine abuse, uncomplicated; Z79.899 Other long term (current) drug therapy
CPT/HCPCS: 36415; 74177; 80053; 81003; 83690; 84484; 85025; 93005; 96361; 96374; 96375; 99284; 99285; J1790; J2270; Q9967

== ENCOUNTER → 2023-08-30 00:13 | Outpatient (BNV) | payer MEDICAID, SELFPAY | PROVIDERS: Emergency Provider Emergency Medicine; Visit Provider Internal Medicine Cardiovascular Disease | DX: R94.31 Abnormal electrocardiogram [ECG] [EKG] (principal) | CPT/HCPCS: 93010 ==

== ENCOUNTER 2023-09-05 15:06 | Outpatient (AMB) | payer MEDICAID, SELFPAY ==
--- NOTE | 2023-09-05 15:02 | MHC.AM.SUB ---
Vital Signs 09/05/23 15:10 BP 136/94 H Blood Pressure Location Lt brachial Position Sitting Pulse 78 Pulse Source Pulse Oximeter Pulse Oximetry (%) 97 Oxygen Delivery Method Room Air Intake Visit Reasons: MAT Allergies ciprofloxacin [From CIPRO] Allergy (Intermediate, Verified 09/05/23 15:02) HIVES/ITCH Penicillins [PCN] Allergy (Intermediate, Verified 09/05/23 15:02) HIVES penicillin V Allergy (Unknown, Verified 09/05/23 15:02) Rash LOBSTER Allergy (Severe, Uncoded 09/05/23 15:02) SWELLING From CIPRO Allergy (Intermediate, Uncoded 09/05/23 15:02) HIVES/ITCH HPI HPI MAT: Details: Patient presents for treatment and follow up Reports he was recently seen in the ED for acute onset abd pain that felt similar to past episodes of pancreatitis He is still experiencing pain, states the ED provider had told him they would send for pain meds at d/c, and meds were never sent Very tearful in visit, reports pain is still present, no better or worse than when he presented to the ED Reports he has been embarrassed to admit that he has been using cocaine to assist with his libido, he denies erectile dysfunction, but does not feel desire to initiate sex unless he has used cocaine. Has not had any alcohol since 3 days prior to abd pain beginning (approx 1.5 weeks ago) Has not been using cocaine Tolerating suboxone dose of 12mg /day [facility] Medical History Alcohol use disorder Surgical History Hx of colonoscopy History of esophagogastroduodenoscopy (EGD) Social History Household Members: Spouse Housing: Apartment Do you presently have visiting nurse or other home services: No Alcohol intake: current Alcohol intake frequency: holidays/special occasions only Comment: pt refuses bed alarms Patient Tobacco Use Status: Former Tobacco user Tobacco use type: Cigarette Substance Use Type: Crack/Cocaine Advance Directives Date on File: 09/11/22 service: No Current occupational status: employed Review of Systems GI Reports abdominal pain, Denies melena, Denies hematochezia, Denies change in bowel habits, Denies constipation, Denies diarrhea, Denies nausea and Denies vomiting Physical Exam Vital Signs: Last Vital Signs Pulse 78 09/05/23 15:10 BP 136/94 H 09/05/23 15:10 Pulse Ox 97 09/05/23 15:10 Oxygen Delivery Method Room Air 09/05/23 15:10 Const General: anxious Resp Effort & Inspection: normal respiratory effort GI Inspection: Yes normal to inspection Palpation (GI): Soft to palpation and Tenderness to palpation present (GI) in the epigastrum, in the LUQ and in the RUQ; not in the LLQ, not in the RLQ and with no rebound tenderness Auscultation: normal bowel sounds Psych Appearance: grossly normal Mental Status: mental status grossly normal Speech and movement: Normal speech and movement present Affect: Sad affect present (tearful) Attitude: cooperative Thought process: Normal thought process present Assessment & Plan Assessment & Plan (1) Acute upper abdominal pain: Code(s): R10.10 - Upper abdominal pain, unspecified Category: Medical Plan: -Script for dicyclomine sent to pharmacy to see if that addresses abd pain -Repeat lipase, CBC, and BMP to check for elevated lipase/WBC, and electrolyte status -Counseled patient to return to emergency department should pain persist or worsen, or if he is unable to hold down food or water (2) Low libido: Code(s): R68.82 - Decreased libido Category: Medical Plan: -Testosterone level ordered Orders: Orders Lipase 09/05/23 R10.10 - Upper abdominal pain, unspecified Testosterone, Total 09/05/23 R68.82 - Decreased libido Complete Blood Count Auto Diff 09/05/23 R10.10 - Upper abdominal pain, unspecified Basic Metabolic Panel 09/05/23 R10.10 - Upper abdominal pain, unspecified Medications: New dicyclomine 20 mg PO TID 30 tabs 0RF Refilled buprenorphine-naloxone 4-1 mg 1 film buccal Q24H 30 ea 0RF buprenorphine-naloxone 8-2 mg 1 film buccal DAILY 30 ea 0RF
[2023-09-05 15:10] VITALS: BP 136/94; PULSE 78; O2SAT 97
== END 2023-09-05 15:59 | disposition home or self-care (01) ==
PROVIDERS: PCP Internal Medicine; Visit Provider Nurse Practitioner Family
DX: F11.90 Opioid use, unspecified, uncomplicated (principal); R10.10 Upper abdominal pain, unspecified; R68.82 Decreased libido
CPT/HCPCS: 99214

== ENCOUNTER → 2023-09-05 15:06 | Outpatient (BNVA) | payer MEDICAID, SELFPAY | PROVIDERS: PCP Internal Medicine; Visit Provider Nurse Practitioner Family | DX: F11.20 Opioid dependence, uncomplicated (principal); R10.10 Upper abdominal pain, unspecified; R68.82 Decreased libido | CPT/HCPCS: 99212 ==

== ENCOUNTER 2023-09-05 16:03 | Outpatient (REF) | payer MEDICAID, SELFPAY ==
[2023-09-05 16:15] LABS: MANUAL DIFF FLAG NO
[2023-09-05 17:05] LABS: Basophils Percent Auto 0.5 % (0-2); Eosinophils Absolute Auto 0.3 X10*3/uL (0.0-0.4); Eosinophils Percent Auto 3.4 % (0-4); Hematocrit 37.1 % (42.0-52.0); Hemoglobin 12.5 g/dl (14.0-18.0); Imm Gran Abs Auto 0.03 X10*3/uL (0.00-0.03); Imm Gran Pct Auto 0.4 % (0.0-0.4); Lymphocytes Absolute Auto 2.4 X10*3/uL (1.2-4.9); Lymphocytes Percent Auto 28.8 % (20-40); Mean Corpuscular HGB Conc 33.7 g/dl (31.0-36.0); Mean Corpuscular Hemoglobin 30.7 pg (27.0-33.0); Mean Corpuscular Volume 91.2 fL (80.0-98.0); Mean Platelet Volume 11.7 fL (9.4-12.4); Monocytes Absolute Auto 0.8 X10*3/uL (0.1-1.2); Monocytes Percent Auto 10.2 % (2-11); Neutrophils Absolute Auto 4.6 x10*3/uL (2.0-8.3); Neutrophils Percent Auto 56.7 % (45-73); Platelet Count 242 X10*3/uL (160-400); Red Blood Count 4.07 X10*6/uL (4.60-5.80); White Blood Count 8.2 X10*3/uL (4.8-10.8)
[2023-09-05 17:30] LABS: Anion Gap 14 (12-20); Blood Urea Nitrogen 17 mg/dL (9-16); Calcium 9.9 mg/dL (8.4-10.2); Carbon Dioxide 23 mmol/L (22-29); Chloride 105 mmol/L (96-108); Estimated Glomerular Filt Rate > 60; Glucose Random 105 mg/dL (60-115); Lipase 14 U/L (8-78); Potassium 3.9 mmol/L (3.3-5.1); Sodium 138 mmol/L (135-145)
== END 2023-09-05 16:04 | disposition home or self-care (01) ==
LOC: HO.LAB 16:03
PROVIDERS: Visit Provider Nurse Practitioner Family
DX: R10.10 Upper abdominal pain, unspecified (principal)
CPT/HCPCS: 36415; 80048; 83690; 85025

== ENCOUNTER 2023-09-07 09:49 | Outpatient (REF) | payer MEDICAID, SELFPAY ==
[2023-09-12 13:58] LABS: Testosterone, Total 237 ng/dL (250-1100)
== END 2023-09-07 09:50 | disposition home or self-care (01) ==
LOC: HO.LAB 09:49
PROVIDERS: Visit Provider Nurse Practitioner Family
DX: R68.82 Decreased libido (principal)
CPT/HCPCS: 36415; 84403

== ENCOUNTER 2023-09-12 15:06 | Outpatient (AMB) | payer MEDICAID, SELFPAY ==
--- NOTE | 2023-09-12 15:14 | MHC.AM.SUB ---
Vital Signs 09/12/23 15:16 BP 128/90 H Blood Pressure Location Lt brachial Position Sitting Pulse 103 H Pulse Source Pulse Oximeter Pulse Oximetry (%) 97 Oxygen Delivery Method Room Air Intake Visit Reasons: MAT Allergies ciprofloxacin [From CIPRO] Allergy (Intermediate, Verified 09/05/23 15:02) HIVES/ITCH Penicillins [PCN] Allergy (Intermediate, Verified 09/05/23 15:02) HIVES penicillin V Allergy (Unknown, Verified 09/05/23 15:02) Rash LOBSTER Allergy (Severe, Uncoded 09/05/23 15:02) SWELLING From CIPRO Allergy (Intermediate, Uncoded 09/05/23 15:02) HIVES/ITCH HPI HPI MAT: Details: Patient presents for MAT appointment States he is still experiencing burning pain to RUQ States he has had some relief with the carafate Unable to identify triggers for pain Denies cocaine or alcohol use since last visit HPI Comments Details: Patient presents for MAT visit PFSH Medical History Alcohol use disorder Surgical History Hx of colonoscopy History of esophagogastroduodenoscopy (EGD) Social History Household Members: Spouse Housing: Apartment Do you presently have visiting nurse or other home services: No Alcohol intake: current Alcohol intake frequency: holidays/special occasions only Comment: pt refuses bed alarms Patient Tobacco Use Status: Former Tobacco user Tobacco use type: Cigarette Substance Use Type: Crack/Cocaine Advance Directives Date on File: 09/11/22 service: No Current occupational status: employed Review of Systems Const Reports as per HPI GI Reports abdominal pain ( burning ), Denies melena, Denies hematochezia, Denies coffee ground emesis and Denies constipation Physical Exam Vital Signs: Last Vital Signs Pulse 103 H 09/12/23 15:16 BP 128/90 H 09/12/23 15:16 Pulse Ox 97 09/12/23 15:16 Oxygen Delivery Method Room Air 09/12/23 15:16 Const General: cooperative and no acute distress Resp Effort & Inspection: normal respiratory effort and able to speak in complete sentences Psych Appearance: grossly normal Mental Status: mental status grossly normal Speech and movement: Normal speech and movement present Affect: normal affect Attitude: cooperative Thought process: Normal thought process present Assessment & Plan Assessment & Plan (1) Acute upper abdominal pain: Code(s): R10.10 - Upper abdominal pain, unspecified Category: Medical Plan: -Provided with printout information for foods to eat, and foods to avoid with ulcers -H. Pylori breath test ordered, instructed patient to hold omeprazole for 1 week, to only take pepcid and carafate, and get the lab done in one week -Reviewed with him to go to emergency department should he experience a change in quality of pain, for coffee ground emesis, or tarry stools (2) Cocaine abuse: Code(s): F14.10 - Cocaine abuse, uncomplicated Category: Medical Plan: -He has not used in 2 weeks -Harm reduction discussed (3) Opioid use disorder: Code(s): F11.90 - Opioid use, unspecified, uncomplicated Category: Medical Plan: -No refill needed at this time -Tolerating 12mg suboxone daily -Follow up 2 weeks (4) Alcohol use disorder: Comment: He has scaled back use and is only drinking 1-2 beers weekly Code(s): F10.90 - Alcohol use, unspecified, uncomplicated Category: Medical Plan: -He has not had alcohol to drink in 2 weeks due to abdominal pain Medications: Refilled sucralfate (Carafate) 1 g PO BID PRN 30 tabs 0RF abdominal pain dicyclomine 20 mg PO TID 30 tabs 0RF famotidine 40 mg PO DAILY 30 tabs 0RF
[2023-09-12 15:16] VITALS: BP 128/90; PULSE 103; O2SAT 97
== END 2023-09-12 16:00 | disposition home or self-care (01) ==
PROVIDERS: PCP Internal Medicine; Visit Provider Nurse Practitioner Family
DX: F14.10 Cocaine abuse, uncomplicated (principal); R10.10 Upper abdominal pain, unspecified; F11.90 Opioid use, unspecified, uncomplicated; F10.90 Alcohol use, unspecified, uncomplicated
CPT/HCPCS: 99214

== ENCOUNTER → 2023-09-12 15:06 | Outpatient (BNVA) | payer MEDICAID, SELFPAY | PROVIDERS: PCP Internal Medicine; Visit Provider Nurse Practitioner Family | DX: R10.10 Upper abdominal pain, unspecified (principal); F14.10 Cocaine abuse, uncomplicated; F11.20 Opioid dependence, uncomplicated; F10.20 Alcohol dependence, uncomplicated | CPT/HCPCS: 99212 ==

== ENCOUNTER 2023-09-23 15:02 | Outpatient (REF) | payer MEDICAID, SELFPAY | END 2023-09-23 15:03 | disposition home or self-care (01) | LOC: HO.LAB 15:02 | PROVIDERS: Visit Provider Nurse Practitioner Family | DX: Z13.89 Encounter for screening for other disorder (principal) ==

== ENCOUNTER 2023-09-25 15:06 | Outpatient (AMB) | payer MEDICAID, SELFPAY ==
--- NOTE | 2023-09-25 15:06 | MHC.AM.SUB ---
Vital Signs 09/25/23 15:08 BP 142/90 H Blood Pressure Location Lt brachial Position Sitting Pulse 87 Pulse Source Pulse Oximeter Pulse Oximetry (%) 98 Oxygen Delivery Method Room Air Intake Visit Reasons: MAT Allergies ciprofloxacin [From CIPRO] Allergy (Intermediate, Verified 09/05/23 15:02) HIVES/ITCH Penicillins [PCN] Allergy (Intermediate, Verified 09/05/23 15:02) HIVES penicillin V Allergy (Unknown, Verified 09/05/23 15:02) Rash LOBSTER Allergy (Severe, Uncoded 09/05/23 15:02) SWELLING From CIPRO Allergy (Intermediate, Uncoded 09/05/23 15:02) HIVES/ITCH HPI HPI MAT: Details: Patient presents for MAT visit He reports his abdominal pain has resolved within the past week-week and a half, reports he found the carafate and dicyclomine to be helpful for his pain States he has had little to no cocaine cravings, he is unsure if it is because topamax, or due to his abdominal pain, he would like to continue the topamax Has been drinking alcohol free Wise, no ETOH since prior to abdominal pain beginning (approx 08/29) Taking his suboxone as prescribed, tolerating well, denies concerns related to dose PFSH Medical History Alcohol use disorder Surgical History Hx of colonoscopy History of esophagogastroduodenoscopy (EGD) Social History Household Members: Spouse Housing: Apartment Do you presently have visiting nurse or other home services: No Alcohol intake: current Alcohol intake frequency: holidays/special occasions only Comment: pt refuses bed alarms Patient Tobacco Use Status: Former Tobacco user Tobacco use type: Cigarette Substance Use Type: Crack/Cocaine Advance Directives Date on File: 09/11/22 service: No Current occupational status: employed Review of Systems Const Reports as per HPI Physical Exam Vital Signs: Last Vital Signs Pulse 87 09/25/23 15:08 BP 142/90 H 09/25/23 15:08 Pulse Ox 98 09/25/23 15:08 Oxygen Delivery Method Room Air 09/25/23 15:08 Const General: cooperative and no acute distress Resp Effort & Inspection: normal respiratory effort and able to speak in complete sentences Psych Appearance: grossly normal Mental Status: mental status grossly normal Speech and movement: Normal speech and movement present Affect: normal affect Attitude: cooperative Thought process: Normal thought process present Assessment & Plan Assessment & Plan (1) Acute upper abdominal pain: Code(s): R10.10 - Upper abdominal pain, unspecified Category: Medical Plan: -H pylori stool antigen test ordered, instructed pt to continue to hold omeprazole until he has provided stool sample. Provided with cup for sample, and educated sample needs to be brought in same day -Discussed with him taking famotidine, famotidine refilled (2) Cocaine abuse: Code(s): F14.10 - Cocaine abuse, uncomplicated Category: Medical Plan: -He has remained free from cocaine >3 weeks -Continue topamax, refill rx sent to pharmacy (3) Opioid use disorder: Code(s): F11.90 - Opioid use, unspecified, uncomplicated Category: Medical Plan: -No refill for suboxone needed at this time (4) Alcohol use disorder: Comment: He has scaled back use and is only drinking 1-2 beers weekly Code(s): F10.90 - Alcohol use, unspecified, uncomplicated Category: Medical Plan: -He has not had alcohol since his abdominal pain began 3-4 weeks ago -Encouraged him to continue drinking alcohol free beers for substitute, and to refrain from alcohol due to his hx of gastritis and pancreatitis Orders: Orders H pylori Ag Stool Today R10.10 - Upper abdominal pain, unspecified Medications: Refilled famotidine 40 mg PO DAILY 30 tabs 0RF topiramate (Topamax) 25 mg PO DAILY 30 tabs 0RF
[2023-09-25 15:08] VITALS: BP 142/90; PULSE 87; O2SAT 98
== END 2023-09-25 15:50 | disposition home or self-care (01) ==
LOC: HO.HCC 15:06
PROVIDERS: PCP Internal Medicine; Visit Provider Nurse Practitioner Family
DX: F14.10 Cocaine abuse, uncomplicated (principal); R10.10 Upper abdominal pain, unspecified; F11.90 Opioid use, unspecified, uncomplicated; F10.90 Alcohol use, unspecified, uncomplicated
CPT/HCPCS: 99213

== ENCOUNTER → 2023-09-25 15:06 | Outpatient (BNVA) | payer MEDICAID, SELFPAY | PROVIDERS: PCP Internal Medicine; Visit Provider Nurse Practitioner Family | DX: F10.20 Alcohol dependence, uncomplicated (principal); F11.20 Opioid dependence, uncomplicated; F14.10 Cocaine abuse, uncomplicated; Z13.1 Encounter for screening for diabetes mellitus; R10.10 Upper abdominal pain, unspecified; Z51.81 Encounter for therapeutic drug level monitoring; Z79.899 Other long term (current) drug therapy | CPT/HCPCS: 99212 ==

== ENCOUNTER 2023-10-08 15:05 | Outpatient (REF) | payer MEDICAID, SELFPAY | END 2023-10-09 15:08 | disposition home or self-care (01) | LOC: HO.LNP 15:05 | PROVIDERS: PCP Internal Medicine; Visit Provider Nurse Practitioner Family | DX: R10.10 Upper abdominal pain, unspecified (principal); F14.10 Cocaine abuse, uncomplicated; F11.90 Opioid use, unspecified, uncomplicated; F10.90 Alcohol use, unspecified, uncomplicated | CPT/HCPCS: 87338; 99212 ==

== ENCOUNTER 2023-10-09 15:07 | Outpatient (AMB) | payer MEDICAID, SELFPAY ==
--- NOTE | 2023-10-09 15:03 | MHC.AM.SUB ---
Vital Signs 10/09/23 15:04 BP 130/80 Blood Pressure Location Rt brachial Position Sitting Pulse 82 Pulse Source Pulse Oximeter Pulse Oximetry (%) 98 Oxygen Delivery Method Room Air Intake Visit Reasons: MAT Visit Allergies ciprofloxacin [From CIPRO] Allergy (Intermediate, Verified 09/05/23 15:02) HIVES/ITCH Penicillins [PCN] Allergy (Intermediate, Verified 09/05/23 15:02) HIVES penicillin V Allergy (Unknown, Verified 09/05/23 15:02) Rash LOBSTER Allergy (Severe, Uncoded 09/05/23 15:02) SWELLING From CIPRO Allergy (Intermediate, Uncoded 09/05/23 15:02) HIVES/ITCH HPI HPI MAT Visit: Details: Patient presents for MAT appt Reports he has had no GI complaints for the past few weeks Has been feeling increasing anxiety from life stressors He has had 1 beer in the past few weeks, he attributes this to feeling depressed and anxious one day Has used cocaine a few times since last visit Stable on current suboxone dose 12mg daily HPI Comments Details: Patient presents for MAT visit PFSH Medical History Alcohol use disorder Surgical History Hx of colonoscopy History of esophagogastroduodenoscopy (EGD) Social History Household Members: Spouse Housing: Apartment Do you presently have visiting nurse or other home services: No Alcohol intake: current Alcohol intake frequency: holidays/special occasions only Comment: pt refuses bed alarms Patient Tobacco Use Status: Former Tobacco user Tobacco use type: Cigarette Substance Use Type: Crack/Cocaine Advance Directives Date on File: 09/11/22 service: No Current occupational status: employed Review of Systems Const Reports as per HPI Physical Exam Vital Signs: Last Vital Signs Pulse 82 10/09/23 15:04 BP 130/80 10/09/23 15:04 Pulse Ox 98 10/09/23 15:04 Oxygen Delivery Method Room Air 10/09/23 15:04 Const General: cooperative and no acute distress Resp Effort & Inspection: normal respiratory effort and able to speak in complete sentences Psych Appearance: grossly normal Mental Status: mental status grossly normal Speech and movement: Normal speech and movement present Affect: normal affect Attitude: cooperative Thought process: Normal thought process present Assessment & Plan Assessment & Plan (1) Cocaine abuse: Code(s): F14.10 - Cocaine abuse, uncomplicated Category: Medical Plan: -Harm reduction discussion (2) Opioid use disorder: Code(s): F11.90 - Opioid use, unspecified, uncomplicated Category: Medical Plan: -Mass pat reviewed -Suboxone rx refill sent -Start clonidine 0.1mg BID for anxiety symptoms, med education provided -Follow up 2 weeks (3) Alcohol use disorder: Comment: He has scaled back use and is only drinking 1-2 beers weekly Code(s): F10.90 - Alcohol use, unspecified, uncomplicated Category: Medical Plan: -Harm reduction discussion -Reviewed with him risk for given his hx of pancreatitis, risk for recurrence is increased with alcohol use Medications: New clonidine HCl 0.1 mg PO BID PRN 30 tabs 0RF anxiety Refilled buprenorphine-naloxone 8-2 mg 1 film buccal DAILY 30 ea 0RF buprenorphine-naloxone 4-1 mg 1 film buccal Q24H 30 ea 0RF Discontinued sucralfate (Carafate) Discontinued Reason: Patient Completed Course 1 g PO BID PRN 30 tabs 0RF abdominal pain dicyclomine Discontinued Reason: Patient Completed Course 20 mg PO TID 30 tabs 0RF
[2023-10-09 15:04] VITALS: BP 130/80; PULSE 82; O2SAT 98
== END 2023-10-09 15:50 | disposition home or self-care (01) ==
PROVIDERS: PCP Internal Medicine; Visit Provider Nurse Practitioner Family
DX: F14.10 Cocaine abuse, uncomplicated (principal); F11.90 Opioid use, unspecified, uncomplicated; F10.90 Alcohol use, unspecified, uncomplicated
CPT/HCPCS: 99213

== ENCOUNTER 2023-10-23 15:06 | Outpatient (AMB) | payer MEDICAID, SELFPAY ==
--- NOTE | 2023-10-25 14:32 | MHC.AM.SUB ---
Intake Visit Reasons: MAT visit Allergies ciprofloxacin [From CIPRO] Allergy (Intermediate, Verified 09/05/23 15:02) HIVES/ITCH Penicillins [PCN] Allergy (Intermediate, Verified 09/05/23 15:02) HIVES penicillin V Allergy (Unknown, Verified 09/05/23 15:02) Rash LOBSTER Allergy (Severe, Uncoded 09/05/23 15:02) SWELLING From CIPRO Allergy (Intermediate, Uncoded 09/05/23 15:02) HIVES/ITCH HPI HPI MAT visit: Details: Patient presents for OUD treatment and follow up Reports he feels as though the topamax is working a little bit for his cocaine cravings He has only taken it 3-4 times, informed by t/w he needs to take the medication regularly to see effect from it He is tolerating 12mg suboxone daily well, no concern for side effects Took his first clonidine before going to [employer] this past Saturday, reports it made him feel very tired Reports he has not had any alcohol in the past 2 weeks HPI Comments Details: Patient presents for MAT visit [facility] Medical History Alcohol use disorder Surgical History Hx of colonoscopy History of esophagogastroduodenoscopy (EGD) Social History Household Members: Spouse Housing: Apartment Do you presently have visiting nurse or other home services: No Alcohol intake: current Alcohol intake frequency: holidays/special occasions only Comment: pt refuses bed alarms Patient Tobacco Use Status: Former Tobacco user Tobacco use type: Cigarette Substance Use Type: Crack/Cocaine Advance Directives Date on File: 09/11/22 service: No Current occupational status: employed Review of Systems Const Reports as per HPI Physical Exam Const General: cooperative and no acute distress Resp Effort & Inspection: normal respiratory effort and able to speak in complete sentences Psych Appearance: grossly normal Mental Status: mental status grossly normal Speech and movement: Normal speech and movement present Affect: normal affect Attitude: cooperative Thought process: Normal thought process present Assessment & Plan Assessment & Plan (1) Cocaine abuse: Code(s): F14.10 - Cocaine abuse, uncomplicated Category: Medical Plan: -Educated him to take his topamax daily (2) Opioid use disorder: Code(s): F11.90 - Opioid use, unspecified, uncomplicated Category: Medical Plan: -MA reviewed -Suboxone refill sent to pt pharmacy -Follow up 1 month (3) Alcohol use disorder: Comment: He has scaled back use and is only drinking 1-2 beers weekly Code(s): F10.90 - Alcohol use, unspecified, uncomplicated Category: Medical Plan: -No alcohol use in 2 weeks -Harm reduction discussed with him -Reviewed results of his H. Pylori labwork with him, his abd pain was most likely in setting of alcohol use. Educated him to abstain from alcohol as he is high risk for pancreatitis and/or gastritis given his hx of alcohol induced pancreatitis and gastritis Medications: New fluticasone propionate 50 mcg/actuation (Allergy Relief (fluticasone)) administer into each nostril 1 spray intranasal DAILY 16 grams 2RF Refilled buprenorphine-naloxone 4-1 mg 1 film buccal Q24H 30 ea 0RF buprenorphine-naloxone 8-2 mg 1 film buccal DAILY 30 ea 0RF topiramate (Topamax) 25 mg PO DAILY 30 tabs 3RF
== END 2023-10-23 15:48 | disposition home or self-care (01) ==
PROVIDERS: PCP Internal Medicine; Visit Provider Nurse Practitioner Family
DX: F14.10 Cocaine abuse, uncomplicated (principal); F11.90 Opioid use, unspecified, uncomplicated; F10.90 Alcohol use, unspecified, uncomplicated
CPT/HCPCS: 99213

== ENCOUNTER → 2023-10-23 15:06 | Outpatient (BNVA) | payer MEDICAID, SELFPAY | PROVIDERS: PCP Internal Medicine; Visit Provider Nurse Practitioner Family | DX: F10.20 Alcohol dependence, uncomplicated (principal); F14.10 Cocaine abuse, uncomplicated; F11.20 Opioid dependence, uncomplicated | CPT/HCPCS: 99212 ==

== ENCOUNTER 2023-11-20 15:02 | Outpatient (AMB) | payer MEDICAID, SELFPAY ==
--- NOTE | 2023-11-20 15:10 | A.OFFVISCC_ITS ---
Intake Visit Reasons: MAT visit Allergies ciprofloxacin [From CIPRO] Allergy (Intermediate, Verified 09/05/23 15:02) HIVES/ITCH Penicillins [PCN] Allergy (Intermediate, Verified 09/05/23 15:02) HIVES penicillin V Allergy (Unknown, Verified 09/05/23 15:02) Rash LOBSTER Allergy (Severe, Uncoded 09/05/23 15:02) SWELLING From CIPRO Allergy (Intermediate, Uncoded 09/05/23 15:02) HIVES/ITCH HPI HPI MAT visit: Details: Patient presents for OUD/AUD treatment follow up Suboxone 8mg in AM and 4mg at 2pm--tolerating current dose with no side effects Reports last cocaine use was 2 weeks ago Alcohol --drinking one beer daily after work Current job does not allow for trips to [place] during lunch Reflecting in improved stress management PFSH Medical History Alcohol use disorder Surgical History Hx of colonoscopy History of esophagogastroduodenoscopy (EGD) Social History Household Members: Spouse Housing: Apartment Do you presently have visiting nurse or other home services: No Alcohol intake: current Alcohol intake frequency: holidays/special occasions only Comment: pt refuses bed alarms Patient Tobacco Use Status: Former Tobacco user Tobacco use type: Cigarette Substance Use Type: Crack/Cocaine Advance Directives Date on File: 09/11/22 service: No Current occupational status: employed Review of Systems Const Reports as per HPI and Reports no additional complaints Physical Exam Const General: cooperative, healthy appearing and well groomed Psych Appearance: grossly normal and well kempt Speech and movement: Normal speech and movement present Affect: normal affect Attitude: cooperative Thought process: Normal thought process present and Circumstantial thought process present Insight: Fair insight present (Psych) Judgement: Good judgement present (Psych) Assessment & Plan Assessment & Plan (1) Alcohol use disorder: Code(s): F10.90 - Alcohol use, unspecified, uncomplicated Category: Medical Plan: * continues to reduce intake -last drink Saturday had one beer * risk reduction discussion (2) Opioid use disorder: Code(s): F11.90 - Opioid use, unspecified, uncomplicated Category: Medical Plan: * continue suboxone Medications: Changed From clonidine HCl 0.1 mg PO BID PRN 30 tabs 0RF anxiety To clonidine HCl 0.1 mg PO BEDTIME PRN 30 tabs 1RF anxiety Refilled buprenorphine-naloxone 8-2 mg 1 film buccal DAILY 30 ea 0RF buprenorphine-naloxone 4-1 mg 1 film buccal Q24H 30 ea 0RF
== END 2023-11-20 15:47 | disposition home or self-care (01) ==
PROVIDERS: PCP Internal Medicine; Visit Provider Nurse Practitioner Psychiatric/Mental Health
DX: F10.90 Alcohol use, unspecified, uncomplicated (principal); F11.90 Opioid use, unspecified, uncomplicated
CPT/HCPCS: 99214

== ENCOUNTER → 2023-11-20 15:02 | Outpatient (BNVA) | payer MEDICAID, SELFPAY | PROVIDERS: PCP Internal Medicine; Visit Provider Nurse Practitioner Psychiatric/Mental Health | DX: F11.20 Opioid dependence, uncomplicated (principal); F10.90 Alcohol use, unspecified, uncomplicated | CPT/HCPCS: 99212 ==

== ENCOUNTER 2023-12-25 15:03 | Outpatient (AMB) | payer MEDICAID, SELFPAY ==
--- NOTE | 2023-12-25 15:14 | A.OFFVISCC_ITS ---
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 at work --usually around 1pm however he has been working overtime, starting at 4am went to [facility] to establish care--awaiting PCP appt mood improvinng --sleeping better with clonidine no longer taking topomax PFSH Medical History Alcohol use disorder Surgical History Hx of colonoscopy History of esophagogastroduodenoscopy (EGD) Social History Household Members: Spouse Housing: Apartment Do you presently have visiting nurse or other home services: No Alcohol intake: current Alcohol intake frequency: holidays/special occasions only Comment: pt refuses bed alarms Patient Tobacco Use Status: Former Tobacco user Tobacco use type: Cigarette Substance Use Type: Crack/Cocaine Advance Directives Date on File: 09/11/22 service: No Current occupational status: employed Review of Systems Const Reports as per HPI and Reports no additional complaints Physical Exam Const General: cooperative, healthy appearing and well groomed Psych Appearance: grossly normal and well kempt Speech and movement: Normal speech and movement present Affect: normal affect Attitude: cooperative Thought process: Normal thought process present and Circumstantial thought process present Insight: Fair insight present (Psych) Judgement: Good judgement present (Psych) Assessment & Plan Assessment & Plan (1) Alcohol use disorder: Code(s): F10.90 - Alcohol use, unspecified, uncomplicated Category: Medical Plan: * risk reduction discussion (2) Cocaine abuse: Code(s): F14.10 - Cocaine abuse, uncomplicated Category: Medical Plan: * risk reduction discussion * no longer taking topomax (3) Opioid use disorder: Code(s): F11.90 - Opioid use, unspecified, uncomplicated Category: Medical Plan: * continue suboxone at current dose Medications: Refilled buprenorphine-naloxone 4-1 mg 1 film buccal Q24H 30 ea 0RF clonidine HCl 0.1 mg PO BEDTIME PRN 30 tabs 0RF anxiety buprenorphine-naloxone 8-2 mg 1 film buccal DAILY 30 ea 0RF Discontinued ondansetron Discontinued Reason: Duplicate 4 mg PO Q6H PRN 7 tabs 0RF nausea and vomiting
== END 2023-12-25 15:53 | disposition home or self-care (01) ==
PROVIDERS: PCP Internal Medicine; Visit Provider Nurse Practitioner Psychiatric/Mental Health
DX: F10.90 Alcohol use, unspecified, uncomplicated (principal); F14.10 Cocaine abuse, uncomplicated; F11.90 Opioid use, unspecified, uncomplicated
CPT/HCPCS: 99214

== ENCOUNTER → 2023-12-25 15:03 | Outpatient (BNVA) | payer MEDICAID, SELFPAY | PROVIDERS: PCP Internal Medicine; Visit Provider Nurse Practitioner Psychiatric/Mental Health | DX: F10.20 Alcohol dependence, uncomplicated (principal); F14.10 Cocaine abuse, uncomplicated; F11.20 Opioid dependence, uncomplicated; Z79.899 Other long term (current) drug therapy | CPT/HCPCS: 99212 ==

== ENCOUNTER 2024-01-10 15:07 | Outpatient (REF) | payer MEDICAID, SELFPAY ==
[2024-01-10 16:14] LABS: MANUAL DIFF FLAG NO
[2024-01-10 16:21] LABS: Basophils Percent Auto 0.5 % (0-2); Eosinophils Absolute Auto 0.2 X10*3/uL (0.0-0.4); Eosinophils Percent Auto 2.8 % (0-4); Hematocrit 38.9 % (42.0-52.0); Hemoglobin 12.5 g/dl (14.0-18.0); Imm Gran Abs Auto 0.03 X10*3/uL (0.00-0.03); Imm Gran Pct Auto 0.4 % (0.0-0.4); Lymphocytes Absolute Auto 2.1 X10*3/uL (1.2-4.9); Mean Corpuscular HGB Conc 32.1 g/dl (31.0-36.0); Mean Corpuscular Hemoglobin 27.9 pg (27.0-33.0); Mean Corpuscular Volume 86.8 fL (80.0-98.0); Mean Platelet Volume 11.4 fL (9.4-12.4); Monocytes Absolute Auto 0.7 X10*3/uL (0.1-1.2); Monocytes Percent Auto 8.5 % (2-11); Neutrophils Absolute Auto 5.2 x10*3/uL (2.0-8.3); Neutrophils Percent Auto 62.8 % (45-73); Platelet Count 240 X10*3/uL (160-400); Red Blood Count 4.48 X10*6/uL (4.60-5.80); White Blood Count 8.3 X10*3/uL (4.8-10.8)
[2024-01-10 16:58] LABS: Iron 34 mcg/dL (45-160); Percent Iron Saturation 10 % (15-50); Total Iron Binding Capacity 357 mcg/dL (228-428); Unsaturated Iron Binding 323 ug/dL
[2024-01-10 17:09] LABS: Ferritin 9 ng/mL (20-250)
[2024-01-10 17:22] LABS: Folate 10.2 ng/mL (> or = 4.0); Vitamin B12 425 pg/mL (200-900)
== END 2024-01-10 15:08 | disposition home or self-care (01) ==
LOC: HO.HHCL 15:07
PROVIDERS: Visit Provider Family Medicine
DX: D50.9 Iron deficiency anemia, unspecified (principal)
CPT/HCPCS: 36415; 82607; 82728; 82746; 83540; 85025

== ENCOUNTER 2024-01-27 11:07 | Outpatient (AMB) | payer MEDICAID, SELFPAY ==
--- NOTE | 2024-01-27 11:21 | A.OFFVIS_ITS ---
Vital Signs 01/27/24 11:22 Height 5 ft 5 in Weight 145 lb 8.081 oz BMI 24.2 BP 137/83 Blood Pressure Location Lt brachial Position Sitting Pulse 77 Intake Visit Reasons: 6 month follow up Intake Note: Alessio presents in the office as a 6 month follow up. CC: He states that he is having issues with falling asleep wherever he goes - even happens at work. He states this is more of a recent issues but it even will happen while driving. Allergies ciprofloxacin [From CIPRO] Allergy (Intermediate, Verified 01/27/24 11:22) HIVES/ITCH Penicillins [PCN] Allergy (Intermediate, Verified 01/27/24 11:22) HIVES penicillin V Allergy (Unknown, Verified 01/27/24 11:22) Rash LOBSTER Allergy (Severe, Uncoded 01/27/24 11:22) SWELLING From CIPRO Allergy (Intermediate, Uncoded 01/27/24 11:22) HIVES/ITCH HPI HPI 6 month follow up: Details: 58 yr old m called for f/u RECAP: I had seen him as an inpatient for assessment for BONNIE He initially came to the ED for for evaluation of severe 10/10 diffuse, burning abdominal pain going into the back with nausea and bilious vomiting ongoing for 4 days.Had been consuming 1 drink daily but about a 6 pack over the weekend, Patient did admit to taking advil daily for a year or so for various pains. LABS: 04/27 HGB: 8, ferritin : 4 IMAGING: CT abdomen/pelvis showing acute pancreatitis but no evidence of hemorrhage with generalized ileus. EGD/[place]; Endoscopy Findings: hiatal hernia possible barretts mild gastritis Colonoscopy Findings: internal hemorrhoids diverticular disease INTERIM: He has too much sleepiness HGB stable at 12.5 g/dl no abdominal pain no melena, no rectal bleeding no nausea or vomiting not using nsaid he is still taking omeprazole he has been taking iron tabs he denies sleep apnea sx, might be snoring he has tinitus, has eval coming up ENT he still drink alcohol, 3 beers a week EXAM: GENERAL: The patient is well developed and nontoxic. VITAL SIGNS:see workflow HEENT: Nonicteric sclerae, PERRLA, EOMI. Oropharynx clear. Moist mucous membranes. Conjunctivae appear well perfused. No thyroid mass. CHEST: Chest wall is nontender. HEART: Regular rate and rhythm without murmurs. LUNGS: Clear to auscultation bilaterally. ABDOMEN: Soft, positive bowel sounds, nontender, no organomegaly.no flank tenderness SKIN: No rash, no excessive bruising, petechiae, or purpura. NEUROLOGIC: Cranial nerves II-XII intact without motor/sensory deficit. Psych: normal affect A/P: 1/ Anemia, has been stable, on iron but ferritin and iron sat were low 2/ alcohol related pancreatitis, stable, PLAN: 1/ advised sleep referral but he declines this 2/ cont with omeprazole - 3/ capsule endoscopy due to the iron def --to stop iron tabs for 7 d before [facility] Medical History Alcohol use disorder Surgical History Hx of colonoscopy History of esophagogastroduodenoscopy (EGD) Social History Household Members: Spouse Housing: Apartment Do you presently have visiting nurse or other home services: No Alcohol intake: current Alcohol intake frequency: holidays/special occasions only Comment: pt refuses bed alarms Patient Tobacco Use Status: Former Tobacco user Tobacco use type: Cigarette Substance Use Type: Crack/Cocaine Advance Directives Date on File: 09/11/22 service: No Current occupational status: employed Physical Exam Vital Signs: Last Vital Signs Pulse 77 01/27/24 11:22 BP 137/83 01/27/24 11:22 BMI result Body Mass Index 24.2 Assessment & Plan Assessment & Plan (1) Anemia: Code(s): D64.9 - Anemia, unspecified Category: Medical Qualifiers: Anemia type: iron deficiency Plan capsule endo Coding Level of Care Code Est Pt Level 4 (88881) Diagnoses Anemia D64.9 Anemia type: iron deficiency
[2024-01-27 11:22] VITALS: BP 137/83; PULSE 77; BMI 24.2
== END 2024-01-27 11:55 | disposition home or self-care (01) ==
PROVIDERS: Visit Provider Internal Medicine Gastroenterology
DX: D64.9 Anemia, unspecified (principal)
CPT/HCPCS: 99214

== ENCOUNTER → 2024-01-27 11:07 | Outpatient (BNVA) | payer MEDICAID, SELFPAY | PROVIDERS: Visit Provider Internal Medicine Gastroenterology | DX: D50.9 Iron deficiency anemia, unspecified (principal) | CPT/HCPCS: 99212 ==

== ENCOUNTER 2024-02-03 15:04 | Outpatient (AMB) | payer MEDICAID, SELFPAY ==
--- NOTE | 2024-02-03 15:26 | A.OFFVISCC_ITS ---
Intake Visit Reasons: MAT visit Allergies ciprofloxacin [From CIPRO] Allergy (Intermediate, Verified 01/27/24 11:22) HIVES/ITCH Penicillins [PCN] Allergy (Intermediate, Verified 01/27/24 11:22) HIVES penicillin V Allergy (Unknown, Verified 01/27/24 11:22) Rash LOBSTER Allergy (Severe, Uncoded 01/27/24 11:22) SWELLING From CIPRO Allergy (Intermediate, Uncoded 01/27/24 11:22) HIVES/ITCH HPI HPI MAT visit: Details: Patient presents for follow up Reports minimal drinking--does not find it enjoyable anymore currently prescribed suboxone 12mg daily (8mg and 4mg) still needs to set up care with primary recently saw GI still working [employer] [facility] Medical History Alcohol use disorder Surgical History Hx of colonoscopy History of esophagogastroduodenoscopy (EGD) Social History Household Members: Spouse Housing: Apartment Do you presently have visiting nurse or other home services: No Alcohol intake: current Alcohol intake frequency: holidays/special occasions only Comment: pt refuses bed alarms Patient Tobacco Use Status: Former Tobacco user Tobacco use type: Cigarette Substance Use Type: Crack/Cocaine Advance Directives Date on File: 09/11/22 service: No Current occupational status: employed Review of Systems Const Reports as per HPI Physical Exam Const General: cooperative, healthy appearing, comfortable and well groomed Nutritional Appearance: average body habitus Assessment & Plan Assessment & Plan (1) Alcohol use disorder: Code(s): F10.90 - Alcohol use, unspecified, uncomplicated Category: Medical Plan: * risk reduction discussion (2) Opioid use disorder, moderate, in sustained remission: Code(s): F11.21 - Opioid dependence, in remission Category: Medical Plan: * continue suboxone at current dose * follow up 4 weeks
== END 2024-02-03 16:07 | disposition home or self-care (01) ==
PROVIDERS: PCP Internal Medicine; Visit Provider Nurse Practitioner Psychiatric/Mental Health
DX: F10.90 Alcohol use, unspecified, uncomplicated (principal); F11.21 Opioid dependence, in remission
CPT/HCPCS: 99214

== ENCOUNTER → 2024-02-03 15:04 | Outpatient (BNVA) | payer MEDICAID, SELFPAY | PROVIDERS: PCP Internal Medicine; Visit Provider Nurse Practitioner Psychiatric/Mental Health | DX: F11.21 Opioid dependence, in remission (principal); F10.90 Alcohol use, unspecified, uncomplicated; Z51.81 Encounter for therapeutic drug level monitoring | CPT/HCPCS: 99212 ==

== ENCOUNTER → 2024-02-24 07:50 | Outpatient (BNVA) | payer MEDICAID, SELFPAY | PROVIDERS: PCP Internal Medicine; Visit Provider Internal Medicine Gastroenterology ==

== ENCOUNTER 2024-05-08 15:03 | Outpatient (AMB) | payer BC, SELFPAY ==
[2024-05-08 15:08] VITALS: BP 140/90; PULSE 89; RESP 19; O2SAT 96
--- NOTE | 2024-05-08 15:08 | A.OFFVISCC_ITS ---
Vital Signs 05/08/24 15:08 BP 140/90 H Blood Pressure Location Rt brachial Position Sitting Respiration 19 Pulse 89 Pulse Source Pulse Oximeter Pulse Oximetry (%) 96 Oxygen Delivery Method Room Air Comment Patient states I ran up here, Im a little excited, and its usually high Intake Visit Reasons: MAT Allergies ciprofloxacin [From CIPRO] Allergy (Intermediate, Verified 01/27/24 11:22) HIVES/ITCH Penicillins [PCN] Allergy (Intermediate, Verified 01/27/24 11:22) HIVES penicillin V Allergy (Unknown, Verified 01/27/24 11:22) Rash LOBSTER Allergy (Severe, Uncoded 01/27/24 11:22) SWELLING From CIPRO Allergy (Intermediate, Uncoded 01/27/24 11:22) HIVES/ITCH HPI HPI MAT: Details: Patient presents for OUD and AUD treatment follow up Currently prescribed Suboxone 12mg daily Reports that insurance changed and he has now been paying $100 for each prescription so he has been cutting down the 4mg dose--having back pain and anxiety Will change rx to 12mg films one daily Reports recurrence with cocaine (x2 occasions) due to lack of energy from not having buprenorphine Review of Systems Const Reports as per HPI, Reports lethargy and Reports malaise Physical Exam Vital Signs: Last Vital Signs Pulse 89 05/08/24 15:08 Resp 19 05/08/24 15:08 BP 140/90 H 05/08/24 15:08 Pulse Ox 96 05/08/24 15:08 Oxygen Delivery Method Room Air 05/08/24 15:08 Const General: cooperative, healthy appearing and well groomed Nutritional Appearance: average body habitus Orientation/consciousness: patient oriented x3 Limitations: no limitations Neuro General: patient oriented x3 Psych Appearance: well kempt Speech and movement: Normal speech and movement present Affect: normal affect Thought process: Normal thought process present Thought content: Normal thought content present Insight: Good insight present (Psych) Judgement: Good judgement present (Psych) Assessment & Plan Assessment & Plan (1) Opioid use disorder, moderate, in sustained remission: Code(s): F11.21 - Opioid dependence, in remission Category: Medical Plan: * continue suboxone at 12mg --switched to one 12mg film daily * relapse prevention discussion (2) Cocaine use disorder: Code(s): F14.10 - Cocaine abuse, uncomplicated Category: Medical Plan: * risk reduction discussion * follow up 4 weeks Medications: New buprenorphine-naloxone 12-3 mg (Suboxone) 1 film buccal Q24H 30 ea 0RF Discontinued buprenorphine-naloxone 4-1 mg Discontinued Reason: None 1 film buccal Q24H 30 ea 0RF buprenorphine-naloxone 8-2 mg Discontinued Reason: None 1 film buccal DAILY 30 ea 0RF PFSH Medical History Alcohol use disorder Surgical History Hx of colonoscopy History of esophagogastroduodenoscopy (EGD) Social History Household Members: Spouse Housing: Apartment Do you presently have visiting nurse or other home services: No Alcohol intake: current Alcohol intake frequency: holidays/special occasions only Comment: pt refuses bed alarms Patient Tobacco Use Status: Former Tobacco user Tobacco use type: Cigarette Substance Use Type: Crack/Cocaine Advance Directives Date on File: 09/11/22 service: No Current occupational status: employed
== END 2024-05-08 15:35 | disposition home or self-care (01) ==
PROVIDERS: PCP Internal Medicine; Visit Provider Nurse Practitioner Psychiatric/Mental Health
DX: F11.21 Opioid dependence, in remission (principal); F14.10 Cocaine abuse, uncomplicated
CPT/HCPCS: 99214

== ENCOUNTER 2024-05-29 12:10 | Outpatient (AMB) | payer BC, SELFPAY ==
--- NOTE | 2024-05-29 12:14 | MHC.OFFVIS ---
Intake Visit Reasons: 4 months f/u Anemia [phone] Intake Note: Patient 4 month follow up for Anemia. Patient denies any GI issues for today visit. Collection Teller Required: No Allergies ciprofloxacin [From CIPRO] Allergy (Intermediate, Verified 05/29/24 12:11) HIVES/ITCH Penicillins [PCN] Allergy (Intermediate, Verified 05/29/24 12:11) HIVES penicillin V Allergy (Unknown, Verified 05/29/24 12:11) Rash LOBSTER Allergy (Severe, Uncoded 01/27/24 11:22) SWELLING From CIPRO Allergy (Intermediate, Uncoded 01/27/24 11:22) HIVES/ITCH HPI HPI 4 months f/u Anemia [phone]: Details: 58 yr old m called for f/u RECAP: I had seen him as an inpatient for assessment for BONNIE He initially came to the ED for for evaluation of severe 10/10 diffuse, burning abdominal pain going into the back with nausea and bilious vomiting ongoing for 4 days.Had been consuming 1 drink daily but about a 6 pack over the weekend, Patient did admit to taking advil daily for a year or so for various pains. LABS: 04/27 HGB: 8, ferritin : 4 IMAGING: CT abdomen/pelvis showing acute pancreatitis but no evidence of hemorrhage with generalized ileus. EGD/[place]; Endoscopy Findings: hiatal hernia possible barretts mild gastritis Colonoscopy Findings: internal hemorrhoids diverticular disease INTERIM: He feels he is doing pretty good he has gained weight stop drinking alcohol appetite is good no rectal bleeding or melena he has good energy A/P: 1/ Anemia, has been stable, on iron but ferritin and iron sat were low--uncertain etiology 2/ alcohol related pancreatitis, stable, PLAN: 1/ recheck labs 2/ Ct enterogram due to enteritis on capsule [facility] Medical History Alcohol use disorder Surgical History Hx of colonoscopy History of esophagogastroduodenoscopy (EGD) Social History Household Members: Spouse Housing: Apartment Do you presently have visiting nurse or other home services: No Alcohol intake: current Alcohol intake frequency: holidays/special occasions only Comment: pt refuses bed alarms Patient Tobacco Use Status: Former Tobacco user Tobacco use type: Cigarette Substance Use Type: Crack/Cocaine Advance Directives Date on File: 09/11/22 service: No Current occupational status: employed Telehealth Telehealth Telehealth Platform: Telephone Location of provider rendering services: practice address Location of patient: address on file Patient Identification confirmed using: Name, : Yes Telehealth method: voice only Patient verbally consented to treatment: Yes Patient verbally consented to billing insurance company: Yes Patient informed of any privacy concerns related to visit: Yes Minutes spent on Phone/Video with Pt.: 7 Assessment & Plan Assessment & Plan (1) Enteritis: Code(s): K52.9 - Noninfective gastroenteritis and colitis, unspecified Category: Medical Plan: as above Coding Level of Care Code Tele Est Pt Level 3 (41659) Diagnoses Enteritis K52.9
--- OUTSIDE RECORDS SUMMARY | 2024-05-29 14:15 | XMS_ITS | Clinical Summary ---
Author Organization [employer] Address [address] [facility] [facility] [address] [place] [address] Care Team Providers Care Childcare Attendant Name Role Phone Unavailable Primary Care Provider Unavailabl e Allergies Active Allergy Reactions Criticality Noted Date Comments Penicillins 03/18/2024 Medications ferrous sulfate (Fe Tabs) 325 (65 Fe) MG EC tabletIndication s:Iron deficiency anemia, unspecified iron deficiency anemia type Take 1 tablet (325 mg) by mouth Once per day. 30 tablet 11 01/13/2024 Active omeprazole (PriLOSEC) [address] capsule Take 20 mg by mouth before breakfast. Do not crush or chew. Active buprenorphine-na loxone (Suboxone) 2-0.[address] 1 tablet under the tongue Once per day. Active Active Problems No known active problems Encounters Date Type Department Care Team Description 04/10/2024 Outside Procedure [facility] [address] [place] [id number] Darrin, Jil, OD Presbyopia (Primary Dx) 04/08/2024 3:00 PM EST Office Visit [facility] [address] [place] [id number] Kings Cliffordn, OD Hyperopia of both eyes (Primary Dx) 03/19/2024 Telephone [facility] [address] [place], [place] [phone] Silvia Baeza ANP New Patient appt. 03/18/2024 2:45 PM EST Office Visit [facility] [address] [place] [id number] Ivanna Espino, OD Hyperopia of both eyes (Primary Dx); Pterygium of left eye; Vitreous floaters of both eyes 03/18/2024 Travel 03/17/2024 Telephone [facility] [address] [place] [address] Scotty Dela Cruz MD New patient appt. from Last 3 Months Social History Tobacco Use Types Packs/Day Years Used Date Smoking Tobacco: Every Day Cigarettes Smokeless Tobacco: Never Tobacco Cessation:Ready to Q uit: Not Asked; Counseling Given: Not Answered Alcohol Use Standard Drinks/Week Comments Yes 0 (1 standard drink = 0.6 oz pur e alcohol) Sex and Gender Information Value Date Recorded Sex Assigned at Male 10/25/2023 10:55 AM EDT Legal Sex Male 10:01 AM EST Gender Identity Male 10/25/2023 10:55 AM EDT Sexual Orientation Straight 10/25/2023 10 :56 AM EDT Last Filed Vital Signs Vital Sign Reading Time Taken Comments Blood Pressure 142/86 01/08/2024 5:44 PM EDT Pulse 83 01/08/2024 5:44 PM EDT Temperature 36.8 ??C (98.3 ??F) 01/08/2024 5:44 PM ED T Respiratory Rate 18 01/08/2024 5:44 PM EDT Oxygen Saturation 98% 12/10/2023 5:50 PM EDT Inhaled Oxygen Concentration - - Weight 66.4 kg (146 lb 6.4 oz) 01/08/2024 5:44 P M EDT Height 165.1 cm (5' 5 ) 01/08/2024 5:44 PM EDT Body Mass Index 24.36 01/08/2024 5:44 PM EDT Plan of Treatment Health Maintenance Due Date Last Done Comments CT Colonography 1965 Colonoscopy 1965 Colorectal Cancer Screening 1965 Depression Screening 1965 FIT DNA/Cologuard 1965 FIT 1965 FOBT 1965 HIV Screening 1965 Lipid Panel 1965 SDOH Screening 1965 Sigmoidoscopy 1965 Alcohol/Substance Use Screening 1977 Hepatitis C Screening 11/29/1983 DTaP/Tdap/Td Vaccines (1 - Tdap) 1984 Hepatitis B Vaccines (1 of 3 - 19+ 3-dose series) 1984 Pneumococcal Vaccine: Pediatrics (0 to 5 Years) and At-Risk Patients (6 to 64 Years) (2 of 2 - PCV) 05/09/2015 05/09/2014 Zoster Vaccines (1 of 2) 11/29/2015 COVID-19 Vaccine (2 - season) 2024 08/13/2020 Tobacco Screening 03/18/2025 03/18/2024 RSV Patients and Patients Aged 60 years or older (1 - 1-dose 75+ series) 2040 Influenza Vaccine Completed 02/17/2024, , 01/26/2020, Additional history exists HIB Vaccines Aged Out No longer eligi ble based on patient's age to complete this topic HPV Vaccines Aged Out No longer eligi ble based on patient's age to complete this topic Hepatitis A Vaccines Aged Out No long er eligible based on patient's age to complete this topic IPV Vaccines Aged Out No longer eligi ble based on patient's age to complete this topic Meningococcal Vaccine Aged Out No kostas eric eligible based on patient's age to complete this topic RSV under 20 months Aged Out No longe r eligible based on patient's age to complete this topic Rotavirus Vaccines Aged Out No longer eligible based on patient's age to complete this topic
== END 2024-05-29 16:56 | disposition home or self-care (01) ==
LOC: HO.HGI 12:10
PROVIDERS: PCP Internal Medicine; Visit Provider Internal Medicine Gastroenterology
DX: K52.9 Noninfective gastroenteritis and colitis, unspecified (principal)
CPT/HCPCS: 99213

== ENCOUNTER → 2024-05-29 12:10 | Outpatient (BNVA) | payer BC, SELFPAY | PROVIDERS: PCP Internal Medicine; Visit Provider Internal Medicine Gastroenterology ==

== ENCOUNTER → 2024-06-10 15:11 | Outpatient (BNVA) | payer BC, SELFPAY | PROVIDERS: PCP Internal Medicine; Visit Provider Nurse Practitioner Psychiatric/Mental Health ==

== ENCOUNTER 2024-07-15 15:05 | Outpatient (REF) | payer BC, SELFPAY ==
[2024-07-15 16:13] LABS: MANUAL DIFF FLAG NO
[2024-07-15 17:13] LABS: Basophils Absolute Auto 0.1 X10*3/uL (0.0-0.2); Basophils Percent Auto 0.6 % (0-2); Eosinophils Absolute Auto 0.3 X10*3/uL (0.0-0.4); Eosinophils Percent Auto 3.5 % (0-4); Hematocrit 41.5 % (42.0-52.0); Hemoglobin 14.1 g/dl (14.0-18.0); Imm Gran Abs Auto 0.02 X10*3/uL (0.00-0.03); Imm Gran Pct Auto 0.2 % (0.0-0.4); Mean Corpuscular Hemoglobin 31.8 pg (27.0-33.0); Mean Corpuscular Volume 93.5 fL (80.0-98.0); Mean Platelet Volume 11.7 fL (9.4-12.4); Monocytes Absolute Auto 0.8 X10*3/uL (0.1-1.2); Monocytes Percent Auto 8.6 % (2-11); Neutrophils Absolute Auto 5.6 x10*3/uL (2.0-8.3); Neutrophils Percent Auto 64.1 % (45-73); Platelet Count 213 X10*3/uL (160-400); Red Blood Count 4.44 X10*6/uL (4.60-5.80); White Blood Count 8.8 X10*3/uL (4.8-10.8)
[2024-07-15 17:58] LABS: Alanine Aminotransferase 45 U/L (0-40); Albumin Level 4.2 g/dL (3.5-5.0); Alkaline Phosphatase 94 U/L (39-117); Anion Gap 9 (12-20); Aspartate Amino Transferase 30 U/L (5-37); Bilirubin Total 0.2 mg/dL (0.0-1.0); Blood Urea Nitrogen 18 mg/dL (9-16); Calcium 9.3 mg/dL (8.4-10.2); Carbon Dioxide 27 mmol/L (22-29); Chloride 107 mmol/L (96-108); Estimated Glomerular Filt Rate > 60; Glucose Random 110 mg/dL (60-115); Potassium 4.1 mmol/L (3.3-5.1); Sodium 139 mmol/L (135-145); Total Protein 8.6 g/dL (6.5-8.0)
[2024-07-15 18:17] LABS: Ferritin 35 ng/mL (20-250)
--- OUTSIDE RECORDS SUMMARY | 2024-07-15 18:23 | XMS_ITS | Clinical Summary ---
Author Organization [employer] Address [address] [facility] [address] [place] [address] Care Team Providers Care Pharmacy Sales Representative Name Role Phone Unavailable Primary Care Provider Unavailabl e Allergies Active Allergy Reactions Criticality Noted Date Comments Penicillins 03/18/2024 Medications ferrous sulfate (Fe Tabs) 325 (65 Fe) MG EC tabletIndication s:Iron deficiency anemia, unspecified iron deficiency anemia type Take 1 tablet (325 mg) by mouth Once per day. 30 tablet 01/13/2024 Active omeprazole (PriLOSEC) [address] capsule Take 20 mg by mouth before breakfast. Do not crush or chew. Active buprenorphine-na loxone (Suboxone) 2-0.[address] 1 tablet under the tongue Once per day. Active Active Problems No known active problems Social History Tobacco Use Types Packs/Day Years [...] - 19+ 3-dose series) 1984 Pneumococcal Vaccine: 50+ Years (2 of 2 - PCV) 05/09/2015 05/09/2014 [...]
== END 2024-07-15 15:06 | disposition home or self-care (01) ==
LOC: HO.LAB 15:05
PROVIDERS: Internal Medicine Gastroenterology; PCP Internal Medicine; Visit Provider Nurse Practitioner Psychiatric/Mental Health
DX: D64.9 Anemia, unspecified (principal); K75.81 Nonalcoholic steatohepatitis (NASH)
CPT/HCPCS: 36415; 80053; 82728; 85025

== ENCOUNTER 2024-07-15 15:05 | Outpatient (AMB) | payer BC, SELFPAY ==
--- NOTE | 2024-07-15 15:10 | A.OFFVISCC_ITS ---
Intake Visit Reasons: MAT Allergies ciprofloxacin [From CIPRO] Allergy (Intermediate, Verified 05/29/24 12:11) HIVES/ITCH Penicillins [PCN] Allergy (Intermediate, Verified 05/29/24 12:11) HIVES penicillin V Allergy (Unknown, Verified 05/29/24 12:11) Rash LOBSTER Allergy (Severe, Uncoded 01/27/24 11:22) SWELLING From CIPRO Allergy (Intermediate, Uncoded 01/27/24 11:22) HIVES/ITCH HPI HPI MAT: Details: Patient presents for follow up Currently prescribed Suboxone 12mg daily Tolerating current dose, but feels like since formulation changed to generic, medication is not as effective Will send prior auth for brand name next Alcohol intake has not increased Cocaine one time since last visit Reporting lower motivation/energy Sleep okay Appetite is okay Review of Systems Const Reports as per HPI and Reports no additional complaints Physical Exam Const General: cooperative, healthy appearing and well groomed Nutritional Appearance: average body habitus Orientation/consciousness: patient oriented x3 Limitations: no limitations Neuro General: patient oriented x3 Psych Appearance: well kempt Speech and movement: Normal speech and movement present Affect: normal affect Thought process: Normal thought process present Thought content: Normal thought content present Insight: Good insight present (Psych) Judgement: Good judgement present (Psych) PFSH Medical History Alcohol use disorder Surgical History Hx of colonoscopy History of esophagogastroduodenoscopy (EGD) Social History Household Members: Spouse Housing: Apartment Do you presently have visiting nurse or other home services: No Alcohol intake: current Alcohol intake frequency: holidays/special occasions only Comment: pt refuses bed alarms Patient Tobacco Use Status: Former Tobacco user Tobacco use type: Cigarette Substance Use Type: Crack/Cocaine Advance Directives Date on File: 09/11/22 service: No Current occupational status: employed Assessment & Plan Assessment & Plan (1) Opioid use disorder, moderate, in sustained remission: Code(s): F11.21 - Opioid dependence, in remission Category: Medical Plan: * continue suboxone at 12mg daily * relapse prevention discussion * RN to inquire about prior auth for brand name suboxone (2) Cocaine use disorder: Code(s): F14.10 - Cocaine abuse, uncomplicated Category: Medical Plan: * risk reduction discussion * follow up 4 weeks
== END 2024-07-15 15:59 | disposition home or self-care (01) ==
LOC: HO.HCC 15:05
PROVIDERS: PCP Internal Medicine; Visit Provider Nurse Practitioner Psychiatric/Mental Health
DX: F11.21 Opioid dependence, in remission (principal); F14.10 Cocaine abuse, uncomplicated
CPT/HCPCS: 99214

== ENCOUNTER 2024-09-02 15:06 | Outpatient (AMB) | payer BC, SELFPAY ==
--- NOTE | 2024-09-02 15:15 | MHC.OFFVIS ---
Vital Signs 09/02/24 15:32 Height 5 ft 5 in Intake Visit Reasons: MAT Allergies ciprofloxacin [From CIPRO] Allergy (Intermediate, Verified 05/29/24 12:11) HIVES/ITCH Penicillins [PCN] Allergy (Intermediate, Verified 05/29/24 12:11) HIVES penicillin V Allergy (Unknown, Verified 05/29/24 12:11) Rash LOBSTER Allergy (Severe, Uncoded 01/27/24 11:22) SWELLING From CIPRO Allergy (Intermediate, Uncoded 01/27/24 11:22) HIVES/ITCH HPI HPI MAT: Details: He feels somewhat tired. He takes 12/3 Suboxone daily. PFSH Medical History Alcohol use disorder Surgical History Hx of colonoscopy History of esophagogastroduodenoscopy (EGD) Social History Household Members: Spouse Housing: Apartment Do you presently have visiting nurse or other home services: No Alcohol intake: current Alcohol intake frequency: holidays/special occasions only Comment: pt refuses bed alarms Patient Tobacco Use Status: Former Tobacco user Tobacco use type: Cigarette Substance Use Type: Crack/Cocaine Advance Directives Date on File: 09/11/22 service: No Current occupational status: employed Review of Systems Const All systems reviewed & are unremarkable except as noted in HPI and below Physical Exam Const General: cooperative Results AMB 14 Panel Urine Drug Screen Urine Marijuana (THC) Negative Last Edit by Anjali Cornell CMA on 09/02/24 15:44 Urine Cocaine Positive Last Edit by Anjali Cornell CMA on 09/02/24 15:44 Urine Morphine Negative Last Edit by Anjali Cornell CMA on 09/02/24 15:44 Urine Methamphetamine Negative Last Edit by Anjali Cornell CMA on 09/02/24 15:44 Urine Amphetamine Negative Last Edit by Anjali Cornell CMA on 09/02/24 15:44 Urine Benzodiazepine Negative Last Edit by Anjali Cornell CMA on 09/02/24 15:44 Urine Barbiturates Negative Last Edit by Anjali Cornell CMA on 09/02/24 15:44 Urine Methadone Negative Last Edit by Anjali Cornell CMA on 09/02/24 15:44 Urine Buprenorphine Positive Last Edit by Anjali Cornell CMA on 09/02/24 15:44 Urine Tricyclic Antidepressant Negative Last Edit by Anjali Cornell CMA on 09/02/24 15:44 Urine MDMA Negative Last Edit by Anjali Cornell CMA on 09/02/24 15:44 Urine Oxycodone Negative Last Edit by Anjali Cornell CMA on 09/02/24 15:44 Urine Phencyclidine Negative Last Edit by Anjali Cornell CMA on 09/02/24 15:44 Urine Propoxyphene Negative Last Edit by Anjali Cornell CMA on 09/02/24 15:44 Results Reviewed Results Reviewed: Laboratory Last Values POC Urine Buprenorphine Positive 09/02/24 15:43 POC Urine Morphine Negative 09/02/24 15:43 POC Urine Oxycodone Negative 09/02/24 15:43 POC Urine Methadone Negative 09/02/24 15:43 POC Urine Propoxyphene Negative 09/02/24 15:43 POC Urine Barbiturates Negative 09/02/24 15:43 POC U Tricyclic Antidpr Negative 09/02/24 15:43 POC Urine PCP Negative 09/02/24 15:43 POC Ur Amphetamines Negative 09/02/24 15:43 POC Ur Methamphetamine Negative 09/02/24 15:43 POC Urine MDMA Negative 09/02/24 15:43 POC Ur Benzodiazepine Negative 09/02/24 15:43 POC Urine Cocaine Positive 09/02/24 15:43 POC Ur Marijuana (THC) Negative 09/02/24 15:43 Assessment & Plan Assessment & Plan (1) Opioid use disorder, moderate, in sustained remission: Comment: He is doing fair and still feels low energy Code(s): F11.21 - Opioid dependence, in remission Category: Medical Plan: Suboxone 8/2 bid ,one month and see us Orders: Orders AMB 14 Panel Urine Drug Screen Today Z51.81 - Encounter for therapeutic drug level monitoring Medications: New buprenorphine-naloxone 8-2 mg (Suboxone) place 1 film on inside of (each) cheek 2 film sublingual DAILY 60 ea 0RF 30 days Discontinued buprenorphine-naloxone 12-3 mg (Suboxone) Discontinued Reason: None 1 film buccal Q24H 30 ea 1RF Coding Level of Care Code Tele Est Pt Level 3 (20211) Diagnoses Opioid use disorder, moderate, in sustained remission F11.21
--- OUTSIDE RECORDS SUMMARY | 2024-09-02 16:09 | XMS_ITS | Clinical Summary ---
Author Organization [employer] Address [address] [facility] [address] [place] [address] Care Team Providers Care Automobile Body Worker Name Role Phone Unavailable Primary Care Provider [...]
== END 2024-09-02 16:06 | disposition home or self-care (01) ==
LOC: HO.HCC 15:06
PROVIDERS: PCP Internal Medicine; Visit Provider Internal Medicine
DX: Z51.81 Encounter for therapeutic drug level monitoring (principal); F11.21 Opioid dependence, in remission
CPT/HCPCS: 99213

== ENCOUNTER → 2024-09-02 15:06 | Outpatient (BNVA) | payer BC, SELFPAY | PROVIDERS: PCP Internal Medicine; Visit Provider Internal Medicine | DX: F11.21 Opioid dependence, in remission (principal) | CPT/HCPCS: 80307 ==

== ENCOUNTER 2024-10-05 15:02 | Outpatient (AMB) | payer BC, SELFPAY ==
[2024-10-05 15:30] VITALS: PULSE 78; O2SAT 98
--- NOTE | 2024-10-05 15:30 | MHC.OFFVIS ---
Vital Signs 10/05/24 15:30 Height 5 ft 5 in Pulse 78 Pulse Source Pulse Oximeter Pulse Oximetry (%) 98 Oxygen Delivery Method Room Air Intake Visit Reasons: MAT Allergies ciprofloxacin [From CIPRO] Allergy (Intermediate, Verified 10/05/24 15:31) HIVES/ITCH Penicillins [PCN] Allergy (Intermediate, Verified 10/05/24 15:31) HIVES penicillin V Allergy (Unknown, Verified 10/05/24 15:31) Rash LOBSTER Allergy (Severe, Uncoded 01/27/24 11:22) SWELLING From CIPRO Allergy (Intermediate, Uncoded 01/27/24 11:22) HIVES/ITCH HPI HPI MAT: Details: He has been doing well. He has no cravings. [facility] Medical History Alcohol use disorder Surgical History Hx of colonoscopy History of esophagogastroduodenoscopy (EGD) Social History Household Members: Spouse Housing: Apartment Do you presently have visiting nurse or other home services: No Alcohol intake: current Alcohol intake frequency: holidays/special occasions only Comment: pt refuses bed alarms Patient Tobacco Use Status: Former Tobacco user Tobacco use type: Cigarette Substance Use Type: Crack/Cocaine Advance Directives Date on File: 09/11/22 service: No Current occupational status: employed Review of Systems Const All systems reviewed & are unremarkable except as noted in HPI and below Physical Exam Vital Signs: Last Vital Signs Pulse 78 10/05/24 15:30 Pulse Ox 98 10/05/24 15:30 Oxygen Delivery Method Room Air 10/05/24 15:30 Const General: cooperative Assessment & Plan Assessment & Plan (1) Cocaine use disorder: Code(s): F14.10 - Cocaine abuse, uncomplicated Category: Medical (2) Opioid use disorder, moderate, in sustained remission: Comment: He is doing fair and still feels low energy Code(s): F11.21 - Opioid dependence, in remission Category: Medical Plan Continue current medication. See as scheduled. Medications: New buprenorphine-naloxone 8-2 mg (Suboxone) 1 film sublingual BID 60 ea 1RF 30 days Coding Level of Care Code Est Pt Level 3 (42349) Diagnoses Cocaine use disorder F14.10 Opioid use disorder, moderate, in sustained remission F11.21
--- OUTSIDE RECORDS SUMMARY | 2024-10-05 16:18 | XMS_ITS | Clinical Summary ---
Author Organization [employer] Address [address] [facility] [address] [place] [address] Care Team Providers Care Air Hammer Stripper Name Role Phone Unavailable Primary Care Provider [...] Panel 1965 SDOH Screening 1965 Sigmoidoscopy 1965 Disability Screening 1965 Alcohol/Substance Use Screening 1977 Hepatitis C [...] patient's age to complete this topic Meningococcal B Vaccine Aged Out No l onger eligible based on patient's age to complete [...]
== END 2024-10-05 15:44 | disposition home or self-care (01) ==
LOC: HO.HCC 15:02
PROVIDERS: PCP Internal Medicine; Visit Provider Internal Medicine
DX: F14.10 Cocaine abuse, uncomplicated (principal); F11.21 Opioid dependence, in remission
CPT/HCPCS: 99213

== ENCOUNTER 2024-11-09 15:01 | Outpatient (AMB) | payer BC, SELFPAY ==
--- NOTE | 2024-11-09 15:11 | A.OFFVIS_ITS ---
Vital Signs 11/09/24 15:12 Height 5 ft 5 in Pulse 87 Pulse Source Pulse Oximeter Pulse Oximetry (%) 96 Oxygen Delivery Method Room Air Intake Visit Reasons: MAT Allergies ciprofloxacin (From CIPRO) Allergy (Intermediate, Verified 11/09/24 15:12) HIVES/ITCH Penicillins (PCN) Allergy (Intermediate, Verified 11/09/24 15:12) HIVES penicillin V Allergy (Unknown, Verified 11/09/24 15:12) Rash LOBSTER Allergy (Severe, Uncoded 01/27/24 11:22) SWELLING From CIPRO Allergy (Intermediate, Uncoded 01/27/24 11:22) HIVES/ITCH Medication List - Last Reconciled 11/10/24 by Ainsley Woo NP-Jaquelin clonidine HCl 0.1 mg PO BEDTIME PRN omeprazole 20 mg PO BID vitamin B complex 1 tab PO DAILY HPI Comments Details: The patient is a 58-year-old male presenting with complex issues surrounding the affordability and management of his buprenorphine-naloxone prescription. He detailed a history of financial struggle with his prescriptions, being charged over $200 for a 30 day refill. He reports using buprenorphine-naloxone once daily, although initially, his regimen included two doses per day, which he could not afford. Information provided re: GoodRx coupons and to follow up with [facility] services to inquire about secondary insurance coverage. He reports, no opioids use or other substances, for past two months and two weeks of no alcohol use. Does continue smoking cigarettes and has decreased frequency from one pack per day to now a pack lasting two weeks. Patient declines information for mental health services and reports feeling stable. [facility] Medical History Alcohol use disorder Surgical History Hx of colonoscopy History of esophagogastroduodenoscopy (EGD) Social History (Updated 11/09/24 @ 15:53 by Ainsley Woo NP-C) Household Members: Spouse Housing: Apartment Do you presently have visiting nurse or other home services: No Alcohol intake: current Alcohol intake frequency: holidays/special occasions only Comment: pt refuses bed alarms Patient Tobacco Use Status: Current someday Tobacco user Tobacco use type: Cigarette Substance Use Type: Crack/Cocaine Advance Directives Date on File: 09/11/22 service: No Current occupational status: employed Review of Systems Const All systems reviewed & are unremarkable except as noted in HPI and below Physical Exam Vital Signs: Last Vital Signs Pulse 87 11/09/24 15:12 Pulse Ox 96 11/09/24 15:12 Oxygen Delivery Method Room Air 11/09/24 15:12 Const General: cooperative Psych Appearance: well kempt Mental Status: mental status grossly normal Speech and movement: Normal speech and movement present Affect: normal affect Attitude: cooperative Thought process: Normal thought process present Insight: Good insight present (Psych) Judgement: Good judgement present (Psych) Assessment & Plan Assessment & Plan (1) Opioid use disorder, moderate, in sustained remission: Comment: He is doing fair and still feels low energy Code(s): F11.21 - Opioid dependence, in remission Category: Medical Plan The patient to continue with buprenorphine-naloxone 8-2 mg daily for substance use disorder. Continued adherence to this treatment protocol is emphasized, with plans to monitor efficacy and financial strain. Review of GoodRx coupons to assist in minimizing out of pocket co-payments expenses and consultation on ins urance strategies. Medications: New buprenorphine-naloxone 8-2 mg (Suboxone) one film sublingual daily. 1 film sublingual DAILY 30 ea 0RF 30 days Patient Instructions: - Continue taking buprenorphine-naloxone 8-2 mg daily as prescribed. - Explore GoodRx for potential cost reductions. - Contact insurance provider to discuss any possible modifications in coverage or assistance for medication costs. - Follow up with [facility] to inquire about secondary insurance coverage - Follow up if you have any changes in your health or cannot afford your medication. Scribe Plan - Not visible on output: Patient was informed and verbally consented to the use of an ambient scribe for clinical note documentation during this visit. Coding Level of Care Code Est Pt Level 3 (88373) Diagnoses Opioid use disorder, moderate, in sustained remission F11.21
[2024-11-09 15:12] VITALS: PULSE 87; O2SAT 96
--- OUTSIDE RECORDS SUMMARY | 2024-11-09 15:30 | XMS_ITS | Clinical Summary ---
Author Organization [employer] Address [address] [facility] [address] [place] [address] Care Team Providers Care Stock Clerk Self Service Store Name Role Phone Unavailable Primary Care Provider [...] 83 01/08/2024 5:44 PM EDT Temperature 36.8 C (98.3 F) 01/08/2024 5:44 PM EDT Respiratory Rate 18 01/08/2024 5:44 PM EDT [...] COVID-19 Vaccine (2 - season) 2024 08/13/2020 Influenza Vaccine (#1) 2025 , 01/30/2023, 01/26/2020, Additional history exists Tobacco Screening 03/18/2025 03/18/2024 RSV Patients and Patients Aged 60 years or older (1 - 1-dose 75+ series) 2040 HIB Vaccines Aged Out No longer eligi [...]
== END 2024-11-09 15:34 | disposition home or self-care (01) ==
PROVIDERS: PCP Internal Medicine; Visit Provider Clinical Nurse Specialist Psychiatric/Mental Health
DX: F11.21 Opioid dependence, in remission (principal)
CPT/HCPCS: 99213

== ENCOUNTER 2024-12-09 15:03 | Outpatient (AMB) | payer BC, SELFPAY ==
[2024-12-09 15:09] VITALS: BP 136/78; PULSE 84; O2SAT 98; BMI 25.5
--- NOTE | 2024-12-09 15:09 | MHC.OFFVIS ---
Vital Signs 12/09/24 15:09 Height 5 ft 5 in Weight 153 lb BMI 25.5 BP 136/78 Pulse 84 Pulse Oximetry (%) 98 Intake Visit Reasons: MAT visit Allergies ciprofloxacin (From CIPRO) Allergy (Intermediate, Verified 12/09/24 15:10) HIVES/ITCH Penicillins (PCN) Allergy (Intermediate, Verified 12/09/24 15:10) HIVES penicillin V Allergy (Unknown, Verified 12/09/24 15:10) Rash LOBSTER Allergy (Severe, Uncoded 12/09/24 15:10) SWELLING From CIPRO Allergy (Intermediate, Uncoded 12/09/24 15:10) HIVES/ITCH Medication List - Last Reconciled 12/09/24 by DEMETRIUS Puckett clonidine HCl 0.1 mg PO BEDTIME PRN omeprazole 20 mg PO BID Suboxone 8-2 mg (buprenorphine-naloxone) 1 film sublingual DAILY 30 days NS vitamin B complex 1 tab PO DAILY HPI Comments Details: The patient is a 59-year-old male presents for follow-up visit related to substance use disorder in remission with use of buprenorphine-naloxone. Reports generic buprenorphine-naloxone films are not working well due to reported side effects of gastrointestinal issues. In the past was prescribed name brand Suboxone and reports did not cause the gastrointestinal issues. Patient is requesting a prescription for the name brand of Suboxone. Denies use of opiates, intermittent consumption of alcohol, reports 1 or 2 beers, and smokes on average of 3 cigarettes per day, denies use of other substances. [facility]LY [facility] Medical History Alcohol use disorder Surgical History Hx of colonoscopy History of esophagogastroduodenoscopy (EGD) Social History (Updated 11/09/24 @ 15:53 by DEMETRIUS Puckett) Household Members: Spouse Housing: Apartment Do you presently have visiting nurse or other home services: No Alcohol intake: current Alcohol intake frequency: holidays/special occasions only Comment: pt refuses bed alarms Patient Tobacco Use Status: Current someday Tobacco user Tobacco use type: Cigarette Substance Use Type: Crack/Cocaine Advance Directives Date on File: 09/11/22 service: No Current occupational status: employed Review of Systems Const All systems reviewed & are unremarkable except as noted in HPI and below Physical Exam Vital Signs: Last Vital Signs Pulse 84 12/09/24 15:09 BP 136/78 12/09/24 15:09 Pulse Ox 98 12/09/24 15:09 BMI result Body Mass Index 25.5 Const General: cooperative and well groomed Orientation/consciousness: patient oriented x3 Limitations: no limitations Neuro General: patient oriented x3 Psych Appearance: well kempt Mental Status: mental status grossly normal Speech and movement: Normal speech and movement present Affect: normal affect Attitude: cooperative Thought process: Normal thought process present Thought content: Normal thought content present Insight: Good insight present (Psych) Judgement: Good judgement present (Psych) Assessment & Plan Assessment & Plan (1) Opioid use disorder in remission: Code(s): F11.91 - Opioid use, unspecified, in remission Category: Medical Plan The plan of care is to continue with Suboxone 8-2 mg daily, brand name ordered per reports of gastrointestinal side effects. Phone number provided to initiate primary care services. Follow up in one month or sooner, if needed. Medications: Changed From buprenorphine-naloxone 8-2 mg (Suboxone) one film sublingual daily. 1 film sublingual DAILY 30 days 30 ea 0RF To Suboxone 8-2 mg (buprenorphine-naloxone) one film sublingual daily. 1 film sublingual DAILY 30 ea 0RF 30 days NS Patient Instructions: - Continue with Suboxone 8-2 mg daily, name brand ordered due to reported gastrointestinal side effects with generic formulation. - Call to initiate primary care services. - Reduce alcohol and cigarette frequency/quantity. - Call with questions, concerns, or to report side effects/new onset of symptoms to [facility]. - The patient verbalized understanding and agreed with plan of care. Coding Level of Care Code Est Pt Level 3 (93998) Diagnoses Opioid use disorder in remission F11.91
--- OUTSIDE RECORDS SUMMARY | 2024-12-09 15:33 | XMS_ITS | Clinical Summary ---
Author Organization [employer] Address [address] [facility] [address] [place] [address] Care Team Providers Care Traveling Representative Name Role Phone Unavailable Primary Care [...]
== END 2024-12-09 15:29 | disposition home or self-care (01) ==
PROVIDERS: PCP Internal Medicine; Visit Provider Clinical Nurse Specialist Psychiatric/Mental Health
DX: F11.91 Opioid use, unspecified, in remission (principal)
CPT/HCPCS: 99213

== ENCOUNTER 2024-12-21 10:55 | Outpatient (REF) | payer BC, SELFPAY ==
--- OUTSIDE RECORDS SUMMARY | 2024-12-21 12:05 | XMS_ITS | Clinical Summary ---
Author Organization [employer] Address [address] [facility] [address] [address] [place] [address] Care Team Providers Care Landscaping Crew Leader Name Role Phone Unavailable Primary Care Provider Unavailabl e Allergies Active Allergy Reactions Criticality Noted Date Comments Penicillins 03/18/2024 Medications ferrous sulfate (Fe Tabs) 325 (65 Fe) MG EC tabletIndication s:Iron deficiency anemia, unspecified iron deficiency anemia type Take 1 tablet (325 mg) by mouth Once per day. 30 tablet 11 4 01/13/20 25 Active omeprazole (PriLOSEC) [address] capsule Take 20 mg by mouth before breakfast. Do not crush or chew. Active buprenorphine-na loxone (Suboxone) 2-0.[address] 1 tablet under the tongue Once per day. Active clotrimazole (Lotrimin) 1 % creamIndications :Balanitis Apply topically 2 times daily for 28 days. 30 g 1 5 01/13/20 25 Active Active Problems Problem Noted Date Diagnosed Date Celina 12/15/2024 Assessment & Plan (12/15/2024 7:08 PM EDT): Counseling done, good hygiene I will prescribe clotrimazole BID for 2 weeks Blood work ordered Polysubstance abuse 12/15/2024 Encounters Date Type Department Care Team Description 12/15/2024 7:20 PM EDT Office Visit [facility] [address] [place] [address] Abril Lainez MD Balanitis; Polysubstance abuse (CMS/HCC) 12/15/2024 Travel from Last 3 Months Social History Tobacco [...] Sign Reading Time Taken Comments Blood Pressure 139/86 12/15/2024 5:51 PM EDT Pulse 81 12/15/2024 5:51 PM EDT Temperature 36.7 C (98 F) 12/15/2024 5:51 PM EDT Respiratory Rate 18 12/15/2024 5:51 PM EDT Oxygen Saturation 98% 12/10/2023 5:50 PM EDT Inhaled Oxygen Concentration - - Weight 68.7 kg (151 lb 6.4 oz) 12/15/2024 5:51 P M EDT Height 165.1 cm (5' 5 ) 12/15/2024 5:51 PM EDT Body Mass Index 25.19 12/15/2024 5:51 PM EDT Plan of Treatment Upcoming Encounters Date Type Department Care Team (Late st Contact Info) Description 03/05/2025 2:00 PM EDT Office Visit [facility] [address] [place] [address] Abril Lainez MD [address] [place] [address] Health Maintenance Due Date Last Done Comments [...] 01/30/2023, 01/26/2020, Additional history exists Tobacco Screening 12/15/2025 12/15/2024 RSV Patients and Patients Aged 60 years [...] on patient's age to complete this topic Insurance BCBS PPO
[2024-12-21 13:01] LABS: Hematocrit 38.6 % (42.0-52.0); Hemoglobin 12.0 g/dl (14.0-18.0); Imm Gran Abs Auto 0.04 X10*3/uL (0.00-0.03); Imm Gran Pct Auto 0.4 % (0.0-0.4); Lymphocytes Absolute Auto 2.0 X10*3/uL (1.2-4.9); MANUAL DIFF FLAG NO; Mean Corpuscular HGB Conc 31.1 g/dl (31.0-36.0); Mean Corpuscular Hemoglobin 27.9 pg (27.0-33.0); Mean Corpuscular Volume 89.8 fL (80.0-98.0); NRBC Abs Auto 0.000 X10*3/uL (0.0-0.012); NRBC Pct Auto 0.0 /100WBC (0.0-0.2); Platelet Count 273 X10*3/uL (160-400); Red Blood Count 4.30 X10*6/uL (4.60-5.80); White Blood Count 9.1 X10*3/uL (4.8-10.8)
[2024-12-21 13:37] LABS: Alanine Aminotransferase 34 U/L (0-40); Albumin Level 4.0 g/dL (3.5-5.0); Alkaline Phosphatase 90 U/L (39-117); Anion Gap 13 (12-20); Aspartate Amino Transferase 38 U/L (5-37); Blood Urea Nitrogen 14 mg/dL (9-16); Calcium 9.1 mg/dL (8.4-10.2); Carbon Dioxide 29 mmol/L (22-29); Chloride 107 mmol/L (96-108); Cholesterol 202 mg/dL (<200); Estimated Glomerular Filt Rate > 60; HDL Cholesterol 46 mg/dL (>40); Potassium 4.5 mmol/L (3.3-5.1); Sodium 144 mmol/L (135-145); Total Protein 7.8 g/dL (6.5-8.0); Triglycerides 243 mg/dL (<150)
[2024-12-21 13:42] LABS: HIV Num 1 0.06 S/CO (0.00-0.99); ~HepC Num1 0.15 S/CO (0.00-0.79); ~Hepatitis C Antibody Nonreactive (Nonreactive)
[2024-12-21 13:43] LABS: Hemoglobin A1C 143.7309 umol/L; Total Hemoglobin (HGBA1C) 3097.2436 umol/L
== END 2024-12-21 10:56 | disposition home or self-care (01) ==
LOC: HO.HHCL 10:55
PROVIDERS: PCP Internal Medicine; Visit Provider Internal Medicine
DX: Z11.4 Encounter for screening for human immunodeficiency virus [HIV] (principal); Z11.59 Encounter for screening for other viral diseases; Z13.1 Encounter for screening for diabetes mellitus; N48.1 Balanitis; Z13.6 Encounter for screening for cardiovascular disorders; F19.10 Other psychoactive substance abuse, uncomplicated
CPT/HCPCS: 36415; 80053; 80061; 82306; 83036; 85025; 86803; 87389

== ENCOUNTER 2025-01-08 15:01 | Outpatient (AMB) | payer BC, SELFPAY ==
--- OUTSIDE RECORDS SUMMARY | 2025-01-08 15:03 | XMS_ITS | Clinical Summary ---
Author Organization [employer] Address [address] [address] [place] [address] Care Team Providers Care Fork Assembler Name Role Phone Unavailable Primary Care Provider [...] Active Problems Problem Noted Date Diagnosed Date Francoanitis 12/15/2024 Assessment & Plan (12/15/2024 7:08 PM EDT): Counseling done, good hygiene I will prescribe clotrimazole BID for 2 weeks Blood work ordered Polysubstance abuse 12/15/2024 Encounters Date Type Department Care Team Description 12/22/2024 Results Follow-Up [facility] [address] [place] [address] Abril Lainez MD CBC auto differential, Comprehensive Metabolic Panel, Hemoglobin A1c, Additional followed-up results: 4 12/15/2024 7:20 PM EDT Office Visit [facility] [address] [place] [address] [facility] Polysubstance abuse (CMS/HCC) 12/15/2024 Travel from Last [...] Description 03/05/2025 2:00 PM EDT Office Visit [facility] [address] [place] [phone] Abril Lainez MD [address] [place] [address] Health Maintenance Due Date Last Done Comments CT Colonography 1965 Colonoscopy 1965 Colorectal Cancer Screening 1965 Depression Screening 1965 FIT DNA/Cologuard 1965 FIT 1965 FOBT 1965 SDOH Screening 1965 Sigmoidoscopy 1965 Disability Screening 1965 Alcohol/Substance Use Screening 1977 DTaP/Tdap/Td Vaccines (1 - Tdap) 1984 Hepatitis B Vaccines (1 of 3 - 19+ 3-dose series) 1984 Pneumococcal Vaccine: 50+ Years (2 of 2 - PCV) 05/09/2015 05/09/2014 Zoster Vaccines (1 of 2) 11/29/2015 COVID-19 Vaccine (2 - season) 2025 08/13/2020 Influenza Vaccine (#1) 2025 , 01/30/2023, 01/26/2020, Additional history exists Tobacco Screening 12/15/2025 12/15/2024 Diabetes: Hemoglobin A1C 12/21/2025 12/21/2024 Lipid Panel 12/21/2029 12/21/2024 RSV Patients and Patients Aged 60 years or older (1 - 1-dose 75+ series) 2040 HIV Screening Completed 12/21/2024 Hepatitis C Screening Completed 12/21/2024 HIB Vaccines Aged Out No longer eligi [...] on patient's age to complete this topic Procedures Procedure Name Priority Date/Time Associated Diagnosis Comments VITAMIN D,25-OH,TOTAL,IA Routine 12/21/2024 11:00 AM EDT Polysubstance abuse (CMS/HCC) LIPID PANEL, STANDARD Routine 12/21/2024 11:00 AM EDT Polysubstance abuse (CMS/HCC) HEPATITIS C AB W/REFL TO HCV RNA, QN, PCR Routine 12/21/2024 11:00 AM EDT Polysubstance abuse (CMS/HCC) HIV 1/2 ANTIGEN/ANTIBODY, FOURTH GENERATION W/RFL Routine 12/21/2024 11:00 AM EDT Polysubstance abuse (CMS/HCC) HEMOGLOBIN A1C Routine 12/21/2024 11:00 AM EDT Balanitis COMPREHENSIVE METABOLIC PANEL Routine 12/21/2024 11:00 AM EDT Balanitis CBC WITH AUTO DIFFERENTIAL Routine 12/21/2024 11:00 AM EDT Balanitis from Last 3 Months Results * Vitamin D, 25-Hydroxy, Total, Immunoassay (12/21/2024 11:00 AM EDT) [facility] Vitamin D 25-OH Total 31.6 >30 ng/mL [facility] Comment: Health Based Reference Values*< 20 ng/mL Rkuombktv50-02 ng/mL Insufficient> 30 ng/mL Sufficient*Jesus PARHAM. N Engl J Med. 2007;357:266-280There is no well-established upper level of normal vitamin Dlevels. Some laboratories use 50 ng/mL as an upper limit ofnormal. However, toxicity is patient-dependent and may occurat any level. Careful correlation with the patient'spresentation is necessary and, if there is concern forvitamin D toxicity, treatment should be consideredirrespective of the serum level.Care must be taken in interpreting Vitamin D results fromdifferent laboratories and methodologies. Published datademonstrated that results from patients undergoinghemodialysis may show a negative bias when tested withvarious automated 25-OH vitamin D assays when compared toLC-MS/MS.When testing samples from patients whose predominant form ofVitamin D is Vitamin D2, such as patients receiving VitaminD2 supplementation, results that are subtherapeutic shouldbe confirmed with another method such as LC-MS/MS. Blood Venous blood specimen / Unknown 12/21/2024 11:00 AM EDT 12/21/2024 12:55 PM EDT Abril Lucio MD LAB BLOOD ORDERABLES Final Result [facility] [address] [place] [phone] * (ABNORMAL) CBC auto differential (12/21/2024 11:00 AM EDT) White Blood Count 9.1 4.8 - 10.8 X10*3/uL [facility] Red Blood Count 4.30(L) 4.60 - 5.80 X10*6/uL [facility] Hemoglobin 12.0(L) 14.0 - 18.0 g/dl [facility] Hematocrit 38.6(L) 42.0 - 52.0 % [facility] Mean Corpuscular Volume 89.8 80.0 - 98.0 fL [facility] Mean Corpuscular Hemoglobin 27.9 27.0 - 33.0 pg [facility] Mean Corpuscular HGB Conc 31.1 31.0 - 36.0 g/dl [facility] Red Cell Distribution Width 13.2 11.0 - 16.0 % [facility] Platelet Count 273 160 - 400 X10*3/uL [facility] Mean Platelet Volume 11.7 9.4 - 12.4 fL [facility] Neutrophils Percent Auto 64.2 45 - 73 % [facility] Imm Gran Pct Auto 0.4 0.0 - 0.4 % [facility] Lymphocytes Percent Auto 22.0 20 - 40 % [facility] Monocytes Percent Auto 9.7 2 - 11 % [facility] Eosinophils Percent Auto 3.2 0 - 4 % [facility] Basophils Percent Auto 0.5 0 - 2 % [facility] NRBC Pct Auto 0.0 0.0 - 0.2 /100WBC [facility] Neutrophils Absolute Auto 5.9 2.0 - 8.3 x10*3/uL [facility] Imm Gran Abs Auto 0.04(H) 0.00 - 0.03 X10*3/uL [facility] Lymphocytes Absolute Auto 2.0 1.2 - 4.9 X10*3/uL [facility] Monocytes Absolute Auto 0.9 0.1 - 1.2 X10*3/uL [facility] Eosinophils Absolute Auto 0.3 0.0 - 0.4 X10*3/uL [facility] Basophils Absolute Auto 0.1 0.0 - 0.2 X10*3/uL [facility] NRBC Abs Auto 0.000 0.0 - 0.012 X10*3/uL [facility] Blood Venous blood specimen / Unknown 12/21/2024 11:00 AM EDT 12/21/2024 12:55 PM EDT us Abril Lucio MD LAB BLOOD ORDERABLES Final Result Performing Organization Address [facility] Co de Phone Number [facility] [address] [place] [phone] * Hepatitis C Antibody with Reflex to HCV, RNA, Quantitative, Real-Time PCR (12/21/2024 11:00 AM EDT) Pathologist [facility] Hepatitis C Antibody Nonreactive Nonreactive [facility] Comment:Antibodies to HCV no t detected; does not exclude early acuteHCV infection. Blood Venous blood specimen / Unknown 12/21/2024 11:00 AM EDT 12/21/2024 12:55 PM EDT Abril Lucio MD LAB BLOOD ORDERABLES Final Result Performing Organization Address [facility] Co de Phone Number [facility] [address] [place] [phone] * HIV-1/2 Antigen and Antibodies, Fourth Generation, with Reflexes (12/21/2024 11:00 AM EDT) Pathologist [facility] HIV AB/AG Nonreactive Nonreactive [facility] Comment:HIV-1 p24 Ag and/or HIV-1/HIV-2 Ab not detected.A test result that is nonreactive does not exclude thepossibility of exposure to or infection with HIV-1 and/orHIV-2. Nonreactive results in this assay for individualswith prior exposure to HIV-1 and/or HIV-2 may be due toantigen and antibody levels that are below the limit ofdetection of this assay.The [employer] HIV Ag/Ab Combo assay result andsupplemental assay results should be interpreted inconjunction with the patient's clinical presentation,history and other laboratory results. If the results areinconsistent with clinical evidence, additional testing issuggested to confirm the result. Blood Venous blood specimen / Unknown 12/21/2024 11:00 AM EDT 12/21/2024 12:55 PM EDT Abril Lucio MD LAB BLOOD ORDERABLES Final Result [facility] [address] [place] [phone] * (ABNORMAL) Hemoglobin A1c (12/21/2024 11:00 AM EDT) Pathologist [facility] Hemoglobin A1c 6.4(H) <6.0 % [facility] Comment:Hemoglobin A1C Refer ence Range Adults: 4.8 - 6.0 % Non diabetic: < 6.0 % Goal: < 7.0 %Additional Action Suggested: > 8.0 %Note: Hemoglobin A1c results are invalid for patients with abnormal amounts of HbF. Blood transfusions may impact the HbA1c concentration in the patient sample. Estimated Average Glucose 137 mg/dL [facility] Comment:eAG = Estimated ave rage glucose which is %A1C expressed asaverage glucose, using the formula of the J1B-TnzocvhElzbqmv Glucose study (ADAG), Diabetes Care, Vol.31,#8,Dec. 2007 Blood Venous blood specimen / Unknown 12/21/2024 11:00 AM EDT 12/21/2024 12:55 PM EDT us Abril Lucio MD LAB BLOOD ORDERABLES Final Result [facility] [address] [place] [phone] * (ABNORMAL) Lipid Panel, Standard (12/21/2024 11:00 AM EDT) Triglycerides 243(H) <150 mg/dL [facility] Comment:Desirable Triglyceri de: less than 150 mg/dLBorderline High Triglyceride 150-199 mg/dLHigh Triglyceride: 200-499 mg/dLVery High Triglyceride: greater than or equal to 5OO mg/dL Cholesterol 202(H) <200 mg/dL [facility] Comment:Desirable Cholestero l: less than 200 mg/dLBorderline High Cholesterol: 200-239 mg/dLHigh Cholesterol: greater than 239 mg/dL LDL Cholesterol Calculated 108(H) <100 mg/dL [facility] Comment:Desirable LDL: less than 100 mg/dLNear Optimal/Above Optimal LDL: 110- 129 mg/dLBorderline High LDL: 130-159 mg/dLHigh LDL: 160-189 mg/dLVery High LDL: greater than or equal to 190 mg/dL HDL Cholesterol 46 >40 mg/dL [facility] Comment:Desirable HDL: great er than 40 mg/dL Note: This HDL assay may give artificially low results in patients with liver disease. Blood Venous blood specimen / Unknown 12/21/2024 11:00 AM EDT 12/21/2024 12:55 PM EDT us Abril Lucio MD LAB BLOOD ORDERABLES Final Result [facility] [address] [place] [phone] * (ABNORMAL) Comprehensive Metabolic Panel (12/21/2024 11:00 AM EDT) Sodium 144 135 - 145 mmol/L [facility] Potassium 4.5 3.3 - 5.1 mmol/L [facility] Chloride 107 96 - 108 mmol/L [facility] Carbon Dioxide 29 22 - 29 mmol/L [facility] Anion Gap 13 12 - 20 [facility] Urea Nitrogen (BUN) 14 9 - 16 mg/dL [facility] Creatinine, Serum 0.71 0.5 - 1.4 mg/dL [facility] Estimated Glomerular Filt Rate >60 [facility] Comment:Chronic Kidney Disea se: Estimated GFR < 60 mL/min/1.26e7Hjtydh Kidney Disease: Estimated GFR < 15 mL/min/1.73m2 Glucose 126(H) 60 - 115 mg/dL [facility] Calcium 9.1 8.4 - 10.2 mg/dL [facility] Bilirubin, Total 0.3 0.0 - 1.0 mg/dL [facility] Aspartate Amino Transferase 38(H) 5 - 37 U/L [facility] Alanine Aminotransferase 34 0 - 40 U/L [facility] Total Protein 7.8 6.5 - 8.0 g/dL [facility] Albumin Level 4.0 3.5 - 5.0 g/dL [facility] Alkaline Phosphatase 90 39 - 117 U/L [facility] Blood Venous blood specimen / Unknown 12/21/2024 11:00 AM EDT 12/21/2024 12:55 PM EDT us Abril Lucio MD LAB BLOOD ORDERABLES Final Result [facility] [address] [place] [phone] from Last 3 Months Insurance BC[employer] PPO
--- NOTE | 2025-01-08 15:24 | MHC.OFFVIS ---
Vital Signs 01/08/25 15:30 Height 5 ft 5 in Pulse 95 Pulse Source Pulse Oximeter Pulse Oximetry (%) 99 Intake Visit Reasons: MAT Allergies ciprofloxacin (From CIPRO) Allergy (Intermediate, Verified 01/08/25 15:30) HIVES/ITCH Penicillins (PCN) Allergy (Intermediate, Verified 01/08/25 15:30) HIVES penicillin V Allergy (Unknown, Verified 01/08/25 15:30) Rash LOBSTER Allergy (Severe, Uncoded 12/09/24 15:10) SWELLING From CIPRO Allergy (Intermediate, Uncoded 12/09/24 15:10) HIVES/ITCH HPI HPI MAT: Details: He has no concerns. He feels well. [facility] Medical History Alcohol use disorder Surgical History Hx of colonoscopy History of esophagogastroduodenoscopy (EGD) Social History Household Members: Spouse Housing: Apartment Do you presently have visiting nurse or other home services: No Alcohol intake: current Alcohol intake frequency: holidays/special occasions only Comment: pt refuses bed alarms Patient Tobacco Use Status: Current someday Tobacco user Tobacco use type: Cigarette Substance Use Type: Crack/Cocaine Advance Directives Date on File: 09/11/22 service: No Current occupational status: employed Review of Systems Const All systems reviewed & are unremarkable except as noted in HPI and below Physical Exam Vital Signs: Last Vital Signs Pulse 95 01/08/25 15:30 Pulse Ox 99 01/08/25 15:30 Const General: cooperative Assessment & Plan Assessment & Plan (1) Alcohol use disorder: Comment: He is about the same and stable. Code(s): F10.90 - Alcohol use, unspecified, uncomplicated Category: Medical Plan: See as scheduled. Script given. (2) Opioid use disorder, moderate, in sustained remission: Comment: He is doing fair and still feels low energy Code(s): F11.21 - Opioid dependence, in remission Category: Medical Plan: n/a Medications: New Suboxone 8-2 mg (buprenorphine-naloxone) no substitution ,brand name medically necessary 1 film sublingual DAILY 30 ea 0RF 30 days NS Coding Level of Care Code Est Pt Level 3 (12339) Diagnoses Alcohol use disorder F10.90 Opioid use disorder, moderate, in sustained remission F11.21
[2025-01-08 15:30] VITALS: PULSE 95; O2SAT 99
== END 2025-01-08 15:36 | disposition home or self-care (01) ==
LOC: HO.HCC 15:01
PROVIDERS: PCP Internal Medicine; Visit Provider Internal Medicine
DX: F10.90 Alcohol use, unspecified, uncomplicated (principal); F11.21 Opioid dependence, in remission
CPT/HCPCS: 99213

== ENCOUNTER → 2025-01-08 15:01 | Outpatient (BNVA) | payer BC, SELFPAY | PROVIDERS: PCP Internal Medicine; Visit Provider Internal Medicine | DX: F10.90 Alcohol use, unspecified, uncomplicated (principal); F11.21 Opioid dependence, in remission; F17.210 Nicotine dependence, cigarettes, uncomplicated; Z13.89 Encounter for screening for other disorder ==

== ENCOUNTER 2025-01-25 15:01 | Outpatient (AMB) | payer BC, SELFPAY ==
--- NOTE | 2025-01-25 15:18 | A.OFFVIS_ITS ---
Vital Signs 01/25/25 15:31 Height 5 ft 5 in Weight 152 lb BMI 25.3 BP 133/83 Blood Pressure Location Lt brachial Position Sitting Pulse 78 Intake Visit Reasons: 4 month , Abd pain Intake Note: Patient follow up for abdominal pain. Patient cc: abdominal discomfort with constipation. 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 Accompanied by: Self / Same As Patient Allergies ciprofloxacin (From CIPRO) Allergy (Intermediate, Verified 01/25/25 15:29) HIVES/ITCH Penicillins (PCN) Allergy (Intermediate, Verified 01/25/25 15:29) HIVES penicillin V Allergy (Unknown, Verified 01/25/25 15:29) Rash LOBSTER Allergy (Severe, Uncoded 12/09/24 15:10) SWELLING From CIPRO Allergy (Intermediate, Uncoded 12/09/24 15:10) HIVES/ITCH HPI HPI 4 month , Abd pain: Details: 59 yr old m being seen for f/u RECAP: I had seen him as an inpatient for assessment for BONNIE He initially came to the ED for for evaluation of severe 10/10 diffuse, burning abdominal pain going into the back with nausea and bilious vomiting ongoing for 4 days.Had been consuming 1 drink daily but about a 6 pack over the weekend, Patient did admit to taking advil daily for a year or so for various pains. LABS: 04/27 HGB: 8, ferritin : 4 IMAGING: CT abdomen/pelvis showing acute pancreatitis but no evidence of hemorrhage with generalized ileus. enteritis on capsule EGD/[place]; 12/26 Endoscopy Findings: hiatal hernia possible barretts mild gastritis Colonoscopy Findings: internal hemorrhoids diverticular disease INTERIM: he has been having constipation , more recently helped with stool softener -hard stools otherwise no new meds he is smoking sometimes on suboxone occ beer he admits his diet is poor and not high in fiber EXAM: GENERAL: The patient is well developed and nontoxic. VITAL SIGNS:see workflow HEENT: Nonicteric sclerae, PERRLA, EOMI. Oropharynx clear. Moist mucous membranes. Conjunctivae appear well perfused. No thyroid mass. CHEST: Chest wall is nontender. HEART: Regular rate and rhythm without murmurs. LUNGS: Clear to auscultation bilaterally. ABDOMEN: Soft, positive bowel sounds, nontender, no organomegaly.no flank tenderness SKIN: No rash, no excessive bruising, petechiae, or purpura. NEUROLOGIC: Cranial nerves II-XII intact without motor/sensory deficit. Psych: normal affect A/P: 1/ Anemia, has been stable, on iron but ferritin and iron sat were low--uncertain etiology --hgb creeping down again and also has constipation 2/ alcohol related pancreatitis, stable, PLAN: 1/ recheck labs incl ferritin, TSH 2/ Ct enterogram 3/ colonoscopy--repeat with [facility] Medical History Alcohol use disorder Surgical History Hx of colonoscopy History of esophagogastroduodenoscopy (EGD) Social History Household Members: Spouse Housing: Apartment Do you presently have visiting nurse or other home services: No Alcohol intake: current Alcohol intake frequency: holidays/special occasions only Comment: pt refuses bed alarms Patient Tobacco Use Status: Current someday Tobacco user Tobacco use type: Cigarette Substance Use Type: Crack/Cocaine Advance Directives Date on File: 09/11/22 service: No Current occupational status: employed Physical Exam Vital Signs: Last Vital Signs Pulse 78 01/25/25 15:31 BP 133/83 01/25/25 15:31 BMI result Body Mass Index 25.3 Assessment & Plan Assessment & Plan (1) Enteritis: Code(s): K52.9 - Noninfective gastroenteritis and colitis, unspecified Category: Medical Plan: as above Orders: Orders CT enterography 01/25/25 K52.9 - Noninfective gastroenteritis and colitis, unspecified Ferritin 01/25/25 K52.9 - Noninfective gastroenteritis and colitis, unspecified TSH reflex Free T4 01/25/25 K52.9 - Noninfective gastroenteritis and colitis, unspecified Complete Blood Count Auto Diff 01/25/25 K52.9 - Noninfective gastroenteritis and colitis, unspecified Vitamin B12 and Folate 01/25/25 K52.9 - Noninfective gastroenteritis and colitis, unspecified Referrals GI Procedure Notification K52.9 - Noninfective gastroenteritis and colitis, unspecified Medications: New sodium,potassium,mag sulfates 17.5-3.13-1.6 gram (Suprep Bowel Prep Kit) DILUTE; drink 1/2 at 6-8 pm and half at 11 PM- 1AM 354 mL 0RF polyethylene glycol 3350 (Miralax) 17 grams PO DAILY 850 grams 2RF Coding Level of Care Code Est Pt Level 4 (44015) Diagnoses Enteritis K52.9
[2025-01-25 15:31] VITALS: BP 133/83; PULSE 78; BMI 25.3
== END 2025-01-25 15:30 | disposition home or self-care (01) ==
LOC: HO.HGI 15:02
PROVIDERS: PCP Internal Medicine; Visit Provider Internal Medicine Gastroenterology
DX: K52.9 Noninfective gastroenteritis and colitis, unspecified (principal)
CPT/HCPCS: 99214

== ENCOUNTER 2025-02-08 15:03 | Outpatient (AMB) | payer BC, SELFPAY ==
--- NOTE | 2025-02-08 15:16 | MHC.OFFVIS ---
Vital Signs 02/08/25 15:20 BP 116/76 Pulse 88 Pulse Oximetry (%) 97 Intake Visit Reasons: mat visit Allergies ciprofloxacin (From CIPRO) Allergy (Intermediate, Verified 02/08/25 15:20) HIVES/ITCH Penicillins (PCN) Allergy (Intermediate, Verified 02/08/25 15:20) HIVES penicillin V Allergy (Unknown, Verified 02/08/25 15:20) Rash LOBSTER Allergy (Severe, Uncoded 02/08/25 15:20) SWELLING From CIPRO Allergy (Intermediate, Uncoded 02/08/25 15:20) HIVES/ITCH Medication List - Last Reconciled 02/08/25 by Ainsley Woo NP-C buprenorphine-naloxone 8-2 mg (Suboxone) 1 film sublingual DAILY 30 days clonidine HCl 0.1 mg PO BEDTIME PRN omeprazole 20 mg PO BID polyethylene glycol 3350 (Miralax) 17 grams PO DAILY sodium,potassium,mag sulfates 17.5-3.13-1.6 gram (Suprep Bowel Prep Kit) DILUTE; drink 1/2 at 6-8 pm and half at 11 PM- 1AM vitamin B complex 1 tab PO DAILY HPI Comments Details: A 59-year-old male presents for a follow-up visit r/t ISIDORO in sustained remission with buprenorphine-naloxone 8-2 mg daily. Denies use of opiates, alcohol, and other substances. Reports continuing to work full-time and helps to care for elderly mother in the afternoon. [facility] Medical History Alcohol use disorder Surgical History Hx of colonoscopy History of esophagogastroduodenoscopy (EGD) Social History Household Members: Spouse Housing: Apartment Do you presently have visiting nurse or other home services: No Alcohol intake: current Alcohol intake frequency: holidays/special occasions only Comment: pt refuses bed alarms Patient Tobacco Use Status: Current someday Tobacco user Tobacco use type: Cigarette Substance Use Type: Crack/Cocaine Advance Directives Date on File: 09/11/22 service: No Current occupational status: employed Review of Systems Const All systems reviewed & are unremarkable except as noted in HPI and below Physical Exam Vital Signs: Last Vital Signs Pulse 88 02/08/25 15:20 BP 116/76 02/08/25 15:20 Pulse Ox 97 02/08/25 15:20 Const General: cooperative Assessment & Plan Assessment & Plan (1) Opioid use disorder in remission: Code(s): F11.91 - Opioid use, unspecified, in remission Category: Medical Plan The plan of care is to continue with buprenorphine-naloxone 8-2 mg daily and follow-up in 2 months or sooner if needed. Medications: Changed From buprenorphine-naloxone 8-2 mg (Suboxone) 1 film sublingual DAILY 30 days 30 ea 0RF To buprenorphine-naloxone 8-2 mg (Suboxone) 1 film sublingually daily 1 film sublingual DAILY 30 ea 1RF 30 days Patient Instructions: - Continue with buprenorphine-naloxone as prescribed. - Follow-up in 2 months or sooner if needed. - Call with questions, concerns, or to report side effects/new onset of symptoms to [facility]. - The patient verbalized understanding and agreed with plan of care. Coding Level of Care Code Est Pt Level 3 (57048) Diagnoses Opioid use disorder in remission F11.91
[2025-02-08 15:20] VITALS: BP 116/76; PULSE 88; O2SAT 97
--- OUTSIDE RECORDS SUMMARY | 2025-02-08 17:25 | XMS_ITS | Encounter Summary ---
Author Organization [employer] Address [address] [facility] [address] [place] [address] Care Team Providers Care Security Guard Name Role Phone Unavailable Primary Care Provider Unavailabl e Reason for Visit * Reason Comments Med Refill Encounter Details Date Type Department Care Team (Late st Contact Info) Description 02/05/2025 Refill [facility] [address] [place] [phone] Anna Hobson MD [address] [place], [place] [phone] Balanitis Social History Tobacco Use Types Packs/Day Years Used Date Smoking Tobacco: Every Day Cigarettes Smokeless Tobacco: Never Alcohol Use Standard Drinks/Week Comments Yes 0 (1 standard drink = 0.6 oz pur e alcohol) Sex and Gender Information Value Date Recorded Sex Assigned at Male 10/25/2023 10:55 AM EDT Legal Sex Male 10:01 AM EST Gender Identity Male 10/25/2023 10:55 AM EDT Sexual Orientation Straight 10/25/2023 10 :56 AM EDT documented as of this encounter Plan of Treatment Upcoming Encounters Date Type Department Care Team (Late st Contact Info) Description 03/05/2025 2:00 PM EDT Office Visit [facility] [address] [place], [place] [phone] Abril Lainez MD [address] [place], [place] [phone] documented as of this encounter Visit Diagnoses Diagnosis Balanitis Balanoposthitis documented in this encounter
--- OUTSIDE RECORDS SUMMARY | 2025-02-08 17:25 | XMS_ITS | Encounter Summary ---
Author Organization [employer] Address [address] [place] [address] [address] [place] [address] Care Team Providers Care Soil Checker Name Role Phone Unavailable Primary Care Provider Unavailabl e Reason for Visit * Reason Comments Med Refill Encounter Details Date Type Department Care Team (Late st Contact Info) Description 01/19/2025 Refill [facility] [address] [place], [place] [phone] Abril Lainez MD [address] [place] [address] [phone] Balanitis Social History Tobacco Use Types Packs/Day [...] Description 03/05/2025 2:00 PM EDT Office Visit [facility] [address] [place], [place] [phone] Abril Lainez MD [address] [place] [address] [phone] documented as of this encounter Visit Diagnoses Diagnosis Balanitis Balanoposthitis documented in this encounter
--- OUTSIDE RECORDS SUMMARY | 2025-02-08 17:25 | XMS_ITS | Clinical Summary ---
Author Organization [employer] Address [address] [facility] [address]t [place] [address] Care Team Providers Care Airfield Operations Specialist Name Role Phone Unavailable Primary Care Provider Unavailabl e Allergies Active Allergy Reactions Criticality Noted Date Comments Penicillins 03/18/2024 Medications omeprazole (PriLOSEC) [address] capsule Take 20 mg by mouth before breakfast. Do not crush or chew. Active buprenorphine-n aloxone (Suboxone) 2-0.[address] 1 tablet under the tongue Once per day. Active nystatin (Mycostatin) creamIndication s:Balanitis Apply topically 2 times daily. 15 g 1 5 01/13/20 26 Active gabapentin (Neurontin) 100 MG capsuleIndicati ons:Neuropathy Take 1 capsule (100 mg) by mouth at bedtime. 30 capsule 5 02/03/20 26 Active triamcinolone (Kenalog) 0.025 % ointmentIndicat ions:Other psoriasis Apply topically in the morning and in the evening. Do all this for 14 days. 80 g 5 02/17/20 25 Active ferrous sulfate (Fe Tabs) 325 (65 Fe) MG EC tabletIndicatio ns:Iron deficiency anemia, unspecified iron deficiency anemia type Take 1 tablet (325 mg) by mouth Once per day. 30 tablet 11 4 01/13/20 25 clotrimazole (Lotrimin) 1 % creamIndication s:Balanitis Apply topically 2 times daily for 28 days. 30 g 1 5 01/13/20 25 Discontinu ed(Alterna te therapy) fluconazole (Diflucan) 150 MG tabletIndicatio ns:Balanitis Take 1 tablet (150 mg) by mouth 1 (one) time for 1 dose. 1 tablet 01/13/20 25 Active Problems Problem Noted Date Diagnosed Date Celina 12/15/2024 Assessment & Plan (01/12/2025 7:57 PM EDT): Improving but redness remain, trial of fluconazole and nystatin, continue lifestyle modification. Orders: nystatin (Mycostatin) cream; Apply topically 2 times daily. fluconazole (Diflucan) 150 MG tablet; Take 1 tablet (150 mg) by mouth 1 (one) time for 1 dose. Assessment & Plan (12/15/2024 7:08 PM EDT): Counseling done, good hygiene I will prescribe clotrimazole BID for 2 weeks Blood work ordered Polysubstance abuse 12/15/2024 Encounters Date Type Department Care Team Description 02/05/2025 Refill [facility] [address] [place] [phone] Anna Hobson MD Balanitis 02/02/2025 6:40 PM EDT Office Visit [facility] [address] [place] [phone] Patti Montes, NATE Neuropathy (Primary Dx); Other psoriasis 02/02/2025 Travel 01/19/2025 Refill [facility] [address] [place] [phone] Abril Lainez MD Balanitis 01/12/2025 7:40 PM EDT Office Visit [facility] [address] [place] [phone] Anna Hobson MD Balanitis (Primary Dx); Prediabetes; Routine screening for STI (sexually transmitted infection); Dyslipidemia 01/12/2025 Travel 12/22/2024 Results Follow-Up [facility] [address] [place] [phone] Abril Lainez MD CBC auto differential, Comprehensive Metabolic Panel, Hemoglobin A1c, Additional followed-up results: 4 12/15/2024 7:20 PM EDT Office Visit [facility] [address] [place] [address] Abril Lainez MD Balanitis; Polysubstance abuse (CMS/HCC) [...] Sign Reading Time Taken Comments Blood Pressure 135/85 02/02/2025 6:42 PM EDT Pulse 80 02/02/2025 6:42 PM EDT Temperature 36.6 C (97.8 F) 02/02/2025 6:42 PM EDT Respiratory Rate 18 02/02/2025 6:42 PM EDT Oxygen Saturation 97% 02/02/2025 6:42 PM EDT Inhaled Oxygen Concentration - - Weight 67.6 kg (149 lb) 02/02/2025 6:42 PM EDT Height 165.1 cm (5' 5 ) 02/02/2025 6:42 PM EDT Body Mass Index 24.79 02/02/2025 6:42 PM EDT Plan of Treatment Upcoming Encounters Date Type Department Care Team (Late st Contact Info) Description 03/05/2025 2:00 PM EDT Office Visit [facility] [address] [place] [phone] Abril Lainez MD [address] [place] [phone] Health Maintenance Due Date Last Done Comments [...] 2025 , 01/30/2023, 01/26/2020, Additional history exists Diabetes: Hemoglobin A1C 12/21/2025 12/21/2024 Tobacco Screening 01/12/2026 01/12/2025 Lipid Panel 12/21/2029 12/21/2024 RSV Patients and [...] Routine 12/21/2024 11:00 AM EDT Polysubstance abuse ([facility]) LIPID PANEL, STANDARD Routine 12/21/2024 11:00 AM [...] 25-Hydroxy, Total, Immunoassay (12/21/2024 11:00 AM EDT) [facility] Vitamin D 25-OH Total 31.6 >30 ng/mL [facility] Comment: Health Based Reference Values*< 20 ng/mL [id number] ng/mL Insufficient> 30 ng/mL Sufficient*Jesus PARHAM. N [...] Lucio MD LAB BLOOD ORDERABLES Final Result [facility] [address] [place] [phone] * (ABNORMAL) CBC auto differential (12/21/2024 11:00 AM EDT) White Blood Count 9.1 4.8 - 10.8 X10*3/uL [facility] Red Blood Count 4.30(L) 4.60 - 5.80 X10*6/uL [facility] Hemoglobin 12.0(L) 14.0 - 18.0 g/dl [facility] Hematocrit 38.6(L) 42.0 - 52.0 % [facility] Mean Corpuscular Volume 89.8 80.0 - 98.0 fL [facility] Mean Corpuscular Hemoglobin 27.9 27.0 - 33.0 pg [facility] Mean Corpuscular HGB Conc 31.1 31.0 - 36.0 g/dl [facility] Red Cell Distribution Width 13.2 11.0 - 16.0 % [facility] Platelet Count 273 160 - 400 X10*3/uL [facility] Mean Platelet Volume 11.7 9.4 - 12.4 fL [facility] Neutrophils Percent Auto 64.2 45 - 73 % [facility] Imm Gran Pct Auto 0.4 0.0 - 0.4 % [facility] Lymphocytes Percent Auto 22.0 20 - 40 % [facility] Monocytes Percent Auto 9.7 2 - 11 % [facility] Eosinophils Percent Auto 3.2 0 - 4 % [facility] Basophils Percent Auto 0.5 0 - 2 % [facility] NRBC Pct Auto 0.0 0.0 - 0.2 /100WBC [facility] Neutrophils Absolute Auto 5.9 2.0 - 8.3 x10*3/uL [facility] Imm Gran Abs Auto 0.04(H) 0.00 - 0.03 X10*3/uL [facility] Lymphocytes Absolute Auto 2.0 1.2 - 4.9 X10*3/uL [facility] Monocytes Absolute Auto 0.9 0.1 - 1.2 X10*3/uL [facility] Eosinophils Absolute Auto 0.3 0.0 - 0.4 X10*3/uL [facility] Basophils Absolute Auto 0.1 0.0 - 0.2 X10*3/uL [facility] NRBC Abs Auto 0.000 0.0 - 0.012 X10*3/uL [facility] Blood Venous blood specimen / Unknown 12/21/2024 11:00 AM EDT 12/21/2024 12:55 PM EDT us Abril Lucio MD LAB BLOOD ORDERABLES Final Result Performing Organization Address [facility] Co de Phone Number [facility] [address] [place] [phone] * Hepatitis C Antibody with Reflex to HCV, RNA, Quantitative, Real-Time PCR (12/21/2024 11:00 AM EDT) Hepatitis C Antibody Nonreactive Nonreactive [facility] Comment:Antibodies to HCV no t detected; does not exclude early acuteHCV infection. Blood Venous blood specimen / Unknown 12/21/2024 11:00 AM EDT 12/21/2024 12:55 PM EDT us Abril Lucio MD LAB BLOOD ORDERABLES Final Result Performing Organization Address [facility] Co de Phone Number [facility] [address] [place] [phone] * HIV-1/2 Antigen and Antibodies, Fourth Generation, with Reflexes (12/21/2024 11:00 AM EDT) HIV AB/AG Nonreactive Nonreactive [facility] Comment:HIV-1 p24 Ag and/or HIV-1/HIV-2 Ab not detected.A test result that is nonreactive does not exclude thepossibility of exposure to or infection with HIV-1 and/orHIV-2. Nonreactive results in this assay for individualswith prior exposure to HIV-1 and/or HIV-2 may be due toantigen and antibody levels that are below the limit ofdetection of this assay.The [employer]abella Oliver HIV Ag/Ab Combo assay result andsupplemental assay results should be interpreted inconjunction with the patient's clinical presentation,history and other laboratory results. If the results areinconsistent with clinical evidence, additional testing issuggested to confirm the result. Blood Venous blood specimen / Unknown 12/21/2024 11:00 AM EDT 12/21/2024 12:55 PM EDT Abril Lucio MD LAB BLOOD ORDERABLES Final Result [facility] [address] [place] [address] [phone] * (ABNORMAL) Hemoglobin A1c (12/21/2024 11:00 AM EDT) Hemoglobin A1c 6.4(H) <6.0 % [facility] Comment:Hemoglobin A1C Refer ence Range Adults: 4.8 - 6.0 % Non diabetic: < 6.0 % Goal: < 7.0 %Additional Action Suggested: > 8.0 %Note: Hemoglobin A1c results are invalid for patients with abnormal amounts of HbF. Blood transfusions may impact the HbA1c concentration in the patient sample. Estimated Average Glucose 137 mg/dL [facility] Comment:eAG = Estimated ave rage glucose which is %A1C expressed asaverage glucose, using the formula of the G6A-[id number] Glucose study (ADAG), Diabetes Care, Vol.31,#8,2007 Blood Venous blood specimen / Unknown 12/21/2024 11:00 AM EDT 12/21/2024 12:55 PM EDT us Abril Lucio MD LAB BLOOD ORDERABLES Final Result [facility] [address] [place] [phone] * (ABNORMAL) Lipid Panel, Standard (12/21/2024 11:00 AM EDT) Triglycerides 243(H) <150 mg/dL [facility] Comment:Desirable Triglyceri de: less than 150 mg/dLBorderline High Triglyceride 150-199 mg/dLHigh Triglyceride: 200-499 mg/dLVery High Triglyceride: greater than or equal to 5OO mg/dL Cholesterol 202(H) <200 mg/dL [facility] Comment:Desirable Cholestero l: less than 200 mg/dLBorderline High Cholesterol: 200-239 mg/dLHigh Cholesterol: greater than 239 mg/dL LDL Cholesterol Calculated 108(H) <100 mg/dL [facility] Comment:Desirable LDL: less than 100 mg/dLNear Optimal/Above Optimal LDL: 110- 129 mg/dLBorderline High LDL: 130-159 mg/dLHigh LDL: 160-189 mg/dLVery High LDL: greater than or equal to 190 mg/dL HDL Cholesterol 46 >40 mg/dL [facility] Comment:Desirable HDL: great er than 40 mg/dL Note: This HDL assay may give artificially low results in patients with liver disease. Blood Venous blood specimen / Unknown 12/21/2024 11:00 AM EDT 12/21/2024 12:55 PM EDT us Abril Lucio MD LAB BLOOD ORDERABLES Final Result [facility] [address] [place] [phone] * (ABNORMAL) Comprehensive Metabolic Panel (12/21/2024 11:00 AM EDT) Sodium 144 135 - 145 mmol/L [facility] Potassium 4.5 3.3 - 5.1 mmol/L [facility] Chloride 107 96 - 108 mmol/L [facility] Carbon Dioxide 29 22 - 29 mmol/L [facility] Anion Gap 13 12 - 20 [facility] Urea Nitrogen (BUN) 14 9 - 16 mg/dL [facility] Creatinine, Serum 0.71 0.5 - 1.4 mg/dL [facility] Estimated Glomerular Filt Rate >60 [facility] Comment:Chronic Kidney Disea se: Estimated GFR < 60 mL/min/1.21q8Lhddji Kidney Disease: Estimated GFR < 15 mL/min/1.73m2 Glucose 126(H) 60 - 115 mg/dL [facility] Calcium 9.1 8.4 - 10.2 mg/dL [facility] Bilirubin, Total 0.3 0.0 - 1.0 mg/dL [facility] Aspartate Amino Transferase 38(H) 5 - 37 U/L [facility] Alanine Aminotransferase 34 0 - 40 U/L [facility] Total Protein 7.8 6.5 - 8.0 g/dL [facility] Albumin Level 4.0 3.5 - 5.0 g/dL [facility] Alkaline Phosphatase 90 39 - 117 U/L [facility] Blood Venous blood specimen / Unknown 12/21/2024 11:00 AM EDT 12/21/2024 12:55 PM EDT us Abril Lucio MD LAB BLOOD ORDERABLES Final Result [facility] [address] [place] [phone] from Last 3 Months Insurance [employer] PPO
== END 2025-02-08 15:36 | disposition home or self-care (01) ==
LOC: HO.HCC 15:03
PROVIDERS: Visit Provider Clinical Nurse Specialist Psychiatric/Mental Health
DX: F11.91 Opioid use, unspecified, in remission (principal)
CPT/HCPCS: 99213

== ENCOUNTER 2025-02-11 15:00 | Outpatient (REF) | payer BC, SELFPAY ==
--- OUTSIDE RECORDS SUMMARY | 2025-02-11 15:04 | XMS_ITS | Encounter Summary ---
Author Organization [employer] Address [address] [facility] [address] [place] [address] Care Team Providers Care Masonry Inspector Name Role Phone Unavailable Primary Care Provider Unavailabl e Reason for Visit * Reason Comments Med Refill Encounter Details Date Type Department Care Team (Late st Contact Info) Description 02/05/2025 Refill [facility] [address] [place] [phone] Anna Hobson MD [address] [place], [place] [phone] Balanitis Social History Tobacco Use Types Packs/Day [...] 2:00 PM EDT Office Visit [facility] [address] [place], [place] [phone] Abril Lainez MD [address] [place], [place] [phone] documented as of this encounter Visit Diagnoses Diagnosis Balanitis Balanoposthitis documented in this encounter
--- OUTSIDE RECORDS SUMMARY | 2025-02-11 15:04 | XMS_ITS | Clinical Summary ---
Author Organization [employer] Address [address] [facility] 7[address] [place] [address] Care Team Providers Care Windows Server Administrator Name Role Phone Unavailable Primary Care Provider Unavailabl e Allergies Active Allergy Reactions Criticality Noted Date Comments Penicillins 03/18/2024 Medications omeprazole (PriLOSEC) [address] capsule Take 20 mg by mouth before breakfast. Do not crush or chew. Active buprenorphine-na loxone (Suboxone) 2-0.[address] 1 tablet under the tongue Once per day. Active nystatin (Mycostatin) creamIndications :Balanitis Apply topically 2 times daily. 15 g 1 5 01/13/20 26 Active gabapentin (Neurontin) 100 MG capsuleIndicatio ns:Neuropathy Take 1 capsule (100 mg) by mouth at bedtime. 30 capsule 5 02/03/20 26 Active triamcinolone (Kenalog) 0.025 % ointmentIndicati ons:Other psoriasis Apply topically in the morning and in the evening. Do all this for 14 days. 80 g 5 02/17/20 25 Active ferrous sulfate (Fe Tabs) 325 (65 Fe) MG EC tabletIndication s:Iron deficiency anemia, unspecified iron deficiency anemia type Take 1 tablet (325 mg) by mouth Once per day. 30 tablet 11 4 01/13/20 25 fluconazole (Diflucan) 150 MG tabletIndication s:Balanitis Take 1 tablet (150 mg) by mouth 1 (one) time for 1 dose. 1 tablet 5 01/13/20 25 Active Problems Problem Noted Date Diagnosed Date Balanitis 12/15/2024 Assessment & Plan (01/12/2025 7:57 PM [...] Type Department Care Team Description 02/05/2025 Refill [facility] [address] [place] [phone] Anna Hobson MD Balanitis 02/02/2025 6:40 PM EDT Office Visit [facility] [address] [place] [address] [phone] Patti Montes, ACTUARIAL CONSULTANT Neuropathy (Primary Dx); Other psoriasis 02/02/2025 Travel 01/19/2025 Refill [facility] [address] [place] [address] [phone] Abril Lainez MD Balanitis 01/12/2025 7:40 PM EDT Office Visit [facility] [address] [place] [phone] Anna Hobson MD Balanitis (Primary Dx); Prediabetes; Routine screening for STI (sexually transmitted infection); Dyslipidemia 01/12/2025 Travel 12/22/2024 Results Follow-Up [facility] [address] [place] [address] [phone] Abril Lainez MD CBC auto differential, Comprehensive Metabolic Panel, Hemoglobin A1c, Additional followed-up results: 4 12/15/2024 7:20 PM EDT Office Visit [facility] [address] [place] [address] [phone] Abril Lainez MD Balanitis; Polysubstance abuse (CMS/HCC) [...] Description 03/05/2025 2:00 PM EDT Office Visit [facility] [address] [place] [address] Abril Lainez MD [address] [place] [address] Health Maintenance Due Date Last Done Comments [...] 25-Hydroxy, Total, Immunoassay (12/21/2024 11:00 AM EDT) Pathologist [facility] Vitamin D 25-OH Total 31.6 >30 ng/mL [facility] Comment: Health Based Reference Values*< 20 ng/mL [id number] ng/mL Insufficient> 30 ng/mL Sufficient*Jesus PARHAM. N [...] Lucio MD LAB BLOOD ORDERABLES Final Result [facility] [address], [place] [phone] * (ABNORMAL) CBC auto differential (12/21/2024 11:00 AM EDT) White Blood Count 9.1 4.8 - 10.8 X10*3/uL [facility] Red Blood Count 4.30(L) 4.60 - 5.80 X10*6/uL [facility] Hemoglobin 12.0(L) 14.0 - 18.0 g/dl [facility] Hematocrit 38.6(L) 42.0 - 52.0 % [facility] Mean Corpuscular Volume 89.8 80.0 - 98.0 fL [facility] Mean Corpuscular Hemoglobin 27.9 27.0 - 33.0 pg [facility] Mean Corpuscular HGB Conc 31.1 31.0 - 36.0 g/dl [facility] Red Cell Distribution Width 13.2 11.0 - 16.0 % [facility] Platelet Count 273 160 - 400 X10*3/uL [facility] Mean Platelet Volume 11.7 9.4 - 12.4 fL [facility] Neutrophils Percent Auto 64.2 45 - 73 % [facility] Imm Gran Pct Auto 0.4 0.0 - 0.4 % [facility] Lymphocytes Percent Auto 22.0 20 - 40 % [facility] Monocytes Percent Auto 9.7 2 - 11 % [facility] Eosinophils Percent Auto 3.2 0 - 4 % [facility] Basophils Percent Auto 0.5 0 - 2 % [facility] NRBC Pct Auto 0.0 0.0 - 0.2 /100WBC [facility] Neutrophils Absolute Auto 5.9 2.0 - 8.3 x10*3/uL [facility] Imm Gran Abs Auto 0.04(H) 0.00 - 0.03 X10*3/uL [facility] Lymphocytes Absolute Auto 2.0 1.2 - 4.9 X10*3/uL [facility] Monocytes Absolute Auto 0.9 0.1 - 1.2 X10*3/uL [facility] Eosinophils Absolute Auto 0.3 0.0 - 0.4 X10*3/uL [facility] Basophils Absolute Auto 0.1 0.0 - 0.2 X10*3/uL [facility] NRBC Abs Auto 0.000 0.0 - 0.012 X10*3/uL [facility] Blood Venous blood specimen / Unknown 12/21/2024 11:00 AM EDT 12/21/2024 12:55 PM EDT Abril Lucio MD LAB BLOOD ORDERABLES Final Result Performing Organization Address [facility]/ZIP Co de Phone Number [facility] [address] [place] [phone] * Hepatitis C Antibody with Reflex to HCV, RNA, Quantitative, Real-Time PCR (12/21/2024 11:00 AM EDT) Hepatitis C Antibody Nonreactive Nonreactive [facility] Comment:Antibodies to HCV no t detected; does not exclude early acuteHCV infection. Blood Venous blood specimen / Unknown 12/21/2024 11:00 AM EDT 12/21/2024 12:55 PM EDT us Abril Lucio MD LAB BLOOD ORDERABLES Final Result Performing Organization Address [facility]/ZIP Co de Phone Number [facility] [address] [place] [phone] * HIV-1/2 Antigen and Antibodies, Fourth Generation, with Reflexes (12/21/2024 11:00 AM EDT) HIV AB/AG Nonreactive Nonreactive [facility] Comment:HIV-1 p24 Ag and/or HIV-1/HIV-2 Ab not detected.A test result that is nonreactive does not exclude thepossibility of exposure to or infection with HIV-1 and/orHIV-2. Nonreactive results in this assay for individualswith prior exposure to HIV-1 and/or HIV-2 may be due toantigen and antibody levels that are below the limit ofdetection of this assay.The [employer] HIV Ag/Ab Combo assay result andsupplemental assay results should be interpreted inconjunction with the patient's clinical presentation,history and other laboratory results. If the results areinconsistent with clinical evidence, additional testing issuggested to confirm the result. Blood Venous blood specimen / Unknown 12/21/2024 11:00 AM EDT 12/21/2024 12:55 PM EDT us Abril Lucio MD LAB BLOOD ORDERABLES Final Result Performing Organization Address [facility] Co de Phone Number [facility] [address] [place] [phone] * (ABNORMAL) Hemoglobin A1c (12/21/2024 11:00 AM EDT) Hemoglobin A1c 6.4(H) <6.0 % [facility] Comment:Hemoglobin A1C Refer ence Range Adults: 4.8 - 6.0 % Non diabetic: < 6.0 % Goal: < 7.0 %Additional Action Suggested: > 8.0 %Note: Hemoglobin A1c results are invalid for patients with abnormal amounts of HbF. Blood transfusions may impact the HbA1c concentration in the patient sample. Estimated Average Glucose 137 mg/dL [facility] Comment:eAG = Estimated ave rage glucose which is %A1C expressed asaverage glucose, using the formula of the [id number]-ZnvlzwuVthclkt Glucose study (ADAG), Diabetes Care, Vol.31,#8,2007 Blood Venous blood specimen / Unknown 12/21/2024 11:00 AM EDT 12/21/2024 12:55 PM EDT us Abril Lucio MD LAB BLOOD ORDERABLES Final Result Performing Organization Address [facility] Co de Phone Number [facility] [address] [place] [phone] * (ABNORMAL) Lipid Panel, Standard (12/21/2024 11:00 AM EDT) Triglycerides 243(H) <150 mg/dL [facility] Comment:Desirable Triglyceri de: less than 150 mg/dLBorderline High Triglyceride 150-199 mg/dLHigh Triglyceride: 200-499 mg/dLVery High Triglyceride: greater than or equal to 5OO mg/dL Cholesterol 202(H) <200 mg/dL [facility] Comment:Desirable Cholestero l: less than 200 mg/dLBorderline High Cholesterol: 200-239 mg/dLHigh Cholesterol: greater than 239 mg/dL LDL Cholesterol Calculated 108(H) <100 mg/dL [facility] Comment:Desirable LDL: less than 100 mg/dLNear Optimal/Above Optimal LDL: 110- 129 mg/dLBorderline High LDL: 130-159 mg/dLHigh LDL: 160-189 mg/dLVery High LDL: greater than or equal to 190 mg/dL HDL Cholesterol 46 >40 mg/dL [facility] Comment:Desirable HDL: great er than 40 mg/dL Note: This HDL assay may give artificially low results in patients with liver disease. Blood Venous blood specimen / Unknown 12/21/2024 11:00 AM EDT 12/21/2024 12:55 PM EDT us Abril Lucio MD LAB BLOOD ORDERABLES Final Result [facility] [address] [place] [phone] * (ABNORMAL) Comprehensive Metabolic Panel (12/21/2024 11:00 AM EDT) Sodium 144 135 - 145 mmol/L [facility] Potassium 4.5 3.3 - 5.1 mmol/L [facility] Chloride 107 96 - 108 mmol/L [facility] Carbon Dioxide 29 22 - 29 mmol/L [facility] Anion Gap 13 12 - 20 [facility] Urea Nitrogen (BUN) 14 9 - 16 mg/dL [facility] Creatinine, Serum 0.71 0.5 - 1.4 mg/dL [facility] Estimated Glomerular Filt Rate >60 [facility] Comment:Chronic Kidney Disea se: Estimated GFR < 60 mL/min/[id number] Kidney Disease: Estimated GFR < 15 mL/min/1.73m2 Glucose 126(H) 60 - 115 mg/dL [facility] Calcium 9.1 8.4 - 10.2 mg/dL [facility] Bilirubin, Total 0.3 0.0 - 1.0 mg/dL [facility] Aspartate Amino Transferase 38(H) 5 - 37 U/L [facility] Alanine Aminotransferase 34 0 - 40 U/L [facility] Total Protein 7.8 6.5 - 8.0 g/dL [facility] Albumin Level 4.0 3.5 - 5.0 g/dL [facility] Alkaline Phosphatase 90 39 - 117 U/L [facility] Blood Venous blood specimen / Unknown 12/21/2024 11:00 AM EDT 12/21/2024 12:55 PM EDT us Abril Lucio MD LAB BLOOD ORDERABLES Final Result [facility] [address] [place] [phone] from Last 3 Months Insurance [facility] PPO
--- OUTSIDE RECORDS SUMMARY | 2025-02-11 15:04 | XMS_ITS | Encounter Summary ---
Author Organization [employer] Address [address] [facility] [address] [place] [address] Care Team Providers Care Talent Analyst Name Role Phone Unavailable Primary Care Provider Unavailabl e Reason for Visit * Reason Comments Med Refill Encounter Details Date Type Department Care Team (Late st Contact Info) Description 01/19/2025 Refill [facility] [address], [place] [phone] Abril Lainez MD [address] [place] [address] [phone] Balanitis Social History Tobacco Use Types Packs/Day [...] Description 03/05/2025 2:00 PM EDT Office Visit [facility] [address], [place] [phone] Abril Lainez MD [address] [place] [address] [phone] documented as of this encounter Visit Diagnoses Diagnosis Balanitis Balanoposthitis documented in this encounter
[2025-02-11 16:26] LABS: MANUAL DIFF FLAG NO
[2025-02-11 16:32] LABS: Hematocrit 33.0 % (42.0-52.0); Hemoglobin 10.2 g/dl (14.0-18.0); Imm Gran Abs Auto 0.02 X10*3/uL (0.00-0.03); Imm Gran Pct Auto 0.2 % (0.0-0.4); Lymphocytes Absolute Auto 1.8 X10*3/uL (1.2-4.9); Mean Corpuscular HGB Conc 30.9 g/dl (31.0-36.0); Mean Corpuscular Hemoglobin 25.8 pg (27.0-33.0); Mean Corpuscular Volume 83.3 fL (80.0-98.0); NRBC Abs Auto 0.000 X10*3/uL (0.0-0.012); NRBC Pct Auto 0.0 /100WBC (0.0-0.2); Platelet Count 289 X10*3/uL (160-400); Red Blood Count 3.96 X10*6/uL (4.60-5.80); White Blood Count 8.7 X10*3/uL (4.8-10.8)
[2025-02-11 18:06] LABS: Anion Gap 11 (12-20); Blood Urea Nitrogen 17 mg/dL (9-16); CT PCR Urine NOT DETECTED (Not Detect.); Calcium 8.8 mg/dL (8.4-10.2); Carbon Dioxide 26 mmol/L (22-29); Chloride 107 mmol/L (96-108); Cholesterol 191 mg/dL (<200); Estimated Glomerular Filt Rate > 60; HDL Cholesterol 47 mg/dL (>40); NG PCR Urine NOT DETECTED (Not Detect.); Potassium 4.1 mmol/L (3.3-5.1); Sodium 140 mmol/L (135-145); Triglycerides 274 mg/dL (<150)
[2025-02-11 18:25] LABS: Ferritin 9 ng/mL (20-250)
[2025-02-11 18:39] LABS: Folate 14.7 ng/mL (> or = 4.0); Vitamin B12 479 pg/mL (200-900)
[2025-02-12 08:29] LABS: Syphilis Screen Nonreactive (Nonreactive)
[2025-02-12 08:51] LABS: HIV Num 1 0.05 S/CO (0.00-0.99); ~HepC Num1 0.08 S/CO (0.00-0.79); ~Hepatitis C Antibody Nonreactive (Nonreactive)
== END 2025-02-11 15:01 | disposition home or self-care (01) ==
LOC: HO.HHCL 15:00
PROVIDERS: PCP Internal Medicine; Referring Provider Family Medicine; Visit Provider Internal Medicine Gastroenterology
DX: Z11.59 Encounter for screening for other viral diseases (principal); Z20.2 Contact with and (suspected) exposure to infections with a predominantly sexual mode of transmission; Z11.4 Encounter for screening for human immunodeficiency virus [HIV]; R73.03 Prediabetes; E78.5 Hyperlipidemia, unspecified; K52.9 Noninfective gastroenteritis and colitis, unspecified
CPT/HCPCS: 36415; 80048; 80061; 82607; 82728; 82746; 84443; 85025; 86780; 86803; 87389; 87491; 87591

== ENCOUNTER 2025-03-02 10:21 | Day surgery (SDC) | payer BC, SELFPAY ==
[2025-02-26 15:21] VITALS: BMI 25.3
--- NOTE | 2025-03-02 10:39 | HO.ANESPROP2 ---
HPI - Anesthesia Eval Consult details Narrative: 59 yo M presenting for a colonoscopy. On Suboxone. Admits to cocaine use every other week - last use was on Saturday02/27/25. PMF Active Problems Active Problems: All Active Problems Opioid use disorder in remission (Acute) Enteritis (Acute) Cocaine use disorder (Acute) Opioid use disorder, moderate, in sustained remission (Acute) Acute upper abdominal pain (Acute) Low libido (Acute) Prediabetes (Acute) Hypercholesterolemia (Acute) Screening cholesterol level (Acute) Screening for diabetes mellitus (Acute) Anemia (Acute) Pancreatitis (Acute) Alcohol use disorder (Acute) Past Medical History Medical History (Updated 02/26/25 @ 15:20 by Luann Heck RN) Anemia Hypercholesteremia Pre-diabetes Opioid use disorder in remission Alcohol use disorder Family History Family history of problems with anesthesia: No Surgical History Surgical History Hx of colonoscopy History of esophagogastroduodenoscopy (EGD) History of Problems with Anesthesia: No Social History Social History Household Members: Spouse Housing: Apartment Are you a primary respiratory care faculty to a significant other at home: No Do you presently have visiting nurse or other home services: No Alcohol intake: current Alcohol intake frequency: holidays/special occasions only Comment: pt refuses bed alarms Patient Tobacco Use Status: Current everyday Tobacco user Tobacco use type: Cigarette Smoked in Last 30 Days: Yes Patient Interested in Nicotine Replacement: No Substance Use Type: Crack/Cocaine Substance Use Frequency: Occasionally Have you been hit, kicked, punched, or otherwise hurt by someone within the past year? If so, by whom?: No Are you DNR?: No Advance Directives: No Advance Directives Information Provided: Yes Advance Directives Date on File: 09/11/22 service: No Current occupational status: employed Meds Allergies Allergy/AdvReac Type Severity Reaction Status Date / Time lobster Allergy Severe Swelling Verified 02/26/25 15:21 ciprofloxacin (From CIPRO) Allergy Intermediate HIVES/ITCH Verified 02/08/25 15:20 Penicillins (PCN) Allergy Intermediate HIVES Verified 02/08/25 15:20 Active Medications: Current Medications Lactated Ringer's (Lr) 1,000 mls @ 80 mls/hr IVCONT .[id number] Home Medications ?Medication ?Instructions ?Recorded ?Confirmed ?Last Taken ?Type vitamin B complex 1 tab PO DAILY 09/11/22 02/08/25 01/01/23 History Exam Exam Date and Time: 03/02/25 1040 Height,Weight and Vital Signs: Height 5 ft 5 in Weight 68.946 kg Airway Mallampati Class: I TM Dist: >3cm Neck ROM: Full Loose/Missing/Broken Teeth: Yes (broken molar left side) Heart: S1S2 Lungs: CTAB Assessment and Plan Assessment Anesthesia Assessment: Anesthesia Plan Discussed and Chart Reviewed Final Anesthetic Review Family History of Problems with Anesthesia: No History of Problems with Anesthesia: No NPO: Yes ASA Class: III Final Preanesthetic Review: No Changes in Pt Med Stat, Meds/Allgs Chart Reviewed, Consent Obtained/Reviewed and Anes Risks/Benef Reviewed Patient Risk: Intermediate Procedure Risk: Low Anesthetic Plan Anesthetic Plan: MAC: and Agree w/ Assess. and Plan Disposition: Standard PACU
[2025-03-02] MEDS: Lactated Ringers 1,000 ML 80 ML IVCONT (10:45)
[2025-03-02 10:46] VITALS: BP 125/68; PULSE 79; RESP 18; TEMP 36.7; O2SAT 97
--- NOTE | 2025-03-02 10:47 | PC.NURSE ---
Dr. Barbour aware that patient admitted to using cocaine on Saturday. VS WNL. Dr. Barbour assessed patient, stated okay to proceed. No interventions at this time.
--- NOTE | 2025-03-02 11:17 | P.HPSUR_ITS ---
Pre-Procedural Eval Section A - 24 Hr Update-Section A only Date of Service: 03/02/25 Section B - Complete if H&P > 30 days Chief Complaint: Noninfective gastroenteritis and colitis, Relevant Family History (Specify if Yes): No Relevant Social History: Other (specify) Present Medications: see Short Stay Collaborative assessment Medical History: Significant History (Alcohol use disorder) History of Previous Operations: Relevant previous surgery/procedure and date(s) ( Hx of colonoscopy History of esophagogastroduodenoscopy (EGD)) Allergies: Allergies Allergy/AdvReac Type Severity Reaction Status Date / Time lobster Allergy Severe Swelling Verified 03/02/25 10:48 ciprofloxacin (From CIPRO) Allergy Intermediate HIVES/ITCH Verified 03/02/25 10:48 Penicillins (PCN) Allergy Intermediate HIVES Verified 03/02/25 10:48 Review of Systems Sugical H&P ROS: Negative: Constitution, Cardiovascular, Respiratory, Neurological, Psychiatric, Hem-Onc, Allergic/Immunologic, Gastrointestinal, Genitourinary, Musculoskeletal, Integumentary, Endocrine and Eyes/Ears/ Nose/Throat Exam Surgical H&P Exam: Normal: HEENT, Normal: Heart, Normal: Lungs, Normal: Extremities, Normal: Abdomen, Normal: Skin and Normal: Neurological Plan Diagnosis/Plan: Unchanged I have reviewed the history and physical and performed a pertinent physical examination on my patient. No changes have occurred unless specified. Time Spent With Patient Time: Total time managing care of this patient today ____ minutes.
--- NOTE | 2025-03-02 11:42 | P.OPN-COLO_ITS ---
Colonoscopy Operative Note Operative Note Date of Service: 03/02/25 Narrative: Operative Information Procedure Description: Colonoscopy Indication: anemia Anesthesia: MAC COLONOSCOPY Instrument: Olympus variable stiffness pediatric scope 190L Colonoscopy Monitoring: Vital signs and clinical assessment, continuous EKG monitoring, Pulse oximetry, Carbon Dioxide monitoring and blood pressure monitoring were done throughout the procedure. Colon withdrawal time was 6 minutes. Procedure: The patient was placed in the left lateral decubitis position and pre-procedure medications were administered. After a digital rectal examination of the ano-rectum, the video colonoscope was inserted into the rectum and advanced through the colon to the cecum/TI. The colonoscope was slowly withdrawn in a retrograde panoramic fashion and the colon mucosa was carefully examined including a retroflexed view of the rectum. Findings and interventions are described below. Procedure Difficulty: easy Findings: Terminal Ileum-normal Cecum:normal Right sided retroflexion- normal Ascending Colon: mild diverticulosis Transverse Colon -normal Descending Colon:normal Sigmoid Colon: moderate severe diverticulosis with mild patchy erythema Rectum: Retroflexion with small internal hemorrhoids seen, grade I Anorectum - normal Intervention: none Colon preparation: [place] Bowel Preparation Scale Right colon; 3 Transverse colon: 3 Left colon; 3 (0 = Unprepared colon segment with mucosa not seen due to solid stool that cannot be cleared. 1 = Portion of mucosa of the colon segment seen, but other areas of the colon segment not well seen due to staining, residual stool and/or opaque liquid. 2 = Minor amount of residual staining, small fragments of stool and/or opaque liquid, but mucosa of colon segment seen well. 3 = Entire mucosa of colon segment seen well with no residual staining, small fragments of stool or opaque liquid) Impression and Post Procedure Diagnosis: diverticulosis internal hemorrhoids Plan: High fiber diet leaflet Avoid straining at stool, epsom salts and sitz bath, anusol supps or cream Repeat Colonoscopy in 10 years or earlier if clinically indicated Above findings were reviewed with the patient and relevant handouts were provided if indicated.
[2025-03-02 11:43] VITALS: BP 94/58; PULSE 67; RESP 14; TEMP 36.7; O2SAT 97
[2025-03-02 11:58] VITALS: BP 117/75; PULSE 74; RESP 18; TEMP 36.3; O2SAT 98
== END 2025-03-02 12:32 | disposition home or self-care (01) ==
PROVIDERS: PCP Internal Medicine; Visit Provider Internal Medicine Gastroenterology
PROC: 0DJD8ZZ Inspection of Lower Intestinal Tract, Via Natural or Artificial Opening Endoscopic (ICD-10-PCS; CPT 45378; principal; 2025-03-02 13:10)
DX: K52.9 Noninfective gastroenteritis and colitis, unspecified (principal); D64.9 Anemia, unspecified; K64.0 First degree hemorrhoids; K57.30 Diverticulosis of large intestine without perforation or abscess without bleeding
CPT/HCPCS: 45378; J2003; J2704

== ENCOUNTER → 2025-03-02 10:21 | Outpatient (BNV) | payer BC, SELFPAY | PROVIDERS: PCP Internal Medicine; Visit Provider Internal Medicine Gastroenterology | DX: D64.9 Anemia, unspecified (principal); K57.90 Diverticulosis of intestine, part unspecified, without perforation or abscess without bleeding; K64.0 First degree hemorrhoids | CPT/HCPCS: 45378 ==

== ENCOUNTER 2025-03-18 14:14 | Outpatient (REF) | payer BC, SELFPAY ==
--- NOTE | ~2025-03-18 | CT_ITS ---
EXAMINATION: CT ENTEROGRAPHY ABDOMEN AND PELVIS WITH CONTRAST CLINICAL INFORMATION: Noninfective gastroenteritis and colitis, unspecified COMPARISON: Previous CT scans of the abdomen and pelvis most recent August 2023 TECHNIQUE: Study performed with oral VoLumen (1350 mL) and 480 mL of water to distend the abdomen. The patient was injected with 85 mL Omnipaque 350 intravenous contrast which was administered without adverse effect. Coronal and sagittal reformatted images were obtained at the technologist's workstation. This CT examination was performed using dose optimization techniques as appropriate, variously including the following: *Automated exposure control *Adjustment of mA and/or kV according to patient size (this includes techniques or standardized protocols for targeted exams where dose is matched to indication/reason for exam; i.e. extremities or head) *Use of iterative reconstruction technique FINDINGS: GASTROINTESTINAL FINDINGS: Stomach: Well-distended and normal in appearance. Small intestine: Satisfactorily distended and normal in appearance. Large intestine: Diverticulosis of the colon. No evidence of diverticulitis. Linear radiopaque density in the proximal right colon similar to previous exam. This may represent a biopsy clip. No wall thickening or distention. No evidence of colitis or diverticulitis.. The appendix is normal. Additional findings: No abnormal enhancement of the vasa recta or significant mesenteric or retroperitoneal lymphadenopathy is seen. No abdominal abscess or fistulous tract demonstrated. ABDOMINAL AND PELVIC CT FINDINGS: Liver, gallbladder, biliary tract: The gallbladder is contracted. No intra or extrahepatic biliary duct dilatation. Pancreas: Atrophic changes of the pancreas. There is mild dilatation of the main pancreatic duct in the neck and body of the pancreas measuring 4 mm axial image 71 series 3. Spleen: Normal Adrenal glands and kidneys: Normal Ureters and bladder: No ureteral dilatation. Bladder is empty and not well evaluated. Prostate gland does not appear enlarged. Lymphovascular structures: Small periportal and portacaval lymph nodes. No enlarged lymph nodes. Mild atherosclerotic disease. Bones: Mild degenerative changes of the spine and hips. Partial ankylosis of the sacroiliac joints. There are multiple lucencies seen in the pelvis. These are similar to multiple old CT scans. This may represent heterogeneous osteopenia. Correlate with serum calcium level. Small umbilical hernia containing fat. Lung bases: Normal. CT/CT enterography IMPRESSION: Diverticulosis of the colon. No evidence of diverticulitis, colitis or enteritis. Atrophic changes of the pancreas. Mild dilatation of the main pancreatic duct in the neck and body of the pancreas. This may be related to patient's history of prior pancreatitis. This could be better assessed with MR of the pancreas with MRCP. Multiple lucencies in the pelvic bones similar to prior CT scans. This may represent heterogeneous osteopenia. Electronically signed by: Juhi Ellison MD 03/18/2025 04:06 PM [facility]
[2025-03-18] MEDS: Sorbitol/Mannit/Xanth Imaging 500 ML LIQUID 1500 ML PO (15:01)
[2025-03-18] MEDS: iohexoL 350 MG/ML 100 ML INFUS..BTL 85 ML IV (15:36)
[2025-03-18 15:55] LABS: Creatinine POC 0.8 mg/dL (0.5-1.4); GFR POC > 60
--- OUTSIDE RECORDS SUMMARY | 2025-03-18 17:40 | XMS_ITS | Clinical Summary ---
Author Organization [employer] Address [address] [facility] [address] [place] [address] Care Team Providers Care Clay Stain Mixer Name Role Phone Unavailable Primary Care Provider [...] topically 2 times daily. 15 g 1 01/13/20 25 Active gabapentin (Neurontin) 300 MG capsuleIndicati ons:Neuropathy Take 1 capsule (300 mg) by mouth at bedtime. 30 capsule 2 03/05/20 25 Active ferrous gluconate (Fergon) 324 (38 Fe) MG tabletIndicatio ns:Iron deficiency anemia, unspecified iron deficiency anemia type Take 1 tablet (324 mg) by mouth every other day. 15 tablet 1 03/05/20 25 026 Active ascorbic acid (Vitamin C) 500 MG tabletIndicatio ns:Iron deficiency anemia, unspecified iron deficiency anemia type Take 1 tablet (500 mg) by mouth every other day. Take it with iron supplement 15 tablet 2 03/05/20 25 Active metFORMIN XR (Glucophage-XR) 500 MG 24 hr tabletIndicatio ns:Prediabetes Take 1 tablet (500 mg) by mouth with evening meal. Do not crush, chew, or split. 30 tablet 3 03/05/20 25 026 Active fexofenadine (Mary) 180 MG tabletIndicatio ns:Allergic dermatitis Take 1 tablet (180 mg) by mouth if needed each day (Allergies). 30 tablet 1 03/05/20 25 026 Active gabapentin (Neurontin) 100 MG capsuleIndicati ons:Neuropathy Take 1 capsule (100 mg) by mouth at bedtime. 30 capsule 02/03/20 25 025 Discontinued triamcinolone (Kenalog) 0.025 % ointmentIndicat ions:Other psoriasis Apply topically in the morning and in the evening. Do all this for 14 days. 80 g 02/03/20 25 025 Active Problems Problem Noted Date Diagnosed Date Poor dentition 03/05/2025 Gingivitis 03/05/2025 Neuropathy 03/05/2025 Iron (Fe) deficiency anemia 03/05/2025 Prediabetes 03/05/2025 Allergic dermatitis 03/05/2025 Balanitis 12/15/2024 Assessment & Plan (01/12/2025 7:57 [...] Encounters Date Type Department Care Team Description 03/18/2025 Orders Only [facility] External Provider, [facility] 03/05/2025 2:00 PM EDT Office Visit [facility] [address] [place] [phone] Abril Lainez MD Poor dentition; Gingivitis; Neuropathy; Iron deficiency anemia, unspecified iron deficiency anemia type; Prediabetes; Encounter for immunization; Allergic dermatitis; Dietary counseling; Exercise counseling 03/05/2025 Travel 03/04/2025 Telephone [facility] [address] [place] [phone] Mona Cancino MD chart prep 03/02/2025 Travel 02/25/2025 Patient Outreach [facility] [address] [place] [address] Abril Lainez MD Pre-visit Planning ([facility] unable to reach LVM ) 02/25/2025 Patient Outreach [address] [address] Abril Lainez MD 02/25/2025 Patient Outreach [address] [address] Abril Lainez MD Pre-visit Planning (Pre-visit planning - unable to leave a message, mailbox full. ) 02/11/2025 Orders Only GENERIC EXTERNAL DATA DEPARTMENT Provider, Generic External Data 02/05/2025 Refill [facility] [address] [place] [phone] Anna Hobson MD Balanitis 02/02/2025 6:40 PM EDT Office Visit [facility] [address] [place] [phone] Patti Montes CNP Neuropathy (Primary Dx); Other psoriasis 02/02/2025 Travel 01/19/2025 Refill [facility] [address] [place] [phone] Abril Lainez MD Balanitis 01/12/2025 7:40 PM EDT Office Visit [facility] [address] [place] [phone] Anna Hobson MD Balanitis (Primary Dx); Prediabetes; Routine screening for STI (sexually transmitted infection); Dyslipidemia 01/12/2025 Travel 12/22/2024 Results Follow-Up [address] [address] Abril Lainez MD CBC auto differential, Comprehensive Metabolic Panel, Hemoglobin A1c, Additional followed-up results: 4 from Last 3 Months Immunizations Immunization Administration Dates Next Due Influenza Injectable Quadriv alant Preservative Free IIV4 MDCK 04/19/2018,03/03/2017 Influenza injectable quadriv alent preservative free 01/30/2023,01/26/2020 Influenza, seasonal, injecta ble, preservative free 03/05/2025,02/17/2024,05/09/2014 Pneumococcal Conjugate PCV 20 03/05/2025 Pneumococcal Polysaccharide PPSV23 05/09/2014 Social History Tobacco Use Types Packs/Day Years Used Date Smoking Tobacco: Every Day Cigarettes Smokeless Tobacco: Never Tobacco Cessation:Ready to Q uit: Not Asked; Counseling Given: Not Answered Alcohol Use Standard Drinks/Week Comments Yes 0 (1 standard drink = 0.6 oz pur e alcohol) Depression Answer Date Recorded Patient Health Questionnaire-9 Score 3 03/05/2025 Patient Health Questionnaire-9 Score 3 03/05/2025 Last PHQ-9: Questionnaire Data Not on file 1 Housing Stability Answer Date Recorded What is your housing situation today? Not on jabari e 03/05/[address] you li ve. Do you have problems with any of the following? None of the above 03/05/2025 Food Insecurity Answer Date Recorded Within the past 12 months, y ou worried that your food would run out before you got money to buy more: Sometimes True 2024 Within the past 12 months,th e food you bought just didn't last and you didn't have enough money to get more: Sometimes True 03/05/2025 Transportation Answer Date Recorded In the past 12 months, has l ack of transportation kept you from medical appts, meetings, work or from getting things needed for daily living? No 03/05/2025 Utilities Answer Date Recorded In the past 12 months, has t he electric, gas, oil or water company threatened to shut off services in your home? No 03/05/2025 Depression Answer Date Recorded Patient Health Questionnaire-2 Score 1 03/05/2025 Internet Access Answer Date Recorded Internet Access Q1 Yes 03/05/2025 Internet Access Q2 Not on file 03/05/2025 Sex and Gender Information Value Date Recorded Sex Assigned at Male 10/25/2023 10:55 AM EDT Legal Sex Male 10:01 AM EST Gender Identity Male 10/25/2023 10:55 AM EDT Sexual Orientation Straight 10/25/2023 10 :56 AM EDT Last Filed Vital Signs Vital Sign Reading Time Taken Comments Blood Pressure 116/72 03/05/2025 2:02 PM EDT Pulse 82 03/05/2025 2:02 PM EDT Temperature 36.2 C (97.1 F) 03/05/2025 2:02 PM EDT Respiratory Rate 16 03/05/2025 2:02 PM EDT Oxygen Saturation 96% 03/05/2025 2:02 PM EDT Inhaled Oxygen Concentration - - Weight 68.3 kg (150 lb 9.6 oz) 03/05/2025 2:02 P M EDT Height 165.1 cm (5' 5 ) 03/05/2025 2:02 PM EDT Body Mass Index 25.06 03/05/2025 2:02 PM EDT Plan of Treatment Upcoming Encounters Date Type Department Care Team (Late st Contact Info) Description 05/26/2025 3:30 PM EST Office Visit [facility] [address] [place], [place] [phone] Abril Lainez MD [address] [place] [address] Health Maintenance Due Date Last Done Comments CT Colonography 1965 Colonoscopy 1965 Colorectal Cancer Screening 1965 FIT DNA/Cologuard 1965 FIT 1965 FOBT 1965 SDOH Screening 1965 Sigmoidoscopy 1965 DTaP/Tdap/Td Vaccines (1 - Tdap) 1984 Hepatitis A Vaccines (1 of 2 - Risk 2-dose series) 1984 Hepatitis B Vaccines (1 of 3 - 19+ 3-dose series) 1984 RSV Patients and Patients Aged 60 years or older (1 - Risk 50-74 years 1-dose series) 11/29/2015 Zoster Vaccines (1 of 2) 11/29/2015 COVID-19 Vaccine (2 - season) 2025 08/13/2020 Diabetes: Hemoglobin A1C 12/21/2025 12/21/2024 Disability Screening 03/02/2026 03/02/2025 Alcohol/Substance Use Screening 03/05/2026 03/05/2025 Depression Screening 03/05/2026 03/05/2025, 03/05/20 Tobacco Screening 03/05/2026 03/05/2025 Lipid Panel 02/11/2030 02/11/2025, 12/21/2024 HIV Screening Completed 02/11/2025, 12/21/2024 Hepatitis C Screening Completed 02/11/2025, 025 Influenza Vaccine Completed 03/05/2025, , 01/30/2023, Additional history exists Pneumococcal Vaccine: 50+ Years Completed 03/05/2025, 05/09/2014 HIB Vaccines Aged Out No longer eligi [...] Procedure Name Priority Date/Time Associated Diagnosis Comments CT ENTEROGRAPHY ABDOMEN PELVIS W CONTRAST Routine 03/18/2025 3:26 PM EST POCT CREATININE GFR Routine 03/18/2025 2 :25 PM EST VITAMIN B12/FOLATE, SERUM PANEL Routine 02/11/2025 3:12 PM EDT TSH W/REFLEX TO FT4 Routine 02/11/2025 3 :12 PM EDT FERRITIN Routine 02/11/2025 3:12 PM EDT CBC WITH AUTO DIFFERENTIAL Routine 02/11/2025 3:12 PM EDT LIPID PANEL, STANDARD Routine 02/11/2025 3:12 PM EDT Dyslipidemia BASIC METABOLIC PANEL Routine 02/11/2025 3:12 PM EDT Prediabetes SYPHILIS SCREEN Routine 02/11/2025 3:12 PM EDT Routine screening for STI (sexually transmitted infection) HIV 1/2 ANTIGEN/ANTIBODY, FOURTH GENERATION W/RFL Routine 02/11/2025 3:12 PM EDT Routine screening for STI (sexually transmitted infection) HEPATITIS C AB W/REFL TO HCV RNA, QN, PCR Routine 02/11/2025 3:12 PM EDT Routine screening for STI (sexually transmitted infection) CHLAMYDIA/TRICHOMONAS/ NEISSERIA GONORRHOEAE, PCR, URINE Routine 02/11/2025 3:12 PM EDT Routine screening for STI (sexually transmitted infection) VITAMIN D,25-OH,TOTAL,IA Routine 12/21/2024 11:00 AM EDT [...] Balanitis from Last 3 Months Results * CT Enterography Abdomen Pelvis w/ Contrast (03/18/2025 3:26 PM EST) Anatomical Region Laterality Modality Computed Tomogra phy 03/18/2025 3:26 PM EST Narrative 03/18/2025 4:08 PM EST [address] [address] [address] Scan Report Signed Patient: Alessio Bush MR#: [id number] : 1965 Acct:[id number] Age/Sex: 59 / M ADM Date: 03/18/25 Loc: HO.CT Attending Dr: Lyn Brown MD Ordering Physician: Lyn Brown MD Date of Service: 03/18/25 Procedure(s): CT enterography Accession Number(s): [id number] cc: Abril Lainez MD; Lyn Brown MD Report Number: [id number]: Total DLP = 298.00 mGy-cm Reason for Exam: K52.9 - Noninfective gastroenteritis and colitis, unspecified EXAMINATION: CT ENTEROGRAPHY ABDOMEN AND PELVIS WITH CONTRAST CLINICAL INFORMATION: Noninfective gastroenteritis and colitis, unspecified COMPARISON: Previous CT scans of the abdomen and pelvis most recent August 2023 TECHNIQUE: Study performed with oral VoLumen (1350 mL) and 480 mL of water to distend the abdomen. The patient was injected with 85 mL Omnipaque 350 intravenous contrast which was administered without adverse effect. Coronal and sagittal reformatted images were obtained at the technologist's workstation. This CT examination was performed using dose optimization techniques as appropriate, variously including the following: *Automated exposure control *Adjustment of mA and/or kV according to patient size (this includes techniques or standardized protocols for targeted exams where dose is matched to indication/reason for exam; i.e. extremities or head) *Use of iterative reconstruction technique FINDINGS: GASTROINTESTINAL FINDINGS: Stomach: Well-distended and normal in appearance. Small intestine: Satisfactorily distended and normal in appearance. Large intestine: Diverticulosis of the colon. No evidence of diverticulitis. Linear radiopaque density in the proximal right colon similar to previous exam. This may represent a biopsy clip. No wall thickening or distention. No evidence of colitis or diverticulitis.. The appendix is normal. Additional findings: No abnormal enhancement of the vasa recta or significant mesenteric or retroperitoneal lymphadenopathy is seen. No abdominal abscess or fistulous tract demonstrated. ABDOMINAL AND PELVIC CT FINDINGS: Liver, gallbladder, biliary tract: The gallbladder is contracted. No intra or extrahepatic biliary duct dilatation. Pancreas: Atrophic changes of the pancreas. There is mild dilatation of the main pancreatic duct in the neck and body of the pancreas measuring 4 mm axial image 71 series 3. Spleen: Normal Adrenal glands and kidneys: Normal Ureters and bladder: No ureteral dilatation. Bladder is empty and not well evaluated. Prostate gland does not appear enlarged. Lymphovascular structures: Small periportal and portacaval lymph nodes. No enlarged lymph nodes. Mild atherosclerotic disease. Bones: Mild degenerative changes of the spine and hips. Partial ankylosis of the sacroiliac joints. There are multiple lucencies seen in the pelvis. These are similar to multiple old CT scans. This may represent heterogeneous osteopenia. Correlate with serum calcium level. Small umbilical hernia containing fat. Lung bases: Normal. CT/CT enterography IMPRESSION: Diverticulosis of the colon. No evidence of diverticulitis, colitis or enteritis. Atrophic changes of the pancreas. Mild dilatation of the main pancreatic duct in the neck and body of the pancreas. This may be related to patient's history of prior pancreatitis. This could be better assessed with MR of the pancreas with MRCP. Multiple lucencies in the pelvic bones similar to prior CT scans. This may represent heterogeneous osteopenia. Electronically signed by: Juhi Ellison MD 03/18/2025 04:06 PM [facility] Dictated By: Juhi Ellison MD Signed By: <Electronically signed by Juhi Ellison MD in OV> 03/18/25 1606 DD/ 1526 TD/TT: 03/18/25 1537 Pump Room Operator: ITZ Procedure Note Donotuseinterpreter, Image - 03/18/[address] [address] [address] Scan Report Signed Patient: Alessio BushMR#: [id number] : 1965Acct:[id number] Age/Sex: 59 / MADM Date: 03/18/25 Loc: .CT Attending Dr: Lyn Brown MD Ordering Physician: Lyn Brown MD Date of Service: 03/18/25 Procedure(s): CT enterography Accession Number(s): [id number] cc: Abril Lainez MD; Lyn Brown MD Report Number: [id number]: Total DLP = 298.00 mGy-cm Reason for Exam: K52.9 - Noninfective gastroenteritis and colitis,unspecified EXAMINATION: CT ENTEROGRAPHY ABDOMEN AND PELVIS WITH CONTRAST CLINICAL INFORMATION: Noninfective gastroenteritis and colitis, unspecified COMPARISON: Previous CT scans of the abdomen and pelvis most recent August 2023 TECHNIQUE: Study performed with oral VoLumen (1350 mL) and 480 mL of water to distend the abdomen. The patient was injected with 85 mL Omnipaque 350 intravenous contrast which was administered without adverse effect. Coronal and sagittal reformatted images were obtained at the technologist's workstation. This CT examination was performed using dose optimization techniques as appropriate, variously including the following: *Automated exposure control *Adjustment of mA and/or kV according to patient size (this includes techniques or standardized protocols for targeted exams where dose is matched to indication/reason for exam; i.e. extremities or head) *Use of iterative reconstruction technique FINDINGS: GASTROINTESTINAL FINDINGS: Stomach: Well-distended and normal in appearance. Small intestine: Satisfactorily distended and normal in appearance. Large intestine: Diverticulosis of the colon. No evidence of diverticulitis. Linear radiopaque density in the proximal right colon similar to previous exam. This may represent a biopsy clip. No wall thickening or distention. No evidence of colitis or diverticulitis.. The appendix is normal. Additional findings: No abnormal enhancement of the vasa recta or significant mesenteric or retroperitoneal lymphadenopathy is seen. No abdominal abscess or fistulous tract demonstrated. ABDOMINAL AND PELVIC CT FINDINGS: Liver, gallbladder, biliary tract: The gallbladder is contracted. No intra or extrahepatic biliary duct dilatation. Pancreas: Atrophic changes of the pancreas. There is mild dilatation of the main pancreatic duct in the neck and body of the pancreas measuring 4 mm axial image 71 series 3. Spleen: Normal Adrenal glands and kidneys: Normal Ureters and bladder: No ureteral dilatation. Bladder is empty and not well evaluated. Prostate gland does not appear enlarged. Lymphovascular structures: Small periportal and portacaval lymph nodes. No enlarged lymph nodes. Mild atherosclerotic disease. Bones: Mild degenerative changes of the spine and hips. Partial ankylosis of the sacroiliac joints. There are multiple lucencies seen in the pelvis. These are similar to multiple old CT scans. This may represent heterogeneous osteopenia. Correlate with serum calcium level. Small umbilical hernia containing fat. Lung bases: Normal. CT/CT enterography IMPRESSION: Diverticulosis of the colon. No evidence of diverticulitis, colitis or enteritis. Atrophic changes of the pancreas. Mild dilatation of the main pancreatic duct in the neck and body of the pancreas. This may be related to patient's history of prior pancreatitis. This could be better assessed with MR of the pancreas with MRCP. Multiple lucencies in the pelvic bones similar to prior CT scans. This may represent heterogeneous osteopenia. Electronically signed by: Juhi Ellison MD 03/18/2025 04:06 PM EST Dictated By: Juhi Ellison MD Signed By: <Electronically signed by Juhi Ellison MD in OV> 03/18/25 1606 DD/ 1526 TD/TT: 03/18/25 1537 Pump Room Operator: ITZ [facility] External Provider IMG CT PROCEDURES Final Result * POCT Creatinine GFR (03/18/2025 2:25 PM EST) POCT Creatinine 0.8 0.5 - 1.4 mg/dL [facility] GFR POC >60 [facility] Comment:Chronic Kidney Disea se: Estimated GFR < 60 mL/min/1.12m8Gexbhl Kidney Disease: Estimated GFR < 15 mL/min/1.73m2 03/18/2025 2:25 PM EST 03/18/2025 3:53 PM EST Narrative [facility] - 03/18/2025 3:55 PM EST [id number] Generic External Data Provider LAB POINT OF CARE TEST DOCKED DEVICE ORDERABLES Final Result [facility] [address] [place] [phone] * Chlamydia/N. Gonorrhoeae, PCR, Urine (02/11/2025 3:12 PM EDT) CT PCR, Urine NOT DETECTED Not Detect. [facility] Comment:A not detected test result does not exclude the possibilityof infection because test results can be affected byimproper specimen collection, concurrent antibiotic therapy,or the number of organisms in the specimen which may bebelow the sensitivity of the test. As with many diagnostictests, results from the Xpert CT/NG assay should beinterpreted in conjunction with other laboratory andclinical data available to the clinician.The Xpert CT/NG assay should not be used for the evaluationof suspected sexual abuse or for other medico-legalindications. Additional testing is recommended in anycircumstance when false positive or false negative resultscould lead to adverse medical, social or psychologicalconsequences. NG PCR, Urine NOT DETECTED Not Detect. [facility] Comment:A not detected test result does not exclude the possibilityof infection because test results can be affected byimproper specimen collection, concurrent antibiotic therapy,or the number of organisms in the specimen which may bebelow the sensitivity of the test. As with many diagnostictests, results from the Xpert CT/NG assay should beinterpreted in conjunction with other laboratory andclinical data available to the clinician.The Xpert CT/NG assay should not be used for the evaluationof suspected sexual abuse or for other medico-legalindications. Additional testing is recommended in anycircumstance when false positive or false negative resultscould lead to adverse medical, social or psychologicalconsequences. Urine (Urine, Random) 02/11/2025 3:12 PM EDT 02/11/2025 4:13 PM EDT us Anna Hobson MD LAB URINE ORDERABLES Final Result Performing Organization Address City/[facility] Co de Phone Number [facility] [address] [place] [phone] * Syphilis Screen (02/11/2025 3:12 PM EDT) Syphilis Screen Nonreactive Nonreactive [facility] Blood Venous blood specimen / Unknown 02/11/2025 3:12 PM EDT 02/11/2025 5:44 PM EDT Anna Hobson MD LAB BLOOD ORDERABLES Final Result Performing Organization Address [facility] Co de Phone Number [facility] [address] [place] [phone] * Vitamin B12 (Cobalamin) and Folate Panel, Serum (02/11/2025 3:12 PM EDT) [facility] Vitamin B12 479 200 - 900 pg/mL [facility] Comment:NORMAL 200-900 PG/ML INDETERMINATE 160-199 PG/ML DEFICIENT < 160 PG/ML Folate 14.7 > or = 4.0 ng/mL [facility] Comment:Reference Values:> o r = 4.0 ng/mL< 4.0 ng/mL suggests folate deficiency Methotrexate, aminopterin and folinic acid(leucovorin) are chemotherapeutic agents whose molecularstructures are similar to folate; therefore, the Architectfolate assay cannot be used for patients using these drugs. 02/11/2025 3:12 PM EDT 02/11/2025 5:44 PM EDT us Generic External Data Provider LAB BLOOD ORDERAB LES Final Result Performing Organization Address [facility] Co de Phone Number [facility] [address] [place] [phone] * TSH with Reflex to Free T4 (02/11/2025 3:12 PM EDT) TSH reflex Free T4 1.36 0.32 - 4.0 uIU/mL [facility] 02/11/2025 3:12 PM EDT 02/11/2025 5:44 PM EDT us Generic External Data Provider LAB BLOOD ORDERAB LES Final Result [facility] [address] [place], [place] [phone] * (ABNORMAL) CBC auto differential (02/11/2025 3:12 PM EDT) Only the most recent of2 resultswithin the time period is included. White Blood Count 8.7 4.8 - 10.8 X10*3/uL [facility] Red Blood Count 3.96(L) 4.60 - 5.80 X10*6/uL [facility] Hemoglobin 10.2(L) 14.0 - 18.0 g/dl [facility] Hematocrit 33.0(L) 42.0 - 52.0 % [facility] Mean Corpuscular Volume 83.3 80.0 - 98.0 fL [facility] Mean Corpuscular Hemoglobin 25.8(L) 27.0 - 33.0 pg [facility] Mean Corpuscular HGB Conc 30.9(L) 31.0 - 36.0 g/dl [facility] Red Cell Distribution Width 13.3 11.0 - 16.0 % [facility] Platelet Count 289 160 - 400 X10*3/uL [facility] Mean Platelet Volume 11.5 9.4 - 12.4 fL [facility] Neutrophils Percent Auto 65.8 45 - 73 % [facility] Imm Gran Pct Auto 0.2 0.0 - 0.4 % [facility] Lymphocytes Percent Auto 20.9 20 - 40 % [facility] Monocytes Percent Auto 10.4 2 - 11 % [facility] Eosinophils Percent Auto 2.2 0 - 4 % [facility] Basophils Percent Auto 0.5 0 - 2 % [facility] NRBC Pct Auto 0.0 0.0 - 0.2 /100WBC [facility] Neutrophils Absolute Auto 5.8 2.0 - 8.3 x10*3/uL [facility] Imm Gran Abs Auto 0.02 0.00 - 0.03 X10*3/uL [facility] Lymphocytes Absolute Auto 1.8 1.2 - 4.9 X10*3/uL [facility] Monocytes Absolute Auto 0.9 0.1 - 1.2 X10*3/uL [facility] Eosinophils Absolute Auto 0.2 0.0 - 0.4 X10*3/uL [facility] Basophils Absolute Auto 0.0 0.0 - 0.2 X10*3/uL [facility] NRBC Abs Auto 0.000 0.0 - 0.012 X10*3/uL [facility] 02/11/2025 3:12 PM EDT 02/11/2025 4:14 PM EDT us Generic External Data Provider LAB BLOOD ORDERAB LES Final Result Performing Organization Address [facility]/ZIP Co de Phone Number [facility] [address] [place] [phone] * Hepatitis C Antibody with Reflex to HCV, RNA, Quantitative, Real-Time PCR (02/11/2025 3:12 PM EDT) Only the most recent of2 resultswithin the time period is included. [facility] Hepatitis C Antibody Nonreactive Nonreactive [facility] Comment:Antibodies to HCV no t detected; does not exclude early acuteHCV infection. Blood Venous blood specimen / Unknown 02/11/2025 3:12 PM EDT 02/11/2025 5:44 PM EDT us Anna Hobson MD LAB BLOOD ORDERABLES Final Result Performing Organization Address City/[facility]/ZIP Co de Phone Number [facility] [address] [place] [phone] * HIV-1/2 Antigen and Antibodies, Fourth Generation, with Reflexes (02/11/2025 3:12 PM EDT) Only the most recent of2 resultswithin the time period is included. Pathologist [facility] HIV AB/AG Nonreactive Nonreactive [facility] [...] below the limit ofdetection of this assay.The [email or web address] HIV Ag/Ab Combo assay result andsupplemental assay results should be interpreted inconjunction with the patient's clinical presentation,history and other laboratory results. If the results areinconsistent with clinical evidence, additional testing issuggested to confirm the result. Blood Venous blood specimen / Unknown 02/11/2025 3:12 PM EDT 02/11/2025 5:44 PM EDT Anna Hobson MD LAB BLOOD ORDERABLES Final Result Performing Organization Address City/[facility]/ZIP Co de Phone Number [facility] [address] [place] [phone] * (ABNORMAL) Ferritin (02/11/2025 3:12 PM EDT) [facility] Ferritin 9(L) 20 - 250 ng/mL [facility] 02/11/2025 3:12 PM EDT 02/11/2025 5:44 PM EDT us Generic External Data Provider LAB BLOOD ORDERAB LES Final Result Performing Organization Address [facility] Co de Phone Number [facility] [address] [place] [phone] * (ABNORMAL) Lipid Panel, Standard (02/11/2025 3:12 PM EDT) Only the most recent of2 resultswithin the time period is included. [facility] Triglycerides 274(H) <150 mg/dL [facility] Comment:Desirable Triglyceri de: less than 150 mg/dLBorderline High Triglyceride 150-199 mg/dLHigh Triglyceride: 200-499 mg/dLVery High Triglyceride: greater than or equal to 5OO mg/dL Cholesterol 191 <200 mg/dL [facility] Comment:Desirable Cholestero l: less than 200 mg/dLBorderline High Cholesterol: 200-239 mg/dLHigh Cholesterol: greater than 239 mg/dL LDL Cholesterol Calculated 90 <100 mg/dL [facility] Comment:Desirable LDL: less than 100 mg/dLNear Optimal/Above Optimal LDL: 110- 129 mg/dLBorderline High LDL: 130-159 mg/dLHigh LDL: 160-189 mg/dLVery High LDL: greater than or equal to 190 mg/dL HDL Cholesterol 47 >40 mg/dL [facility] Comment:Desirable HDL: great er than 40 mg/dL Note: This HDL assay may give artificially low results in patients with liver disease. Blood Venous blood specimen / Unknown 02/11/2025 3:12 PM EDT 02/11/2025 5:44 PM EDT us Anna Hobson MD LAB BLOOD ORDERABLES Final Result [facility] [address] [place] [phone] * (ABNORMAL) Basic Metabolic Panel (02/11/2025 3:12 PM EDT) Sodium 140 135 - 145 mmol/L [facility] Potassium 4.1 3.3 - 5.1 mmol/L [facility] Chloride 107 96 - 108 mmol/L [facility] Carbon Dioxide 26 22 - 29 mmol/L [facility] Anion Gap 11(L) 12 - 20 [facility] Urea Nitrogen (BUN) 17(H) 9 - 16 mg/dL [facility] Creatinine, Serum 0.91 0.5 - 1.4 mg/dL [facility] Estimated Glomerular Filt Rate >60 [facility] Comment:Chronic Kidney Disea se: Estimated GFR < 60 mL/min/1.24x9Dkfwju Kidney Disease: Estimated GFR < 15 mL/min/1.73m2 Glucose 121(H) 60 - 115 mg/dL [facility] Calcium 8.8 8.4 - 10.2 mg/dL [facility] Blood Venous blood specimen / Unknown 02/11/2025 3:12 PM EDT 02/11/2025 5:44 PM EDT us Anna Hobson MD LAB BLOOD ORDERABLES Final Result [facility] [address] [place] [phone] * Vitamin D, 25-Hydroxy, Total, Immunoassay (12/21/2024 11:00 AM EDT) Vitamin D 25-OH Total 31.6 >30 ng/mL [facility] Comment: Health Based Reference Values*< 20 ng/mL Bogmnohoq82-60 ng/mL Insufficient> 30 ng/mL Sufficient*Jesus PARHAM. N [...] BLOOD ORDERABLES Final Result Performing Organization Address [facility] Co de Phone Number [facility] [address] [place] [phone] * (ABNORMAL) Hemoglobin A1c (12/21/2024 11:00 AM EDT) Hemoglobin A1c 6.4(H) <6.0 % [facility] Comment:Hemoglobin A1C Refer ence Range Adults: 4.8 - 6.0 % Non diabetic: < 6.0 % Goal: < 7.0 %Additional Action Suggested: > 8.0 %Note: Hemoglobin A1c results are invalid for patients with abnormal amounts of HbF. Blood transfusions may impact the HbA1c concentration in the patient sample. Estimated Average Glucose 137 mg/dL [facility] Comment:eAG = Estimated ave rage glucose which is %A1C expressed asaverage glucose, using the formula of the [id number] Glucose study (ADAG), Diabetes Care, Vol.31,#8,2007 Blood Venous blood specimen / Unknown 12/21/2024 11:00 AM EDT 12/21/2024 12:55 PM EDT us Abril Lucio MD LAB BLOOD ORDERABLES Final Result Performing Organization Address [facility] Co de Phone Number [facility] [address] [place] [phone] * (ABNORMAL) Comprehensive Metabolic Panel (12/21/2024 11:00 AM EDT) Pathologist [facility] Sodium 144 135 - 145 mmol/L [facility] Potassium 4.5 3.3 - 5.1 mmol/L [facility] Chloride 107 96 - 108 mmol/L [facility] Carbon Dioxide 29 22 - 29 mmol/L [facility] Anion Gap 13 12 - 20 [facility] Urea Nitrogen (BUN) 14 9 - 16 mg/dL [facility] Creatinine, Serum 0.71 0.5 - 1.4 mg/dL [facility] Estimated Glomerular Filt Rate >60 [facility] Comment:Chronic Kidney Disea se: Estimated GFR < 60 mL/min/1.07t5Oxkxcw Kidney Disease: Estimated GFR < 15 mL/min/1.73m2 Glucose 126(H) 60 - 115 mg/dL [facility] Calcium 9.1 8.4 - 10.2 mg/dL [facility] Bilirubin, Total 0.3 0.0 - 1.0 mg/dL [facility] Aspartate Amino Transferase 38(H) 5 - 37 U/L [facility] Alanine Aminotransferase 34 0 - 40 U/L [facility] Total Protein 7.8 6.5 - 8.0 g/dL [facility] Albumin Level 4.0 3.5 - 5.0 g/dL [facility] Alkaline Phosphatase 90 39 - 117 U/L [facility] Blood Venous blood specimen / Unknown 12/21/2024 11:00 AM EDT 12/21/2024 12:55 PM EDT us Abril Lucio MD LAB BLOOD ORDERABLES Final Result [facility] [address] [place] [phone] from Last 3 Months Insurance BS PPO
--- OUTSIDE RECORDS SUMMARY | 2025-03-18 17:40 | XMS_ITS | Encounter Summary ---
Author Organization [employer] Address [address] [facility] [address] [place] [address] Care Team Providers Care Construction Management Instructor Name Role Phone Unavailable Primary Care Provider Unavailabl e Reason for Visit * Reason Comments Med Refill Encounter Details Date Type Department Care Team (Late st Contact Info) Description 01/19/2025 Refill [facility] [address] [place], [place] [phone] Abril Lainez MD [address] [place] [address] [phone] Balanitis Social History Tobacco Use Types Packs/Day [...] Description 05/26/2025 3:30 PM EST Office Visit [facility] [address] [place], [place] [phone] Abril Lainez MD [address] [place] [address] [phone] documented as of this encounter Visit Diagnoses Diagnosis Balanitis Balanoposthitis documented in this encounter
--- OUTSIDE RECORDS SUMMARY | 2025-03-18 17:40 | XMS_ITS | Encounter Summary ---
Author Organization [employer] Address [address] [facility] [address] [place] [address] Care Team Providers Care Wood Processing Worker Name Role Phone Unavailable Primary Care Provider Unavailabl e Encounter Details Date Type Department Care Team (Late st Contact Info) Description 03/18/2025 Orders Only [facility] External Provider, [facility] Social History Tobacco Use Types Packs/Day Years [...] Description 05/26/2025 3:30 PM EST Office Visit [facility] [address] [place] [address] Abril Lainez MD [address] [place], [place] [phone] documented as of this encounter Procedures Procedure Name Priority Date/Time Associated Diagnosis Comments CT ENTEROGRAPHY ABDOMEN PELVIS W CONTRAST Routine 03/18/2025 3:26 PM EST documented in this encounter Results * CT Enterography Abdomen Pelvis w/ Contrast (03/18/2025 3:26 PM EST) Anatomical Region Laterality Modality Computed Tomogra phy 03/18/2025 3:26 PM EST Narrative 03/18/2025 4:08 PM EST [facility] [address] [place] [phone] [address] Scan Report Signed Patient: Alessio Bush MR#: [id number] : 1965 Acct:[id number] Age/Sex: 59 / M ADM Date: 03/18/25 Loc: HO.CT Attending Dr: Lyn Brown MD Ordering Physician: Lyn Brown MD Date of Service: 03/18/25 Procedure(s): CT enterography Accession Number(s): [id number] cc: Abril Lainez MD; Lyn Brown MD Report Number: [id number]: Total DLP = 298.00 mGy-cm Reason for [...] 03/18/25 1606 DD/ 1526 TD/TT: 03/18/25 1537 Process Manufacturing Engineer: ITZ Procedure Note Donotuseinterpreter, Image - 03/18/[address] [place] [address] [address] Scan Report Signed Patient: Alessio Bush#: [id number] : 1965Acct:[id number] Age/Sex: 59 / MADM Date: 03/18/25 Loc: HO.CT Attending Dr: Lyn Brown MD Ordering Physician: Lyn Brown MD Date of Service: 03/18/25 Procedure(s): CT enterography Accession Number(s): [id number] cc: Abril Lainez MD; Lyn Brown MD Report Number: [id number]: Total DLP = 298.00 mGy-cm Reason for [...] by: Juhi Ellison MD 03/18/2025 04:06 PM [facility] Dictated By: Juhi Ellison MD Signed By: <Electronically signed by Juhi Ellison MD in OV> 03/18/25 1606 DD/ 1526 TD/TT: 03/18/25 1537 Process Manufacturing Engineer: ITZ [facility] External Provider IMG CT PROCEDURES Final Result documented in this encounter Visit Diagnoses Not on filedocumented in this encounter Additional Health Concerns Assessment Noted Time PHQ-9 Depression Total Score: 3 03/05/20 25 3:29 PM EDT documented as of this encounter
--- OUTSIDE RECORDS SUMMARY | 2025-03-18 17:40 | XMS_ITS | Encounter Summary ---
Author Organization [employer] Address [address] [facility] [address] [place] [address] Care Team Providers Care Sales Contractor Name Role Phone Unavailable Primary Care Provider Unavailabl e Reason for Visit * Reason Comments Med Refill Encounter Details Date Type Department Care Team (Late st Contact Info) Description 02/05/2025 Refill [facility] [address] [place], [place] [phone] Anna Hobson MD [address] [place] [address] [phone] Balanitis Social History Tobacco Use Types Packs/Day [...] Description 05/26/2025 3:30 PM EST Office Visit [facility] [address] [place], [place] [phone] Abril Lainez MD [address] [place], [place] [phone] documented as of this encounter Visit Diagnoses Diagnosis Balanitis Balanoposthitis documented in this encounter
== END 2025-03-18 14:15 | disposition home or self-care (01) ==
LOC: HO.CT 14:14
PROVIDERS: PCP Internal Medicine; Visit Provider Internal Medicine Gastroenterology
DX: K52.9 Noninfective gastroenteritis and colitis, unspecified (principal)
CPT/HCPCS: 74177; 82565; Q9967

== ENCOUNTER → 2025-03-18 14:15 | Outpatient (BNV) | payer BC, SELFPAY | PROVIDERS: PCP Internal Medicine; Visit Provider Radiology Diagnostic Radiology | DX: K52.9 Noninfective gastroenteritis and colitis, unspecified (principal); K57.30 Diverticulosis of large intestine without perforation or abscess without bleeding; K86.89 Other specified diseases of pancreas | CPT/HCPCS: 74177 ==

== ENCOUNTER 2025-04-08 15:08 | Outpatient (AMB) | payer BC, SELFPAY ==
[2025-04-08 15:18] VITALS: BP 126/70; PULSE 80; O2SAT 98
--- NOTE | 2025-04-08 15:18 | A.OFFVIS_ITS ---
Vital Signs 04/08/25 15:18 Height 5 ft 5 in BP 126/70 Pulse 80 Pulse Oximetry (%) 98 Intake Visit Reasons: MAT Allergies lobster Allergy (Severe, Verified 04/08/25 15:19) Swelling ciprofloxacin (From CIPRO) Allergy (Intermediate, Verified 04/08/25 15:19) HIVES/ITCH Penicillins (PCN) Allergy (Intermediate, Verified 04/08/25 15:19) HIVES HPI Comments Details: A 59 year old male presents for a follow-up visit r/t ISIDORO in sustained remission with buprenorphine-naloxone 8-2 mg, reports intermittent cravings and is requesting an increase. Denies use of opiates, alcohol, and other substances. 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 [facility] Medical History Anemia Hypercholesteremia Pre-diabetes Opioid use disorder in remission Alcohol use disorder Surgical History Hx of colonoscopy History of esophagogastroduodenoscopy (EGD) Social History Household Members: Spouse Housing: Apartment Are you a primary career technical education teacher to a significant other at home: No Do you presently have visiting nurse or other home services: No Alcohol intake: current Alcohol intake frequency: holidays/special occasions only Comment: pt refuses bed alarms Patient Tobacco Use Status: Current everyday Tobacco user Tobacco use type: Cigarette Substance Use Type: Crack/Cocaine Advance Directives Date on File: 09/11/22 service: No Current occupational status: employed Review of Systems Const All systems reviewed & are unremarkable except as noted in HPI and below Physical Exam Vital Signs: Last Vital Signs Pulse 80 04/08/25 15:18 BP 126/70 04/08/25 15:18 Pulse Ox 98 04/08/25 15:18 Const General: cooperative Assessment & Plan Assessment & Plan (1) Opioid use disorder in remission: Code(s): F11.91 - Opioid use, unspecified, in remission Category: Medical Plan The plan of care is to increase the dose of buprenorphine-naloxone from 8-2 mg daily to buprenorphine-naloxone 8-2 mg BID. Follow-up in 2 months or sooner if needed. Medications: Changed From buprenorphine-naloxone 8-2 mg (Suboxone) 1 film sublingually daily 1 film sublingual DAILY 30 days 30 ea 1RF To buprenorphine-naloxone 8-2 mg (Suboxone) One film sublingually twice per day 1 film sublingual BID 60 ea 1RF 30 days Patient Instructions: - Start on increased dose of buprenorphine-naloxone as prescribed. - Follow-up in 2 months or sooner if needed. - Call with questions, concerns, or to report side effects/new onset of symptoms to [facility]. - The patient verbalized understanding and agreed with plan of care. Coding Level of Care Code Est Pt Level 3 (00606) Diagnoses Opioid use disorder in remission F11.91
--- OUTSIDE RECORDS SUMMARY | 2025-04-08 21:20 | XMS_ITS | Encounter Summary ---
Author Organization [employer] Address [address] [facility] [address] [place] [address] Care Team Providers Care It Support Specialist Name Role Phone Abril Lainez MD Primary Care Provide r Reason for Visit * Reason Comments Med Refill Encounter Details Date Type Department Care Team (Late Contact Info) Description 01/19/2025 Refill [facility] [address] [place] [address] [phone] Abril Lainez MD [address] [place] [address] [phone] Balanitis Social History Tobacco Use Types Packs/Day [...] Description 05/26/2025 3:30 PM EST Office Visit [facility] [address] [place] [address] [phone] Abril Lainez MD [address] [place] [address] [phone] documented as of this encounter Visit Diagnoses Diagnosis Balanitis Balanoposthitis documented in this encounter Care Teams It Support Specialist Relationship Specialty Start Date End Date Abril Lainez MD [address] [place] [phone] PCP - General Internal Medicine 03/19/25 documented as of this encounter
--- OUTSIDE RECORDS SUMMARY | 2025-04-08 21:20 | XMS_ITS | Clinical Summary ---
Author Organization [employer] Address [address] [place] [address] Care Team Providers Care Kennel Aide Name Role Phone Abril Lainez MD Primary Care Provide r Allergies Active Allergy Reactions Criticality Noted Date [...] 1 5 01/13/20 26 Active gabapentin (Neurontin) 300 MG capsuleIndicatio ns:Neuropathy Take 1 capsule (300 mg) by mouth at bedtime. 30 capsule 2 5 03/05/20 26 Active ferrous gluconate (Fergon) 324 (38 Fe) MG tabletIndication s:Iron deficiency anemia, unspecified iron deficiency anemia type Take 1 tablet (324 mg) by mouth every other day. 15 tablet 1 5 03/05/20 26 Active ascorbic acid (Vitamin C) 500 MG tabletIndication s:Iron deficiency anemia, unspecified iron deficiency anemia type Take 1 tablet (500 mg) by mouth every other day. Take it with iron supplement 15 tablet 2 5 Active metFORMIN XR (Glucophage-XR) 500 MG 24 hr tabletIndication s:Prediabetes Take 1 tablet (500 mg) by mouth with evening meal. Do not crush, chew, or split. 30 tablet 3 10/31/03/05/20 26 Active fexofenadine (Mary) 180 MG tabletIndication s:Allergic dermatitis Take 1 tablet (180 mg) by mouth if needed each day (Allergies). 30 tablet 1 06/03/19 26 Active Active Problems Problem Noted Date Diagnosed [...] Department Care Team Description 03/18/2025 Orders Only [facility] External Provider, [facility] 03/05/2025 2:00 PM EDT Office Visit [facility] [address] [place] [phone] Abril Lainez MD Poor dentition; Gingivitis; Neuropathy; Iron deficiency anemia, unspecified iron deficiency anemia type; Prediabetes; Encounter for immunization; Allergic dermatitis; Dietary counseling; Exercise counseling 03/05/2025 Travel 03/04/2025 Telephone [facility] [address], [place] [phone] Mona Cancino MD chart prep 03/02/2025 Travel 02/25/2025 Patient Outreach [facility] [address] [place] [address] Abril Lainez MD Pre-visit Planning ([facility] unable to reach [facility] ) 02/25/2025 Patient Outreach [facility] [address] [place] [phone] Abril Lainez MD 02/25/2025 Patient Outreach [facility] [address] [place] [phone] Abril Lainez MD Pre-visit Planning (Pre-visit planning - unable to leave a message, mailbox full. ) 02/11/2025 Orders Only GENERIC EXTERNAL DATA DEPARTMENT Provider, Generic External Data 02/05/2025 Refill [facility] [address] [place] [phone] Anna oHbson MD Balanitis 02/02/2025 6:40 PM EDT [facility] [address] [address] Patti Montes CNP Neuropathy (Primary Dx); Other psoriasis 02/02/2025 Travel 01/19/2025 Refill [facility] [address] [address] Abril Lainez MD Balanitis 01/12/2025 7:40 PM EDT Office [facility] [address] [address] Anna Hobson MD Balanitis (Primary Dx); Prediabetes; Routine screening for STI (sexually transmitted infection); Dyslipidemia 01/12/2025 Travel from Last 3 Months Immunizations Immunization Administration [...] Description 05/26/2025 3:30 PM EST Office Visit [facility] [address] [place] [address] Abril Lainez MD [address] [place] [address] Health Maintenance Due Date Last Done Comments [...] 03/05/2026 03/05/2025 Depression Screening 03/05/2026 03/05/2025, 03/05/20 25 Tobacco Screening 03/05/2026 03/05/2025 Lipid Panel 02/11/2030 [...] Routine screening for STI (sexually transmitted infection) CHLAMYDIA/TRICHOMONAS /NEISSERIA GONORRHOEAE, PCR, URINE Routine 02/11/2025 3:12 PM EDT Routine screening for STI (sexually transmitted infection) HEMOGLOBIN A1C Routine 12/21/2024 11:00 AM EDT Balanitis from Last 3 Months or Most Recently Relevant to Health Maintenance Results * CT Enterography Abdomen Pelvis w/ Contrast (03/18/2025 3:26 PM EST) Anatomical Region Laterality Modality Computed Tomogra phy 03/18/2025 3:26 PM EST Narrative 03/18/2025 4:08 PM EST [place] [address] CT Scan Report Signed Patient: Alessio Bush MR#: [id number] : 1965 Acct:[id number] Age/Sex: 59 / M ADM Date: 03/18/25 Loc: HO.CT Attending Dr: Lyn Brown MD Ordering Physician: Lyn Brown MD Date of Service: 03/18/25 Procedure(s): CT enterography Accession Number(s): [id number] cc: Abril Lainez MD; Lyn Brown MD Report Number: [id number]: Total DLP = 298.00 mGy-cm Reason for [...] 03/18/25 1606 DD/ 1526 TD/TT: 03/18/25 1537 Director Of Property Management: ITZ Procedure Note Donotuseinterpreter, Image - 03/18/[address] [address] [address] Scan Report Signed Patient: Alessio BushMR#: [id number] : 1965Acct:[id number] Age/Sex: 59 / MADM Date: 03/18/25 Loc: HO.CT Attending Dr: Lyn Brown MD Ordering Physician: Lyn Brown MD Date of Service: 03/18/25 Procedure(s): CT enterography Accession Number(s): [id number] cc: bAril Lainez MD; Lyn Brown MD Report Number: [id number]: Total DLP = 298.00 mGy-cm Reason for [...] 03/18/25 1606 DD/ 1526 TD/TT: 03/18/25 1537 Director Of Property Management: ITZ [facility] External Provider IMG CT PROCEDURES Final Result * POCT Creatinine GFR (03/18/2025 2:25 PM EST) POCT Creatinine 0.8 0.5 - 1.4 mg/dL [facility] GFR POC >60 [facility] Comment:Chronic Kidney Disea se: Estimated GFR < 60 mL/min/[id number] Kidney Disease: Estimated GFR < 15 mL/min/1.73m2 03/18/2025 2:25 PM EST 03/18/2025 3:53 PM EST Narrative [facility] - 03/18/2025 3:55 PM EST [id number] [email or web address] Generic External Data Provider LAB POINT OF CARE TEST DOCKED DEVICE ORDERABLES Final Result [facility] [address] [place] [address] [phone] * Chlamydia/N. Gonorrhoeae, PCR, Urine (02/11/2025 3:12 PM EDT) CT PCR, Urine NOT DETECTED Not Detect. [facility] Comment:A not detected test result [...] NG PCR, Urine NOT DETECTED Not Detect. [facility] Comment:A not detected test result [...] 3:12 PM EDT 02/11/2025 4:13 PM EDT Anna Hobson MD LAB URINE ORDERABLES Final Result Performing Organization Address [facility] Co de Phone Number [facility] [address] [place] [phone] * Syphilis Screen (02/11/2025 3:12 PM EDT) Syphilis Screen Nonreactive Nonreactive [facility] Blood Venous blood specimen / Unknown 02/11/2025 3:12 PM EDT 02/11/2025 5:44 PM EDT Anna Hobson MD LAB BLOOD ORDERABLES Final Result Performing Organization Address [facility] de Phone Number [facility] [address] [place] [phone] * Vitamin B12 (Cobalamin) and Folate Panel, Serum (02/11/2025 3:12 PM EDT) Vitamin B12 479 200 - 900 pg/mL [facility] Comment:NORMAL 200-900 PG/ML INDETERMINATE 160-199 PG/ML DEFICIENT < 160 PG/ML Folate 14.7 > or = 4.0 ng/mL [facility] Comment:Reference Values:> o r = 4.0 ng/mL< 4.0 ng/mL suggests folate deficiency Methotrexate, aminopterin and folinic acid(leucovorin) are chemotherapeutic agents whose molecularstructures are similar to folate; therefore, the Architectfolate assay cannot be used for patients using these drugs. 02/11/2025 3:12 PM EDT 02/11/2025 5:44 PM EDT Generic External Data Provider LAB BLOOD ORDERAB LES Final Result Performing Organization Address [facility] Co de Phone Number [facility] [address] [place] [address] [phone] * TSH with Reflex to Free T4 (02/11/2025 3:12 PM EDT) Pathologist [facility] [place] TSH reflex Free T4 1.36 0.32 - 4.0 uIU/mL [facility] 02/11/2025 3:12 PM EDT 02/11/2025 5:44 PM EDT us Generic External Data Provider LAB BLOOD ORDERAB LES Final Result [facility] [address] [place] [phone] * (ABNORMAL) CBC auto differential (02/11/2025 3:12 PM EDT) [facility] White Blood Count 8.7 4.8 - 10.8 X10*3/uL [facility] Red Blood Count 3.96(L) 4.60 - 5.80 X10*6/uL [facility] Hemoglobin 10.2(L) 14.0 - 18.0 g/dl [facility] Hematocrit 33.0(L) 42.0 - 52.0 % [facility] Mean Corpuscular Volume 83.3 80.0 - 98.0 fL [facility] Mean Corpuscular Hemoglobin 25.8(L) 27.0 - 33.0 pg [facility] Mean Corpuscular HGB Conc 30.9(L) 31.0 - 36.0 g/dl [facility] Red Cell Distribution Width 13.3 11.0 - 16.0 % [facility] Platelet Count 289 160 - 400 X10*3/uL [facility] Mean Platelet Volume 11.5 9.4 - 12.4 fL [facility] Neutrophils Percent Auto 65.8 45 - 73 % [facility] Imm Gran Pct Auto 0.2 0.0 - 0.4 % [facility] Lymphocytes Percent Auto 20.9 20 - 40 % [facility] Monocytes Percent Auto 10.4 2 - 11 % [facility] Eosinophils Percent Auto 2.2 0 - 4 % [facility] Basophils Percent Auto 0.5 0 - 2 % [facility] NRBC Pct Auto 0.0 0.0 - 0.2 /100WBC [facility] Neutrophils Absolute Auto 5.8 2.0 - 8.3 x10*3/uL [facility] Imm Gran Abs Auto 0.02 0.00 - 0.03 X10*3/uL [facility] Lymphocytes Absolute Auto 1.8 1.2 - 4.9 X10*3/uL [facility] Monocytes Absolute Auto 0.9 0.1 - 1.2 X10*3/uL [facility] Eosinophils Absolute Auto 0.2 0.0 - 0.4 X10*3/uL [facility] Basophils Absolute Auto 0.0 0.0 - 0.2 X10*3/uL [facility] NRBC Abs Auto 0.000 0.0 - 0.012 X10*3/uL [facility] 02/11/2025 3:12 PM EDT 02/11/2025 4:14 PM EDT us Generic External Data Provider LAB BLOOD ORDERAB LES Final Result Performing Organization Address City/[facility]/ZIP Co de Phone Number [facility] [address] [place] [phone] * Hepatitis C Antibody with Reflex to HCV, RNA, Quantitative, Real-Time PCR (02/11/2025 3:12 PM EDT) Hepatitis C Antibody Nonreactive Nonreactive [facility] Comment:Antibodies to HCV no t detected; does not exclude early acuteHCV infection. Blood Venous blood specimen / Unknown 02/11/2025 3:12 PM EDT 02/11/2025 5:44 PM EDT us Anna Hobson MD LAB BLOOD ORDERABLES Final Result [facility] [address] [place] [phone] [phone] * HIV-1/2 Antigen and Antibodies, Fourth Generation, with Reflexes (02/11/2025 3:12 PM EDT) Pathologist [facility] [place] HIV AB/AG Nonreactive Nonreactive [facility] Comment:HIV-1 p24 Ag and/or HIV-1/HIV-2 Ab not detected.A test result that is nonreactive does not exclude thepossibility of exposure to or infection with HIV-1 and/orHIV-2. Nonreactive results in this assay for individualswith prior exposure to HIV-1 and/or HIV-2 may be due toantigen and antibody levels that are below the limit ofdetection of this assay.The [employer] HIV Ag/Ab Combo assay result andsupplemental assay results should be interpreted inconjunction with the patient's clinical presentation,history and other laboratory results. If the results areinconsistent with clinical evidence, additional testing issuggested to confirm the result. Blood Venous blood specimen / Unknown 02/11/2025 3:12 PM EDT 02/11/2025 5:44 PM EDT us Anna Hobson MD LAB BLOOD ORDERABLES Final Result Performing Organization Address [facility] Co de Phone Number [facility] [address] [place] [address] [phone] * (ABNORMAL) Ferritin (02/11/2025 3:12 PM EDT) Pathologist [facility] Ferritin 9(L) 20 - 250 ng/mL [facility] 02/11/2025 3:12 PM EDT 02/11/2025 5:44 PM EDT us Generic External Data Provider LAB BLOOD ORDERAB LES Final Result Performing Organization Address [facility] Co de Phone Number [facility] [address] [place] [address] [phone] * (ABNORMAL) Lipid Panel, Standard (02/11/2025 3:12 PM EDT) Triglycerides 274(H) <150 mg/dL [facility] Comment:Desirable Triglyceri de: less than 150 mg/dLBorderline High Triglyceride 150-199 mg/dLHigh Triglyceride: 200-499 mg/dLVery High Triglyceride: greater than or equal to 5OO mg/dL Cholesterol 191 <200 mg/dL [facility] Comment:Desirable Cholestero l: less than 200 mg/dLBorderline High Cholesterol: 200-239 mg/dLHigh Cholesterol: greater than 239 mg/dL LDL Cholesterol Calculated 90 <100 mg/dL [facility] Comment:Desirable LDL: less than 100 mg/dLNear Optimal/Above Optimal LDL: 110- 129 mg/dLBorderline High LDL: 130-159 mg/dLHigh LDL: 160-189 mg/dLVery High LDL: greater than or equal to 190 mg/dL HDL Cholesterol 47 >40 mg/dL [facility] Comment:Desirable HDL: great er than 40 mg/dL Note: This HDL assay may give artificially low results in patients with liver disease. Blood Venous blood specimen / Unknown 02/11/2025 3:12 PM EDT 02/11/2025 5:44 PM EDT us Anna Hobson MD LAB BLOOD ORDERABLES Final Result [facility] [address] [place] [phone] * (ABNORMAL) Basic Metabolic Panel (02/11/2025 3:12 PM EDT) Sodium 140 135 - 145 mmol/L [facility] Potassium 4.1 3.3 - 5.1 mmol/L [facility] Chloride 107 96 - 108 mmol/L [facility] Carbon Dioxide 26 22 - 29 mmol/L [facility] Anion Gap 11(L) 12 - 20 [facility] Urea Nitrogen (BUN) 17(H) 9 - 16 mg/dL [facility] Creatinine, Serum 0.91 0.5 - 1.4 mg/dL [facility] Estimated Glomerular Filt Rate >60 [facility] Comment:Chronic Kidney Disea se: Estimated GFR < 60 mL/min/[id number] Kidney Disease: Estimated GFR < 15 mL/min/1.73m2 Glucose 121(H) 60 - 115 mg/dL [facility] Calcium 8.8 8.4 - 10.2 mg/dL [facility] Blood Venous blood specimen / Unknown 02/11/2025 3:12 PM EDT 02/11/2025 5:44 PM EDT us Anna Hobson MD LAB BLOOD ORDERABLES Final Result Performing Organization Address [facility]/ZIP Co de Phone Number [facility] [address] [place] [phone] * (ABNORMAL) Hemoglobin A1c (12/21/2024 11:00 AM EDT) Hemoglobin A1c 6.4(H) <6.0 % [facility] Comment:Hemoglobin A1C Refer ence Range Adults: 4.8 - 6.0 % Non diabetic: < 6.0 % Goal: < 7.0 %Additional Action Suggested: > 8.0 %Note: Hemoglobin A1c results are invalid for patients with abnormal amounts of HbF. Blood transfusions may impact the HbA1c concentration in the patient sample. Estimated Average Glucose 137 mg/dL [facility] Comment:eAG = Estimated ave rage glucose which is %A1C expressed asaverage glucose, using the formula of the S0H-UrwffeiHapolxg Glucose study (ADAG), Diabetes Care, Vol.31,#8,Dec. 2007 Blood Venous blood specimen / Unknown 12/21/2024 11:00 AM EDT 12/21/2024 12:55 PM EDT us Abril Lucio MD LAB BLOOD ORDERABLES Final Result Performing Organization Address [facility]/ZIP Co de Phone Number [facility] [address] [place] [phone] from Last 3 Months or Most Recently Relevant to Health Maintenance Insurance BS PPO Care Teams Kennel Aide Relationship Specialty Start Date End Date Abril Lainez MD [address] [place] [phone] PCP - General Internal Medicine 03/19/25
--- OUTSIDE RECORDS SUMMARY | 2025-04-08 21:20 | XMS_ITS | Encounter Summary ---
Author Organization [employer] Address [address] [facility] [address] [place] [address] Care Team Providers Care Indirect Fire Infantryman Name Role Phone Abril Lainez MD Primary Care Provide r Reason for Visit * Reason Comments Med Refill Encounter Details Date Type Department Care Team (Late Contact Info) Description 02/05/2025 Refill [facility] [address] [place] [address] [phone] Anna Hobson MD [address] [place] [address] [phone] Balanitis Social History Tobacco Use Types Packs/Day [...] Description 05/26/2025 3:30 PM EST Office Visit [facility] [address] [place] [address] [phone] Abril Lainez MD [address] [place], [place] [phone] documented as of this encounter Visit Diagnoses Diagnosis Balanitis Balanoposthitis documented in this encounter Care Teams Indirect Fire Infantryman Relationship Specialty Start Date End Date Abril Lainez MD [address] [place] [phone] PCP - General Internal Medicine 03/19/25 documented as of this encounter
== END 2025-04-08 15:36 | disposition home or self-care (01) ==
LOC: HO.HCC 15:09
PROVIDERS: Visit Provider Clinical Nurse Specialist Psychiatric/Mental Health
DX: F11.91 Opioid use, unspecified, in remission (principal)
CPT/HCPCS: 99213